=== PATIENT | female | born 1950 | race Caucasian/White ===

== ENCOUNTER 2020-12-20 17:13 | Inpatient (IN) ==
[2020-12-20] MEDS ORDERED: ALBUT/IPRATROP 3MG/0.5MG NEB 3 ML VIAL NEB STA (17:22)
[2020-12-20] MEDS ORDERED: ONDANSETRON INJ 2 MG/ML 2 ML VIAL IV STA (17:22)
[2020-12-20] MEDS ORDERED: SODIUM CHLORIDE 0.9% 500 ML IV SCH (17:30)
[2020-12-20] MEDS: fentaNYL citrate 100 MCG/2 ML VIAL IV PRN ×2 (17:39→20:00)
[2020-12-20 17:43] LABS: Basophils # (auto) 0.01 K/uL (0-0.2); Basophils % (auto) 0.1 %; Eosinophils # (auto) 0.02 K/uL (0-0.5); Eosinophils % (auto) 0.2 %; Hematocrit (blood only) 48.8 % (37-47); Hemoglobin 15.9 g/dL (12.0-16.0); Immature Granulocytes # (auto) 0.02 K/uL (0.00-0.02); Immature Granulocytes % (auto) 0.2 %; Lymphocytes # (auto) 0.81 K/uL (1.2-3.4); Lymphocytes % (auto) 8.4 %; Mean Corpuscular Hemoglobin 29.6 pg (25-34); Mean Corpuscular Hgb Conc 32.6 g/dL (32-36); Mean Corpuscular Volume 90.7 fL (80-100); Mean Platelet Volume 9.9 fL (7.4-10.4); Monocytes # (auto) 0.72 K/uL (0.11-0.59); Monocytes % (auto) 7.5 %; Neutrophils # (auto) 8.04 K/uL (1.4-6.5); Neutrophils % (auto) 83.6 %; Platelet Count 264 K/uL (130-400); RDW Coefficient of Variation 15.7 % (11.5-14.5); RDW Standard Deviation 51.9 fL (36.4-46.3); Red Blood Count 5.38 M/uL (4.2-5.4); White Blood Count 9.62 K/uL (4.8-10.8)
--- NOTE | 2020-12-20 17:43 | Emergency Department Note ---
Impression & Plan Subcapital fracture of right hip, Acute exacerbation of chronic obstructive pulmonary disease, Acute respiratory acidosis, Fall ED Provider Note NAME: RJ COLLINS AGE: 70 SEX: F : 1950 ARRIVES VIA: Ambulance INFORMANT: Patient, EMS personnel ED PROVIDER(S): Kranthi Castillo DO CHIEF COMPLAINT: Fall HPI: The patient is a 70-year-old female who presented to the emergency department from a personal intermediate for an evaluation after a fall. The patient is a history of COPD. She states that she continues to smoke and still lives in [place] but I do believe the patient may have some degree of confusion. According to the prehospital personnel the patient does have a history of dementia. The patient fell while walking onto her right side. She had significant right hip pain. She also has been complaining of a cough which is productive. She states that she has a history of COPD. She has been compliant with her outpatient medicines according to the patient. She denies having any headache nausea or vomiting. She denies having any chest pain or difficulty with neck pain. The patient has no abdominal pain. She has no reported rectal bleeding. There is no reported fever. The patient's symptoms were moderate to severe. They worse with any movement. ROS: See above HPI for pertinent positives & negatives. A total of 10 systems reviewed and were otherwise negative. PAST MEDICAL HISTORY: See Below PAST SURGICAL HISTORY: See Below FAMILY HISTORY: See Below SOCIAL HISTORY: See Below HOME MEDICATIONS: See Below ALLERGIES: See Below VITALS: See Below PHYSICAL EXAMINATION: GENERAL: The patient is awake and alert. The patient is very anxious appearing. She appears to be uncomfortable. EYES: The conjunctivae are clear. The pupils are constricted bilaterally. EARS, NOSE, MOUTH AND THROAT: The nose is without any evidence of any deformity. NECK: The neck is nontender and supple. RESPIRATORY: Diminished breath sounds are noted throughout. Scattered rhonchi and wheezing was noted throughout. There was conversational dyspnea noted. CARDIOVASCULAR: Regular rate and rhythm noted there no murmurs rubs or gallops normal S1 normal S2. GASTROINTESTINAL: The abdomen is soft. Abdomen is nontender. MUSCULOSKELETAL/EXTREMITIES: There is no deformity of either lower extremity. There is significant pain with any range of motion testing of the right lower extremity. Pulses were symmetric in both feet. SKIN: There is no obvious evidence of any rash. There are no petechiae, pallor or cyanosis noted. NEUROLOGIC: Patient is awake and alert. She is oriented to person place but not time or situation. Strength was symmetric. MEDICAL DECISION MAKING: The patient is a 70-year-old female who presented to the emergency department for an evaluation after a fall. The patient has very severe cognitive deficit and dementia. She has a history of chronic tobacco use. The patient was found to have signs of subcapital hip fracture on x-ray. The patient was treated with a DuoNeb as well as pain medication in the emergency department. I discussed the patient's laboratory and radiographic studies with her. Her sister also came to the emergency department to be with her. I discussed the patient's findings with her as well. [facility] They have agreed to evaluate the patient in the emergency department for further management and disposition. Triage Nursing notes reviewed. Prior medical records reviewed Vital Signs: reviewed and remarkable for hypoxia, and elevated blood pressure Differential diagnosis: Fracture, dislocation, contusion, intra-abdominal, pneumothorax, intrathoracic, intracranial, neurologic, compartment syndrome, rhabdomyolysis, as well as other pathologies. ER treatment provided: See below Diagnostics interpreted by me: ECG: EKG was obtained in the emergency department. My interpretation is atrial fibrillation at 85 bpm. There were no PVCs noted. Anterior T wave abnormalities were noted. No previous tracing was available for comparison. Cardiac Monitoring: An order was placed for continuous cardiac monitoring. The monitor shows a rate of 86 bpm with atrial fibrillation rhythm. Laboratory studies: As stated above and show below. Imaging studies: See below Consultation(s): I discussed this case with Carmen Zambrano who [facility] They will evaluate the patient in the emergency department. Past Med/Surg History Medical History Alzheimer's dementia Atrial fibrillation CKD (chronic kidney disease) Cognitive deficits COPD (chronic obstructive pulmonary disease) Hypertension Osteoporosis Respiratory failure Syncope Tobacco use Social History Smoking Status: Current every day smoker Feels Safe at Home: Yes Allergies Allergies Allergy/AdvReac Type Severity Reaction Status Date / Time Penicillins Allergy Unknown Unknown Unverified 12/20/20 18:28 Sulfa (Sulfonamide Allergy Unknown Unknown Unverified 12/20/20 18:28 Antibiotics) acetaminophen Allergy Unknown Unverified 12/20/20 18:28 candesartan [From Atacand] Allergy Unknown Unverified 12/20/20 18:28 codeine Allergy Unknown Unverified 12/20/20 18:28 cyclobenzaprine Allergy Unknown Unverified 12/20/20 18:28 ibuprofen [From Motrin IB] Allergy Unknown Unverified 12/20/20 18:28 moxifloxacin Allergy Unknown Unverified 12/20/20 18:28 nitrofurantoin Allergy Unknown Unverified 12/20/20 18:28 [From Macrodantin] oxybutynin Allergy Unknown Unverified 12/20/20 18:28 propoxyphene Allergy Unknown Unverified 12/20/20 18:28 tramadol Allergy Unknown Unverified 12/20/20 18:28 Home Meds Home Medications Medication Instructions Recorded Confirmed apixaban [Eliquis] 2.5 mg PO BID 12/20/20 12/20/20 buspirone 5 mg PO BID 12/20/20 12/20/20 cholecalciferol (vitamin D3) 25 mcg PO QAM 12/20/20 12/20/20 [Vitamin D3] diltiazem HCl [Cardizem CD] 180 mg PO QAM 12/20/20 12/20/20 docusate sodium [Colace] 100 mg PO BID 12/20/20 12/20/20 donepezil [Aricept] 5 mg PO QAM 12/20/20 12/20/20 ferrous sulfate 325 mg PO BID 12/20/20 12/20/20 fluticasone furoate [Arnuity 1 inh INHALATION QAM 12/20/20 12/20/20 Ellipta] furosemide [Lasix] 20 mg PO 2XWK 12/20/20 12/20/20 gabapentin [Neurontin] 200 mg PO QAM 12/20/20 12/20/20 ipratropium-albuterol 3 ml INHALATION QID 12/20/20 12/20/20 ipratropium-albuterol [Combivent 1 puff INHALATION QID 12/20/20 12/20/20 Respimat] omeprazole 20 mg PO BID 12/20/20 12/20/20 simvastatin [Zocor] 10 mg PO HS 12/20/20 12/20/20 Results & Data (ED) Vital Signs Vital Signs - 24 hr 12/20/20 17:22 12/20/20 17:40 12/20/20 17:53 Temperature 37.0 C Temperature Source Oral Pulse Rate 98 H 90 Pulse Rate [Right Finger] 85 Pulse Rhythm Irregular Respiratory Rate 18 22 16 Respiratory Effort / Characteristics Non-Labored Spontaneous Blood Pressure 137/104 H Blood Pressure Mean 115 Blood Pressure Position Lying Pulse Oximetry 81 L 96 92 Oxygen Delivery Method Room Air Nasal Cannula Room Air Nasal Cannula Oxygen Flow Rate 3 4 Sepsis Recent Fever Within 48 Hours No Sepsis New/Unexplained Change in Mental Status N/A Sepsis Action Taken by Nursing No Action Required Home Medications Current Medication List: was personally reviewed by me Laboratory Data Attestation: I reviewed the patient's lab results. Result diagrams: 12/20/20 17:27 12/20/20 17:27 Lab Results 12/20/20 12/20/20 12/20/20 Range/Units 17:27 17:27 17:27 WBC 9.62 (4.8-10.8) K/uL RBC 5.38 (4.2-5.4) M/uL Hgb 15.9 (12.0-16.0) g/dL Hct 48.8 H (37-47) % MCV 90.7 (80-100) fL MCH 29.6 (25-34) pg MCHC 32.6 (32-36) g/dL RDW Std Deviation 51.9 H (36.4-46.3) fL RDW Coeff of Cheri 15.7 H (11.5-14.5) % Plt Count 264 (130-400) K/uL MPV 9.9 (7.4-10.4) fL Immature Gran % (Auto) 0.2 % Neut % (Auto) 83.6 % Lymph % (Auto) 8.4 % [place] % (Auto) 7.5 % Eos % (Auto) 0.2 % Baso % (Auto) 0.1 % Neut # (Auto) 8.04 H (1.4-6.5) K/uL Lymph # (Auto) 0.81 L (1.2-3.4) K/uL [place] # (Auto) 0.72 H (0.11-0.59) K/uL Eos # (Auto) 0.02 (0-0.5) K/uL Baso # (Auto) 0.01 (0-0.2) K/uL Immature Gran # (Auto) 0.02 (0.00-0.02) K/uL PT 10.3 (9.0-12.0) Seconds INR 1.0 (0.9-1.1) APTT (21.0-31.0) Seconds PTT Ratio VBG pH VBG pCO2 VBG pO2 VBG HCO3 VBG O2 Saturation VBG Base Excess Barometric Pressure Sodium 135 L (136-145) mmol/L Potassium 4.3 (3.5-5.1) mmol/L Chloride 104 (98-107) mmol/L Carbon Dioxide 27 (21-32) mmol/L Anion Gap 4.0 (3-11) BUN 24 H (7-18) mg/dl Creatinine 1.41 H (0.6-1.2) mg/dl Est Cr Clr Drug Dosing 28.8 ml/min Est GFR ( Amer) 43.0 ml/min Est GFR (Non-Af Amer) 37.1 ml/min BUN/Creatinine Ratio 16.8 (10-20) Glucose 97 (70-99) mg/dl Calcium 9.0 (8.5-10.1) mg/dl Magnesium 2.0 (1.8-2.4) mg/dl Total Bilirubin 0.5 (0.2-1) mg/dl AST 17 (15-37) U/L ALT 20 (12-78) U/L Alkaline Phosphatase 69 (45-117) U/L Total Creatine Kinase 98 (26-192) U/L Troponin I < 0.015 (0-0.045) ng/ml Total Protein 6.9 (6.4-8.2) gm/dl Albumin 3.4 (3.4-5.0) gm/dl Globulin 3.5 (2.5-4.0) gm/dl Albumin/Globulin Ratio 1.0 (0.9-2) TSH 1.980 (0.300-4.500) uIu/ml Specimen Hemolysis COVID-19 Eval Order 12/20/20 12/20/20 12/20/20 Range/Units 17:27 18:10 18:44 WBC (4.8-10.8) K/uL RBC (4.2-5.4) M/uL Hgb (12.0-16.0) g/dL Hct (37-47) % MCV (80-100) fL MCH (25-34) pg MCHC (32-36) g/dL RDW Std Deviation (36.4-46.3) fL RDW Coeff of Cheri (11.5-14.5) % Plt Count (130-400) K/uL MPV (7.4-10.4) fL Immature Gran % (Auto) % Neut % (Auto) % Lymph % (Auto) % [place] % (Auto) % Eos % (Auto) % Baso % (Auto) % Neut # (Auto) (1.4-6.5) K/uL Lymph # (Auto) (1.2-3.4) K/uL [place] # (Auto) (0.11-0.59) K/uL Eos # (Auto) (0-0.5) K/uL Baso # (Auto) (0-0.2) K/uL Immature Gran # (Auto) (0.00-0.02) K/uL PT (9.0-12.0) Seconds INR (0.9-1.1) APTT (21.0-31.0) Seconds PTT Ratio VBG pH Cancelled 7.25 L VBG pCO2 Cancelled 61 H VBG pO2 Cancelled 33 VBG HCO3 Cancelled 26 VBG O2 Saturation Cancelled < 60.0 VBG Base Excess Cancelled -2.1 Barometric Pressure Cancelled 734.8 Sodium (136-145) mmol/L Potassium (3.5-5.1) mmol/L Chloride (98-107) mmol/L Carbon Dioxide (21-32) mmol/L Anion Gap (3-11) BUN (7-18) mg/dl Creatinine (0.6-1.2) mg/dl Est Cr Clr Drug Dosing ml/min Est GFR ( Amer) ml/min Est GFR (Non-Af Amer) ml/min BUN/Creatinine Ratio (10-20) Glucose (70-99) mg/dl Calcium (8.5-10.1) mg/dl Magnesium (1.8-2.4) mg/dl Total Bilirubin (0.2-1) mg/dl AST (15-37) U/L ALT (12-78) U/L Alkaline Phosphatase (45-117) U/L Total Creatine Kinase (26-192) U/L Troponin I (0-0.045) ng/ml Total Protein (6.4-8.2) gm/dl Albumin (3.4-5.0) gm/dl Globulin (2.5-4.0) gm/dl Albumin/Globulin Ratio (0.9-2) TSH (0.300-4.500) uIu/ml Specimen Hemolysis COVID-19 Eval Order Covid19 at [facility] 12/20/20 Range/Units 18:44 WBC (4.8-10.8) K/uL RBC (4.2-5.4) M/uL Hgb (12.0-16.0) g/dL Hct (37-47) % MCV (80-100) fL MCH (25-34) pg MCHC (32-36) g/dL RDW Std Deviation (36.4-46.3) fL RDW Coeff of Cheri (11.5-14.5) % Plt Count (130-400) K/uL MPV (7.4-10.4) fL Immature Gran % (Auto) % Neut % (Auto) % Lymph % (Auto) % [place] % (Auto) % Eos % (Auto) % Baso % (Auto) % Neut # (Auto) (1.4-6.5) K/uL Lymph # (Auto) (1.2-3.4) K/uL [place] # (Auto) (0.11-0.59) K/uL Eos # (Auto) (0-0.5) K/uL Baso # (Auto) (0-0.2) K/uL Immature Gran # (Auto) (0.00-0.02) K/uL PT (9.0-12.0) Seconds INR (0.9-1.1) APTT 25.1 (21.0-31.0) Seconds PTT Ratio 1.0 VBG pH VBG pCO2 VBG pO2 VBG HCO3 VBG O2 Saturation VBG Base Excess Barometric Pressure Sodium (136-145) mmol/L Potassium (3.5-5.1) mmol/L Chloride (98-107) mmol/L Carbon Dioxide (21-32) mmol/L Anion Gap (3-11) BUN (7-18) mg/dl Creatinine (0.6-1.2) mg/dl Est Cr Clr Drug Dosing ml/min Est GFR ( Amer) ml/min Est GFR (Non-Af Amer) ml/min BUN/Creatinine Ratio (10-20) Glucose (70-99) mg/dl Calcium (8.5-10.1) mg/dl Magnesium (1.8-2.4) mg/dl Total Bilirubin (0.2-1) mg/dl AST (15-37) U/L ALT (12-78) U/L Alkaline Phosphatase (45-117) U/L Total Creatine Kinase (26-192) U/L Troponin I (0-0.045) ng/ml Total Protein (6.4-8.2) gm/dl Albumin (3.4-5.0) gm/dl Globulin (2.5-4.0) gm/dl Albumin/Globulin Ratio (0.9-2) TSH (0.300-4.500) uIu/ml Specimen Hemolysis COVID-19 Eval Order Administered Medications Fentanyl Citrate (Fentanyl Citrate 100 Mcg/2 Ml Vial) 25 mcg IV Q15M PRN PRN Reason: Pain Stop: 01/03/21 17:21 Last Admin: 12/20/20 17:39 Dose: 25 mcg Documented by: [id number] Discontinued Medications Albuterol (Albut/Ipratrop 3mg/0.5mg Neb 3 Ml Vial) 3 ml NEB NOW STA Stop: 12/20/20 17:23 Last Admin: 12/20/20 17:52 Dose: 3 ml Documented by: [id number] Sodium Chloride (Nss) 500 mls @ 999 mls/hr IV .Q31M TAMEKA Stop: 12/20/20 18:00 Last Admin: 12/20/20 17:39 Dose: 999 mls/hr Documented by: [id number] Ondansetron HCl (Ondansetron Inj 2 Mg/Ml 2 Ml Vial) 4 mg IV NOW STA Stop: 12/20/20 17:23 Last Admin: 12/20/20 17:39 Dose: 4 mg Documented by: [id number] Imaging Data Radiologist's Impression: Cervical Spine CT 12/20/20 17:22 CT OF THE CERVICAL SPINE CLINICAL HISTORY: Neck pain status post trauma COMPARISON STUDY: No previous studies for comparison. CT DOSE: TECHNIQUE: CT scan of the cervical spine was performed from the skull base to the thoracic inlet. Images are reviewed in the axial, sagittal, and coronal planes. IV contrast was not administered for this examination. A dose lowering technique was utilized adhering to the principles of ALARA. FINDINGS: There is no apical pneumothorax. There is pulmonary emphysema with septal edema The prevertebral soft tissues are normal. No acute fractures or traumatic subluxations are visualized. Mild C7-T1 endplate deformities are likely chronic. There are multilevel degenerative changes. There are postsurgical changes of a C3-4 discectomy with metallic implants. There is C4-C6 spinal fusion. IMPRESSION: 1. Postsurgical and degenerative change 2. No acute fractures or traumatic subluxations 3. Pulmonary emphysema with apical septal edema ACT 112: Negative or not required by law. Electronically signed by: Baljit Cronin M.D. 12/20/2020 7:22 PM Chest X-Ray 12/20/20 17:22 XR chest 1V portable CLINICAL HISTORY: weakness COMPARISON STUDY: No previous studies for comparison. FINDINGS: The heart is enlarged. Slight prominence of the upper lobe vessels may be secondary to the AP supine technique Small right pleural effusion. There are right basilar atelectatic changes. Pulmonary emphysema is suspected.[ IMPRESSION: 1. Cardiomegaly and suspected pulmonary emphysema 2. Small right pleural effusion 3. Suspected pulmonary arterial hypertension 4. No evidence of lobar consolidation ACT 112: Negative or not required by law. Electronically signed by: Baljit Cronin M.D. 12/20/2020 5:[address] 12/20/20 17:22 CT head/brain wo con CLINICAL HISTORY: Head pain status post trauma COMPARISON STUDY: No previous studies for comparison. TECHNIQUE: Axial CT of the brain is performed from the vertex to the skull base. IV contrast was not administered for this examination. A dose lowering technique was utilized adhering to the principles of ALARA. CT DOSE: 1188.61 mGy.cm FINDINGS: No intra or extra-axial mass lesions are visualized. There is no CT evidence of acute cortical infarction. There is no evidence of midline shift. There is no acute hemorrhage. No calvarial fractures are visualized. There are patchy white matter hypodensities likely on a small vessel basis. There is no evidence of pathologic ventricular dilatation. There is mild polypoid mucosal thickening within the base the left maxillary sinus. IMPRESSION: No acute intracranial findings ACT 112: Negative or not required by law. Electronically signed by: Baljit Cronin M.D. 12/20/2020 7:18 PM Hip/Pelvis X-Ray 12/20/20 17:22 XR hip RT 2V w pelvis CLINICAL HISTORY: Pain status post trauma COMPARISON: None DISCUSSION: There is a subcapital right hip fracture. There is no dislocation. There is no SI joint diastases. There is no symphysis diastases. Degenerative changes are present within the lumbar spine. There are surgical clips within the pelvis. IMPRESSION: Subcapital right hip fracture. ACT 112: Negative or not required by law. Electronically signed by: Baljit Cronin M.D. 12/20/2020 6:00 PM Discharge Plan Visit Data Chief Complaint: Illness Stated Complaint: HIP & FOOT PAIN ED Provider: Kranthi Castillo Discharge Problem: Subcapital fracture of right hip, Acute exacerbation of chronic obstructive pulmonary disease, Acute respiratory acidosis, Fall Patient Disposition: Being Evaluated by Hospitalist Condition: Good Discharge Instructions Interventions: ED Discharge Assessment Last Done: 12/20/20 18:45 Forms Stand Alone Forms: [facility] Prescriptions Prescriptions: No Action buspirone 5 mg tablet 5 mg PO BID RF: 0 ipratropium-albuterol 0.5 mg-3 mg(2.5 mg base)/3 mL solution for nebulization 3 ml INHALATION QID RF: 0 donepezil [Aricept] 5 mg tablet 5 mg PO QAM RF: 0 diltiazem HCl [Cardizem CD] 180 mg capsule,extended release 24hr 180 mg PO QAM RF: 0 simvastatin [Zocor] 10 mg tablet 10 mg PO HS RF: 0 docusate sodium [Colace] 100 mg Capsule 100 mg PO BID RF: 0 omeprazole 20 mg capsule,delayed release(DR/EC) 20 mg PO BID RF: 0 furosemide [Lasix] 20 mg tablet 20 mg PO 2XWK RF: 0 gabapentin [Neurontin] 100 mg capsule 200 mg PO QAM RF: 0 ferrous sulfate 325 mg (65 mg iron) Tablet,Delayed Release (Dr/Ec) 325 mg PO BID RF: 0 cholecalciferol (vitamin D3) [Vitamin D3] 25 mcg (1,000 unit) Tablet 25 mcg PO QAM RF: 0 Eliquis 2.5 mg tablet 2.5 mg PO BID RF: 0 Arnuity Ellipta 100 mcg/actuation blister with device 1 inh INHALATION QAM RF: 0 Combivent Respimat 20-100 mcg/actuation mist 1 puff INHALATION QID RF: 0 Referrals Referrals: [facility] [Primary Care Provider] - Discharge Problem: Subcapital fracture of right hip Qualifiers: Encounter type: initial encounter Fracture type: closed Qualified Code(s): S72.011A - Unspecified intracapsular fracture of right femur, initial encounter for closed fracture Fall Qualifiers: Encounter type: initial encounter Qualified Code(s): W19.XXXA - Unspecified fall, initial encounter
[2020-12-20 17:51] LABS: Prothrombin Time 10.3 Seconds (9.0-12.0)
--- NOTE | 2020-12-20 18:00 | XRay Report ---
XR chest 1V portable CLINICAL HISTORY: weakness COMPARISON STUDY: No previous studies for comparison. FINDINGS: The heart is enlarged. Slight prominence of the upper lobe vessels may be secondary to the AP supine technique Small right pleural effusion. There are right basilar atelectatic changes. Pulmon hasmukh emphysema is suspected.[ IMPRESSION: 1. Cardiomegaly and suspected pulmonary emphysema 2. Small right pleural effusion 3. Suspected pulmonary arterial hypertension 4. No evidence of lobar consolidation ACT 112: Negative or not required by law. Electronically signed by: Baljit Cronin M.D. 12/20/2020 5:59 PM
--- NOTE | 2020-12-20 18:01 | XRay Report ---
XR hip RT 2V w pelvis CLINICAL HISTORY: Pain status post trauma COMPARISON: None DISCUSSION: There is a subcapital right hip fracture. There is no dislocation. There is no SI joint d iastases. There is no symphysis diastases. Degenerative changes are present within the lumbar spine. There are surgical clips within the pelvis. IMPRESSION: Subcapital right hip fracture. ACT 112: Negative or not required by law. Electronically signed by: Baljit Cronin M.D. 12/20/2020 6:00 PM
[2020-12-20 18:12] LABS: Alanine Aminotransferase 20 U/L (12-78); Albumin Level 3.4 gm/dl (3.4-5.0); Aspartate Aminotransferase 17 U/L (15-37); BUN Creatinine Ratio 16.8 (10-20); Blood Urea Nitrogen 24 mg/dl (7-18); Carbon Dioxide 27 mmol/L (21-32); Chloride 104 mmol/L (98-107); Creatinine Clr Calc Pharmacy 28.8 ml/min; Est GFR (Non-African American) 37.1 ml/min; Glucose 97 mg/dl (70-99); Potassium 4.3 mmol/L (3.5-5.1); Sodium 135 mmol/L (136-145)
[2020-12-20 18:17] LABS: Alkaline Phosphatase 69 U/L (45-117); Bilirubin,Total 0.5 mg/dl (0.2-1); Creatine Kinase 98 U/L (26-192); Globulin 3.5 gm/dl (2.5-4.0); Total Protein 6.9 gm/dl (6.4-8.2); Troponin I < 0.015 ng/ml (0-0.045)
[2020-12-20 18:53] LABS: Base Excess VBG -2.1 mEq/L; HCO3 VBG 26 mmol/L; PCO2 VBG 61 mmHg (38-50); PO2 VBG 33 mmHg; pH VBG 7.25 (7.36-7.41)
[2020-12-20 18:58] LABS: Oxygen Saturation VBG < 60.0 %
[2020-12-20 19:03] LABS: Partial Thromboplastin Time 25.1 Seconds (21.0-31.0)
--- NOTE | 2020-12-20 19:20 | CT Scan Report ---
CT head/brain wo con CLINICAL HISTORY: Head pain status post trauma COMPARISON STUDY: No previous studies for comparison. TECHNIQUE: Axial CT of the brain is performed from the vertex to the skull base. IV contrast was not administered for this examination. A dose lowering technique was utilized adhering to the principles of ALARA. CT DOSE: 1188.61 mGy.cm FINDINGS: No intra or extra-axial mass lesions are visualized. There is no CT evidence of acute cortical infarc tion. There is no evidence of midline shift. There is no acute hemorrhage. No calvarial fractures ar e visualized. There are patchy white matter hypodensities likely on a small vessel basis. There is no evidence of pathologic ventricular dilatation. There is mild polypoid mucosal thickening within the base the left maxillary sinus. IMPRESSION: No acute intracranial findings ACT 112: Negative or not required by law. Electronically signed by: Baljit Cronin M.D. 12/20/2020 7:18 PM
--- NOTE | 2020-12-20 19:23 | CT Scan Report ---
CT OF THE CERVICAL SPINE CLINICAL HISTORY: Neck pain status post trauma COMPARISON STUDY: No previous studies for comparison. CT DOSE: TECHNIQUE: CT scan of the cervical spine was performed from the skull base to the thoracic inlet. Ame ges are reviewed in the axial, sagittal, and coronal planes. IV contrast was not administered for thi s examination. A dose lowering technique was utilized adhering to the principles of ALARA. FINDINGS: There is no apical pneumothorax. There is pulmonary emphysema with septal edema The prevertebral soft tissues are normal. No acute fractures or traumatic subluxations are visualize d. Mild C7-T1 endplate deformities are likely chronic. There are multilevel degenerative changes. There are postsurgical changes of a C3-4 discectomy with m etallic implants. There is C4-C6 spinal fusion. IMPRESSION: 1. Postsurgical and degenerative change 2. No acute fractures or traumatic subluxations 3. Pulmonary emphysema with apical septal edema ACT 112: Negative or not required by law. Electronically signed by: Baljit Cronin M.D. 12/20/2020 7:22 PM
[2020-12-20 20:38] LABS: Appearance Urine Slightly Cloudy (Clear); Bilirubin Urine Negative (Negative); Blood Urine 3+ (Negative); Color Urine Yellow; Glucose Urine UA Negative (Negative); Ketones Urine Negative (Negative); Leukocyte Esterase Urine Trace (Negative); Nitrite Urine Negative (Negative); Protein Urine 3+ (Negative); Urobilinogen Urine Negative (Negative)
[2020-12-20 20:44] LABS: Epithelial Cell Urine >30 /lpf (0-5); WBC Urine >30 /hpf (0-5)
[2020-12-20 20:45] LABS: Amorphous Sediment Urine Present (None Prsent); Bacteria Urine Negative (Negative)
--- NOTE | 2020-12-20 22:11 | History and Physical Report ---
CHIEF COMPLAINT: Status post fall and right hip fracture. HISTORY OF PRESENT ILLNESS: A 70-year-old female with past medical history significant for history of COPD, history of respiratory failure, history of hyperlipidemia, atrial fibrillation, history of CHF, hypertension, severe malnutrition, chronic kidney disease stage III, osteoporosis, Alzheimer's dementia, ongoing tobacco abuse, generalized anxiety disorder. Currently, the patient is at [facility]. Sister is in the room. As per sister, the patient has dementia. She can remember her remote memory, but for recent memory, she has difficulty. The patient is alert to name and place, does not know the dates. The patient is supposed to be in wheelchair. She can walk a little bit with holding the back of the wheelchair. She is supposed to not walk much, but she seems to be walking and she fell today. The patient does not remember exactly how she fell, she fell on the right side and has a right hip fracture. Otherwise, the patient denies any other complaints. Denies any chest pain, no shortness of breath. She has ongoing chronic cough. Smokes 1 pack of cigarettes daily still, okay for nicotine patch. Denies any fever or chills. No nausea, no abdominal pain, no headache, no blurred visions, no earache, no runny nose, no sore throat. She is alert, oriented, can swallow okay. No abdominal pain, normal bowel and bladder movements. No burning micturition. She has on and off swelling in the legs and she is on Lasix. Currently resting comfortably and hemodynamically stable. Oxygen saturations are ranging from 85- 90. She is placed on oxygen and venous blood gasses showed pH of 7.25. Creatinine of 1.4, which seems to be at her baseline. SARS-CoV-2 PCR negative and as per sister, the patient had COVID vaccine, and they are okay for surgery and the patient is a full code. ALLERGIES: TRAMADOL, PENICILLIN, SULFA ANTIBIOTICS, ACETAMINOPHEN, CANDESARTAN, CODEINE, CYCLOBENZAPRINE, IBUPROFEN, MOXIFLOXACIN, NITROFURANTOIN, OXYBUTYNIN, PROPOXYPHENE. PAST MEDICAL HISTORY: As mentioned above. PAST SURGICAL HISTORY: Cholecystectomy, colonoscopy, EGD, shoulder joint exploration, freeing of bowel adhesions, bladder tuck surgery, repair of rotator cuff on the right side x2, appendectomy, revision of cervical spine posterior, total abdominal hysterectomy with removal of the tubes. MEDICATIONS: The patient is on Eliquis 2.5 mg p.o. b.i.d., buspirone 2.5 mg p.o. b.i.d., vitamin D 25 mcg p.o. a.m., diltiazem 180 mg p.o. a.m., Colace 100 mg p.o. b.i.d., Aricept 5 mg p.o. a.m., ferrous sulfate 325 mg p.o. b.i.d., Arnuity Ellipta 1 inhalation a.m., Lasix 20 mg p.o. 2 times a week, gabapentin 200 mg p.o. a.m., DuoNeb q.i.d., Combivent Respimat 1 puff q.i.d., omeprazole 20 mg p.o. b.i.d., simvastatin 10 mg p.o. at bedtime. FAMILY HISTORY: Significant for mother had COPD, nose cancer, heart disease, blood clot, hyperlipidemia. Brother has a renal transplant and lung cancer. SOCIAL HISTORY: Currently living at the [facility]. Smokes 1 pack a day for many years. No alcohol use. No drug use. REVIEW OF SYSTEMS: As per HPI. Rest of the review of systems is negative. PHYSICAL EXAMINATION: GENERAL: The patient is moderately built, currently not in acute distress. VITAL SIGNS: Temperature 37, pulse 91, respiration 28, blood pressure 141/80, oxygen 93%. HEENT: Pupils equal, round and reactive to light. Oral mucosa dry. NECK: No JVD. No neck masses. CARDIOVASCULAR: S1 and S2 heard. Regular rate and rhythm. No murmur, no gallop. RESPIRATORY SYSTEM: Normal AP diameter. No accessory muscle use. Bilateral wheezing heard. No crackles. ABDOMEN: Soft, bowel sounds present, nontender, nondistended. NEUROLOGIC: Cranial nerves II-XII grossly intact, nonfocal. EXTREMITIES: No edema, no erythema. Right lower extremity is slightly shortened. LABORATORY DATA: WBC 9.6, hemoglobin 15.9, hematocrit 48.8, platelets 264. PT 10.3, INR 1, APTT 25.1. Venous blood; pH of 7.25, pCO2 of 61, pO2 of 33, bicarbonate 26. Sodium 135, potassium 4.3, chloride 104, bicarb 27, BUN 24, creatinine 1.4, serum glucose 97, calcium 9.0, magnesium 2, total bilirubin 0.5, AST 17, ALT 20, alkaline phosphatase 69, total creatine kinase 98. Troponin I less than 0.015. TSH 1.9. SARS-CoV-2 PCR negative. IMAGING STUDIES: Hip and pelvic x-ray: Subcapital right hip fracture. CT of the head: No CT evidence of acute cortical infarction. No evidence of midline shift. No acute hemorrhage. Patchy white matter hypodensities likely on a small vessel basis. No evidence of pathological ventricular dilatation. Chest x-ray: Cardiomegaly and suspected pulmonary emphysema, small right pleural effusion, suspected pulmonary artery hypertension. No evidence of lobar consolidation. Cervical spine CT: No acute findings. ELECTROCARDIOGRAM: Atrial fibrillation, rate of 85, nonspecific T abnormalities. ASSESSMENT AND PLAN: This is a 70-year-old female with history of chronic obstructive pulmonary disease, asthma, dementia, atrial fibrillation, hypertension, presents with a fall and a right hip fracture. 1. Mechanical fall and right hip fracture: The patient is wheelchair bound, can walk a little bit with holding the back of the wheelchair. Comes from [facility]. Currently seems to be in mild chronic obstructive pulmonary disease exacerbation. We will need pulmonary preoperative clearance. We will consult pulmonary in the a.m. and also orthopedics. Pain control. We will keep her n.p.o. and monitor in the med-telemetry. 2. Mild chronic obstructive pulmonary disease exacerbation with wheezing, ongoing tobacco abuse: No obvious signs of pneumonia. Start her on doxycycline. We will give her a dose of steroid and continue home nebulizers around the clock and inhalers. p.r.n. nebulizers. Consult pulmonary in the a.m. for further recommendations and continuation of steroids. We will follow the arterial blood gasses. We will place her on BiPAP for now. 3. History of atrial fibrillation: Continue diltiazem. Hold her Eliquis for any procedures. 4. History of lower extremity edema: On Lasix 2 times a week. Though we do not have any echocardiogram on record, getting gentle fluids, we will monitor for any volume overload. 5. Ongoing tobacco abuse: Needs counseling. Place her on nicotine patch. 6. Alzheimer dementia: On Aricept, which we will continue. Monitor for any delirium. 7. Chronic kidney disease stage III: Creatinine 1.4, seems to be at baseline. We will follow the laboratories. 8. Generalized anxiety disorder: Continue buspirone. 9. Gastroesophageal reflux disease: On omeprazole. 10. UTI Possible. Follow cx. Empiric Rocephin. 11. Deep vein thrombosis prophylaxis: Holding her Eliquis for any possible procedures. Restart as soon as possible. DISPOSITION: Admit to [facility]. Expect discharge -- may need placement. Social service to help with discharge planning. Level 1 full code as per my discussion with the sister. Addendum: adjusted bipap settings. Follow abg. In the morning patient feeling better. Job ID: [id number] [email or web address]
[2020-12-20] MEDS ORDERED: SODIUM CHLORIDE 0.9% 1000ML 1,000 ML IV SCH (22:17)
[2020-12-20] MEDS ORDERED: ACETAMINOPHEN 325 MG TAB PO PRN (22:17)
[2020-12-20] MEDS ORDERED: ONDANSETRON INJ 2 MG/ML 2 ML VIAL IV PRN (22:17)
[2020-12-20] MEDS ORDERED: NITROGLYCERIN SL 0.4 MG/TAB TAB SL PRN (22:17)
[2020-12-20] MEDS ORDERED: IPRATROPIUM BROMIDE/ALBUTEROL respimat INH INH SCH (22:17)
[2020-12-20] MEDS ORDERED: Albuterol HFA 8 GM Inhaler (Combivent Respimat P&T Subs) INH PRN (22:40)
[2020-12-20] MEDS ORDERED: Ipratropium HFA Inhaler (Combivent Respimat P&T Subs) INH PRN (22:41)
[2020-12-20] MEDS ORDERED: methylPREDNISolone 40 MG in SYRINGE 0 ML IV ONE (23:00)
[2020-12-20] MEDS: ALBUT/IPRATROP 3MG/0.5MG NEB 3 ML VIAL INH SCH (23:08)
[2020-12-21] MEDS: busPIRone 5 MG TAB PO SCH ×3 (00:39→20:45)
[2020-12-21 00:40] LABS: iSTAT Allen Test Pass; iSTAT Arterial Blood Gas HCO3 25 meg/L (19-24); iSTAT Arterial Blood Gas pCO2 60 mmHg (35-46); iSTAT Arterial Blood Gas pH 7.23 (7.35-7.45); iSTAT Arterial Blood Gas pO2 43 mmHg (80-95); iSTAT Carbon Dioxide 27 mmol/L (24-31); iSTAT FiO2 60 %; iSTAT Site R Radial
[2020-12-21] MEDS: DOCUSATE SODIUM 100 MG CAP PO SCH ×3 (00:40→20:44)
[2020-12-21] MEDS: PANTOprazole 40 MG TAB PO SCH ×3 (00:41→20:44)
[2020-12-21] MEDS: FERROUS SULFATE 325 MG TAB PO SCH ×3 (00:41→20:44)
[2020-12-21] MEDS: SIMVASTATIN 10 MG TAB PO SCH ×2 (00:42→20:46)
[2020-12-21] MEDS: DOXYCYCLINE HYCLATE 100 MG in DEXTROSE 5% 100 ML IV SCH ×3 (00:44→22:59)
[2020-12-21] MEDS ORDERED: FUROSEMIDE 20 MG in SYRINGE 0 ML IV SCH (01:15)
[2020-12-21 01:41] LABS: iSTAT Arterial Blood Gas HCO3 24 meg/L (19-24); iSTAT Arterial Blood Gas pCO2 57 mmHg (35-46); iSTAT Arterial Blood Gas pH 7.23 (7.35-7.45); iSTAT Arterial Blood Gas pO2 134 mmHg (80-95); iSTAT Carbon Dioxide 26 mmol/L (24-31); iSTAT FiO2 60 %; iSTAT Site R Brachial
[2020-12-21 05:23] LABS: Basophils # (auto) 0.01 K/uL (0-0.2); Basophils % (auto) 0.1 %; Eosinophils # (auto) 0.01 K/uL (0-0.5); Eosinophils % (auto) 0.1 %; Immature Granulocytes # (auto) 0.03 K/uL (0.00-0.02); Immature Granulocytes % (auto) 0.3 %; Lymphocytes # (auto) 0.31 K/uL (1.2-3.4); Lymphocytes % (auto) 2.8 %; Mean Corpuscular Hemoglobin 29.6 pg (25-34); Mean Corpuscular Hgb Conc 31.9 g/dL (32-36); Mean Corpuscular Volume 92.9 fL (80-100); Mean Platelet Volume 9.7 fL (7.4-10.4); Monocytes # (auto) 0.27 K/uL (0.11-0.59); Monocytes % (auto) 2.4 %; Neutrophils # (auto) 10.41 K/uL (1.4-6.5); Neutrophils % (auto) 94.3 %; Platelet Count 218 K/uL (130-400); RDW Coefficient of Variation 15.7 % (11.5-14.5); RDW Standard Deviation 53.2 fL (36.4-46.3); Red Blood Count 5.06 M/uL (4.2-5.4); White Blood Count 11.04 K/uL (4.8-10.8)
[2020-12-21 05:48] LABS: BUN Creatinine Ratio 17.3 (10-20); Calcium 8.7 mg/dl (8.5-10.1); Creatinine Clr Calc Pharmacy 27.8 ml/min; Est GFR (African American) 41.2 ml/min; Est GFR (Non-African American) 35.6 ml/min; Magnesium 2.1 mg/dl (1.8-2.4); Potassium 4.8 mmol/L (3.5-5.1)
[2020-12-21 06:35] LABS: Base Excess ABG -3.7 mEq/L (-9-1.8); HCO3 ABG 24 mmol/L (19-24); Oxygen Saturation ABG 95.4 % (90-95); PCO2 ABG 52 mmHg (35-46); PO2 ABG 82 mmHg (80-95); pH ABG 7.28 (7.35-7.45)
[2020-12-21 06:36] LABS: Allen Test Pos (Pos)
[2020-12-21] MEDS: ALBUT/IPRATROP 3MG/0.5MG NEB 3 ML VIAL INH SCH ×4 (07:34→19:10)
--- NOTE | 2020-12-21 07:38 | Pulmonary Consultation ---
Date of Consultation December 21, 2020 Assessment & Plan (1) Acute respiratory failure with hypoxia and hypercapnia: ABG 12/21/2020: 7.28/52/82 on 40% BiPAP Chest x-ray 12/20/2020 personally reviewed: Portable film, hyperinflated, flattened diaphragm, blunting of the right costophrenic angle, bilateral costophrenic angles are clean, enlarged cardiac silhouette, patchy opacities in the right lung zone. Enlarged hilar vascular markings --Acute on chronic hypercapnic hypoxic respiratory failure Etiology is multifactorial Underlying severe COPD with space ventilation being the cause of the chronic Acute could be because of pain medication she got from the hip fracture. Patient has underlying CKD as well but her bicarb in the serum is 26. Recommend continue with O2 supplementation but not to over oxygenate the patient. Keep it around 88-92% Over oxygenating the patient will resulting decreased respiratory drive leading to hypercapnia BiPAP nightly and as needed shortness of breath. --COPD with emphysema Not on any inhalers at home Start the patient on LAMA/LABA as well as ICS. Recommend patient to be discharged on Trelegy inhaler to be used on a daily basis --Current smoker Patient is adamant that she is not going to quit smoking Importance of quitting smoking again explained to the patient especially given that she is on 3 L nasal cannula and actively smoking Plan: Anoro added to Arnuity. Continue with BiPAP nightly and as needed shortness of breath. Patient will benefit from pulmonary follow-up as an outpatient to have PFTs done. I think she will be a candidate for trilogy machine also which can be done as an outpatient Patient has intermediate risk for any surgery given the chronic hypoxic hypercapnic respiratory failure as well as underlying severe COPD. Recommend 6-8 mL/kg of tidal volume and BiPAP post extubation. There is no absolute contraindication from pulmonary perspective to have surgery done. Please note the above document was generated using voice recognition software. It may contain grammatical, syntax or spelling errors.Any formal questions or concerns about the content, text or information contained within the body of thi s dictation should be directly addressed to the provider for clarification. (2) COPD with emphysema: (3) Current smoker: History of Present Illness Attending Physician: Jean Pierre Cartagena MD History of Present Illness 70-year-old female past medical history of COPD, A. fib on Eliquis, hypertension, CKD, Alzheimer's disease, anxiety disorder was admitted to the hospital as she fell and has right hip fracture. Pulmonary were consulted for preop evaluation. At the time of examination patient states that she is feeling better compared to when she came to the ER. Her breathing is a bit better. She has been coughing but not bringing up any phlegm. Denies any hemoptysis. She states she smokes approximately 10 cigarettes on a daily basis currently as well while she is still on 3 L nasal cannula [id number]. Denies any dysuria, no diarrhea. No headache, no blurry vision. Does complain of some discomfort in the hip. Social history: Greater than [id number] active smoker, currently smoking half a pack a day. Allergies Allergy/AdvReac Type Severity Reaction Status Date / Time Penicillins Allergy Unknown Unknown Unverified 12/20/20 18:28 Sulfa (Sulfonamide Allergy Unknown Unknown Unverified 12/20/20 18:28 Antibiotics) acetaminophen Allergy Unknown Unverified 12/20/20 18:28 candesartan [From Atacand] Allergy Unknown Unverified 12/20/20 18:28 codeine Allergy Unknown Unverified 12/20/20 18:28 cyclobenzaprine Allergy Unknown Unverified 12/20/20 18:28 ibuprofen [From Motrin IB] Allergy Unknown Unverified 12/20/20 18:28 moxifloxacin Allergy Unknown Unverified 12/20/20 18:28 nitrofurantoin Allergy Unknown Unverified 12/20/20 18:28 [From Macrodantin] oxybutynin Allergy Unknown Unverified 12/20/20 18:28 propoxyphene Allergy Unknown Unverified 12/20/20 18:28 tramadol Allergy Unknown Unverified 12/20/20 18:28 Home Medications Medication Instructions Recorded Confirmed Type apixaban [Eliquis] 2.5 mg PO BID 12/20/20 12/20/20 History buspirone 5 mg PO BID 12/20/20 12/20/20 History cholecalciferol (vitamin D3) 25 mcg PO QAM 12/20/20 12/20/20 History [Vitamin D3] diltiazem HCl [Cardizem CD] 180 mg PO QAM 12/20/20 12/20/20 History docusate sodium [Colace] 100 mg PO BID 12/20/20 12/20/20 History donepezil [Aricept] 5 mg PO QAM 12/20/20 12/20/20 History ferrous sulfate 325 mg PO BID 12/20/20 12/20/20 History fluticasone furoate [Arnuity 1 inh INHALATION QAM 12/20/20 12/20/20 History Ellipta] furosemide [Lasix] 20 mg PO 2XWK 12/20/20 12/20/20 History gabapentin [Neurontin] 200 mg PO QAM 12/20/20 12/20/20 History ipratropium-albuterol 3 ml INHALATION QID 12/20/20 12/20/20 History ipratropium-albuterol [Combivent 1 puff INHALATION QID 12/20/20 12/20/20 History Respimat] omeprazole 20 mg PO BID 12/20/20 12/20/20 History simvastatin [Zocor] 10 mg PO HS 12/20/20 12/20/20 History Patient History Medical History Alzheimer's dementia Atrial fibrillation CKD (chronic kidney disease) Cognitive deficits COPD (chronic obstructive pulmonary disease) Hypertension Osteoporosis Respiratory failure Syncope Tobacco use Social History Smoking Status: Current every day smoker Second Hand Exposure: No; Do You Dip or Chew Tobacco: No; Tobacco Cessation Education Requested by Patient: No Hx Alcohol Use: No Hx Substance Use: No Preferred Language: Welsh Communication Ability: Effective Distribution Field Engineer Required: No Beliefs That Will Affect Care: None marital status: Current Living Situation: Personal Care Facility How many Children do You have: 1 Feels Safe at Home: Yes Assistive Devices: BiPap, Oxygen - Continuous and Walker Review of Systems Review of Systems: All systems reviewed & are unremarkable except as noted in HPI & below Physical Exam Physical Exam: Constitutional: No acute distress, frail-appearing HEENT: EOMI, PERRLA Respiratory system: Decreased air entry bilaterally, no wheeze, no rhonchi, mild crackles bilateral lower lobes CVS: S1-S2 positive, distant heart sounds Abdomen: Soft, nontender, nondistended, positive bowel sounds x4 Extremities: +2 pulses bilaterally radialis/ dorsalis pedis, no cyanosis, no edema Neuro: Awake alert oriented x3 Psych: Normal mood and affect Skin: no rashes, warm and dry Lymphatic: no cervical or axillary lymphadenopathy Results & Data Results & Data ([facility]) Vital Signs (Past 12 Hours) Vital Signs Temp Pulse Pulse Resp BP BP Pulse Ox 12/21/20 07:30 103 H 18 115/56 L 96 12/21/20 03:41 97 H 15 97 12/21/20 02:48 36.5 C 86 20 99/79 L 98 12/21/20 02:12 92 H 20 122/84 95 12/21/20 00:26 97 H 19 94 12/20/20 23:08 104 H 104 H 28 H 90 12/20/20 22:35 97 H 26 H 94 12/20/20 21:26 92 H 20 122/84 95 12/20/20 20:53 90 20 114/76 95 12/20/20 20:31 84 24 114/76 95 12/20/20 20:30 89 21 95 12/20/20 20:02 91 H 24 12/20/20 20:01 92 H 27 H 119/79 92 12/20/20 20:00 100 H 25 H 12/20/20 19:39 91 H 28 H 141/80 H 93 12/21/20 05:15 12/21/20 05:15 PG Care Time/CCT Total # of Minutes Spent Total Time Spent with Patient: Total time spent is greater than 50% in coordination of care (as documented) at patient's floor/unit and/or counseling patient: Coding Level of Care Code 56156 Initial Inpt Care Lvl 3 Diagnoses Acute respiratory failure with hypoxia and hypercapnia J96.01; J96.02 COPD with emphysema J43.9 Current smoker F17.200
[2020-12-21] MEDS: CHOLECALCIFEROL 1,000 UNITS 25 MCG TAB PO SCH (08:02)
[2020-12-21] MEDS: dilTIAZem HCL 180 MG CAPCR PO SCH (08:02)
[2020-12-21] MEDS: DONEPEZIL HCL 5 MG TAB PO SCH (08:02)
[2020-12-21] MEDS: GABAPENTIN 100 MG CAP PO SCH (08:03)
[2020-12-21] MEDS: FLUTICASONE FUROATE 100MCG 14 PUFFS/INHALER INH SCH (08:04)
[2020-12-21] MEDS: cefTRIAXone SODIUM 1,000 MG in DEXTROSE 5% 50 ML IV SCH (08:46)
[2020-12-21] MEDS ORDERED: PNEUMOCOCCAL Polysaccharide Vaccine 25mcg/0.5mL vial/Syr IM ONE (09:00)
[2020-12-21] MEDS: UMECLIDINIUM/VILANTEROL 62.5/25MCG 7 PUFFS/INHALER INH SCH (12:11)
--- NOTE | 2020-12-21 12:47 | Hospitalist Progress Note ---
Date of Service December 21, 2020 Assessment & Plan (1) Subcapital fracture of right hip: Presented with mechanical fall and right hip pain and noted to have right hip fracture on x-ray Complaining of pain with any movement of the right lower extremity Ortho consulted for possible surgery tomorrow (2) Fall: Mechanical fall (3) Acute exacerbation of chronic obstructive pulmonary disease: History of COPD and complaining of more shortness of breath and wheezing Likely has exacerbation We will continue current management Pulmonary evaluation before proceeding with surgery Ongoing smoking Advised to quit Supportive care will be given (4) Alzheimer's dementia: Pleasantly confused without any acute delirium (5) Atrial fibrillation: Rate is minimally high at around 99/min No acute cardiac symptoms Has been on Eliquis-on hold for possible surgery Other significant chronic medical condition remains stable DVT prophylaxis On Eliquis-on hold now CODE STATUS Full Admission and Anticipated Discharge Date Admission Date: December 20, 2020 Subjective 12/21/2020 The patient was seen and examined in medical telemetry unit Remains stable in bed without any significant pain without any movement He is mildly short of breath at rest with wheezing No chest pain and/or palpitation Review of Systems Review of Systems: All systems reviewed and are unremarkable except as noted below Respiratory: + dyspnea and + wheezing Musculoskeletal: Pain in the hip, mostly on the right side Physical Exam Physical Exam: Lying in bed with minimal distress secondary to shortness of breath and wheezing Constitutional: + ill appearing and average body habitus Eyes: PERRL, conjunctivae normal, anicteric sclerae ENMT: external ear and nose normal, oropharynx normal Neck: trachea midline, no thyromegaly Respiratory: + respiratory distress Auscultation: + diminished lung sounds, + crackles (At the bases) and + wheezes (Mild to moderate wheezing all over) Cardiovascular: Rate/Rhythm: + irregularly irregular Heart Sounds: + murmur (Systolic murmur over precordium) Extremities: + edema (Trace edema bilaterally) Gastrointestinal (Abdomen): Inspection/Auscultation: abdomen not distended Percussion/Palpation: abdomen soft; abdomen nontender Musculoskeletal: Pain in right hip joint with movement Neurologic: Alert, awake and oriented. Easily confused. No focal neuro deficit Lymphatic: no cervical or axillary lymphadenopathy Results & Data Results & Data ([facility]) Vital Signs (Past 12 Hours) Vital Signs Temp Pulse Pulse Resp BP BP Pulse Ox 12/21/20 11:55 36.7 C 99 H 16 109/73 95 12/21/20 11:43 36.4 C L 98 H 19 111/64 90 12/21/20 11:17 101 H 20 90 12/21/20 08:39 117 H 12/21/20 08:10 36.5 C 105 H 18 126/72 96 12/21/20 07:34 106 H 106 H 16 95 12/21/20 07:30 103 H 18 115/56 L 96 12/21/20 03:41 97 H 15 97 12/21/20 02:48 36.5 C 86 20 99/79 L 98 12/21/20 02:12 92 H 20 122/84 95 Laboratory Results Short CBC 12/20/20 12/21/20 Range/Units 17:27 05:15 WBC 9.62 11.04 H (4.8-10.8) K/uL Hgb 15.9 15.0 (12.0-16.0) g/dL Hct 48.8 H 47.0 (37-47) % Plt Count 264 218 (130-400) K/uL BMP 12/20/20 12/21/20 17:27 05:15 Sodium 135 L 136 Potassium 4.3 4.8 Chloride 104 107 Carbon Dioxide 27 26 BUN 24 H 25 H Creatinine 1.41 H 1.46 H Glucose 97 131 H Calcium 9.0 8.7 Cardiac Enzymes 12/20/20 Range/Units 17:27 Total Creatine Kinase 98 (26-192) U/L Troponin I < 0.015 (0-0.045) ng/ml Liver Function 12/20/20 Range/Units 17:27 Total Bilirubin 0.5 (0.2-1) mg/dl AST 17 (15-37) U/L ALT 20 (12-78) U/L Alkaline Phosphatase 69 (45-117) U/L Albumin 3.4 (3.4-5.0) gm/dl Urine 12/20/20 Range/Units 20:10 Urine Color Yellow Urine Appearance Slightly Cloudy (Clear) Urine pH 5.0 (4.5-7.5) Ur Specific [place] 1.020 (1.000-1.030) Urine Protein 3+ H (Negative) Urine Glucose (UA) Negative (Negative) Diagnostic Findings Current Inpatient Medications Albuterol (Albut/Ipratrop 3mg/0.5mg Neb 3 Ml Vial) 3 ml INH QIDR [facility] Stop: 01/19/21 22:16 Last Admin: 12/21/20 11:17 Dose: 3 ml Documented by: Albuterol (Albuterol Hfa 8 Gm Inhaler (Combivent Respimat P&T Subs)) 1 puffs INH QID PRN PRN Reason: PRN Stop: 01/19/21 22:39 Buspirone HCl (Buspirone 5 Mg Tab) 5 mg PO BID [facility] Stop: 01/19/21 22:16 Last Admin: 12/21/20 08:01 Dose: 5 mg Documented by: Diltiazem HCl (Diltiazem Hcl 180 Mg Capcr) 180 mg PO QAM [facility] Stop: 01/20/21 08:59 Last Admin: 12/21/20 08:02 Dose: 180 mg Documented by: Docusate Sodium (Docusate Sodium 100 Mg Cap) 100 mg PO BID [facility] Stop: 01/19/21 22:16 Last Admin: 12/21/20 08:01 Dose: 100 mg Documented by: Donepezil HCl (Donepezil Hcl 5 Mg Tab) 5 mg PO QAM [facility] Stop: 01/20/21 08:59 Last Admin: 12/21/20 08:02 Dose: 5 mg Documented by: Ferrous Sulfate (Ferrous Sulfate 325 Mg Tab) 325 mg PO BID [facility] Stop: 01/19/21 22:16 Last Admin: 12/21/20 08:04 Dose: 325 mg Documented by: Fluticasone Furoate (Fluticasone Furoate 100mcg 14 Puffs/Inhaler) 1 puffs INH QAM [facility] Stop: 01/20/21 08:59 Last Admin: 12/21/20 08:04 Dose: 1 puffs Documented by: Furosemide (Furosemide 20 Mg Tab) 20 mg PO MoFr@0800 [facility] Stop: 01/21/21 07:59 Gabapentin (Gabapentin 100 Mg Cap) 200 mg PO QAM [facility] Stop: 01/20/21 08:59 Last Admin: 12/21/20 08:03 Dose: 200 mg Documented by: Doxycycline Hyclate 100 mg/ (Dextrose) 110 mls @ 50 mls/hr IV Q12H [facility] Stop: 12/27/20 22:59 Last Admin: 12/21/20 11:06 Dose: 50 mls/hr Documented by: Ceftriaxone Sodium 1,000 mg/ (Dextrose) 50 mls @ 100 mls/hr IV Q24H [facility]; Protocol Stop: 12/31/20 08:59 Last Infusion: 12/21/20 09:18 Dose: Infused Documented by: Ipratropium Coleman (Ipratropium Hfa Inhaler (Combivent Respimat P&T Subs)) 1 puffs INH QID PRN PRN Reason: PRN Stop: 01/19/21 22:40 Morphine Sulfate (Morphine Sulfate 4 Mg/Ml 1 Ml Carp\Vial) 3 mg IV Q4H PRN PRN Reason: Pain Stop: 01/03/21 22:16 Nitroglycerin (Nitroglycerin Sl 0.4 Mg/Tab Tab) 0.4 mg SL UD PRN PRN Reason: Chest Pain Stop: 01/19/21 22:16 Ondansetron HCl (Ondansetron Inj 2 Mg/Ml 2 Ml Vial) 4 mg IV Q6H PRN PRN Reason: Nausea Stop: 01/19/21 22:16 Pantoprazole Sodium (Pantoprazole 40 Mg Tab) 40 mg PO BID [facility] Stop: 01/19/21 22:16 Last Admin: 12/21/20 08:02 Dose: 40 mg Documented by: Simvastatin (Simvastatin 10 Mg Tab) 10 mg PO HS [facility] Stop: 01/19/21 22:16 Last Admin: 12/21/20 00:42 Dose: 10 mg Documented by: Umeclidinium/Vilanterol (Umeclidinium/Vilanterol 62.5/25mcg 7 Puffs/Inhaler) 1 puffs INH DAILY [facility] Stop: 01/20/21 11:59 Last Admin: 12/21/20 12:11 Dose: 1 puffs Documented by: Vitamin D (Cholecalciferol 1,000 Units 25 Mcg Tab) 1,000 units PO QAM [facility] Stop: 01/20/21 08:59 Last Admin: 12/21/20 08:02 Dose: 1,000 units Documented by: (1) Fall Encounter type: initial encounter Qualified Code(s): W19.XXXA - Unspecified fall, initial encounter (2) Subcapital fracture of right hip Encounter type: initial encounter Fracture type: closed Qualified Code(s): S72.011A - Unspecified intracapsular fracture of right femur, initial encounter for closed fracture
--- NOTE | 2020-12-21 16:01 | CT Scan Report ---
CT SCAN OF THE RIGHT HIP WITHOUT IV CONTRAST CLINICAL HISTORY: Hip fracture. COMPARISON STUDY: Radiographs of the right hip dated 12/20/2020. TECHNIQUE: CT scan of the right hip is performed from the bony pelvis to the femoral shaft. Images ar e reviewed in the axial, sagittal, and coronal planes. IV contrast was not administered for this exam ination. A dose lowering technique was utilized adhering to the principles of ALARA. CT DOSE: 161.26 mGy.cm FINDINGS: The skeletal structures are osteopenic. Again seen is an impacted subcapital fracture of th e right femur. Moderate soft tissue edema/hemorrhage is noted. There is trace associated right-sided hemarthrosis. The visualized right hemipelvis appears intact. There is no evidence of osteonecrosis o f the right femoral head. Mild to moderate degenerative joint space narrowing is seen in the right hi p. There is no evidence of lytic or blastic lesion. Sclerotic change is noted in the pubic symphysis. There is no evidence of organized hematoma. Subcutaneous soft tissue induration overlies the right h ip. The bladder is decompressed around a Zeng catheter. The uterus is surgically absent. Surgical cl ips are noted in the pelvis. No right pelvic sidewall or inguinal adenopathy is seen. There is no micky e fluid in the pelvis. IMPRESSION: Impacted subcapital fracture of the right femur. ACT 112: Negative or not required by law. Dictated: 12/21/2020 2:52 PM Transcribed: 12/21/2020 3:54 PM Ca [id number] [id number] Electronically signed by: Vazquez Guillory M.D. 12/21/2020 4:00 PM
--- NOTE | 2020-12-21 16:30 | Consultation Report ---
DATE OF CONSULTATION: 12/21/2020. INDICATIONS: This is a 70-year-old female seen at request of Dr. Froilan Beasley regarding a mechani sean fall on her right hip. The patient is supposed to be in a wheelchair. She was [facility]. She does not know how she fell, she fell on her right side. Unable to ambulate, transported to [facility]. She was evaluated by the Emergency Department physician. Radiographs w ere obtained and noted to have a displaced right femoral neck fracture. The patient was then admitte d to the Hospitalist Service for further care and management, and optimization for surgery. The juan alberto ent is relatively comfortable. She has cognitive deficit and mostly history is from the chart. The patient lives at [facility]. PAST MEDICAL HISTORY: COPD, respiratory failure, hyperlipidemia, AFib, CHF, hypertension, severe mal nutrition, chronic kidney disease stage III, osteoporosis, Alzheimer's dementia, tobacco abuse, ongoi ng generalized anxiety disorder. PAST SURGICAL HISTORY: Cholecystectomy, colonoscopy, EGD, shoulder joint exploration, freeing the wes wel adhesions, bladder tuck surgery repair, rotator cuff on the right side x2, appendectomy, revision of cervical spine posterior, total abdominal hysterectomy with removal of tubes. ALLERGIES: TO TRAMADOL, PENICILLIN, SULFA ANTIBIOTICS, ACETAMINOPHEN, CANDESARTAN, CODEINE, CYCLOBENZ APRINE, IBUPROFEN, MOXIFLOXACIN, NITROFURANTOIN, OXYBUTYNIN, PROPOXYPHENE. MEDICATIONS: Eliquis 2.5 mg p.o. b.i.d., buspirone, vitamin D, diltiazem, Colace, Aricept, ferrous s ulfate, Arnuity Ellipta, Lasix, gabapentin, DuoNeb, Combivent, Respimat, omeprazole and simvastatin. SOCIAL HISTORY: Lives at [facility]. Smokes 1 pack a day for 20 to 30 years o r greater. No alcohol use. No drug use. PHYSICAL EXAMINATION: This is a pleasant 70-year-old who is somewhat conversant; however, cognitivel y not registering actual conversation. Examination of the right hip demonstrates skin is warm, dry a nd intact. Local minor bruising. Cap refill was brisk, palpable pulses in the bilateral posterior t ibial and dorsalis pedis with a shortened externally rotated alignment of the right lower extremity. Pain with any active or passive range of motion of the right hip. RADIOGRAPHS: Demonstrate a displaced right femoral neck fracture, osteopenia. No significant osteoar thritis is noted. In the right acetabulum. Radiographs and laboratories reviewed. IMPRESSION: Right displaced subcapital femoral neck fracture. RECOMMENDATION: Hemiarthroplasty, right femoral neck fracture. Pending medical optimization. Mainta in nonweightbearing. Would hold anticoagulants at this time and prepare for likely surgery for hemiar throplasty, right hip tomorrow. I discussed the case with Dr. Qureshi, and he has agreed to get this case scheduled for tomorrow. Maintain n.p.o. A surgical consent to follow. Job ID: [id number]
[2020-12-21] MEDS: NICOTINE 21 MG/24 HR TDSY TD SCH (20:41)
[2020-12-21] MEDS: MoRPHine SULFATE 4 MG/ML 1 ML CARP\\VIAL IV PRN (22:57)
[2020-12-22] MEDS: SODIUM CHLORIDE 0.9% 1000ML 1,000 ML IV SCH ×2 (00:41→22:57)
[2020-12-22] MEDS: MoRPHine SULFATE 4 MG/ML 1 ML CARP\\VIAL IV PRN ×3 (05:47→21:31)
[2020-12-22 06:28] LABS: Basophils # (auto) 0.01 K/uL (0-0.2); Basophils % (auto) 0.1 %; Eosinophils # (auto) 0.07 K/uL (0-0.5); Eosinophils % (auto) 0.6 %; Hematocrit (blood only) 40.6 % (37-47); Immature Granulocytes # (auto) 0.05 K/uL (0.00-0.02); Immature Granulocytes % (auto) 0.4 %; Lymphocytes # (auto) 0.79 K/uL (1.2-3.4); Lymphocytes % (auto) 6.3 %; Mean Corpuscular Hemoglobin 29.4 pg (25-34); Mean Corpuscular Volume 91.9 fL (80-100); Monocytes % (auto) 6.4 %; Neutrophils # (auto) 10.81 K/uL (1.4-6.5); Neutrophils % (auto) 86.2 %; Platelet Count 203 K/uL (130-400); RDW Coefficient of Variation 15.6 % (11.5-14.5); RDW Standard Deviation 52.7 fL (36.4-46.3); Red Blood Count 4.42 M/uL (4.2-5.4); White Blood Count 12.53 K/uL (4.8-10.8)
[2020-12-22] MEDS: ALBUT/IPRATROP 3MG/0.5MG NEB 3 ML VIAL INH SCH ×2 (06:57→11:34)
[2020-12-22 07:01] LABS: BUN Creatinine Ratio 20.1 (10-20); Calcium 8.3 mg/dl (8.5-10.1); Creatinine Clr Calc Pharmacy 21.9 ml/min; Est GFR (African American) 31.6 ml/min; Est GFR (Non-African American) 27.3 ml/min; Magnesium 2.1 mg/dl (1.8-2.4); Phosphorus 4.3 mg/dl (2.5-4.9); Potassium 4.5 mmol/L (3.5-5.1)
[2020-12-22] MEDS ORDERED: COUGH DROP (SUGAR FREE) LOZ 24 LOZ/1 BOX BUCCAL ONE (07:43)
[2020-12-22] MEDS: cefTRIAXone SODIUM 1,000 MG in DEXTROSE 5% 50 ML IV SCH (07:52)
[2020-12-22] MEDS: FLUTICASONE FUROATE 100MCG 14 PUFFS/INHALER INH SCH (07:52)
[2020-12-22] MEDS: UMECLIDINIUM/VILANTEROL 62.5/25MCG 7 PUFFS/INHALER INH SCH (07:53)
[2020-12-22] MEDS ORDERED: ONDANSETRON INJ 2 MG/ML 2 ML VIAL IV PRN (08:36)
[2020-12-22] MEDS ORDERED: ePHEDrine sulfate 50 MG/ML AMP IV PRN (08:36)
[2020-12-22] MEDS ORDERED: ATROPINE SULFATE 0.1 MG/ML 10ML SYR IV PRN (08:36)
--- NOTE | 2020-12-22 08:41 | Anesthesiology Consultation ---
Date of Service December 22, 2020 Assessment & Plan (1) Encounter for pre-operative examination: Chart Review Chart Review: Acceptable Risk for Surgery and Patient NOT seen in Pre Admission Testing Consults Requested none History Surgery Operation Date: 12/22/20 07:00 Proposed Procedures p Right Hip Percutaneous Pinning - Mark Qureshi DO Height/Weight Height: 5 ft 4 in Weight: 49.7 kg Allergies Allergy/AdvReac Type Severity Reaction Status Date / Time Penicillins Allergy Unknown Unknown Unverified 12/20/20 18:28 Sulfa (Sulfonamide Allergy Unknown Unknown Unverified 12/20/20 18:28 Antibiotics) acetaminophen Allergy Unknown Unverified 12/20/20 18:28 candesartan [From [place]and] Allergy Unknown Unverified 12/20/20 18:28 codeine Allergy Unknown Unverified 12/20/20 18:28 cyclobenzaprine Allergy Unknown Unverified 12/20/20 18:28 ibuprofen [From Motrin IB] Allergy Unknown Unverified 12/20/20 18:28 moxifloxacin Allergy Unknown Unverified 12/20/20 18:28 nitrofurantoin Allergy Unknown Unverified 12/20/20 18:28 [From Macrodantin] oxybutynin Allergy Unknown Unverified 12/20/20 18:28 propoxyphene Allergy Unknown Unverified 12/20/20 18:28 tramadol Allergy Unknown Unverified 12/20/20 18:28 Medications Home Medications Medication Instructions Recorded Confirmed Last Taken apixaban [Eliquis] 2.5 mg PO BID 12/20/20 12/20/20 Unknown buspirone 5 mg PO BID 12/20/20 12/20/20 Unknown cholecalciferol (vitamin D3) 25 mcg PO QAM 12/20/20 12/20/20 Unknown [Vitamin D3] diltiazem HCl [Cardizem CD] 180 mg PO QAM 12/20/20 12/20/20 Unknown docusate sodium [Colace] 100 mg PO BID 12/20/20 12/20/20 Unknown donepezil [Aricept] 5 mg PO QAM 12/20/20 12/20/20 Unknown ferrous sulfate 325 mg PO BID 12/20/20 12/20/20 Unknown fluticasone furoate [Arnuity 1 inh INHALATION QAM 12/20/20 12/20/20 Unknown Ellipta] furosemide [Lasix] 20 mg PO 2XWK 12/20/20 12/20/20 Unknown gabapentin [Neurontin] 200 mg PO QAM 12/20/20 12/20/20 Unknown ipratropium-albuterol 3 ml INHALATION QID 12/20/20 12/20/20 Unknown ipratropium-albuterol [Combivent 1 puff INHALATION QID 12/20/20 12/20/20 Unknown Respimat] omeprazole 20 mg PO BID 12/20/20 12/20/20 Unknown simvastatin [Zocor] 10 mg PO HS 12/20/20 12/20/20 Unknown Active Medications Generic Name Dose Route Start Last Admin Trade Name Freq PRN Reason Stop Dose Admin Albuterol 3 ml 12/20/20 22:17 12/22/20 06:57 Albut/Ipratrop 3mg/0.5mg Neb 3 Ml Vial INH 01/19/21 22:16 3 ml QIDR TAMEKA Administration Albuterol 1 puffs 12/20/20 22:40 12/21/20 22:27 Albuterol Hfa 8 Gm Inhaler (Combivent Respimat P&T Subs) INH 01/19/21 22:39 1 puffs QID PRN Administration PRN Buspirone HCl 5 mg 12/20/20 22:17 12/21/20 20:45 Buspirone 5 Mg Tab PO 01/19/21 22:16 5 mg BID TAMEKA Administration Diltiazem HCl 180 mg 12/21/20 09:00 12/21/20 08:02 Diltiazem Hcl 180 Mg Capcr PO 01/20/21 08:59 180 mg QAM TAMEKA Administration Docusate Sodium 100 mg 12/20/20 22:17 12/21/20 20:44 Docusate Sodium 100 Mg Cap PO 01/19/21 22:16 100 mg BID TAMEKA Administration Donepezil HCl 5 mg 12/21/20 09:00 12/21/20 08:02 Donepezil Hcl 5 Mg Tab PO 01/20/21 08:59 5 mg QAM TAMEKA Administration Ferrous Sulfate 325 mg 12/20/20 22:17 12/21/20 20:44 Ferrous Sulfate 325 Mg Tab PO 01/19/21 22:16 325 mg BID TAMEKA Administration Fluticasone Furoate 1 puffs 12/21/20 09:00 12/22/20 07:52 Fluticasone Furoate 100mcg 14 Puffs/Inhaler INH 01/20/21 08:59 1 puffs QAM TAMEKA Administration Gabapentin 200 mg 12/21/20 09:00 12/21/20 08:03 Gabapentin 100 Mg Cap PO 01/20/21 08:59 200 mg QAM TAMEKA Administration Doxycycline Hyclate 100 mg/ 110 mls @ 50 mls/hr 12/20/20 23:00 12/22/20 00:56 Dextrose IV 12/27/20 22:59 Infused Q12H TAMEKA Infusion Ceftriaxone Sodium 1,000 mg/ 50 mls @ 100 mls/hr 12/21/20 09:00 12/22/20 07:52 Dextrose IV 12/31/20 08:59 100 mls/hr Q24H TAMEKA Administration Protocol Sodium Chloride 1,000 mls @ 50 mls/hr 12/22/20 00:30 12/22/20 00:41 Nss 1000ml IV 01/21/21 00:29 50 mls/hr .Q20H TAMEKA Administration Ipratropium [place] 1 puffs 12/20/20 22:41 12/21/20 22:27 Ipratropium Hfa Inhaler (Combivent Respimat P&T Subs) INH 01/19/21 22:40 1 puffs QID PRN Administration PRN Morphine Sulfate 3 mg 12/20/20 22:17 12/22/20 05:47 Morphine Sulfate 4 Mg/Ml 1 Ml Carp\Vial IV 01/03/21 22:16 3 mg Q4H PRN Administration Pain Nicotine 21 mg 12/21/20 20:20 12/21/20 20:41 Nicotine 21 Mg/24 Hr Tdsy TD 01/20/21 20:19 21 mg HS TAMEKA Administration Pantoprazole Sodium 40 mg 12/20/20 22:17 12/21/20 20:44 Pantoprazole 40 Mg Tab PO 01/19/21 22:16 40 mg BID TAMEKA Administration Simvastatin 10 mg 12/20/20 22:17 12/21/20 20:46 Simvastatin 10 Mg Tab PO 01/19/21 22:16 10 mg HS TAMEKA Administration Umeclidinium/Vilanterol 1 puffs 12/21/20 12:00 12/22/20 07:53 Umeclidinium/Vilanterol 62.5/25mcg 7 Puffs/Inhaler INH 01/20/21 11:59 1 puffs DAILY TAMEKA Administration Vitamin D 1,000 units 12/21/20 09:00 12/21/20 08:02 Cholecalciferol 1,000 Units 25 Mcg Tab PO 01/20/21 08:59 1,000 units QAM TAMEKA Administration NPO Date Last Intake of Fluids: 12/22/20 Time Last Intake of Fluids: 00:00 Date Last Intake of Solids: 12/21/20 Time Last Intake of Solids: 17:00 Past Medical History Medical History Alzheimer's dementia Atrial fibrillation CKD (chronic kidney disease) Cognitive deficits COPD (chronic obstructive pulmonary disease) Hypertension Osteoporosis Respiratory failure Syncope Tobacco use Exercise / Class Metabolic Activity IV < 2 Limit ADL/Bedbound Past Surgical History Surgical History (Updated 12/22/20 @ 08:44 by Nikolai Hawkins MD) H/O: hysterectomy History of appendectomy History of shoulder surgery Hx of cervical spine surgery Hx of cholecystectomy Past Anesthesia History No Hx of Anesthesia Complications and No Family Hx of Anesthesia Complications History of PONV No Hx of PONV and No Hx of Motion Sickness Social History Smoking Status: Current every day smoker tobacco type: cigarettes Do You Dip or Chew Tobacco: No Hx Alcohol Use: No Hx Substance Use: No Physical Exam Vital Signs Last Vital Signs Temp 36.7 C 12/22/20 08:56 Pulse 93 H 12/22/20 08:56 Resp 18 12/22/20 08:56 BP 124/79 12/22/20 08:56 Pulse Ox 92 12/22/20 08:56 Testing Laboratory Results 12/22/20 05:58 12/22/20 05:58 PT 10.3 Seconds (9.0-12.0) 12/20/20 17:27 INR 1.0 (0.9-1.1) 12/20/20 17:27 APTT 25.1 Seconds (21.0-31.0) 12/20/20 18:44 Urine Color Yellow 12/20/20 20:10 Urine Appearance Slightly Cloudy (Clear) 12/20/20 20:10 Urine pH 5.0 (4.5-7.5) 12/20/20 20:10 Ur Specific [place] 1.020 (1.000-1.030) 12/20/20 20:10 Urine Protein 3+ (Negative) H 12/20/20 20:10 Urine Glucose (UA) Negative (Negative) 12/20/20 20:10 Urine Ketones Negative (Negative) 12/20/20 20:10 Urine Nitrite Negative (Negative) 12/20/20 20:10 Ur Leukocyte Esterase Trace (Negative) H 12/20/20 20:10 Urine RBC 10-30 /hpf (0-4) H 12/20/20 20:10 Urine WBC >30 /hpf (0-5) H 12/20/20 20:10 Ur Epithelial Cells >30 /lpf (0-5) H 12/20/20 20:10 12/20/20 20:10 Urine Culture - Final Urine,Clean Catch Three types of organisms present, all moderate counts. Repeat collection recommended. No further identifications or sensitivities to follow. Electrocardiogram Date: 12/20/20 Findings: + AFIB @ (85) A fib. Nonspecific T wave abnormality. Abnormal ECG. Chest X-Ray Date: 12/20/20 XR chest 1V portable CLINICAL HISTORY: weakness COMPARISON STUDY: No previous studies for comparison. FINDINGS: The heart is enlarged. Slight prominence of the upper lobe vessels may be secondary to the AP supine technique Small right pleural effusion. There are right basilar atelectatic changes. Pulmonary emphysema is suspected.[ IMPRESSION: 1. Cardiomegaly and suspected pulmonary emphysema 2. Small right pleural effusion 3. Suspected pulmonary arterial hypertension 4. No evidence of lobar consolidation
--- NOTE | 2020-12-22 09:28 | History & Physical Bridge Note ---
Date of Service December 22, 2020 History & Physical Bridge Note I have examined the patient, reviewed the History & Physical and in the interval since the performance of the History & Physical I have noted the following changes of clinical significance: no changes noted
--- NOTE | 2020-12-22 09:31 | Orthopedic Progress Note ---
Date of Service December 22, 2020 Assessment & Plan (1) Subcapital fracture of right hip: The patient is a 70-year-old female with valgus impacted subcapital femoral neck fracture sustained after a fall from standing height. The patient was medically stabilized on 12/22/2020. I indicated the patient for right hip percutaneous pinning. The sister who is the POA was informed of the risks and benefits of surgery, which include but not limited to infection, bleeding, blood clots, damage to nerves, vessels, bone and soft tissue, dislocation, leg length discrepancy, need for additional surgery and . The sister chose to move forward with surgical intervention and informed consent was obtained. Admission and Anticipated Discharge Date Admission Date: December 20, 2020 Subjective Patient seen and examined in preoperative holding accompanied by her sister. Medically optimized for surgery today. Review of Systems Review of Systems: All systems reviewed & are unremarkable except as noted in HPI & below Constitutional: as per Subjective / HPI Physical Exam Physical Exam: RLE NVSI +EHL/FHL/TA/GS SILT grossly, +2 DP pulse, compartments soft NT, skin overlying right hip clean dry and intact. Constitutional: WD/WN, vitals as above Results & Data ([place]) Vital Signs (Past 12 Hours) Vital Signs Temp Pulse Pulse Resp BP BP Pulse Ox 12/22/20 08:56 36.7 C 93 H 18 124/79 124/79 92 12/22/20 07:41 36.6 C 78 20 127/79 91 12/22/20 07:31 83 12/22/20 06:58 85 92 12/22/20 04:28 36.6 C 86 20 120/72 92 12/22/20 00:06 90 12/21/20 23:16 36.7 C 81 18 116/71 91 12/21/20 22:33 97 H 97 H 30 [address] SCAN OF THE RIGHT HIP WITHOUT IV CONTRAST CLINICAL HISTORY: Hip fracture. COMPARISON STUDY: Radiographs of the right hip dated 12/20/2020. TECHNIQUE: CT scan of the right hip is performed from the bony pelvis to the femoral shaft. Images are reviewed in the axial, sagittal, and coronal planes. IV contrast was not administered for this examination. A dose lowering technique was utilized adhering to the principles of ALARA. CT DOSE: 161.26 mGy.cm FINDINGS: The skeletal structures are osteopenic. Again seen is an impacted subcapital fracture of the right femur. Moderate soft tissue edema/hemorrhage is noted. There is trace associated right-sided hemarthrosis. The visualized right hemipelvis appears intact. There is no evidence of osteonecrosis of the right femoral head. Mild to moderate degenerative joint space narrowing is seen in the right hip. There is no evidence of lytic or blastic lesion. Sclerotic change is noted in the pubic symphysis. There is no evidence of organized hematoma. Subcutaneous soft tissue induration overlies the right hip. The bladder is decompressed around a Zeng catheter. The uterus is surgically absent. Surgical clips are noted in the pelvis. No right pelvic sidewall or inguinal adenopathy is seen. There is no free fluid in the pelvis. IMPRESSION: Impacted subcapital fracture of the right femur. (1) Subcapital fracture of right hip Encounter type: initial encounter Fracture type: closed Qualified Code(s): S72.011A - Unspecified intracapsular fracture of right femur, initial encounter for closed fracture
[2020-12-22] MEDS ORDERED: BUPIVACAINE/EPINEPHRINE 0.5% MPF 1:200,000 30 ML VIAL ONE (09:40)
[2020-12-22] MEDS ORDERED: fentaNYL citrate 100 MCG/2 ML VIAL ONE (10:27)
[2020-12-22] MEDS ORDERED: DEXAMETHASONE SOD INJ 4 MG/ML VIAL ONE ×2 (10:42→10:58)
[2020-12-22] MEDS ORDERED: ONDANSETRON INJ 2 MG/ML 2 ML VIAL ONE (10:58)
[2020-12-22] MEDS ORDERED: PROPOFOL IV EMULSION 10 MG/ML 20 ML VIAL IV ONE (10:58)
--- NOTE | 2020-12-22 11:08 | Post Operative Brief Note ---
Immediate Post Op Note v1 Date of Surgery December 22, 2020 Pre & Post Diagnosis Operation Date: 12/22/20 07:00 Pre-Op Diagnosis: Right femoral neck fracture Post-Op Diagnosis: Right femoral neck fracture I identified the patient and participated in the time-out.: Yes Procedure Operation Date: 12/22/20 07:00 Actual Procedures p Right Hip Percutaneous Pinning(Right) - Mark Qureshi DO Surgeon Mark Qureshi DO Anesthetic Assistant None Estimated Blood Loss 25 Findings Consistent with Post-Op Diagnosis Fluids See anesthesia report Specimens None Anesthesia Type General Complications none Disposition Disposition: Recovery Room Overlapping Procedure I was present for: the critical portions of procedure. I was immediately available: during the entire case. Back up surgeon: was not required during procedure.
--- NOTE | 2020-12-22 11:10 | Operative Report ---
Post Operative Report Pre & Post Diagnosis Operation Date: 12/22/20 07:00 Pre-Op Diagnosis: Right femoral neck fracture Post-Op Diagnosis: Right femoral neck fracture I identified the patient and participated in the time-out.: Yes Procedure Operation Date: 12/22/20 07:00 Actual Procedures p Right Hip Percutaneous Pinning(Right) - Mark Qureshi DO Surgeon Mark Qureshi, Cell Tuber Machine None Estimated Blood Loss 25 Findings Consistent with Post-Op Diagnosis Fluids See anesthesia report Specimens None Anesthesia Type General Complications none Disposition Disposition: Recovery Room Indications The patient is a 70-year-old female with valgus impacted right femoral neck fracture sustained after a fall from standing height. The patient was medically stabilized on 12/23/2019. I indicated the patient for right hip percutaneous pinning. The patient sister who is the POA was informed of the risks and benefits of surgery, which include but not limited to infection, bleeding, blood clots, damage to nerves, vessels, bone and soft tissue, dislocation, leg length discrepancy, need for additional surgery and . The patient sister chose to move forward with surgical intervention and informed consent was obtained. Description of Procedure The patient was identified, brought to the operating room, and placed in supine position on the table. After induction of general anesthesia, the patient was positioned on a fracture table. Imaging was obtained utilizing C-arm fluoroscopy of the right hip to assess hip position and version. No reduction was needed. The right hip was then sterilely prepped and draped in the usual fashion for the surgery. A timeout was performed with site arabella confirmation and preoperative antibiotics given. Once again under C-arm fluoroscopy a guide pin was inserted percutaneously and positioned in the inferior neck and femoral head while assessed in both the AP and lateral planes. When satisfactory position was confirmed a small direct lateral incision of the right hip around the guide pin was made. Dissection was carried down to the femur through the IT band and the vastus lateralis was elevated off the bone. Adequate hemostasis was achieved with electrocautery. Next under direct visualization with C-arm fluoroscopy we then used the pin guide to place two additional pins in the anterior superior and posterior superior positions. Position was confirmed both with C-arm fluroscopy in the AP and lateral postion. Each guide pin was measured for appropriate screw length and overdrilled using the cannulated drill bit while utilizing C-arm fluoroscopy to confirm no pin migration had occurred. Three 7.3 16 thread cannulated screws measure 90, 80 and 80 mm were then placed under C-arm fluoroscopy into the femoral head with excellent fixation. The guide pins were removed at this time and final images were obtained utilizing C- arm fluoroscopy. Once this was done and the fixation was solid, the wound was irrigated with copious amounts of sterile saline solution. We then closed in layers using 1 Vicryl, 2-0 Vicryl, and radha for the skin. Sterile xeroform, 4x4, tegaderm dressing was applied. The patient was extubated in the OR , tolerated the procedure well and was taken to the PACU in stable condition. I attest to the content of the Intraoperative Record and any orders documented therein. Any exceptions are noted below.
--- NOTE | 2020-12-22 11:14 | Fluoroscopy Report ---
INTRAOPERATIVE RADIOGRAPHS CLINICAL HISTORY: Open reduction and internal fixation of the right hip. Fluoroscopy time: 76 seconds. FINDINGS: 2 spot fluoroscopic views of the right hip are compared to radiographs dated 12/20/2020. 3 c ortical lag screws transfix a subcapital fracture of the right femur. Near-anatomic alignment is main tained. The orthopedic hardware appears intact. IMPRESSION: Intraoperative images from open reduction and internal fixation of the right proximal fem ur as above. Electronically signed by: Vazquez Guillory M.D. 12/22/2020 11:13 AM
--- NOTE | 2020-12-22 11:27 | Orthopedic Progress Note ---
Date of Service December 22, 2020 Assessment & Plan (1) Subcapital fracture of right hip: Status post right hip percutaneous pinning -Ancef x24 -DVT prophylaxis: SCDs, teds, will restart patient's Eliquis -Nonweightbearing right lower extremity -PT/OT -Postoperative x-ray demonstrates anatomic alignment of fracture, well aligned well fixed cannulated screws without new fracture or dislocation. -A.m. lab Admission and Anticipated Discharge Date Admission Date: December 20, 2020 Subjective Post Operative Progress Note Patient seen in PACU, comfortable, pain well controlled, no acute issues. Review of Systems Review of Systems: All systems reviewed & are unremarkable except as noted in HPI & below Constitutional: as per Subjective / HPI Physical Exam Physical Exam: RLE NVSI +EHL/FHL/TA/GS SILT grossly, +2 DP pulse, compartments soft NT, dressing cdi. Constitutional: WD/WN, vitals as above Results & Data ([facility]) Vital Signs (Past 12 Hours) Vital Signs Temp Pulse Pulse Resp BP BP Pulse Ox 12/22/20 08:56 36.7 C 93 H 18 124/79 124/79 92 12/22/20 07:41 36.6 C 78 20 127/79 91 12/22/20 07:31 83 12/22/20 06:58 85 92 12/22/20 04:28 36.6 C 86 20 120/72 92 12/22/20 00:06 90 (1) Subcapital fracture of right hip Encounter type: initial encounter Fracture type: closed Qualified Code(s): S72.011A - Unspecified intracapsular fracture of right femur, initial encounter for closed fracture
[2020-12-22] MEDS: fentaNYL citrate 100 MCG/2 ML VIAL IV PRN ×2 (11:54→11:59)
[2020-12-22] MEDS ORDERED: NALOXONE HCL 0.4 MG/1 ML VIAL/CARP IV PRN (12:33)
--- NOTE | 2020-12-22 12:44 | XRay Report ---
XR hip 1V RT w pelvis CLINICAL HISTORY: Post-Operative implant position COMPARISON: 12/20/2020 DISCUSSION: 2 views are provided for interpretation. These demonstrate internal fixation of a subcapi kirsty right hip fracture with 3 cannulated screws. IMPRESSION: Internally fixated subcapital right hip fracture with 3 cannulated screws. ACT 112: Negative or not required by law. Electronically signed by: Baljit Cronin M.D. 12/22/2020 12:43 PM
[2020-12-22] MEDS: busPIRone 5 MG TAB PO SCH ×2 (12:46→20:15)
[2020-12-22] MEDS: DOCUSATE SODIUM 100 MG CAP PO SCH ×2 (12:46→20:16)
[2020-12-22] MEDS: FUROSEMIDE 20 MG TAB PO SCH (12:46)
[2020-12-22] MEDS: CHOLECALCIFEROL 1,000 UNITS 25 MCG TAB PO SCH (12:46)
[2020-12-22] MEDS: dilTIAZem HCL 180 MG CAPCR PO SCH (12:46)
[2020-12-22] MEDS: DONEPEZIL HCL 5 MG TAB PO SCH (12:47)
[2020-12-22] MEDS: DOXYCYCLINE HYCLATE 100 MG in DEXTROSE 5% 100 ML IV SCH (12:48)
[2020-12-22] MEDS: PANTOprazole 40 MG TAB PO SCH ×2 (12:48→20:20)
[2020-12-22] MEDS: FERROUS SULFATE 325 MG TAB PO SCH ×2 (12:48→20:16)
[2020-12-22] MEDS: GABAPENTIN 100 MG CAP PO SCH (12:48)
--- NOTE | 2020-12-22 13:52 | Electrocardiogram Report ---
Test Reason : Blood Pressure : / mmHG Vent. Rate : 085 BPM Atrial Rate : 375 BPM P-R Int : 000 ms QRS Dur : 076 ms QT Int : 386 ms P-R-T Axes : 000 076 079 degrees QTc Int : 459 ms Poor data quality, interpretation may be adversely affected Atrial fibrillation Nonspecific T wave abnormality Abnormal ECG No previous ECGs available Confirmed by Steve Ribeiro ([id number]) on 12/22/2020 1:52:35 PM Referred By: [facility] Confirmed By:Steve Ribeiro
--- NOTE | 2020-12-22 14:12 | Anesthesiology Progress Note ---
Date of Service December 22, 2020 Anesthesia Post Procedure Vital Signs Vital Signs: Temp Pulse Pulse Pulse Resp BP BP 12/22/20 14:00 36.6 C 97 H 18 116/80 12/22/20 13:30 36.6 C 99 H 18 114/66 12/22/20 13:02 36.6 C 118 H 20 126/70 12/22/20 12:57 36.7 C 92 H 20 123/61 12/22/20 12:44 90 12/22/20 12:30 36.3 C L 98 H 20 135/79 12/22/20 12:10 36.6 C 90 18 119/68 12/22/20 12:00 99 H 21 123/79 12/22/20 11:50 91 H 12 134/74 12/22/20 11:40 104 H 14 131/81 12/22/20 11:30 107 H 15 121/77 12/22/20 11:20 36.8 C 105 H 15 130/81 12/22/20 08:56 36.7 C 93 H 18 124/79 124/79 12/22/20 07:41 36.6 C 78 20 127/79 12/22/20 07:31 83 12/22/20 06:58 85 12/22/20 04:28 36.6 C 86 20 120/72 12/22/20 00:06 90 12/21/20 23:16 36.7 C 81 18 116/71 12/21/20 22:33 97 H 97 H 30 H 12/21/20 20:00 36.4 C L 77 18 112/60 12/21/20 19:12 90 22 12/21/20 15:31 73 18 12/21/20 15:12 36.9 C 61 16 102/64 12/21/20 15:08 83 Pulse Ox 12/22/20 14:00 87 L 12/22/20 13:30 87 L 12/22/20 13:02 87 L 12/22/20 12:57 91 12/22/20 12:44 12/22/20 12:30 91 12/22/20 12:10 92 12/22/20 12:00 93 12/22/20 11:50 93 12/22/20 11:40 93 12/22/20 11:30 94 12/22/20 11:20 96 12/22/20 08:56 92 12/22/20 07:41 91 12/22/20 07:31 12/22/20 06:58 92 12/22/20 04:28 92 12/22/20 00:06 12/21/20 23:16 91 12/21/20 22:33 93 12/21/20 20:00 92 12/21/20 19:12 93 12/21/20 15:31 92 12/21/20 15:12 95 12/21/20 15:08 Pain Intensity Generalized: Pain Intensity: 5 Right Hip: Pain Intensity: 0 Transfer of Care Handoff Completed per policy Notes Mental Status: alert / awake / arousable and participated in evaluation Patient Amnestic to Procedure: Yes Nausea / Vomiting: adequately controlled Pain: adequately controlled Airway Patency, RR, SpO2: stable & adequate BP & HR: stable & adequate Hydration State: stable & adequate Anesthetic Complications: no major complications apparent and Pt Satisfied with anesthetic care
--- NOTE | 2020-12-22 14:21 | Pulmonology Progress Note ---
Date of Service December 22, 2020 Assessment & Plan (1) COPD with emphysema: (2) Acute respiratory failure with hypoxia and hypercapnia: (3) Acute respiratory acidosis: Impression: 70-year-old male with advanced COPD and ongoing tobacco exposure status post fall with hip fracture taken to the OR 12/22/2020 for repair of hip fracture. She was found to have an acute respiratory acidosis on pre sentation has been using BiPAP intermittently. Recommendations: 1. COPD: Patient's breath sounds are quite coarse today. I am unclear if she can perform a breath-hold for her inhalers. We will transition her to Perforomist and budesonide and try daily Incruse. Will use duo nebs as needed. Discontinue doxycycline and replace with oral azithromycin. Would like to avoid steroids for now given her recent surgery but if her respiratory status should worsen, may need some mild low-dose prednisone. 2. Hypoxemic hypercarbic respiratory failure: Patient's mental status appears improved currently. Would judiciously use any respiratory suppressant medications including narcotics. Can continue noninvasive positive pressure ventilation at night. Follow up VBG in AM. Unclear if she will require this in the long-term or not. Continue oxygen supplementation titrated to keep sats 88 to 90%. Recommend aggressive incentive spirometry, out of bed as tolerated, and pulmonary toilet with ambulation as soon as feasible per orthopedic surgery 3. Tobacco abuse: Smoking cessation recommended to the patient. I doubt she is motivated to consider smoking cessation as she is actively asking me about going outside to smoke. Admission and Anticipated Discharge Date Admission Date: December 20, 2020 Subjective Patient seen and examined. EMR reviewed. The patient is status post repair of a hip fracture this morning. She seen and examined in the room. She states she is doing well. She cannot recall if she used CPAP or BiPAP overnight. She does not report any respiratory difficulties. She asks if she can go outside and have a cigarette. She is not coughing wheez ing or expectorating phlegm. Review of Systems Review of Systems: All systems reviewed & are unremarkable except as noted in HPI & below Physical Exam Constitutional: + thin and + cachectic; no acute distress Elderly female Neck: trachea midline, no thyromegaly Respiratory: normal respiratory effort; no respiratory distress and no labored breathing Auscultation: + rhonchi and + wheezes Cardiovascular: RRR, no murmur, no edema Gastrointestinal (Abdomen): normal bowel sounds, soft, nontender, no hepatosplenomegaly Musculoskeletal: Extremities: extremities normal to inspection Skin: no rashes, warm and dry Neurologic: Nonfocal exam Lymphatic: no cervical lymphadenopathy Results & Data Results & Data ([facility]) Vital Signs (Past 12 Hours) Vital Signs Temp Pulse Pulse Pulse Resp BP BP 12/22/20 14:00 36.6 C 97 H 18 116/80 12/22/20 13:30 36.6 C 99 H 18 114/66 12/22/20 13:02 36.6 C 118 H 20 126/70 12/22/20 12:57 36.7 C 92 H 20 123/61 12/22/20 12:44 90 12/22/20 12:30 36.3 C L 98 H 20 135/79 12/22/20 12:10 36.6 C 90 18 119/68 12/22/20 12:00 99 H 21 123/79 12/22/20 11:50 91 H 12 134/74 12/22/20 11:40 104 H 14 131/81 12/22/20 11:30 107 H 15 121/77 12/22/20 11:20 36.8 C 105 H 15 130/81 12/22/20 08:56 36.7 C 93 H 18 124/79 124/79 12/22/20 07:41 36.6 C 78 20 127/79 12/22/20 07:31 83 12/22/20 06:58 85 12/22/20 04:28 36.6 C 86 20 120/72 Pulse Ox 12/22/20 14:00 87 L 12/22/20 13:30 87 L 12/22/20 13:02 87 L 12/22/20 12:57 91 12/22/20 12:44 12/22/20 12:30 91 12/22/20 12:10 92 12/22/20 12:00 93 12/22/20 11:50 93 12/22/20 11:40 93 12/22/20 11:30 94 12/22/20 11:20 96 12/22/20 08:56 92 12/22/20 07:41 91 12/22/20 07:31 12/22/20 06:58 92 12/22/20 04:28 92 Laboratory Results 12/22/20 05:58 12/22/20 05:58 Diagnostic Findings No new imaging PG Care Time/CCT Total # of Minutes Spent Total Time Spent with Patient: Total time spent is greater than 50% in coor dination of care (as documented) at patient's floor/unit and/or counseling patient: Coding Level of Care Code 67229 Subseq Hosp Care Lvl 3 Diagnoses COPD with emphysema J43.9 Acute respiratory failure with hypoxia and hypercapnia J96.01; J96.02 Acute respiratory acidosis E87.2 Time Spent (min) 35
[2020-12-22] MEDS ORDERED: ALBUT/IPRATROP 3MG/0.5MG NEB 3 ML VIAL INH PRN (14:25)
[2020-12-22] MEDS: ACETAMINOPHEN 1,000 MG/100 ML VIAL IV PRN (15:00)
[2020-12-22] MEDS: AZITHROMYCIN 250 MG TAB PO SCH (15:00)
--- NOTE | 2020-12-22 15:09 | Hospitalist Progress Note ---
Date of Service December 22, 2020 Assessment & Plan (1) Subcapital fracture of right hip: Likely secondary to age-rel osteoporotic fracture of right hip Presented with mechanical fall and right hip pain and noted to have right hip fracture on x-ray Complaining of pain with any movement of the right lower extremity Ortho consulted for possible surgery tomorrow Status post right hip percutaneous pinning on 12/22/2020 Has pain with movement of the right lower extremity otherwise remains stable PT and OT evaluation prior to discharge (2) Fall: Mechanical fall on ground-level Age-rel osteoporotic fracture of right hip (3) Acute exacerbation of chronic obstructive pulmonary disease: History of COPD and complaining of more shortness of breath and wheezing Likely has exacerbation We will continue current management Appreciate pulmonary input and recommendation We will give azithromycin and no history right Optimize bronchodilators Ongoing smoking Advised to quit Supportive care will be given (4) Alzheimer's dementia: Pleasantly confused without any acute delirium (5) Atrial fibrillation: Rate is minimally high at around 99/min No acute cardiac symptoms Has been on Eliquis-on hold for possible surgery Will start Eliquis as soon as possible with hip surgery yesterday Other significant chronic medical condition remains stable DVT prophylaxis On Eliquis-on hold now CODE STATUS Full Admission and Anticipated Discharge Date Admission Date: December 20, 2020 Subjective 12/21/2020 The patient was seen and examined in medical telemetry unit Remains stable in bed without any significant pain without any movement She is mildly short of breath at rest with wheezing No chest pain and/or palpitation 12/22/2020 The patient was seen and examined in medical telemetry unit She is status post right hip percutaneous pinning on 12/22/2020 No pain at rest but pain with movement of the right lower extremity Her breathing has been much better and she wants to go home Review of Systems Review of Systems: All systems reviewed and are unremarkable except as noted below Respiratory: + dyspnea; no wheezing Musculoskeletal: Pain in the hip, mostly on the right side Physical Exam Physical Exam: Lying in bed with minimal shortness of breath but no wheezing Constitutional: + ill appearing and average body habitus Eyes: PERRL, conjunctivae normal, anicteric sclerae ENMT: external ear and nose normal, oropharynx normal Neck: trachea midline, no thyromegaly Respiratory: + respiratory distress Auscultation: + diminished lung sounds and + crackles (At the bases); no wheezes (Mild to moderate wheezing all over) Cardiovascular: Rate/Rhythm: + irregularly irregular Heart Sounds: + murmur (Systolic murmur over precordium) Extremities: + edema (Trace edema bilaterally) Gastrointestinal (Abdomen): Inspection/Auscultation: abdomen not distended Percussion/Palpation: abdomen soft; abdomen nontender Musculoskeletal: Right hip pain with movement of the right lower extremity Neurologic: Alert, awake and oriented x3 Lymphatic: no cervical or axillary lymphadenopathy Results & Data Results & Data ([facility]) Vital Signs (Past 12 Hours) Vital Signs Temp Pulse Pulse Pulse Resp BP BP 12/22/20 14:00 36.6 C 97 H 18 116/80 12/22/20 13:30 36.6 C 99 H 18 114/66 12/22/20 13:02 36.6 C 118 H 20 126/70 12/22/20 12:57 36.7 C 92 H 20 123/61 12/22/20 12:44 90 12/22/20 12:30 36.3 C L 98 H 20 135/79 12/22/20 12:10 36.6 C 90 18 119/68 12/22/20 12:00 99 H 21 123/79 12/22/20 11:50 91 H 12 134/74 12/22/20 11:40 104 H 14 131/81 12/22/20 11:30 107 H 15 121/77 12/22/20 11:20 36.8 C 105 H 15 130/81 12/22/20 08:56 36.7 C 93 H 18 124/79 124/79 12/22/20 07:41 36.6 C 78 20 127/79 12/22/20 07:31 83 12/22/20 06:58 85 12/22/20 04:28 36.6 C 86 20 120/72 Pulse Ox 12/22/20 14:00 87 L 12/22/20 13:30 87 L 12/22/20 13:02 87 L 12/22/20 12:57 91 12/22/20 12:44 12/22/20 12:30 91 12/22/20 12:10 92 12/22/20 12:00 93 12/22/20 11:50 93 12/22/20 11:40 93 12/22/20 11:30 94 12/22/20 11:20 96 12/22/20 08:56 92 12/22/20 07:41 91 12/22/20 07:31 12/22/20 06:58 92 12/22/20 04:28 92 Laboratory Results Short CBC 12/22/20 Range/Units 05:58 WBC 12.53 H (4.8-10.8) K/uL Hgb 13.0 (12.0-16.0) g/dL Hct 40.6 (37-47) % Plt Count 203 (130-400) K/uL BMP 12/22/20 05:58 Sodium 137 Potassium 4.5 Chloride 107 Carbon Dioxide 24 BUN 37 H Creatinine 1.82 H D Glucose 94 Calcium 8.3 L Medications Administered Current Inpatient Medications Albuterol (Albuterol Hfa 8 Gm Inhaler (Combivent Respimat P&T Subs)) 1 puffs INH QID PRN PRN Reason: PRN Stop: 01/19/21 22:39 Last Admin: 12/21/20 22:27 Dose: 1 puffs Documented by: Albuterol (Albut/Ipratrop 3mg/0.5mg Neb 3 Ml Vial) 3 ml INH QID PRN PRN Reason: Bronchospasm Stop: 01/21/21 14:24 Apixaban (Apixaban 2.5 Mg Tab) 2.5 mg PO BID [facility] Stop: 01/22/21 08:59 Atropine Sulfate (Atropine Sulfate 0.1 Mg/Ml 10ml Syr) 0.5 mg IV Q1M PRN PRN Reason: PACU Use-HR<40 &/or Bradycardi Stop: 12/22/20 16:36 Azithromycin (Azithromycin 250 Mg Tab) 250 mg PO QAM [facility] Stop: 12/29/20 14:29 Budesonide (Budesonide 0.5 Mg/2 Ml Vial (Pulmicort)) 0.5 mg NEB BIDR [facility] Stop: 01/21/21 18:59 Buspirone HCl (Buspirone 5 Mg Tab) 5 mg PO BID [facility] Stop: 01/19/21 22:16 Last Admin: 12/22/20 12:46 Dose: 5 mg Documented by: Diltiazem HCl (Diltiazem Hcl 180 Mg Capcr) 180 mg PO QAM [facility] Stop: 01/20/21 08:59 Last Admin: 12/22/20 12:46 Dose: 180 mg Documented by: Docusate Sodium (Docusate Sodium 100 Mg Cap) 100 mg PO BID [facility] Stop: 01/19/21 22:16 Last Admin: 12/22/20 12:46 Dose: 100 mg Documented by: Donepezil HCl (Donepezil Hcl 5 Mg Tab) 5 mg PO QAM [facility] Stop: 01/20/21 08:59 Last Admin: 12/22/20 12:47 Dose: 5 mg Documented by: Ephedrine Sulfate (Ephedrine Sulfate 50 Mg/Ml Amp) 5 mg IV Q5M PRN PRN Reason: PACU Use Only-SBP<90 mmHg Stop: 12/22/20 16:36 Fentanyl Citrate (Fentanyl Citrate 100 Mcg/2 Ml Vial) 25 mcg IV Q5M PRN PRN Reason: PACU Use Only-Pain Stop: 12/22/20 16:36 Last Admin: 12/22/20 11:59 Dose: 25 mcg Documented by: Ferrous Sulfate (Ferrous Sulfate 325 Mg Tab) 325 mg PO BID [facility] Stop: 01/19/21 22:16 Last Admin: 12/22/20 12:48 Dose: 325 mg Documented by: Fluticasone Furoate (Fluticasone Furoate 100mcg 14 Puffs/Inhaler) 1 puffs INH [facility] Stop: 01/20/21 08:59 Last Admin: 12/22/20 07:52 Dose: 1 puffs Documented by: Formoterol Fumarate (Formoterol 20 Mcg/2 Ml Vial) 20 mcg NEB BIDR [facility] Stop: 01/21/21 18:59 Furosemide (Furosemide 20 Mg Tab) 20 mg PO MoFr@0800 [facility] Stop: 01/21/21 07:59 Last Admin: 12/22/20 12:46 Dose: 20 mg Documented by: Gabapentin (Gabapentin 100 Mg Cap) 200 mg PO QAM [facility] Stop: 01/20/21 08:59 Last Admin: 12/22/20 12:48 Dose: 200 mg Documented by: Ceftriaxone Sodium 1,000 mg/ (Dextrose) 50 mls @ 100 mls/hr IV Q24H [facility]; Protocol Stop: 12/31/20 08:59 Last Infusion: 12/22/20 08:22 Dose: Infused Documented by: Sodium Chloride (Nss 1000ml) 1,000 mls @ 50 mls/hr IV .Q20H [facility] Stop: 01/21/21 00:29 Last Admin: 12/22/20 00:41 Dose: 50 mls/hr Documented by: Acetaminophen (Ofirmev) 1,000 mg in 100 mls @ 400 mls/hr IV Q8H PRN PRN Reason: Pain or Fever Stop: 12/25/20 06:54 Cefazolin Sodium (Ancef 1000mg) 1,000 mg in 7.5 mls @ 2.5 mls/min IV Q8H [facility] Stop: 12/23/20 02:02 Miscellaneous (Remove Nicoderm Patch) 1 ea N/A DAILY@2058 [facility] Stop: 01/21/21 20:58 Morphine Sulfate (Morphine Sulfate 4 Mg/Ml 1 Ml Carp\Vial) 3 mg IV Q4H PRN PRN Reason: Pain Stop: 01/03/21 22:16 Last Admin: 12/22/20 14:11 Dose: 3 mg Documented by: Naloxone HCl (Naloxone Hcl 0.4 Mg/1 Ml Vial/Carp) 0.1 mg IV UD PRN PRN Reason: Opioid Overdose Stop: 01/21/21 12:32 Nicotine (Nicotine 21 Mg/24 Hr Tdsy) 21 mg TD HS [facility] Stop: 01/20/21 20:19 Last Admin: 12/21/20 20:41 Dose: 21 mg Documented by: Nitroglycerin (Nitroglycerin Sl 0.4 Mg/Tab Tab) 0.4 mg SL UD PRN PRN Reason: Chest Pain Stop: 01/19/21 22:16 Ondansetron HCl (Ondansetron Inj 2 Mg/Ml 2 Ml Vial) 4 mg IV Q6H PRN PRN Reason: Nausea Stop: 01/19/21 22:16 Ondansetron HCl (Ondansetron Inj 2 Mg/Ml 2 Ml Vial) 4 mg IV ONCE PRN PRN Reason: PACU Use Only-Nausea/Vomiting Stop: 12/22/20 16:36 Pantoprazole Sodium (Pantoprazole 40 Mg Tab) 40 mg PO BID [facility] Stop: 01/19/21 22:16 Last Admin: 12/22/20 12:48 Dose: 40 mg Documented by: Simvastatin (Simvastatin 10 Mg Tab) 10 mg PO HS [facility] Stop: 01/19/21 22:16 Last Admin: 12/21/20 20:46 Dose: 10 mg Documented by: Umeclidinium Bartlett (Umeclidinium Bartlett 62.5mcg/Blister 7 Puffs/Inhaler) 1 puffs INH DAILY [facility] Stop: 01/22/21 08:59 Vitamin D (Cholecalciferol 1,000 Units 25 Mcg Tab) 1,000 units PO QAM [facility] Stop: 01/20/21 08:59 Last Admin: 12/22/20 12:46 Dose: 1,000 units Documented by: (1) Subcapital fracture of right hip Encounter type: initial encounter Fracture type: closed Qualified Code(s): S72.011A - Unspecified intracapsular fracture of right femur, initial encounter for closed fracture (2) Fall Encounter type: initial encounter Qualified Code(s): W19.XXXA - Unspecified fall, initial encounter
[2020-12-22] MEDS: ceFAZolin 1000MG 1,000 MG/7.5 ML SYR IV SCH (17:28)
[2020-12-22] MEDS: BUDESONIDE 0.5 MG/2 ML VIAL (PULMICORT) NEB SCH (19:29)
[2020-12-22] MEDS: FORMOTEROL 20 MCG/2 ML VIAL NEB SCH (19:29)
[2020-12-22] MEDS: NICOTINE 21 MG/24 HR TDSY TD SCH (20:20)
[2020-12-22] MEDS: SIMVASTATIN 10 MG TAB PO SCH (20:21)
[2020-12-22] MEDS ORDERED: Nursing to Pharmacy Communication SCH (21:45)
[2020-12-23] MEDS: ceFAZolin 1000MG 1,000 MG/7.5 ML SYR IV SCH (01:58)
[2020-12-23 06:39] LABS: Base Excess VBG -2.2 mEq/L; HCO3 VBG 25 mmol/L; Hematocrit (blood only) 41.9 % (37-47); Hemoglobin 13.3 g/dL (12.0-16.0); Immature Granulocytes # (auto) 0.03 K/uL (0.00-0.02); Immature Granulocytes % (auto) 0.3 %; Lymphocytes # (auto) 0.44 K/uL (1.2-3.4); Lymphocytes % (auto) 4.8 %; Mean Corpuscular Hemoglobin 29.5 pg (25-34); Mean Corpuscular Hgb Conc 31.7 g/dL (32-36); Mean Corpuscular Volume 92.9 fL (80-100); Mean Platelet Volume 9.9 fL (7.4-10.4); Monocytes # (auto) 0.48 K/uL (0.11-0.59); Monocytes % (auto) 5.2 %; Neutrophils # (auto) 8.27 K/uL (1.4-6.5); Neutrophils % (auto) 89.7 %; Oxygen Saturation VBG < 60.0 %; PCO2 VBG 55 mmHg (38-50); PO2 VBG 24 mmHg; Platelet Count 201 K/uL (130-400); RDW Coefficient of Variation 15.8 % (11.5-14.5); RDW Standard Deviation 53.3 fL (36.4-46.3); Red Blood Count 4.51 M/uL (4.2-5.4); White Blood Count 9.22 K/uL (4.8-10.8); pH VBG 7.28 (7.36-7.41)
[2020-12-23] MEDS: BUDESONIDE 0.5 MG/2 ML VIAL (PULMICORT) NEB SCH ×2 (07:02→19:28)
[2020-12-23] MEDS: FORMOTEROL 20 MCG/2 ML VIAL NEB SCH ×2 (07:02→19:28)
[2020-12-23 07:11] LABS: BUN Creatinine Ratio 23.7 (10-20); Calcium 8.4 mg/dl (8.5-10.1); Creatinine Clr Calc Pharmacy 24.8 ml/min; Est GFR (African American) 36.6 ml/min; Est GFR (Non-African American) 31.6 ml/min; Potassium 4.9 mmol/L (3.5-5.1)
[2020-12-23] MEDS: AZITHROMYCIN 250 MG TAB PO SCH (07:50)
[2020-12-23] MEDS: busPIRone 5 MG TAB PO SCH ×2 (07:50→20:17)
[2020-12-23] MEDS: APIXABAN 2.5 MG TAB PO SCH ×2 (07:50→20:16)
[2020-12-23] MEDS: cefTRIAXone SODIUM 1,000 MG in DEXTROSE 5% 50 ML IV SCH (07:50)
[2020-12-23] MEDS: FLUTICASONE FUROATE 100MCG 14 PUFFS/INHALER INH SCH (07:51)
[2020-12-23] MEDS: FERROUS SULFATE 325 MG TAB PO SCH ×2 (07:51→20:19)
[2020-12-23] MEDS: DOCUSATE SODIUM 100 MG CAP PO SCH ×2 (07:51→20:19)
[2020-12-23] MEDS: DONEPEZIL HCL 5 MG TAB PO SCH (07:51)
[2020-12-23] MEDS: GABAPENTIN 100 MG CAP PO SCH (07:51)
[2020-12-23] MEDS: CHOLECALCIFEROL 1,000 UNITS 25 MCG TAB PO SCH (07:51)
[2020-12-23] MEDS: dilTIAZem HCL 180 MG CAPCR PO SCH (07:51)
[2020-12-23] MEDS: PANTOprazole 40 MG TAB PO SCH ×2 (07:52→20:20)
--- NOTE | 2020-12-23 09:52 | Orthopedic Progress Note ---
Date of Service December 23, 2020 Assessment & Plan (1) Subcapital fracture of right hip: Status post right hip percutaneous pinning POD#1 -Ancef x24 -DVT prophylaxis: SCDs, teds, will restart patient's Eliquis -Nonweightbearing right lower extremity -PT/OT -Postoperative x-ray demonstrates anatomic alignment of fracture, well aligned well fixed cannulated screws without new fracture or dislocation. -A.m. lab - as above, hgb 9.9 Admission and Anticipated Discharge Date Admission Date: December 20, 2020 Subjective Post Operative Progress Note Patient seen sitting up in bed, comfortable, denies complaints, pain well controlled, no acute issues. Denies F/C/N/V/SOB/CP. Review of Systems Review of Systems: All systems reviewed & are unremarkable except as noted in HPI & below Constitutional: as per Subjective / HPI Physical Exam Physical Exam: RLE NVSI +EHL/FHL/TA/GS SILT grossly, +2 DP pulse, compartments soft NT, dressing cdi. Constitutional: WD/WN, vitals as above Results & Data ([facility]) Vital Signs (Past 12 Hours) Vital Signs Temp Pulse Pulse Resp BP Pulse Ox 12/23/20 07:18 36.7 C 81 16 125/77 92 12/23/20 07:05 81 18 70 L 12/23/20 06:20 83 12/23/20 03:57 36.8 C 91 H 20 156/68 H 95 12/22/20 23:57 84 12/22/20 23:28 36.4 C L 81 20 109/70 93 Laboratory Results 12/23/20 12/23/20 12/23/20 Range/Units 06:22 06:22 06:22 WBC 9.22 (4.8-10.8) K/uL RBC 4.51 (4.2-5.4) M/uL Hgb 13.3 (12.0-16.0) g/dL Hct 41.9 (37-47) % MCV 92.9 (80-100) fL MCH 29.5 (25-34) pg MCHC 31.7 L (32-36) g/dL RDW Std Deviation 53.3 H (36.4-46.3) fL RDW Coeff of Cheri 15.8 H (11.5-14.5) % Plt Count 201 (130-400) K/uL MPV 9.9 (7.4-10.4) fL Immature Gran % (Auto) 0.3 % Neut % (Auto) 89.7 % Lymph % (Auto) 4.8 % Mcpherson % (Auto) 5.2 % Eos % (Auto) 0.0 % Baso % (Auto) 0.0 % Neut # (Auto) 8.27 H (1.4-6.5) K/uL Lymph # (Auto) 0.44 L (1.2-3.4) K/uL Mcpherson # (Auto) 0.48 (0.11-0.59) K/uL Eos # (Auto) 0.00 (0-0.5) K/uL Baso # (Auto) 0.00 (0-0.2) K/uL Immature Gran # (Auto) 0.03 H (0.00-0.02) K/uL VBG pH 7.28 L (7.36-7.41) VBG pCO2 55 H (38-50) mmHg VBG pO2 24 mmHg VBG HCO3 25 mmol/L VBG O2 Saturation < 60.0 % VBG Base Excess -2.2 mEq/L Sodium 139 (136-145) mmol/L Potassium 4.9 (3.5-5.1) mmol/L Chloride 110 H (98-107) mmol/L Carbon Dioxide 25 (21-32) mmol/L Anion Gap 4.0 (3-11) BUN 38 H (7-18) mg/dl Creatinine 1.61 H (0.6-1.2) mg/dl Est Cr Clr Drug Dosing 24.8 ml/min Est GFR ( Amer) 36.6 ml/min Est GFR (Non-Af Amer) 31.6 ml/min BUN/Creatinine Ratio 23.7 H (10-20) Glucose 99 (70-99) mg/dl Calcium 8.4 L (8.5-10.1) mg/dl (1) Subcapital fracture of right hip Encounter type: initial encounter Fracture type: closed Qualified Code(s): S72.011A - Unspecified intracapsular fracture of right femur, initial encounter for closed fracture
[2020-12-23] MEDS: UMECLIDINIUM BROMIDE 62.5MCG/BLISTER 7 PUFFS/INHALER INH SCH (10:45)
--- NOTE | 2020-12-23 11:54 | Hospitalist Progress Note ---
Date of Service December 23, 2020 Assessment & Plan (1) Subcapital fracture of right hip: Likely secondary to age-rel osteoporotic fracture of right hip Presented with mechanical fall and right hip pain and noted to have right hip fracture on x-ray Complaining of pain with any movement of the right lower extremity Ortho consulted for possible surgery tomorrow Status post right hip percutaneous pinning on 12/22/2020 Has pain with movement of the right lower extremity otherwise remains stable PT recommended continued therapy-we will likely need short-term rehab (2) Fall: Mechanical fall on ground-level Age-rel osteoporotic fracture of right hip (3) Acute exacerbation of chronic obstructive pulmonary disease: History of COPD and complaining of more shortness of breath and wheezing Likely has exacerbation We will continue current management Appreciate pulmonary input and recommendation We will give azithromycin Optimize bronchodilators Complains more wheezing today and will continue current management Ongoing smoking Advised to quit Supportive care will be given Nicotine patch has been applied (4) Alzheimer's dementia: Pleasantly confused without any acute delirium (5) Atrial fibrillation: Rate is minimally high at around 99/min No acute cardiac symptoms Eliquis has been restarted Other significant chronic medical condition remains stable DVT prophylaxis On Eliquis-on hold now CODE STATUS Full Admission and Anticipated Discharge Date Admission Date: December 20, 2020 Subjective 12/21/2020 The patient was seen and examined in medical telemetry unit Remains stable in bed without any significant pain without any movement She is mildly short of breath at rest with wheezing No chest pain and/or palpitation 12/22/2020 The patient was seen and examined in medical telemetry unit She is status post right hip percutaneous pinning on 12/22/2020 No pain at rest but pain with movement of the right lower extremity Her breathing has been much better and she wants to go home 12/23/2020 The patient was seen and examined in medical telemetry unit He denies any pain at rest His shortness of breath is worse today with more wheezing and coughing No fever and/or chills Review of Systems Review of Systems: All systems reviewed and are unremarkable except as noted below Respiratory: + dyspnea; no wheezing Musculoskeletal: Pain in the hip, mostly on the right side Physical Exam Physical Exam: Lying in bed with minimal shortness of breath but no wheezing Constitutional: + ill appearing and average body habitus Eyes: PERRL, conjunctivae normal, anicteric sclerae ENMT: external ear and nose normal, oropharynx normal Neck: trachea midline, no thyromegaly Respiratory: + respiratory distress Auscultation: + diminished lung sounds and + crackles (At the bases); no wheezes (Mild to moderate wheezing all over) Cardiovascular: Rate/Rhythm: + irregularly irregular Heart Sounds: + murmur (Systolic murmur over precordium) Extremities: + edema (Trace edema bilaterally) Gastrointestinal (Abdomen): Inspection/Auscultation: abdomen not distended Percussion/Palpation: abdomen soft; abdomen nontender Musculoskeletal: Right hip pain with movement of the right lower extremity Neurologic: Alert, awake and oriented x3. Generally weak Lymphatic: no cervical or axillary lymphadenopathy Results & Data Results & Data ([facility]) Vital Signs (Past 12 Hours) Vital Signs Temp Pulse Pulse Resp BP Pulse Ox 12/23/20 11:22 36.4 C L 76 20 116/69 90 12/23/20 07:18 36.7 C 81 16 125/77 92 12/23/20 07:05 81 18 70 L 12/23/20 06:20 83 12/23/20 03:57 36.8 C 91 H 20 156/68 H 95 12/22/20 23:57 84 Laboratory Results Short CBC 12/23/20 Range/Units 06:22 WBC 9.22 (4.8-10.8) K/uL Hgb 13.3 (12.0-16.0) g/dL Hct 41.9 (37-47) % Plt Count 201 (130-400) K/uL BMP 12/23/20 06:22 Sodium 139 Potassium 4.9 Chloride 110 H Carbon Dioxide 25 BUN 38 H Creatinine 1.61 H Glucose 99 Calcium 8.4 L Medications Administered Current Inpatient Medications Albuterol (Albuterol Hfa 8 Gm Inhaler (Combivent Respimat P&T Subs)) 1 puffs INH QID PRN PRN Reason: PRN Stop: 01/19/21 22:39 Last Admin: 12/21/20 22:27 Dose: 1 puffs Documented by: Albuterol (Albut/Ipratrop 3mg/0.5mg Neb 3 Ml Vial) 3 ml INH QID PRN PRN Reason: Bronchospasm Stop: 01/21/21 14:24 Apixaban (Apixaban 2.5 Mg Tab) 2.5 mg PO BID [facility] Stop: 01/22/21 08:59 Last Admin: 12/23/20 07:50 Dose: 2.5 mg Documented by: Azithromycin (Azithromycin 250 Mg Tab) 250 mg PO QAM [facility] Stop: 12/29/20 14:29 Last Admin: 12/23/20 07:50 Dose: 250 mg Documented by: Budesonide (Budesonide 0.5 Mg/2 Ml Vial (Pulmicort)) 0.5 mg NEB BIDR [facility] Stop: 01/21/21 18:59 Last Admin: 12/23/20 07:02 Dose: 0.5 mg Documented by: Buspirone HCl (Buspirone 5 Mg Tab) 5 mg PO BID [facility] Stop: 01/19/21 22:16 Last Admin: 12/23/20 07:50 Dose: 5 mg Documented by: Diltiazem HCl (Diltiazem Hcl 180 Mg Capcr) [facility] Stop: 01/20/21 08:59 Last Admin: 12/23/20 07:51 Dose: 180 mg Documented by: Docusate Sodium (Docusate Sodium 100 Mg Cap) 100 mg PO BID [facility] Stop: 01/19/21 22:16 Last Admin: 12/23/20 07:51 Dose: 100 mg Documented by: Donepezil HCl (Donepezil Hcl 5 Mg Tab) 5 mg PO QAM [facility] Stop: 01/20/21 08:59 Last Admin: 12/23/20 07:51 Dose: 5 mg Documented by: Ferrous Sulfate (Ferrous Sulfate 325 Mg Tab) 325 mg PO BID [facility] Stop: 01/19/21 22:16 Last Admin: 12/23/20 07:51 Dose: 325 mg Documented by: Fluticasone Furoate (Fluticasone Furoate 100mcg 14 Puffs/Inhaler) [facility] Stop: 01/20/21 08:59 Last Admin: 12/23/20 07:51 Dose: 1 puffs Documented by: Formoterol Fumarate (Formoterol 20 Mcg/2 Ml Vial) 20 mcg NEB BIDR [facility] Stop: 01/21/21 18:59 Last Admin: 12/23/20 07:02 Dose: 20 mcg Documented by: Furosemide (Furosemide 20 Mg Tab) 20 mg PO MoFr@0800 [facility] Stop: 01/21/21 07:59 Last Admin: 12/22/20 12:46 Dose: 20 mg Documented by: Gabapentin (Gabapentin 100 Mg Cap) 200 mg PO QAM [facility] Stop: 01/20/21 08:59 Last Admin: 12/23/20 07:51 Dose: 200 mg Documented by: Ceftriaxone Sodium 1,000 mg/ (Dextrose) 50 mls @ 100 mls/hr IV Q24H [facility]; Protocol Stop: 12/31/20 08:59 Last Infusion: 12/23/20 08:20 Dose: Infused Documented by: Sodium Chloride (Nss 1000ml) 1,000 mls @ 50 mls/hr IV .Q20H [facility] Stop: 01/21/21 00:29 Last Admin: 12/22/20 22:57 Dose: 50 mls/hr Documented by: Acetaminophen (Ofirmev) 1,000 mg in 100 mls @ 400 mls/hr IV Q8H PRN PRN Reason: Pain or Fever Stop: 12/25/20 06:54 Last Infusion: 12/22/20 15:15 Dose: Infused Documented by: Miscellaneous (Remove Nicoderm Patch) 1 ea N/A DAILY@2058 [facility] Stop: 01/21/21 20:58 Last Admin: 12/22/20 21:40 Dose: Not Given Documented by: Morphine Sulfate (Morphine Sulfate 4 Mg/Ml 1 Ml Carp\Vial) 3 mg IV Q4H PRN PRN Reason: Pain Stop: 01/03/21 22:16 Last Admin: 12/22/20 21:31 Dose: 3 mg Documented by: Naloxone HCl (Naloxone Hcl 0.4 Mg/1 Ml Vial/Carp) 0.1 mg IV UD PRN PRN Reason: Opioid Overdose Stop: 01/21/21 12:32 Nicotine (Nicotine 21 Mg/24 Hr Tdsy) 21 mg TD HS [facility] Stop: 01/20/21 20:19 Last Admin: 12/22/20 20:20 Dose: 21 mg Documented by: Nitroglycerin (Nitroglycerin Sl 0.4 Mg/Tab Tab) 0.4 mg SL UD PRN PRN Reason: Chest Pain Stop: 01/19/21 22:16 Ondansetron HCl (Ondansetron Inj 2 Mg/Ml 2 Ml Vial) 4 mg IV Q6H PRN PRN Reason: Nausea Stop: 01/19/21 22:16 Pantoprazole Sodium (Pantoprazole 40 Mg Tab) 40 mg PO BID [facility] Stop: 01/19/21 22:16 Last Admin: 12/23/20 07:52 Dose: 40 mg Documented by: Simvastatin (Simvastatin 10 Mg Tab) 10 mg PO HS [facility] Stop: 01/19/21 22:16 Last Admin: 12/22/20 20:21 Dose: 10 mg Documented by: Umeclidinium [place] (Umeclidinium [place] 62.5mcg/Blister 7 Puffs/Inhaler) 1 puffs INH DAILY [facility] Stop: 01/22/21 08:59 Last Admin: 12/23/20 10:45 Dose: 1 puffs Documented by: Vitamin D (Cholecalciferol 1,000 Units 25 Mcg Tab) 1,000 units PO QAM [facility] Stop: 01/20/21 08:59 Last Admin: 12/23/20 07:51 Dose: 1,000 units Documented by: (1) Subcapital fracture of right hip Encounter type: initial encounter Fracture type: closed Qualified Code(s): S72.011A - Unspecified intracapsular fracture of right femur, initial encounter for closed fracture (2) Fall Encounter type: initial encounter Qualified Code(s): W19.XXXA - Unspecified fall, initial encounter
[2020-12-23] MEDS: SODIUM CHLORIDE 0.9% 1000ML 1,000 ML IV SCH (13:28)
--- NOTE | 2020-12-23 13:32 | Pulmonology Progress Note ---
Date of Service December 23, 2020 Assessment & Plan (1) COPD with emphysema: (2) Acute respiratory acidosis: Impression: 70-year-old male with advanced COPD and ongoing tobacco exposure status post fall with hip fracture taken to the OR 12/22/2020 for repair of hip fracture. She was found to have an acute respiratory acidosis on presentation has been using BiPAP intermittently. Recommendations: 1. COPD: Continue Perforomist and budesonide and daily Incruse. Will use duo nebs as needed. Continue azithromycin. Would like to avoid steroids for now given her recent surgery but if her respiratory status should worsen, may need some mild low-dose prednisone. 2. Hypoxemic hypercarbic respiratory failure: Patient's mental status appears improved currently. Would judiciously use any respiratory suppressant medications including narcotics. Can continue noninvasive positive pressure v entilation at night. Her previous chemistry panels did not demonstrate an increased bicarb so I do not think she has a chronic component and when her blood gas is calculated, this appears all relatively acute. Continue oxygen supplementation titrated to keep sats 88 to 90%. Recommend aggressive incentive spirometry, out of bed as tolerated, and pulmonary toilet with ambulation as soon as feasible per orthopedic surgery 3. Tobacco abuse: Smoking cessation recommended to the patient. We will continue to follow with you Admission and Anticipated Discharge Date Admission Date: December 20, 2020 Subjective Patient seen and examined. EMR reviewed. She is without respiratory complaints currently. She states she is occasionally coughing and producing some phlegm in the morning. She does not know wheezing. She is achieving benefit from her respiratory therapy treatments. Review of Systems Review of Systems: All systems reviewed & are unremarkable except as noted in HPI & below Physical Exam Constitutional: + thin and + cachectic; no acute distress Neck: trachea midline, no thyromegaly Respiratory: normal respiratory effort; no respiratory distress and no labored breathing Auscultation: + rhonchi and + wheezes Cardiovascular: RRR, no murmur, no edema Gastrointestinal (Abdomen): normal bowel sounds, soft, nontender, no hepatosplenomegaly Musculoskeletal: Extremities: extremities normal to inspection Skin: no rashes, warm and dry Lymphatic: no cervical lymphadenopathy Results & Data Results & Data ([facility]) Vital Signs (Past 12 Hours) Vital Signs Temp Pulse Pulse Resp BP Pulse Ox 12/23/20 11:22 36.4 C L 76 20 116/69 90 12/23/20 07:18 36.7 C 81 16 125/77 92 12/23/20 07:05 81 18 70 L 12/23/20 06:20 83 12/23/20 03:57 36.8 C 91 H 20 156/68 H 95 Laboratory Results 12/23/20 06:22 12/23/20 06:22 Venous blood gas this mornin.28/55 Diagnostic Findings No new imaging PG Care Time/CCT Total # of Minutes Spent Total Time Spent with Patient: Total time spent is greater than 50% in coordination of care (as documented) at patient's floor/unit and/or counseling patient: Coding Level of Care Code 22744 Subseq Hosp Care Lvl 2 Diagnoses COPD with emphysema J43.9 Acute respiratory acidosis E87.2
[2020-12-23] MEDS: ACETAMINOPHEN 1,000 MG/100 ML VIAL IV PRN (17:00)
[2020-12-23] MEDS: MoRPHine SULFATE 4 MG/ML 1 ML CARP\\VIAL IV PRN (18:02)
[2020-12-23] MEDS: NICOTINE 21 MG/24 HR TDSY TD SCH (20:18)
[2020-12-23] MEDS: SIMVASTATIN 10 MG TAB PO SCH (20:20)
[2020-12-24] MEDS: MoRPHine SULFATE 4 MG/ML 1 ML CARP\\VIAL IV PRN (03:04)
[2020-12-24] MEDS: BUDESONIDE 0.5 MG/2 ML VIAL (PULMICORT) NEB SCH ×2 (06:58→19:03)
[2020-12-24] MEDS: FORMOTEROL 20 MCG/2 ML VIAL NEB SCH ×2 (06:58→19:03)
[2020-12-24] MEDS: cefTRIAXone SODIUM 1,000 MG in DEXTROSE 5% 50 ML IV SCH (07:45)
[2020-12-24] MEDS: CHOLECALCIFEROL 1,000 UNITS 25 MCG TAB PO SCH (07:45)
[2020-12-24] MEDS: AZITHROMYCIN 250 MG TAB PO SCH (07:45)
[2020-12-24] MEDS: PANTOprazole 40 MG TAB PO SCH ×2 (07:46→20:24)
[2020-12-24] MEDS: DONEPEZIL HCL 5 MG TAB PO SCH (07:46)
[2020-12-24] MEDS: APIXABAN 2.5 MG TAB PO SCH ×2 (07:46→20:23)
[2020-12-24] MEDS: busPIRone 5 MG TAB PO SCH ×2 (07:46→20:24)
[2020-12-24] MEDS: FERROUS SULFATE 325 MG TAB PO SCH ×2 (07:46→20:24)
[2020-12-24] MEDS: GABAPENTIN 100 MG CAP PO SCH (07:46)
[2020-12-24] MEDS: DOCUSATE SODIUM 100 MG CAP PO SCH ×2 (07:46→20:24)
[2020-12-24] MEDS: dilTIAZem HCL 180 MG CAPCR PO SCH (07:46)
[2020-12-24] MEDS: FLUTICASONE FUROATE 100MCG 14 PUFFS/INHALER INH SCH (07:47)
[2020-12-24] MEDS: UMECLIDINIUM BROMIDE 62.5MCG/BLISTER 7 PUFFS/INHALER INH SCH (07:47)
--- NOTE | 2020-12-24 08:17 | Orthopedic Progress Note ---
Date of Service December 24, 2020 Assessment & Plan (1) Subcapital fracture of right hip: Status post right hip percutaneous pinning POD#2 -Ancef x24 -DVT prophylaxis: SCDs, teds, will restart patient's Eliquis -Nonweightbearing right lower extremity -PT/OT -Postoperative x-ray demonstrates anatomic alignment of fracture, well aligned well fixed cannulated screws without new fracture or dislocation. Admission and Anticipated Discharge Date Admission Date: December 20, 2020 Subjective Post Operative Progress Note Patient seen sitting up in bed, comfortable, denies complaints, pain well controlled, no acute issues. Denies F/C/N/V/SOB/CP. Review of Systems Review of Systems: All systems reviewed & are unremarkable except as noted in HPI & below Constitutional: as per Subjective / HPI Physical Exam Physical Exam: RLE NVSI +EHL/FHL/TA/GS SILT grossly, +2 DP pulse, compartments soft NT, dressing cdi. Eyes: PERRL, conjunctivae normal, anicteric sclerae Results & Data ([facility]) Vital Signs (Past 12 Hours) Vital Signs Temp Pulse Pulse Resp BP Pulse Ox 12/24/20 08:15 36.5 C 79 20 143/83 H 91 12/24/20 07:00 83 18 92 12/24/20 03:30 36.6 C 79 18 134/75 88 L 12/24/20 01:01 77 12/23/20 23:00 79 18 125/75 95 12/23/20 22:45 63 31 H 94 (1) Subcapital fracture of right hip Encounter type: initial encounter Fracture type: closed Qualified Code(s): S72.011A - Unspecified intracapsular fracture of right femur, initial encounter for closed fracture
[2020-12-24] MEDS: SODIUM CHLORIDE 0.9% 1000ML 1,000 ML IV SCH (09:58)
--- NOTE | 2020-12-24 11:54 | Pulmonology Progress Note ---
Date of Service December 24, 2020 Assessment & Plan (1) COPD with emphysema: (2) Acute respiratory acidosis: Impression: 70-year-old male with advanced COPD and ongoing tobacco exposure status post fall with hip fracture taken to the OR 12/22/2020 for repair of hip fracture. She was found to have an acute respiratory acidosis on presentation has been using BiPAP intermittently. Recommendations: 1. COPD: Continue Perforomist and budesonide and daily Incruse. Will use duo nebs as needed. Continue azithromycin. Given her persistent wheezing and rhonchi, will place on low-dose prednisone, 20 mg daily for 5 days then discontinue. 2. Hypoxemic hypercarbic respiratory failure: Patient's mental status appears improved currently. Would judiciously use any respiratory suppressant medica tions including narcotics. Can continue noninvasive positive pressure ventilation at night. Her previous chemistry panels did not demonstrate an increased bicarb so I do not think she has a chronic component and when her blood gas is calculated, this appears all relatively acute. Continue oxygen supplementation titrated to keep sats 88 to 90%. Recommend aggressive incentive spirometry, out of bed as tolerated, and pulmonary toilet with ambulation as soon as feasible per orthopedic surgery 3. Tobacco abuse: Smoking cessation recommended to the patient. Disposition per primary service Admission and Anticipated Discharge Date Admission Date: December 20, 2020 Subjective Patient seen and examined. She does not report any respiratory distress. She states she always has a slight cough in the morning and this is unchanged from baseline. She is anxious to get out of the hospital. She does not report any difficulties with her breathing. Review of Systems Review of Systems: All systems reviewed & are unremarkable except as noted in HPI & below Physical Exam Constitutional: + thin and + cachectic; no acute distress Neck: trachea midline, no thyromegaly Respiratory: normal respiratory effort; no respiratory distress and no labored breathing Auscultation: + rhonchi and + wheezes Cardiovascular: RRR, no murmur, no edema Gastrointestinal (Abdomen): normal bowel sounds, soft, nontender, no hepatosplenomegaly Musculoskeletal: Extremities: extremities normal to inspection Skin: no rashes, warm and dry Lymphatic: no cervical lymphadenopathy Results & Data Results & Data ([facility]) Vital Signs (Past 12 Hours) Vital Signs Temp Pulse Pulse Resp BP Pulse Ox 12/24/20 08:15 36.5 C 79 20 143/83 H 91 12/24/20 08:00 80 12/24/20 07:00 83 18 92 12/24/20 03:30 36.6 C 79 18 134/75 88 L 12/24/20 01:01 77 Laboratory Results 12/23/20 06:22 12/23/20 06:22 Diagnostic Findings No new imaging PG Care Time/CCT Total # of Minutes Spent Total Time Spent with Patient: Total time spent is greater than 50% in coordination of care (as documented) at patient's floor/unit and/or counseling patient: Coding Level of Care Code 16403 Subseq Hosp Care Lvl 3 Diagnoses COPD with emphysema J43.9 Acute respiratory acidosis E87.2
[2020-12-24] MEDS: predniSONE 20 MG TAB PO SCH (12:42)
--- NOTE | 2020-12-24 19:43 | Hospitalist Progress Note ---
Date of Service December 24, 2020 Assessment & Plan (1) Acute respiratory failure with hypoxia and hypercapnia: Multifactorial etiology including but not limited to underlying COPD, increased narcotic pain medication and CKD. Resolved with no breathing issues at this time. Per pulmonology, cont azithromycin, short course of prednisone, bronchodilators and other inhalers as scheduled. Smoking cessation strongly recommended. (2) Subcapital fracture of right hip: Probable osteoporotic fracture of right hip s/p fall s/p repair on 12/22 and doing well but has some pain. Managed well with pain medications. We discussed her chronic constipation and will schedule stool softeners/laxative. (3) Fall: PT/OT with recommendations for a short term stay at rehab. NWB on the right leg. (4) Atrial fibrillation: rate controlled on diltiazem, continues on eliquis (5) Smoking: smoking cessation recommended. (6) DVT prophylaxis: Eliquis Full Dispo-to rehab, awaiting placement. Vera Whitt DO [facility] [place] and Anticipated Discharge Date Admission Date: December 20, 2020 Subjective 70 yo s/p R hip fracture and repair-doing well aside from some pain in the incision site. Controleld with pain medications. Reports chronic constipation. Denies other symptoms. Review of Systems Review of Systems: All systems reviewed & are unremarkable except as noted in Subjective Physical Exam Physical Exam: CONSTITUTIONAL: WNWD, vitals as above, generally well- appearing EYES: normal conjunctivae, no scleral icterus ENT: external ear and nose normal,MMM RESPIRATORY: clear to auscultation bilaterally, no crackles, rales or wheezes, normal respiratory effort CARDIOVASCULAR: regular rate and rhythm, S1 and 2 heard without murmurs, gallops or rubs, no JVD, no peripheral edema GASTROINTESTINAL: soft, nontender, nondistended MUSCULOSKELETAL: strength 5/5 throughout, head is normocephalic and atraumatic, neck supple, normal palpation of chest wall without tenderness SKIN: warm and dry NEUROLOGIC: CN 2-12 grossly intact, normal cognition, normal speech, no tremor PSYCHIATRIC: alert cooperative and oriented to person, place and time. Results & Data Results & Data ([facility]) Vital Signs (Past 12 Hours) Vital Signs Temp Pulse Pulse Resp BP Pulse Ox 12/24/20 19:08 72 19 95 12/24/20 19:00 36.6 C 86 20 139/88 94 12/24/20 16:00 74 12/24/20 15:43 36.5 C 79 20 133/86 90 12/24/20 12:31 36.4 C L 86 20 127/75 90 12/24/20 08:15 36.5 C 79 20 143/83 H 91 12/24/20 08:00 80 Medications Administered Current Inpatient Medications Albuterol (Albuterol Hfa 8 Gm Inhaler (Combivent Respimat P&T Subs)) 1 puffs INH QID PRN PRN Reason: PRN Stop: 01/19/21 22:39 Last Admin: 12/21/20 22:27 Dose: 1 puffs Documented by: Albuterol (Albut/Ipratrop 3mg/0.5mg Neb 3 Ml Vial) 3 ml INH QID PRN PRN Reason: Bronchospasm Stop: 01/21/21 14:24 Apixaban (Apixaban 2.5 Mg Tab) 2.5 mg PO BID [facility] Stop: 01/22/21 08:59 Last Admin: 12/24/20 07:46 Dose: 2.5 mg Documented by: Azithromycin (Azithromycin 250 Mg Tab) 250 mg PO QAM [facility] Stop: 12/29/20 14:29 Last Admin: 12/24/20 07:45 Dose: 250 mg Documented by: Budesonide (Budesonide 0.5 Mg/2 Ml Vial (Pulmicort)) 0.5 mg NEB BIDR [facility] Stop: 01/21/21 18:59 Last Admin: 12/24/20 19:03 Dose: 0.5 mg Documented by: Buspirone HCl (Buspirone 5 Mg Tab) 5 mg PO BID [facility] Stop: 01/19/21 22:16 Last Admin: 12/24/20 07:46 Dose: 5 mg Documented by: Diltiazem HCl (Diltiazem Hcl 180 Mg Capcr) 180 mg PO QAM [facility] Stop: 01/20/21 08:59 Last Admin: 12/24/20 07:46 Dose: 180 mg Documented by: Docusate Sodium (Docusate Sodium 100 Mg Cap) 100 mg PO BID [facility] Stop: 01/19/21 22:16 Last Admin: 12/24/20 07:46 Dose: 100 mg Documented by: Donepezil HCl (Donepezil Hcl 5 Mg Tab) 5 mg PO QAM [facility] Stop: 01/20/21 08:59 Last Admin: 12/24/20 07:46 Dose: 5 mg Documented by: Ferrous Sulfate (Ferrous Sulfate 325 Mg Tab) 325 mg PO BID [facility] Stop: 01/19/21 22:16 Last Admin: 12/24/20 07:46 Dose: 325 mg Documented by: Fluticasone Furoate (Fluticasone Furoate 100mcg 14 Puffs/Inhaler) [facility] Stop: 01/20/21 08:59 Last Admin: 12/24/20 07:47 Dose: 1 puffs Documented by: Formoterol Fumarate (Formoterol 20 Mcg/2 Ml Vial) 20 mcg NEB BIDR [facility] Stop: 01/21/21 18:59 Last Admin: 12/24/20 19:03 Dose: 20 mcg Documented by: Furosemide (Furosemide 20 Mg Tab) 20 mg PO MoFr@0800 [facility] Stop: 01/21/21 07:59 Last Admin: 12/22/20 12:46 Dose: 20 mg Documented by: Gabapentin (Gabapentin 100 Mg Cap) 200 mg PO QAM [facility] Stop: 01/20/21 08:59 Last Admin: 12/24/20 07:46 Dose: 200 mg Documented by: Ceftriaxone Sodium 1,000 mg/ (Dextrose) 50 mls @ 100 mls/hr IV Q24H [facility]; Protocol Stop: 12/31/20 08:59 Last Infusion: 12/24/20 08:26 Dose: Infused Documented by: Sodium Chloride (Nss 1000ml) 1,000 mls @ 50 mls/hr IV .Q20H [facility] Stop: 01/21/21 00:29 Last Admin: 12/24/20 09:58 Dose: 50 mls/hr Documented by: Acetaminophen (Ofirmev) 1,000 mg in 100 mls @ 400 mls/hr IV Q8H PRN PRN Reason: Pain or Fever Stop: 12/25/20 06:54 Last Infusion: 12/23/20 17:41 Dose: Infused Documented by: Miscellaneous (Remove Nicoderm Patch) 1 ea N/A DAILY@2058 [facility] Stop: 01/21/21 20:58 Last Admin: 12/23/20 20:19 Dose: 1 ea Documented by: Morphine Sulfate (Morphine Sulfate 4 Mg/Ml 1 Ml Carp\Vial) 3 mg IV Q4H PRN PRN Reason: Pain Stop: 01/03/21 22:16 Last Admin: 12/24/20 03:04 Dose: 3 mg Documented by: Naloxone HCl (Naloxone Hcl 0.4 Mg/1 Ml Vial/Carp) 0.1 mg IV UD PRN PRN Reason: Opioid Overdose Stop: 01/21/21 12:32 Nicotine (Nicotine 21 Mg/24 Hr Tdsy) 21 mg TD HS [facility] Stop: 01/20/21 20:19 Last Admin: 12/23/20 20:18 Dose: 21 mg Documented by: Nitroglycerin (Nitroglycerin Sl 0.4 Mg/Tab Tab) 0.4 mg SL UD PRN PRN Reason: Chest Pain Stop: 01/19/21 22:16 Ondansetron HCl (Ondansetron Inj 2 Mg/Ml 2 Ml Vial) 4 mg IV Q6H PRN PRN Reason: Nausea Stop: 01/19/21 22:16 Pantoprazole Sodium (Pantoprazole 40 Mg Tab) 40 mg PO BID [facility] Stop: 01/19/21 22:16 Last Admin: 12/24/20 07:46 Dose: 40 mg Documented by: Prednisone (Prednisone 20 Mg Tab) 20 mg PO DAILY [facility] Stop: 12/28/20 09:01 Last Admin: 12/24/20 12:42 Dose: 20 mg Documented by: Simvastatin (Simvastatin 10 Mg Tab) 10 mg PO HS [facility] Stop: 01/19/21 22:16 Last Admin: 12/23/20 20:20 Dose: 10 mg Documented by: Umeclidinium [place] (Umeclidinium [place] 62.5mcg/Blister 7 Puffs/Inhaler) 1 puffs INH DAILY [facility] Stop: 01/22/21 08:59 Last Admin: 12/24/20 07:47 Dose: 1 puffs Documented by: Vitamin D (Cholecalciferol 1,000 Units 25 Mcg Tab) 1,000 units PO QAM [facility] Stop: 01/20/21 08:59 Last Admin: 12/24/20 07:45 Dose: 1,000 units Documented by: (1) Subcapital fracture of right hip Encounter type: initial encounter Fracture type: closed Qualified Code(s): S72.011A - Unspecified intracapsular fracture of right femur, initial encounter for closed fracture (2) Fall Encounter type: initial encounter Qualified Code(s): W19.XXXA - Unspecified fall, initial encounter
[2020-12-24] MEDS: NICOTINE 21 MG/24 HR TDSY TD SCH (20:22)
[2020-12-24] MEDS: SIMVASTATIN 10 MG TAB PO SCH (20:23)
[2020-12-25] MEDS: MoRPHine SULFATE 4 MG/ML 1 ML CARP\\VIAL IV PRN (03:36)
[2020-12-25] MEDS: dilTIAZem HCL 180 MG CAPCR PO SCH (04:14)
[2020-12-25 04:39] LABS: Eosinophils # (auto) 0.06 K/uL (0-0.5); Eosinophils % (auto) 0.8 %; Hematocrit (blood only) 43.7 % (37-47); Hemoglobin 14.4 g/dL (12.0-16.0); Immature Granulocytes # (auto) 0.04 K/uL (0.00-0.02); Immature Granulocytes % (auto) 0.5 %; Lymphocytes # (auto) 1.03 K/uL (1.2-3.4); Lymphocytes % (auto) 14.1 %; Mean Corpuscular Hemoglobin 29.3 pg (25-34); Mean Corpuscular Volume 88.8 fL (80-100); Mean Platelet Volume 9.4 fL (7.4-10.4); Monocytes # (auto) 0.83 K/uL (0.11-0.59); Monocytes % (auto) 11.3 %; Neutrophils # (auto) 5.37 K/uL (1.4-6.5); Neutrophils % (auto) 73.3 %; Platelet Count 205 K/uL (130-400); RDW Coefficient of Variation 15.6 % (11.5-14.5); RDW Standard Deviation 50.8 fL (36.4-46.3); Red Blood Count 4.92 M/uL (4.2-5.4); White Blood Count 7.33 K/uL (4.8-10.8)
[2020-12-25 04:55] LABS: BUN Creatinine Ratio 25.9 (10-20); Blood Urea Nitrogen 30 mg/dl (7-18); Calcium 8.8 mg/dl (8.5-10.1); Carbon Dioxide 27 mmol/L (21-32); Chloride 111 mmol/L (98-107); Creatinine Clr Calc Pharmacy 34.9 ml/min; Est GFR (Non-African American) 47.5 ml/min; Glucose 96 mg/dl (70-99); Magnesium 2.1 mg/dl (1.8-2.4); Potassium 4.8 mmol/L (3.5-5.1); Sodium 140 mmol/L (136-145)
[2020-12-25 05:00] LABS: Troponin I < 0.015 ng/ml (0-0.045)
--- NOTE | 2020-12-25 05:18 | Communication Note ---
Date of Service: December 25, 2020 Notified by RN around 3:50 AM of nonradiating chest pain 5/10 relieved by nitroglycerin and morphine. SBP 140s EKG as per my interpretation: Rate 85, A. fib, normal axis, T wave abnormalities septal leads (more pronounced from 12/20/2020) 1st troponin negative AP Chest pain Rule out ACS given nitro relief, cardiac history Check second troponin at 6 AM Will relay to AM provider.
[2020-12-25 05:19] LABS: Partial Thromboplastin Ratio 0.8; Partial Thromboplastin Time 20.8 Seconds (21.0-31.0)
[2020-12-25] MEDS: BUDESONIDE 0.5 MG/2 ML VIAL (PULMICORT) NEB SCH ×2 (07:09→19:57)
[2020-12-25] MEDS: FORMOTEROL 20 MCG/2 ML VIAL NEB SCH ×2 (07:09→19:57)
[2020-12-25] MEDS: predniSONE 20 MG TAB PO SCH (07:49)
[2020-12-25] MEDS: GABAPENTIN 100 MG CAP PO SCH (07:49)
[2020-12-25] MEDS: AZITHROMYCIN 250 MG TAB PO SCH (07:50)
[2020-12-25] MEDS: DONEPEZIL HCL 5 MG TAB PO SCH (07:50)
[2020-12-25] MEDS: DOCUSATE SODIUM 100 MG CAP PO SCH ×2 (07:50→20:01)
[2020-12-25] MEDS: busPIRone 5 MG TAB PO SCH ×2 (07:50→20:01)
[2020-12-25] MEDS: CHOLECALCIFEROL 1,000 UNITS 25 MCG TAB PO SCH (07:50)
[2020-12-25] MEDS: FERROUS SULFATE 325 MG TAB PO SCH ×2 (07:50→20:01)
[2020-12-25] MEDS: PANTOprazole 40 MG TAB PO SCH ×2 (07:50→20:01)
[2020-12-25] MEDS: APIXABAN 2.5 MG TAB PO SCH ×2 (07:51→20:01)
[2020-12-25] MEDS: FLUTICASONE FUROATE 100MCG 14 PUFFS/INHALER INH SCH (07:51)
[2020-12-25] MEDS: UMECLIDINIUM BROMIDE 62.5MCG/BLISTER 7 PUFFS/INHALER INH SCH (07:51)
[2020-12-25] MEDS: POLYETHYLENE (MIRALAX) 17 GM PACK PO SCH (07:52)
--- NOTE | 2020-12-25 10:38 | Pulmonology Progress Note ---
Date of Service December 25, 2020 Assessment & Plan (1) COPD with emphysema: (2) Acute respiratory acidosis: Impression: 70-year-old male with advanced COPD and ongoing tobacco exposure status post fall with hip fracture taken to the OR 12/22/2020 for repair of hip fracture. She was found to have an acute respiratory acidosis on presentation has been using BiPAP intermittently. Recommendations: 1. COPD: Continue Perforomist and budesonide and daily Incruse. Will use duo nebs as needed. Continue azithromycin. Placed on low-dose prednisone 12/24/2020 for 5 days. Her wheezing is much better today. 2. Hypoxemic hypercarbic respiratory failure: Patient has been intermittently compliant with BiPAP and according to the RT notes removes it intermittently overnight. Continue to wean oxygen as tolerated. The importance of noninvasive positive pressure ventilation was stressed to the patient however her delirium/dementia it may impair her ability to make good decisions going forward. 3. Tobacco abuse: Smoking cessation recommended to the patient. 4. Delirium/dementia: Management per primary service. Disposition per primary service. Her lung disease appears to be responding favorably. Available to see if needed. Please call us if we can provide additional assistance. Admission and Anticipated Discharge Date Admission Date: December 20, 2020 Subjective Patient offers no complaints this morning. She states she wants to go have a cigarette. She states she is ready to leave the hospital. 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 She does report that she use noninvasive positive pressure ventilation overnight. She is rarely coughing and not producing any significant phlegm. She did experience chest pain last night and is undergoing serial biomarkers evaluation. Review of Systems Review of Systems: All systems reviewed & are unremarkable except as noted in HPI & below Physical Exam Constitutional: + thin and + cachectic; no acute distress Neck: trachea midline, no thyromegaly Respiratory: normal respiratory effort; no respiratory distress and no labored breathing Auscultation: + wheezes Cardiovascular: RRR, no murmur, no edema Gastrointestinal (Abdomen): normal bowel sounds, soft, nontender, no hepatosplenomegaly Musculoskeletal: Extremities: extremities normal to inspection Skin: no rashes, warm and dry Psychiatric: Orientation: alert, oriented to person and oriented to place appears to have some delirium or dementia Lymphatic: no cervical lymphadenopathy Results & Data Results & Data ([facility]) Vital Signs (Past 12 Hours) Vital Signs Temp Pulse Pulse Resp BP Pulse Ox 12/25/20 07:24 36.3 C L 82 18 145/80 H 95 12/25/20 07:10 67 20 95 12/25/20 03:35 36.6 C 93 H 18 144/88 H 91 12/25/20 01:21 77 12/24/20 22:33 36.6 C 91 H 18 135/85 94 Laboratory Results 12/25/20 04:14 12/25/20 04:14 Diagnostic Findings No new imaging PG Care Time/CCT Total # of Minutes Spent Total Time Spent with Patient: Total time spent is greater than 50% in c oordination of care (as documented) at patient's floor/unit and/or counseling patient: Coding Level of Care Code 97931 Subseq Hosp Care Lvl 2 Diagnoses COPD with emphysema J43.9 Acute respiratory acidosis E87.2
--- NOTE | 2020-12-25 14:47 | Electrocardiogram Report ---
Test Reason : Blood Pressure : / mmHG Vent. Rate : 082 BPM Atrial Rate : 277 BPM P-R Int : 000 ms QRS Dur : 088 ms QT Int : 372 ms P-R-T Axes : 000 070 059 degrees QTc Int : 434 ms Atrial fibrillation Low voltage QRS Abnormal ECG When compared with ECG of 20-DEC-2020 18:08, No significant change was found Confirmed by Steve Ribeiro ([id number]) on 12/25/2020 2:46:27 PM Referred By: [facility] Confirmed By:Steve Ribeiro
--- NOTE | 2020-12-25 15:16 | Hospitalist Progress Note ---
Date of Service December 25, 2020 Assessment & Plan (1) Acute respiratory failure with hypoxia and hypercapnia: Multifactorial etiology including but not limited to underlying COPD, increased narcotic pain medication and CKD. Resolved with no breathing issues at this time. Per pulmonology, cont azithromycin, short course of prednisone, bronchodilators and other inhalers as scheduled. Smoking cessation strongly recommended. (2) Subcapital fracture of right hip: Probable osteoporotic fracture of right hip s/p fall s/p repair on 12/22 and doing well but has some pain. Managed well with pain medications. We discussed her chronic constipation and will schedule stool softeners/laxative. (3) Fall: PT/OT with recommendations for a short term stay at rehab. NWB on the right leg. (4) Atrial fibrillation: rate controlled on diltiazem, continues on eliquis (5) Smoking: smoking cessation recommended. (6) Chronic constipation: cont daily scheduled Miralax, and scheduled stool softeners. (7) DVT prophylaxis: Eliquis Full [facility]po[facility] Dis[facility] Date Admission Date: December 20, 2020 Subjective 70 yo s/p R hip fracture and repair-doing well aside from some pain in the incision site that is improved from yesterday. Controlled with pain medications. She is antsy to leave and states that there are 20 kids at home that she needs to take care of. She was considering rehab and now she is not sure. Removed Zeng catheter. Some chest pain overnight for 1 hour. No increase in troponin on trend. No change in EKG since admission without acute ST changes. No persistent chest pain and no associated symptoms such as SB, palpitations, nausea or diaphoresis. Review of Systems Review of Systems: All systems reviewed & are unremarkable except as noted in Subjective Physical Exam Physical Exam: CONSTITUTIONAL: WNWD, vitals as above, generally well- appearing EYES: normal conjunctivae, no scleral icterus ENT: external ear and nose normal,MMM RESPIRATORY: clear to auscultation bilaterally, no crackles, rales or wheezes, normal respiratory effort CARDIOVASCULAR: regular rate and rhythm, S1 and 2 heard without murmurs, gallops or rubs, no JVD, no peripheral edema GASTROINTESTINAL: soft, nontender, nondistended MUSCULOSKELETAL: strength 5/5 throughout, head is normocephalic and atraumatic, neck supple, normal palpation of chest wall without tenderness SKIN: warm and dry NEUROLOGIC: CN 2-12 grossly intact, normal cognition, normal speech, no tremor PSYCHIATRIC: alert cooperative and oriented to person, place and time. Results & Data Results & Data ([facility]) Vital Signs (Past 12 Hours) Vital Signs Temp Pulse Resp BP Pulse Ox 12/25/20 14:38 36.5 C 20 145/86 H 91 12/25/20 11:56 36.6 C 80 18 148/79 H 93 12/25/20 07:24 36.3 C L 82 18 145/80 H 95 12/25/20 07:10 67 20 95 12/25/20 03:35 36.6 C 93 H 18 144/88 H 91 Laboratory Results Short CBC 12/25/20 Range/Units 04:14 WBC 7.33 (4.8-10.8) K/uL Hgb 14.4 (12.0-16.0) g/dL Hct 43.7 (37-47) % Plt Count 205 (130-400) K/uL BMP 12/25/20 04:14 Sodium 140 Potassium 4.8 Chloride 111 H Carbon Dioxide 27 BUN 30 H Creatinine 1.15 D Glucose 96 Calcium 8.8 Cardiac Enzymes 12/25/20 12/25/20 Range/Units 04:14 06:27 Troponin I < 0.015 < 0.015 (0-0.045) ng/ml Medications Administered Current Inpatient Medications Albuterol (Albuterol Hfa 8 Gm Inhaler (Combivent Respimat P&T Subs)) 1 puffs INH QID PRN PRN Reason: PRN Stop: 01/19/21 22:39 Last Admin: 12/21/20 22:27 Dose: 1 puffs Documented by: Albuterol (Albut/Ipratrop 3mg/0.5mg Neb 3 Ml Vial) 3 ml INH QID PRN PRN Reason: Bronchospasm Stop: 01/21/21 14:24 Apixaban (Apixaban 2.5 Mg Tab) 2.5 mg PO BID [facility] Stop: 01/22/21 08:59 Last Admin: 12/25/20 07:51 Dose: 2.5 mg Documented by: Azithromycin (Azithromycin 250 Mg Tab) 250 mg PO QAM [facility] Stop: 12/29/20 14:29 Last Admin: 12/25/20 07:50 Dose: 250 mg Documented by: Budesonide (Budesonide 0.5 Mg/2 Ml Vial (Pulmicort)) 0.5 mg NEB BIDR [facility] Stop: 01/21/21 18:59 Last Admin: 12/25/20 07:09 Dose: 0.5 mg Documented by: Buspirone HCl (Buspirone 5 Mg Tab) 5 mg PO BID [facility] Stop: 01/19/21 22:16 Last Admin: 12/25/20 07:50 Dose: 5 mg Documented by: Diltiazem HCl (Diltiazem Hcl 180 Mg Capcr) [facility] Stop: 01/24/21 03:54 Last Admin: 12/25/20 04:14 Dose: 180 mg Documented by: Docusate Sodium (Docusate Sodium 100 Mg Cap) 100 mg PO BID [facility] Stop: 01/19/21 22:16 Last Admin: 12/25/20 07:50 Dose: 100 mg Documented by: Donepezil HCl (Donepezil Hcl 5 Mg Tab) 5 mg PO QAM [facility] Stop: 01/20/21 08:59 Last Admin: 12/25/20 07:50 Dose: 5 mg Documented by: Ferrous Sulfate (Ferrous Sulfate 325 Mg Tab) 325 mg PO BID [facility] Stop: 01/19/21 22:16 Last Admin: 12/25/20 07:50 Dose: 325 mg Documented by: Fluticasone Furoate (Fluticasone Furoate 100mcg 14 Puffs/Inhaler) [facility] p[facility] [place] Stop: 01/20/21 08:59 Last Admin: 12/25/20 07:51 Dose: 1 puffs Documented by: Formoterol Fumarate (Formoterol 20 Mcg/2 Ml Vial) 20 mcg NEB BIDR [facility] Stop: 01/21/21 18:59 Last Admin: 12/25/20 07:09 Dose: 20 mcg Documented by: Furosemide (Furosemide 20 Mg Tab) 20 mg PO MoFr@0800 [facility] Stop: 01/21/21 07:59 Last Admin: 12/22/20 12:46 Dose: 20 mg Documented by: Gabapentin (Gabapentin 100 Mg Cap) 200 mg PO QAM [facility] Stop: 01/20/21 08:59 Last Admin: 12/25/20 07:49 Dose: 200 mg Documented by: Miscellaneous (Remove Nicoderm Patch) 1 ea N/A DAILY@2058 [facility] Stop: 01/21/21 20:58 Last Admin: 12/24/20 20:21 Dose: 1 ea Documented by: Morphine Sulfate (Morphine Sulfate 4 Mg/Ml 1 Ml Carp\Vial) 3 mg IV Q4H PRN PRN Reason: Pain Stop: 01/03/21 22:16 Last Admin: 12/25/20 03:36 Dose: 3 mg Documented by: Naloxone HCl (Naloxone Hcl 0.4 Mg/1 Ml Vial/Carp) 0.1 mg IV UD PRN PRN Reason: Opioid Overdose Stop: 01/21/21 12:32 Nicotine (Nicotine 21 Mg/24 Hr Tdsy) 21 mg TD HS [facility] Stop: 01/20/21 20:19 Last Admin: 12/24/20 20:22 Dose: 21 mg Documented by: Nitroglycerin (Nitroglycerin Sl 0.4 Mg/Tab Tab) 0.4 mg SL UD PRN PRN Reason: Chest Pain Stop: 01/19/21 22:16 Last Admin: 12/25/20 03:33 Dose: 0.4 mg Documented by: Ondansetron HCl (Ondansetron Inj 2 Mg/Ml 2 Ml Vial) 4 mg IV Q6H PRN PRN Reason: Nausea Stop: 01/19/21 22:16 Pantoprazole Sodium (Pantoprazole 40 Mg Tab) 40 mg PO BID [facility] Stop: 01/19/21 22:16 Last Admin: 12/25/20 07:50 Dose: 40 mg Documented by: Polyethylene Glycol (Polyethylene (Miralax) 17 Gm Pack) 17 gm PO DAILY [facility] Stop: 01/24/21 08:59 Last Admin: 12/25/20 07:52 Dose: 17 gm Documented by: Prednisone (Prednisone 20 Mg Tab) 20 mg PO DAILY [facility] Stop: 12/28/20 09:01 Last Admin: 12/25/20 07:49 Dose: 20 mg Documented by: Simvastatin (Simvastatin 10 Mg Tab) 10 mg PO HS [facility] Stop: 01/19/21 22:16 Last Admin: 12/24/20 20:23 Dose: 10 mg Documented by: Umeclidinium [place] (Umeclidinium [place] 62.5mcg/Blister 7 Puffs/Inhaler) 1 puffs INH DAILY [facility] Stop: 01/22/21 08:59 Last Admin: 12/25/20 07:51 Dose: 1 puffs Documented by: Vitamin D (Cholecalciferol 1,000 Units 25 Mcg Tab) 1,000 units PO QAM [facility] Stop: 01/20/21 08:59 Last Admin: 12/25/20 07:50 Dose: 1,000 units Documented by: (1) Subcapital fracture of right hip Encounter type: initial encounter Fracture type: closed Qualified Code(s): S72.011A - Unspecified intracapsular fracture of right femur, initial encounter for closed fracture (2) Fall Encounter type: initial encounter Qualified Code(s): W19.XXXA - Unspecified fall, initial encounter
[2020-12-25] MEDS ORDERED: GLYCERIN ADULT 12 SUPP/BOX SUPP PR PRN (15:42)
[2020-12-25] MEDS: SIMVASTATIN 10 MG TAB PO SCH (20:01)
[2020-12-25] MEDS: NICOTINE 21 MG/24 HR TDSY TD SCH (20:02)
[2020-12-26] MEDS: FORMOTEROL 20 MCG/2 ML VIAL NEB SCH (07:04)
[2020-12-26] MEDS: BUDESONIDE 0.5 MG/2 ML VIAL (PULMICORT) NEB SCH (07:04)
[2020-12-26] MEDS: FUROSEMIDE 20 MG TAB PO SCH (07:32)
[2020-12-26] MEDS: DONEPEZIL HCL 5 MG TAB PO SCH (07:33)
[2020-12-26] MEDS: dilTIAZem HCL 180 MG CAPCR PO SCH (07:33)
[2020-12-26] MEDS: predniSONE 20 MG TAB PO SCH (07:33)
[2020-12-26] MEDS: FERROUS SULFATE 325 MG TAB PO SCH (07:33)
[2020-12-26] MEDS: PANTOprazole 40 MG TAB PO SCH (07:34)
[2020-12-26] MEDS: DOCUSATE SODIUM 100 MG CAP PO SCH (07:34)
[2020-12-26] MEDS: CHOLECALCIFEROL 1,000 UNITS 25 MCG TAB PO SCH (07:34)
[2020-12-26] MEDS: APIXABAN 2.5 MG TAB PO SCH (07:34)
[2020-12-26] MEDS: busPIRone 5 MG TAB PO SCH (07:34)
[2020-12-26] MEDS: GABAPENTIN 100 MG CAP PO SCH (07:34)
[2020-12-26] MEDS: POLYETHYLENE (MIRALAX) 17 GM PACK PO SCH (07:35)
[2020-12-26] MEDS: UMECLIDINIUM BROMIDE 62.5MCG/BLISTER 7 PUFFS/INHALER INH SCH (07:35)
[2020-12-26] MEDS: AZITHROMYCIN 250 MG TAB PO SCH (07:35)
[2020-12-26] MEDS: FLUTICASONE FUROATE 100MCG 14 PUFFS/INHALER INH SCH (07:36)
--- NOTE | 2020-12-26 12:57 | Discharge Summary ---
Date of Service December 26, 2020 Admission HPI Per Admitting Provider HISTORY OF PRESENT ILLNESS: A 70-year-old female with past medical history significant for history of COPD, history of respiratory failure, history of hyperlipidemia, atrial fibrillation, history of CHF, hypertension, severe malnutrition, chronic kidney disease stage III, osteoporosis, Alzheimer's dementia, ongoing tobacco abuse, generalized anxiety disorder. Currently, the patient is at [facility]. Sister is in the room. As per sister, the patient has dementia. She can remember her remote memory, but for recent memory, she has difficulty. The patient is alert to name and place, does not know the dates. The patient is supposed to be in wheelchair. She can walk a little bit with holding the back of the wheelchair. She is supposed to not walk much, but she seems to be walking and she fell today. The patient does not remember exactly how she fell, she fell on the right side and has a right hip fracture. Otherwise, the patient denies any other complaints. Denies any chest pain, no shortness of breath. She has ongoing chronic cough. Smokes 1 pack of cigarettes daily still, okay for nicotine patch. Denies any fever or chills. No nausea, no abdominal pain, no headache, no blurred visions, no earache, no runny nose, no sore throat. She is alert, oriented, can swallow okay. No abdominal pain, normal bowel and bladder movements. No burning micturition. She has on and off swelling in the legs and she is on Lasix. Currently resting comfortably and hemodynamically stable. Oxygen saturations are ranging from 85- 90. She is placed on oxygen and venous blood gasses showed pH of 7.25. Creatinine of 1.4, which seems to be at her baseline. SARS-CoV-2 PCR negative and as per sister, the patient had COVID vaccine, and they are okay for surgery and the patient is a full code. Admission Exam Per Admitting Provider PHYSICAL EXAMINATION: GENERAL: The patient is moderately built, currently not in acute distress. VITAL SIGNS: Temperature 37, pulse 91, respiration 28, blood pressure 141/80, oxygen 93%. HEENT: Pupils equal, round and reactive to light. Oral mucosa dry. NECK: No JVD. No neck masses. CARDIOVASCULAR: S1 and S2 heard. Regular rate and rhythm. No murmur, no gallop. RESPIRATORY SYSTEM: Normal AP diameter. No accessory muscle use. Bilateral wheezing heard. No crackles. ABDOMEN: Soft, bowel sounds present, nontender, nondistended. NEUROLOGIC: Cranial nerves II-XII grossly intact, nonfocal. EXTREMITIES: No edema, no erythema. Right lower extremity is slightly shortened. Principal Diagnosis Acute respiratory failure with hypoxia and hypercapnia Subcapital fracture of right hip status post repair on 12/22 [facility]-ac[facility] delirium Smoking Chronic constipation Atrial fibrillation Discharge Exam CONSTITUTIONAL: WNWD, vitals as above, generally well-appearing EYES: normal conjunctivae, no scleral icterus ENT: external ear and nose normal,MMM RESPIRATORY: clear to auscultation bilaterally, no crackles, rales or wheezes, normal respiratory effort CARDIOVASCULAR: regular rate and rhythm, S1 and 2 heard without murmurs, gallops or rubs, no JVD, no peripheral edema GASTROINTESTINAL: soft, nontender, nondistended MUSCULOSKELETAL: strength 5/5 throughout, head is normocephalic and atraumatic, neck supple, normal palpation of chest wall without tenderness SKIN: warm and dry NEUROLOGIC: CN 2-12 grossly intact, normal cognition, normal speech, no tremor PSYCHIATRIC: alert cooperative and oriented to person, place and time. Discharge Data Allergies Allergy/AdvReac Type Severity Reaction Status Date / Time Penicillins Allergy Unknown Unknown Unverified 12/20/20 18:28 Sulfa (Sulfonamide Allergy Unknown Unknown Unverified 12/20/20 18:28 Antibiotics) acetaminophen Allergy Unknown Unverified 12/20/20 18:28 candesartan [From Atacand] Allergy Unknown Unverified 12/20/20 18:28 codeine Allergy Unknown Unverified 12/20/20 18:28 cyclobenzaprine Allergy Unknown Unverified 12/20/20 18:28 ibuprofen [From Motrin IB] Allergy Unknown Unverified 12/20/20 18:28 moxifloxacin Allergy Unknown Unverified 12/20/20 18:28 nitrofurantoin Allergy Unknown Unverified 12/20/20 18:28 [From Macrodantin] oxybutynin Allergy Unknown Unverified 12/20/20 18:28 propoxyphene Allergy Unknown Unverified 12/20/20 18:28 tramadol Allergy Unknown Unverified 12/20/20 18:28 Consultations 12/20/20 18:09 ED Decision to Admit Stat 12/21/20 08:00 Consult Orthopedic Surgery Routine Consult Pulmonology Routine Procedures Performed Operation Date: 12/22/20 07:00 Actual Procedures p Right Hip Percutaneous Pinning(Right) - Mark Qureshi DO Ordered Studies Laboratory Results WBC 7.33 K/uL (4.8-10.8) 12/25/20 04:14 RBC 4.92 M/uL (4.2-5.4) 12/25/20 04:14 Hgb 14.4 g/dL (12.0-16.0) 12/25/20 04:14 Hct 43.7 % (37-47) 12/25/20 04:14 MCV 88.8 fL (80-100) 12/25/20 04:14 MCH 29.3 pg (25-34) 12/25/20 04:14 MCHC 33.0 g/dL (32-36) 12/25/20 04:14 RDW Std Deviation 50.8 fL (36.4-46.3) H 12/25/20 04:14 RDW Coeff of Cheri 15.6 % (11.5-14.5) H 12/25/20 04:14 Plt Count 205 K/uL (130-400) 12/25/20 04:14 MPV 9.4 fL (7.4-10.4) 12/25/20 04:14 Immature Gran % (Auto) 0.5 % 12/25/20 04:14 Neut % (Auto) 73.3 % 12/25/20 04:14 Lymph % (Auto) 14.1 % 12/25/20 04:14 Hunt % (Auto) 11.3 % 12/25/20 04:14 Eos % (Auto) 0.8 % 12/25/20 04:14 Baso % (Auto) 0.0 % 12/25/20 04:14 Neut # (Auto) 5.37 K/uL (1.4-6.5) 12/25/20 04:14 Lymph # (Auto) 1.03 K/uL (1.2-3.4) L 12/25/20 04:14 Hunt # (Auto) 0.83 K/uL (0.11-0.59) H 12/25/20 04:14 Eos # (Auto) 0.06 K/uL (0-0.5) 12/25/20 04:14 Baso # (Auto) 0.00 K/uL (0-0.2) 12/25/20 04:14 Immature Gran # (Auto) 0.04 K/uL (0.00-0.02) H 12/25/20 04:14 PT 10.3 Seconds (9.0-12.0) 12/20/20 17:27 INR 1.0 (0.9-1.1) 12/20/20 17:27 APTT 20.8 Seconds (21.0-31.0) L 12/25/20 04:14 PTT Ratio 0.8 12/25/20 04:14 Sample Site R Brachial 12/21/20 01:23 POC pH 7.23 (7.35-7.45) L 12/21/20 01:23 POC pCO2 57 mmHg (35-46) H 12/21/20 01:23 POC pO2 134 mmHg (80-95) H 12/21/20 01:23 POC HCO3 24 graciela/L (19-24) 12/21/20 01:23 POC Total CO2 26 mmol/L (24-31) 12/21/20 01:23 POC Base Excess -4.0 graciela/L (-9-1.8) 12/21/20 01:23 ABG pH 7.28 (7.35-7.45) L 12/21/20 06:23 ABG pCO2 52 mmHg (35-46) H 12/21/20 06:23 ABG pO2 82 mmHg (80-95) 12/21/20 06:23 ABG HCO3 24 mmol/L (19-24) 12/21/20 06:23 POC ABG O2 Sat 98.0 % (90-95) H 12/21/20 01:23 ABG O2 Saturation 95.4 % (90-95) H 12/21/20 06:23 ABG Base Excess -3.7 mEq/L (-9-1.8) 12/21/20 06:23 Дмитрий Test Pos (Pos) 12/21/20 06:23 VBG pH 7.28 (7.36-7.41) L 12/23/20 06:22 VBG pCO2 55 mmHg (38-50) H 12/23/20 06:22 VBG pO2 24 mmHg 12/23/20 06:22 VBG HCO3 25 mmol/L 12/23/20 06:22 VBG O2 Saturation < 60.0 % 12/23/20 06:22 VBG Base Excess -2.2 mEq/L 12/23/20 06:22 Barometric Pressure 735.6 mm/Hg 12/21/20 06:23 Oxygen Given 40% FiO2 12/21/20 06:23 O2 Delivery Device BIPAP 12/21/20 01:23 POC O2 Rate 14 12/21/20 01:23 POC FiO2 60 % 12/21/20 01:23 IPAP 16 12/21/20 01:23 Sodium 140 mmol/L (136-145) 12/25/20 04:14 Potassium 4.8 mmol/L (3.5-5.1) 12/25/20 04:14 Chloride 111 mmol/L (98-107) H 12/25/20 04:14 Carbon Dioxide 27 mmol/L (21-32) 12/25/20 04:14 Anion Gap 2.0 (3-11) L 12/25/20 04:14 BUN 30 mg/dl (7-18) H 12/25/20 04:14 Creatinine 1.15 mg/dl (0.6-1.2) D 12/25/20 04:14 Est Cr Clr Drug Dosing 34.9 ml/min 12/25/20 04:14 Est GFR ( Amer) 55.0 ml/min 12/25/20 04:14 Est GFR (Non-Af Amer) 47.5 ml/min 12/25/20 04:14 BUN/Creatinine Ratio 25.9 (10-20) H 12/25/20 04:14 Glucose 96 mg/dl (70-99) 12/25/20 04:14 Calcium 8.8 mg/dl (8.5-10.1) 12/25/20 04:14 Phosphorus 4.3 mg/dl (2.5-4.9) 12/22/20 05:58 Magnesium 2.1 mg/dl (1.8-2.4) 12/25/20 04:14 Total Bilirubin 0.5 mg/dl (0.2-1) 12/20/20 17:27 AST 17 U/L (15-37) 12/20/20 17: ALT 20 U/L (12-78) 12/20/20 17:27 Alkaline Phosphatase 69 U/L (45-117) 12/20/20 17: Total Creatine Kinase 98 U/L (26-192) 12/20/20 17: Troponin I < 0.015 ng/ml (0-0.045) 12/25/20 06: Total Protein 6.9 gm/dl (6.4-8.2) 12/20/20 17: Albumin 3.4 gm/dl (3.4-5.0) 12/20/20 17: Globulin 3.5 gm/dl (2.5-4.0) 12/20/20 17: Albumin/Globulin Ratio 1.0 (0.9-2) 12/20/20 17: TSH 1.980 uIu/ml (0.300-4.500) 12/20/20 17: Specimen Hemolysis 12/20/20 17: Urine Color Yellow 12/20/20 20:10 Urine Appearance Slightly Cloudy (Clear) 12/20/20 20:10 Urine pH 5.0 (4.5-7.5) 12/20/20 20:10 Ur Specific [place] 1.020 (1.000-1.030) 12/20/20 20:10 Urine Protein 3+ (Negative) H 12/20/20 20:10 Urine Glucose (UA) Negative (Negative) 12/20/20 20:10 Urine Ketones Negative (Negative) 12/20/20 20:10 Urine Blood 3+ (Negative) H 12/20/20 20:10 Urine Nitrite Negative (Negative) 12/20/20 20:10 Urine Bilirubin Negative (Negative) 12/20/20 20:10 Urine Urobilinogen Negative (Negative) 12/20/20 20:10 Ur Leukocyte Esterase Trace (Negative) H 12/20/20 20:10 Urine RBC 10-30 /hpf (0-4) H 12/20/20 20:10 Urine WBC >30 /hpf (0-5) H 12/20/20 20:10 Ur Epithelial Cells >30 /lpf (0-5) H 12/20/20 20:10 Ur Renal Epithelial Cell 5-10 /lpf (0-5) H 12/20/20 20:10 Amorphous Sediment Present (None Prsent) A 12/20/20 20:10 Urine Bacteria Negative (Negative) 12/20/20 20:10 COVID-19 Eval Order Covid19 at [facility] 12/20/20 18:10 SARS-CoV-2 (PCR) NEGATIVE (Negative) 12/20/20 18:[address] 12/20/20 17:22 CT OF THE CERVICAL SPINE CLINICAL HISTORY: Neck pain status post trauma COMPARISON STUDY: No previous studies for comparison. CT DOSE: TECHNIQUE: CT scan of the cervical spine was performed from the skull base to the thoracic inlet. Images are reviewed in the axial, sagittal, and coronal planes. IV contrast was not administered for this examination. A dose lowering technique was utilized adhering to the principles of ALARA. FINDINGS: There is no apical pneumothorax. There is pulmonary emphysema with septal edema The prevertebral soft tissues are normal. No acute fractures or traumatic subluxations are visualized. Mild C7-T1 endplate deformities are likely chronic. There are multilevel degenerative changes. There are postsurgical changes of a C3-4 discectomy with metallic implants. There is C4-C6 spinal fusion. IMPRESSION: 1. Postsurgical and degenerative change 2. No acute fractures or traumatic subluxations 3. Pulmonary emphysema with apical septal edema ACT 112: Negative or not required by law. Electronically signed by: Baljit Cronin M.D. 12/20/2020 7:22 PM Chest X-Ray 12/20/20 17:22 XR chest 1V portable CLINICAL HISTORY: weakness COMPARISON STUDY: No previous studies for comparison. FINDINGS: The heart is enlarged. Slight prominence of the upper lobe vessels may be secondary to the AP supine technique Small right pleural effusion. There are right basilar atelectatic changes. Pulmonary emphysema is suspected.[ IMPRESSION: 1. Cardiomegaly and suspected pulmonary emphysema 2. Small right pleural effusion 3. Suspected pulmonary arterial hypertension 4. No evidence of lobar consolidation ACT 112: Negative or not required by law. Electronically signed by: Baljit Cronin M.D. 12/20/2020 5:[address] 12/20/20 17:22 CT head/brain wo con CLINICAL HISTORY: Head pain status post trauma COMPARISON STUDY: No previous studies for comparison. TECHNIQUE: Axial CT of the brain is performed from the vertex to the skull base. IV contrast was not administered for this examination. A dose lowering technique was utilized adhering to the principles of ALARA. CT DOSE: 1188.61 mGy.cm FINDINGS: No intra or extra-axial mass lesions are visualized. There is no CT evidence of acute cortical infarction. There is no evidence of midline shift. There is no acute hemorrhage. No calvarial fractures are visualized. There are patchy white matter hypodensities likely on a small vessel basis. There is no evidence of pathologic ventricular dilatation. There is mild polypoid mucosal thickening within the base the left maxillary sinus. IMPRESSION: No acute intracranial findings ACT 112: Negative or not required by law. Electronically signed by: Baljit Cronin M.D. 12/20/2020 7:[address] 12/21/20 12:23 CT SCAN OF THE RIGHT HIP WITHOUT IV CONTRAST CLINICAL HISTORY: Hip fracture. COMPARISON STUDY: Radiographs of the right hip dated 12/20/2020. TECHNIQUE: CT scan of the right hip is performed from the bony pelvis to the femoral shaft. Images are reviewed in the axial, sagittal, and coronal planes. IV contrast was not administered for this examination. A dose lowering technique was utilized adhering to the principles of ALARA. CT DOSE: 161.26 mGy.cm FINDINGS: The skeletal structures are osteopenic. Again seen is an impacted subcapital fracture of the right femur. Moderate soft tissue edema/hemorrhage is noted. There is trace associated right-sided hemarthrosis. The visualized right hemipelvis appears intact. There is no evidence of osteonecrosis of the right femoral head. Mild to moderate degenerative joint space narrowing is seen in the right hip. There is no evidence of lytic or blastic lesion. Sclerotic change is noted in the pubic symphysis. There is no evidence of organized hematoma. Sub cutaneous soft tissue induration overlies the right hip. The bladder is decompressed around a Zeng catheter. The uterus is surgically absent. Surgical clips are noted in the pelvis. No right pelvic sidewall or inguinal adenopathy is seen. There is no free fluid in the pelvis. IMPRESSION: Impacted subcapital fracture of the right femur. ACT 112: Negative or not required by law. Dictated: 12/21/2020 2:52 PM Transcribed: 12/21/2020 3:54 PM Ca [id number] ASIM_Paule Electronically signed by: Vazquez Guillory M.D. 12/21/2020 4:00 PM Hip X-Ray 12/22/20 00:00 INTRAOPERATIVE RADIOGRAPHS CLINICAL HISTORY: Open reduction and internal fixation of the right hip. Fluoroscopy time: 76 seconds. FINDINGS: 2 spot fluoroscopic views of the right hip are compared to radiographs dated 12/20/2020. 3 cortical lag screws transfix a subcapital fracture of the right femur. Near-anatomic alignment is maintained. The orthopedic hardware appears intact. IMPRESSION: Intraoperative images from open reduction and internal fixation of the right proximal femur as above. Electronically signed by: Vazquez Guillory M.D. 12/22/2020 11:13 AM Hip/Pelvis X-Ray 12/22/20 11:33 XR hip 1V RT w pelvis CLINICAL HISTORY: Post-Operative implant position COMPARISON: 12/20/2020 DISCUSSION: 2 views are provided for interpretation. These demonstrate internal fixation of a subcapital right hip fracture with 3 cannulated screws. IMPRESSION: Internally fixated subcapital right hip fracture with 3 cannulated screws. ACT 112: Negative or not required by law. Electronically signed by: Baljit Cronin M.D. 12/22/2020 12:43 PM Hospital Course (1) Acute respiratory failure with hypoxia and hypercapnia: (2) Subcapital fracture of right hip: (3) Fall: (4) Atrial fibrillation: (5) Smoking: (6) Chronic constipation: The patient is a 70-year-old female with a history of COPD, dementia, atrial fibrillation who presented status post fall with a right hip fracture. She is wheelchair-bound and presents from [facility]. On arrival she had some ongoing wheezing in the setting of known ongoing tobacco use. She was started on doxycycline steroids and bronchodilator therapy. Pulmonary was consulted. She was diagnosed with acute on chronic hypercapnic hypoxic respiratory failure with a multifactorial etiology. She was extubated to BiPAP postoperatively and postoperative course included replacement of doxycycline with oral azithromycin, the addition of some low-dose prednisone and adjustments in her inhalers. Smoking cessation was strongly advised. She continued to do well over the next few days. From an orthopedic standpoint she underwent a right hip percutaneous pinning by Dr. Kulkarni for right femoral neck fracture on 12/22/2020. Postoperative course was uncomplicated and she is currently nonweightbearing to the right lower extremity. 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 Serial troponin enzymes were trended and negative and EKG was unchanged. The chest pain did not return and she did not have associated symptoms that would suggest an ACS picture. Telemetry was also unchanged. She also had some intermittent delirium and confusion while in the hospital and reorientation was helpful. This is likely multifactorial including recent major surgery under anesthesia, steroid use, narcotic pain medication use, and hospitalization in general. She was evaluated by PT and OT and recommended for formal rehabilitation program. She was transferred there in stable condition with some persistent oxygen needs at time of discharge. After reconditioning efforts further assessment with a two- step should be done to see her discharge oxygen needs ultimately. She did make mention of having some oxygen supplies at home that she does not use consistently. Again smoking cessation was strongly advised. Close follow-up with primary care recommended. Follow-up 10 to 14 days from the date of her surgery with [facility] is recommended. Of note she also has some chronic constipation and required scheduled stool softeners and had just started daily MiraLAX just prior to discharge. Scheduled MiraLAX and stool softeners are recommended on arrival to receiving facility. Total Time Total Time Spent Total Time Spent (In Minutes): 60 Total Time Includes: Examination of the Patient, Discharge Planning, Medication Reconciliation and Communication With Other Providers Discharge Plan Discharge Items Patient Disposition: Transfer [facility] Reason For Visit: FALL Discharge Diagnosis: Acute respiratory failure with hypoxia and hypercapnia Subcapital fracture of right hip status post repair on 12/22 [facility]-acquired delirium Smoking Chronic constipation Atrial fibrillation Condition on Discharge: Good Activity: Per Instructions section Weightbearing: Right non-weightbearing Non-emergency contact: Primary Care Provider and Surgeon Call non-emergency contact if: you have any medication questions, your symptoms worsen, your pain is not controlled, your pain is worsening, you have a fever, your wound has increased redness, your wound has increased drainage and your wound pain has increased Follow-up/Referrals: [facility] IVORY APONTE [Primary Care Provider] - Diet: Heart Healthy Diet Texture: Dental soft (bite-sized) Addtl Attending Provider Instructions: [facility] DISCHARGE INSTRUCTIONS: HIP FRACTURE SELF CARE INSTRUCTIONS: A. You are to ambulate with a walker or crutches for approximately 6 weeks. B. You are NON WEIGHT BEARING on your operative lower extremity for at least 6 weeks. C. Wear low heeled shoes with non-slip soles D. Be sure that your floors are free of things that could trip you throw rugs, electrical cords, and small objects. Avoid wet and waxed floors, especially with crutches/walker/cane. E. Try to walk several times a day with rest periods between. F. You may shower 48 hours after surgery and get the incision area wet, but DO NOT soak or submerge incision area in water. (No baths, swimming pools, hot tubs) G. You may have a large, band-aid like dressing over your incision (Aquacel). This will remain on your incision for 7 days, and then can be removed. You CAN shower with this on. If incision is leaking through the dressing, please call the office . H. Do NOT apply soap or any ointment/lotions directly over incision. I. You may use ice as needed to operative site. SPECIAL CARE INSTRUCTIONS: VERY IMPORTANT TO READ AND REVIEW A. You may be at risk for phlebitis or blood clots. a. Wear surgical stockings (BRENDA hose) for 2 weeks after surgery to improve circulation and reduce swelling. b. Take your home medication, Eliquis twice daily or as directed. This is your blood thinner. c. If you are on Coumadin- you will have daily/weekly blood work to monitor your levels. This will be done by either your family physician/script editor (if you are on Coumadin chronically) versus your orthopedic surgeon. Expect a phone call the day of or the day after your blood work is drawn to adjust your dose accordingly. B. There are a few signs you need to watch for after you are home. Call [facility] at [phone] if you experience any of the following: a. If you have a temperature of 101 degrees or higher. b. Sudden increase in pain in your hip not relieved by rest or pain medication. c. Any fluid or drainage from the incision; redness of the incision. d. Shortness of breath or chest pain. C. Call your physician if: a. Temperature is greater than 101 degrees (F). b. Pain is not relieved by prescribed pain medications. c. Increase drainage or redness from incision. d. Unanswered questions or concerns. D. Pain Medication: a. You will be prescribed pain medication upon discharge that should last till your first post-operative appointment. b. If you experience nausea and/or skin rash, discontinue this medication and contact our office for an alternative medication. c. Caution- narcotic pain medication can cause constipation. FOLLOW UP VISIT: Please call [facility] at [phone] to schedule a follow up appointment 10-14 days from the date of your surgery date. Pending Studies at Discharge: No Stand-Alone Forms: My [facility] Skilled Items Patient informed of condition?: Yes DNR: No Discharge Level of Care: Skilled Communicable Disease: No Discharge Prognosis: Stable Lines: None Urinary Catheter: No Medications and DC Order Prescriptions: New nicotine [Nicoderm CQ] 21 mg/24 hr Patch 24 Hour 21 mg transdermal HS Qty: 14 RF: 0 prednisone 20 mg Tablet 20 mg PO DAILY Qty: 2 RF: 0 Continued buspirone 5 mg tablet 5 mg PO BID RF: 0 ipratropium-albuterol 0.5 mg-3 mg(2.5 mg base)/3 mL solution for nebulization 3 ml INHALATION QID RF: 0 donepezil [Aricept] 5 mg tablet 5 mg PO QAM RF: 0 diltiazem HCl [Cardizem CD] 180 mg capsule,extended release 24hr 180 mg PO QAM RF: 0 simvastatin [Zocor] 10 mg tablet 10 mg PO HS RF: 0 docusate sodium [Colace] 100 mg Capsule 100 mg PO BID RF: 0 omeprazole 20 mg capsule,delayed release(DR/EC) 20 mg PO BID RF: 0 furosemide [Lasix] 20 mg tablet 20 mg PO 2XWK RF: 0 gabapentin [Neurontin] 100 mg capsule 200 mg PO QAM RF: 0 ferrous sulfate 325 mg (65 mg iron) Tablet,Delayed Release (Dr/Ec) 325 mg PO BID RF: 0 cholecalciferol (vitamin D3) [Vitamin D3] 25 mcg (1,000 unit) Tablet 25 mcg PO QAM RF: 0 Eliquis 2.5 mg tablet 2.5 mg PO BID RF: 0 Arnuity Ellipta 100 mcg/actuation blister with device 1 inh INHALATION QAM RF: 0 Combivent Respimat 20-100 mcg/actuation mist 1 puff INHALATION QID RF: 0 Discharge Orders: Discharge Order (Routine); Ordered 12/26/20 Ordered By: Vera Whitt Admission Data Admit Date/Time: 12/20/20 20:03 Attending Provider: Vera Whitt Admit Provider: Froilan Beasley Primary Care Provider: [facility] IV[facility] APONTE Other Providers: [facility] ; Froilan Beasley ; Ron Robles ; Hermes Lawrence ; August Perez ; Michaela Cantu Thomas J ; Katja Paniagua ; Lele Fuentes ; Martín Sevilla ; Brodie Wyatt Andrew J. ; Martín Blount ; Ernesto Carrera ; Kevin Silva ; Nolberto Giron ; Bassam Mullins ; Katja Rhodes ; Mark Qureshi ; Abel Antunez ; Juliet Marquis ; Olivier Koo ; Maggy Cao ; Cinda More Other Interventions: Discharge Summary Assessment (RN) Last Done: 12/26/20 12:18
== END 2020-12-26 13:48 | DRG 480 ==
LOC: ED 17:13 → 2N 20:03 → SUATTDRO 20:03 → 2N 21:26 → 3W 12-25 16:06

== ENCOUNTER 2020-12-28 10:15 | Inpatient (IN) ==
[2020-12-28 10:57] LABS: Basophils # (auto) 0.01 K/uL (0-0.2); Basophils % (auto) 0.1 %; Eosinophils # (auto) 0.17 K/uL (0-0.5); Eosinophils % (auto) 1.8 %; Hematocrit (blood only) 45.3 % (37-47); Immature Granulocytes # (auto) 0.12 K/uL (0.00-0.02); Immature Granulocytes % (auto) 1.2 %; Lymphocytes # (auto) 1.51 K/uL (1.2-3.4); Lymphocytes % (auto) 15.6 %; Mean Corpuscular Hemoglobin 29.5 pg (25-34); Mean Corpuscular Hgb Conc 33.1 g/dL (32-36); Mean Platelet Volume 9.6 fL (7.4-10.4); Monocytes # (auto) 1.01 K/uL (0.11-0.59); Monocytes % (auto) 10.4 %; Neutrophils # (auto) 6.88 K/uL (1.4-6.5); Neutrophils % (auto) 70.9 %; Platelet Count 248 K/uL (130-400); RDW Coefficient of Variation 15.6 % (11.5-14.5); RDW Standard Deviation 50.3 fL (36.4-46.3); Red Blood Count 5.09 M/uL (4.2-5.4)
[2020-12-28 11:11] LABS: Partial Thromboplastin Ratio 0.9; Partial Thromboplastin Time 23.6 Seconds (21.0-31.0); Prothrombin Time 10.5 Seconds (9.0-12.0)
--- NOTE | 2020-12-28 11:13 | XRay Report ---
XR chest 1V portable HISTORY: Atypical Chest Pain COMPARISON: 12/20/2020. FINDINGS: No pneumothorax. The heart remains enlarged. Small bilateral pleural effusions and bibasila r densities have slightly progressed. There is diffuse interstitial thickening. This may represent mi ld congestive change. Stable bilateral hilar prominence. This may be due to the enlarged pulmonary ve ssels in the setting of pulmonary arterial hypertension. IMPRESSION: 1. Small bilateral pleural effusions have progressed in the interval. Bibasilar densities are nonspec ific but favor compressive atelectasis. A pneumonia could also have a similar appearance [facility]. 2. Cardiomegaly with pulmonary arterial hypertension is again noted. 3. Diffuse interstitial prominence suggesting developing congestive change. ACT 112: Negative or not required by law. Electronically signed by: Richar Dee M.D. 12/28/2020 11:11 AM
[2020-12-28 11:14] LABS: Alanine Aminotransferase 20 U/L (12-78); Albumin Level 2.7 gm/dl (3.4-5.0); Aspartate Aminotransferase 11 U/L (15-37); Blood Urea Nitrogen 35 mg/dl (7-18); Calcium 8.6 mg/dl (8.5-10.1); Carbon Dioxide 33 mmol/L (21-32); Chloride 104 mmol/L (98-107); Creatinine Clr Calc Pharmacy 26.8 ml/min; Est GFR (Non-African American) 40.6 ml/min; Glucose 102 mg/dl (70-99); Potassium 3.6 mmol/L (3.5-5.1); Sodium 140 mmol/L (136-145)
[2020-12-28 11:19] LABS: Albumin Globulin Ratio 0.9 (0.9-2); Alkaline Phosphatase 58 U/L (45-117); Bilirubin,Total 0.5 mg/dl (0.2-1); Globulin 3.1 gm/dl (2.5-4.0); Total Protein 5.8 gm/dl (6.4-8.2); Troponin I < 0.015 ng/ml (0-0.045)
[2020-12-28 11:36] LABS: Base Excess VBG 5.2 mEq/L; pH VBG 7.41 (7.36-7.41)
--- NOTE | 2020-12-28 12:46 | CT Scan Report ---
HEAD CT NONCONTRAST CT DOSE: 537.48 mGy.cm HISTORY: confusion TECHNIQUE: Multiaxial CT images of the head were performed without the use of intravenous contrast. A utomated exposure control was utilized for this study. A dose lowering technique was utilized adheri ng to the principles of ALARA. Comparison: Head CT 12/20/2020. Findings: The paranasal sinuses and mastoid air cells are clear. The calvarium and skull base are int act. There is no mass, hematoma, midline shift, acute infarct. Mild periventricular white matter hypo density is nonspecific but favor microvascular ischemic change. The ventricles and sulci are within n ormal limits for age. There is faint subcortical hyperdensity seen throughout the majority of the bra in. This similar to the prior study and is likely chronic. Impression: 1. No significant change compared to the prior study. No acute intracranial abnormality. 2. Faint subcortical hyperdensity seen throughout the majority of the brain is again noted. This is s imilar to the prior study and could represent chronic cortical laminar necrosis or a chronic hypercal cemic state. ACT 112: Negative or not required by law. Electronically signed by: Richar Dee M.D. 12/28/2020 12:44 PM
[2020-12-28] MEDS ORDERED: OPTIRAY 320 125ml IV ONE (12:55)
--- NOTE | 2020-12-28 13:52 | History & Physical Report ---
Date of Service December 28, 2020 Assessment & Plan (1) Chest pain: Differential diagnosis includes but not limited to postoperative pneumonia secondary to possible aspiration versus acute coronary syndrome. Patient is an active smoker and has comorbidities putting her at risk for CAD. There is clear evidence of pneumonia on CT scanning. We will continue broad-spectrum antibiotics pending clinical improvement and culture results. Will trend enzymes overnight and contact cardiology for further recommendations on risk ratification if/when that is necessary. (2) Pneumonia: Chest CT with findings consistent with possible aspiration pneumonia. Wi th altered mental status, may consider this to be acute metabolic encephalopathy in setting of known baseline cognitive decline. Will start ceftriaxone and flagyl pending clinical improvement and culture results. Sputum cultures ordered. Although MRSA is a possibility, she is not acutely ill. Will perform nasal MRSA screen and if positive, will consider adding this as coverage. Speech therapy eval ordered. (3) Acute metabolic encephalopathy: Has known cognitive deficits, however, seems more disoriented in setting of possible infection. Cont plan above and monitor for improvement. (4) Atrial fibrillation: rate controlled on diltiazem, continues on eliquis (5) Current smoker: Cessation strongly advised. Nicoderm (6) Post-operative state: Probable osteoporotic fracture of right hip s/p fall s/p repair on 12/22 an d doing well but has some pain. Managed well with pain medications. Has an issue with chronic constipation and confusion-will give trial of tylenol as patient states she uses this at home without issue. Son agrees (at bedside) he doesn't remember her having an allergy to acetaminophen. Using this for pain management will allow less reliance on the mind-altering narcotic medications. NWB on the right (7) Chronic constipation: stool softener, Miralax PRN (8) DVT prophylaxis: Eliquis Full Code-confirmed with patient and her son who is at the bedside. Dispo-uncertain at this time. DO Luz Loo Hospitalist History of Present Illness Chief Complaint: Chest pain Primary Care Provider: [facility] The patient is a 70-year-old female with a history of atrial fibrillation, heart failure, chronic respiratory failure with hypoxia secondary to COPD, severe malnutrition, hypertensive kidney disease that is chronic and stage IIIa, osteoporosis and Alzheimer's type dementia who presents with chest pain for the second time postoperatively this week. She was recently discharged on 12/26/2020 having been treated in the hospital for a subcapital fracture of the right hip status post repair on 12/22. Preoperatively she suffered acute respiratory failure with hypoxia and hypercapnia and was treated by pulmonology. Smoking ce ssation was strongly advised which is a risk factor for her to have CAD. While she was hospitalized she experienced approximately 1 hour of centralized chest pain with no associated symptoms that resolved spontaneously. Troponin enzymes were trended and negative and an EKG Was unchanged revealing atrial fibrillation with a rate of 82. Complicating the history is her mental status. She first thought she came from [facility] and did not remember which surgery she had or why. She has been somewhat confused and part of this may be due to narcotic therapy as she has allergies listed to acetaminophen and ibuprofen. History is therefore limited. Per ER provider she had at least a couple of hours of chest pain, and patient states this was centrally located and nonradiating. She denies SOB or other symptoms at this time. She is significantly downplaying the pain and asking to go home. Today her EKG revealed atrial fibrillation without obvious ischemia. She had an unremarkable CBC, chemistry panel, negative troponin. A CT of her head was unrevealing. A CT of her chest revealed no thromboembolic disease. Patchy densities in the lower lungs were seen possibly consistent with an aspiration pneumonia. She was given cefepime and clindamycin in the ER. Allergies Allergy/AdvReac Type Severity Reaction Status Date / Time Penicillins Allergy Unknown Unknown Unverified 12/28/20 13:19 Sulfa (Sulfonamide Allergy Unknown Unknown Unverified 12/28/20 13:19 Antibiotics) acetaminophen Allergy Unknown Unverified 12/28/20 13:19 candesartan [From Atacand] Allergy Unknown Unverified 12/28/20 13:19 codeine Allergy Unknown Unverified 12/28/20 13:19 cyclobenzaprine Allergy Unknown Unverified 12/28/20 13:19 ibuprofen [From Motrin IB] Allergy Unknown Unverified 12/28/20 13:19 moxifloxacin Allergy Unknown Unverified 12/28/20 13:19 nitrofurantoin Allergy Unknown Unverified 12/28/20 13:19 [From Macrodantin] oxybutynin Allergy Unknown Unverified 12/28/20 13:19 propoxyphene Allergy Unknown Unverified 12/28/20 13:19 tramadol Allergy Unknown Unverified 12/28/20 13:19 Home Medications Medication Instructions Recorded Confirmed Type Combivent Respimat 1 puff INHALATION QID 12/20/20 12/28/20 History Eliquis 2.5 mg PO BID 12/20/20 12/28/20 History buspirone 5 mg PO BID 12/20/20 12/28/20 History cholecalciferol (vitamin D3) 25 mcg PO QAM 12/20/20 12/28/20 History [Vitamin D3] diltiazem HCl [Cardizem CD] 180 mg PO QAM 12/20/20 12/28/20 History docusate sodium [Colace] 100 mg PO BID 12/20/20 12/28/20 History donepezil [Aricept] 5 mg PO QAM 12/20/20 12/28/20 History ferrous sulfate 325 mg PO BIDM 12/20/20 12/28/20 History furosemide [Lasix] 20 mg PO 2XWK 12/20/20 12/28/20 History gabapentin [Neurontin] 200 mg PO QAM 12/20/20 12/28/20 History ipratropium-albuterol 3 ml INHALATION QID 12/20/20 12/28/20 History nicotine [Nicoderm CQ] 21 mg TRANSDERMAL HS #14 ea 12/26/20 12/28/20 Rx atorvastatin 10 mg PO HS 12/28/20 12/28/20 History azithromycin 250 mg PO QAM 12/28/20 12/28/20 History ghtdynndkqb-arkjfyegu-zygleotr 1 inh INHALATION DAILY 12/28/20 12/28/20 History [Trelegy Ellipta] pantoprazole 40 mg PO DAILYBB 12/28/20 12/28/20 History prednisone 20 mg PO QAM 12/28/20 12/28/20 History Past Med/Surg History Medical History Acute exacerbation of chronic obstructive pulmonary disease Acute respiratory acidosis Alzheimer's dementia Atrial fibrillation Chest pain CKD (chronic kidney disease) Cognitive deficits COPD (chronic obstructive pulmonary disease) Encounter for pre-operative examination Fall Hypertension Osteoporosis Respiratory failure Subcapital fracture of right hip Syncope Tobacco use Surgical History (Updated 12/28/20 @ 20:00 by Vera Whitt DO) H/O: hysterectomy History of appendectomy History of shoulder surgery Hx of cervical spine surgery Hx of cholecystectomy Status post-operative repair of closed fracture of right hip Social History Smoking Status: Current every day smoker Cigarettes Per Day: 20; Second Hand Exposure: No; Do You Dip or Chew Tobacco: No; Tobacco Cessation Education Requested by Patient: No Hx Alcohol Use: No Hx Substance Use: No Preferred Language: Welsh Communication Ability: Effective Servicing Rep Required: No Beliefs That Will Affect Care: None marital status: Current Living Situation: Alone How many Children do You have: 1 Other Information That Helps Us Care for You: No Feels Safe at Home: Yes Safety Concerns: Feels Safe At This Time Assistive Devices: None Review of Systems Review of Systems: All systems reviewed & are unremarkable except as noted in HPI & below Physical Exam Physical Exam: CONSTITUTIONAL: WNWD, vitals as above, generally well- appearing EYES: normal conjunctivae, no scleral icterus ENT: external ear and nose normal, MMM NECK: trachea midline RESPIRATORY: mild crackles at the right base, no rales or wheezes, normal respiratory effort CARDIOVASCULAR: irregular rate and rhythm, S1 and 2 heard without murmurs, gallops or rubs, no JVD, no peripheral edema CHEST: inspection of chest was normal GASTROINTESTINAL: soft, nontender, nondistended, no guarding MUSCULOSKELETAL: strength 5/5 throughout, head is normocephalic and atraumatic SKIN: warm and dry NEUROLOGIC: CN 2-12 grossly intact, normal cognition, normal speech, no tremor PSYCHIATRIC: alert cooperative and oriented to person only. Results & Data Results & Data ([facility]) Vital Signs (Past 12 Hours) Vital Signs Temp Pulse Resp BP Pulse Ox 12/28/20 11:10 90 25 H 145/107 H 92 12/28/20 10:40 78 20 94 12/28/20 10:20 36.5 C 95 H 13 137/77 88 L Laboratory Results Short CBC 12/28/20 Range/Units 10:47 WBC 9.70 (4.8-10.8) K/uL Hgb 15.0 (12.0-16.0) g/dL Hct 45.3 (37-47) % Plt Count 248 (130-400) K/uL BMP 07/04/21 10:47 Sodium 140 Potassium 3.6 Chloride 104 Carbon Dioxide 33 H BUN 35 H Creatinine 1.31 H Glucose 102 H Calcium 8.6 Cardiac Enzymes 12/28/20 Range/Units 10:47 Troponin I < 0.015 (0-0.045) ng/ml Liver Function 12/28/20 Range/Units 10:47 Total Bilirubin 0.5 (0.2-1) mg/dl AST 11 L (15-37) U/L ALT 20 (12-78) U/L Alkaline Phosphatase 58 (45-117) U/L Albumin 2.7 L (3.4-5.0) gm/dl Diagnostic Findings CTA chest IMPRESSION: 1. No evidence for pulmonary embolus within the main or upper lobe pulmonary arteries. The right middle lobe and lower lobe pulmonary arteries are essentially nondiagnostic due to the heterogeneous opacification from the timing of contrast. 2. Small bilateral pleural effusions. 3. Patchy densities within the lungs posteriorly with tree-in-bud nodular opacities within the lower lobes and near complete opacification of the distal bilateral lower lobe bronchi. This likely represent an infectious bronchiolitis and could be due to aspiration. 4. A 6 mm indeterminate pulmonary nodule within the right lower lobe. 5. An 11 x 5 mm focal groundglass irregular density within the right upper lobe posteriorly. This could represent scarring. However, follow-up chest CT recommended to exclude the less likely possibility of a low-grade neoplastic process. 6. Moderate emphysema. 7. Cardiomegaly and a small pericardial effusion. Code Status & VTE Plan VTE Prophylaxis Plan VTE Prophylaxis will be ordered: Yes
--- NOTE | 2020-12-28 13:54 | CT Scan Report ---
CHEST CTA for PULMONARY ARTERIES CT DOSE: 269.57 mGy.cm HISTORY: Atypical chest pain. TECHNIQUE: Multiaxial CT images of the chest were performed following the intravenous administration of contrast to evaluate the pulmonary arteries. Maximal intensity projection images were also obtaine d. A dose lowering technique was utilized adhering to the principles of ALARA. COMPARISON STUDY: None. FINDINGS: Limited views the upper abdomen demonstrate normal liver and spleen. Moderate calcified alesia que in the normal caliber thoracic aorta. Inadequate contrast within the thoracic aorta to evaluate f or a dissection. The heart is moderately enlarged. There is a small pericardial effusion and small bi lateral pleural effusions. The main and upper lobe pulmonary arteries are patent. There is heterogene ous opacification of the bilateral lower lobe and right middle lobe pulmonary arteries likely due to the timing of contrast. Therefore, there is nondiagnostic evaluation of these structures for a pulmon hasmukh embolus. Normal esophagus. No significant central or hilar lymphadenopathy. A few prominent right hilar lymph nodes may be reactive. Postoperative changes seen within the right shoulder. No suspicio us lytic or blastic osseous lesions. There is an old nonunited left posterior 11th rib fracture. No a cute fractures identified within the chest. No pneumothorax. Mild biapical pleural-parenchymal scarli ke densities. Moderate emphysema. Patchy densities within the lung bases posteriorly with a few tree- in-bud nodular opacities within the bilateral lower lobes, right greater than left. There is near com plete opacification of the bilateral lower lobe bronchi with associated bronchial wall thickening. Th ere is also small amount of mucoid material within the right mainstem bronchus and right lobar bronch i. A 6 mm nodule within the right lower lobe on image 122. Small focal irregular groundglass density within the right upper lobe posteriorly on image 197. This measures 11 x 5 mm. IMPRESSION: 1. No evidence for pulmonary embolus within the main or upper lobe pulmonary arteries. The right midd le lobe and lower lobe pulmonary arteries are essentially nondiagnostic due to the heterogeneous opac ification from the timing of contrast. 2. Small bilateral pleural effusions. 3. Patchy densities within the lungs posteriorly with tree-in-bud nodular opacities within the lower lobes and near complete opacification of the distal bilateral lower lobe bronchi. This likely represe nt an infectious bronchiolitis and could be due to aspiration. 4. A 6 mm indeterminate pulmonary nodule within the right lower lobe. 5. An 11 x 5 mm focal groundglass irregular density within the right upper lobe posteriorly. This cou ld represent scarring. However, follow-up chest CT recommended to exclude the less likely possibility of a low-grade neoplastic process. 6. Moderate emphysema. 7. Cardiomegaly and a small pericardial effusion. Please refer to below summary of Fleischner criteria recommendations for follow-up of incidental CT n odules (Jeni Walker, Guidelines for management of small pulmonary nodules detected on CT scans: A sta tement from the Fleischner Society, Radiology 237: [phone].) SOLID NODULES Solitary nodule size: <6 mm * Low risk patients: no follow-up needed * high risk patients: optional CT at 12 months Solitary nodule size: 6-8 mm * Low risk patients: follow-up at 6-12 months, then consider further follow-up at 18-24 months * high risk patients: initial follow-up CT at 6-12 months and then at 18-24 months if no change Solitary nodule size: >8 mm * either low or high risk patients - consider follow-up CT at 3 months, and/or CT-PET, and/or biopsy Multiple nodules size: <6 mm * Low risk patients: no routine follow-up * high risk patients: optional CT at 12 months Multiple nodules size: 6-8 mm * Low risk patients: follow-up at 3-6 months, then consider further follow-up at 18-24 months * high risk patients: follow-up at 3-6 months, then at 18-24 months if no change Multiple nodules size: >8 mm * Low risk patients: follow-up at 3-6 months, then consider further follow-up at 18-24 months * high risk patients: follow-up at 3-6 months, then at 18-24 months if no change Note: newly detected indeterminate nodule in persons 35 years of age or older. * Low risk patients: minimal or absent history of smoking and/or other known risk factors * high risk patients: history of smoking or of other known risk factors (e.g. first degree relative with lung cancer, or exposure to asbestos, radon, uranium) * if a nodule up to 8 mm is partly solid or is ground glass further follow-up is required after 24 m onths to exclude possible slow growing adenocarcinoma (PARISH) SUBSOLID NODULES Solitary pure ground-glass nodule * nodule size <6 mm - no CT follow-up required * nodule size >=6 mm - follow-up CT at 6-12 months, then every 2 years until 5 years Solitary part-solid nodule * nodule size <6 mm - no CT follow-up required * nodule size >=6 mm - follow-up CT at 3-6 months. If unchanged, and solid component remains <6 mm, then annual follow-up for 5 years Multiple subsolid nodules * nodule size <6 mm - follow-up CT at 3-6 months, consider further follow-up at 2 and 4 years if sta ble * nodule size >=6 mm - follow-up CT at 3-6 months, subsequent management based on the most suspiciou s nodule(s) ACT 112: Negative or not required by law. Electronically signed by: Richar Dee M.D. 12/28/2020 1:53 PM
[2020-12-28] MEDS ORDERED: CLINDAMYCIN 600 MG in DEXTROSE 5% 50 ML IV ONE (14:08)
[2020-12-28] MEDS ORDERED: CEFEPIME 2,000 MG/20 ML VIAL IV STA (14:08)
[2020-12-28] MEDS ORDERED: ONDANSETRON INJ 2 MG/ML 2 ML VIAL IV PRN (15:59)
[2020-12-28] MEDS ORDERED: NITROGLYCERIN SL 0.4 MG/TAB TAB SL PRN (15:59)
[2020-12-28] MEDS ORDERED: POLYETHYLENE (MIRALAX) 17 GM PACK PO PRN (15:59)
[2020-12-28 16:29] LABS: Chol HDL Ratio 3; Cholesterol 160 mg/dl (0-200); HDL Cholesterol 54 mg/dl; LDL Cholesterol Calculated 86 mg/dl; Triglycerides 101 mg/dl (0-150); VLDL Cholesterol 20 mg/dl
--- NOTE | 2020-12-28 17:15 | Emergency Department Note ---
Impression & Plan Left-sided chest pain, Pneumonia ED Provider Note INFORMANT: Patient ED PROVIDER(S): Olivier Mallory MD CHIEF COMPLAINT: Chest pain PLAN: Disposition: Admitted Condition: Good Outpatient prescription management: none Referral: None MEDICAL DECISION MAKING: Patient presented complaining of chest pain. It was brief lasting a few hours but is currently resolved. She had a work-up obtained. Her chest x-ray was somewhat concerning. Her ECG revealed A. fib without any obvious ischemia. She had an unremarkable CBC, chemistry panel, troponin and LFTs. The patient underwent CT imaging of her head she did seem to have some confusion as well as a VBG. These were negative. The patient underwent a CT imaging of her chest and no thromboembolic disease was noted. The patient did appear to have findings concerning for infection. Radiology did raise some concerns about possible aspiration. She was given a dose of IV Clinda and cefepime. Consultation was made with the [facility]. The patient was evaluated by Dr. Whitt and admitted. Triage Nursing notes reviewed and agree them. Vital Signs: reviewed and remarkable for no significant abnormalities Differential diagnosis: Cardiac ischemia, aortic dissection, pulmonary embolism, pneumothorax, pneumonia, pericarditis, myocarditis, esophageal rupture, GERD, cholecystitis, pancreatitis, musculoskeletal, as well as other pathologies. Diagnostics interpreted by me: ECG: Twelve-lead ECG reveals atrial fibrillation at [address] elevation or depression no PVCs. Normal axis. Cardiac Monitoring: Cardiac monitoring ordered by me: The patient was placed on continuous cardiac monitoring and observed. It revealed atrial fibrillation at 82 bpm. Imaging studies: Head CT: A noncontrast CT scan of the head was performed and was negative for tumor, fracture, intracranial hemorrhage, or other acute pathology. Chest x-ray is concerning for possible pneumonia. Pleural effusions noted. CT PE study was negative for thromboembolic disease. Infectious findings noted raising concerns for possible aspiration per radiology. I refer you to the EMR for further details. HPI: The patient is a 70 year old female who presents to the Emergency Room with complaints of left-sided chest pain. This started this morning, lasted about 2 hours and is resolved. The patient also notes the following associated symptoms , mild shortness of breath. The patient has taken no medication for relieving factors. Current pain is rated as zero/10. Patient states the pain was 6/10. She was recently transferred to [facility] after hip surgery 2 days ago. Pt denies LOC, headache, fevers, chills, diaphoresis, visual changes, neck pain, nausea, vomiting, abdominal pain, back pain, melena, hematochezia, urinary symptoms, numbness, weakness, lymphadenopathy, rash, or other complaints. ROS: See above HPI for pertinent positives & negatives. A total of 10 systems reviewed and were otherwise negative. PAST MEDICAL HISTORY:See Below , COPD PAST SURGICAL HISTORY:See Below, FAMILY HISTORY:See Below SOCIAL HISTORY:See Below, smoker HOME MEDICATIONS:See Below ALLERGIES:See Below VITALS:See Below PHYSICAL EXAMINATION: GENERAL: Awake, alert, well-appearing, in no distress HENT: Normocephalic, atraumatic. Oropharynx unremarkable. EYES: Normal conjunctiva. Sclera non-icteric. NECK: Inspection normal. Non-tender. Supple. No nuchal rigidity. FROM. No masses. RESPIRATORY: Clear to auscultation. No wheezes. No rales. Normal respiratory effort. CARDIAC: Normal rate. Normal rhythm. No murmurs. No rubs. Extremities warm and well perfused. Pulses equal. No JVD. GI: Soft, non-distended. No tenderness to palpation. No rebound or guarding. No masses. RECTAL: Deferred. MUSCULOSKELETAL: Atraumatic. Chest examination reveals no tenderness. The back is symmetrical on inspection without obvious abnormality. There is no CVA tenderness to palpation. No joint edema. LOWER EXTREMITIES: Calves are equal size bilaterally and non-tender. No edema. No discoloration. NEURO: Normal sensorium. No sensory or motor deficits noted. SKIN: No rash or jaundice noted. Olivier Mallory MD Past Med/Surg History Medical History Acute exacerbation of chronic obstructive pulmonary disease Acute respiratory acidosis Alzheimer's dementia Atrial fibrillation CKD (chronic kidney disease) Cognitive deficits COPD (chronic obstructive pulmonary disease) Encounter for pre-operative examination Fall Hypertension Osteoporosis Respiratory failure Subcapital fracture of right hip Syncope Tobacco use Surgical History (Updated 12/22/20 @ 08:44 by Nikolai Hawkins MD) H/O: hysterectomy History of appendectomy History of shoulder surgery Hx of cervical spine surgery Hx of cholecystectomy Social History Smoking Status: Current every day smoker Cigarettes Per Day: 20; Second Hand Exposure: No; Do You Dip or Chew Tobacco: No; Tobacco Cessation Education Requested by Patient: No Hx Alcohol Use: No Hx Substance Use: No Preferred Language: Romanian Communication Ability: Effective Framer Required: No Beliefs That Will Affect Care: None marital status: Current Living Situation: Alone How many Children do You have: 1 Other Information That Helps Us Care for You: No Feels Safe at Home: Yes Safety Concerns: Feels Safe At This Time Assistive Devices: None Allergies Allergies Allergy/AdvReac Type Severity Reaction Status Date / Time Penicillins Allergy Unknown Unknown Unverified 12/28/20 13:19 Sulfa (Sulfonamide Allergy Unknown Unknown Unverified 12/28/20 13:19 Antibiotics) acetaminophen Allergy Unknown Unverified 12/28/20 13:19 candesartan [From Atacand] Allergy Unknown Unverified 12/28/20 13:19 codeine Allergy Unknown Unverified 12/28/20 13:19 cyclobenzaprine Allergy Unknown Unverified 12/28/20 13:19 ibuprofen [From Motrin IB] Allergy Unknown Unverified 12/28/20 13:19 moxifloxacin Allergy Unknown Unverified 12/28/20 13:19 nitrofurantoin Allergy Unknown Unverified 12/28/20 13:19 [From Macrodantin] oxybutynin Allergy Unknown Unverified 12/28/20 13:19 propoxyphene Allergy Unknown Unverified 12/28/20 13:19 tramadol Allergy Unknown Unverified 12/28/20 13:19 Home Meds Home Medications Medication Instructions Recorded Confirmed Combivent Respimat 1 puff INHALATION QID 12/20/20 12/28/20 Eliquis 2.5 mg PO BID 12/20/20 12/28/20 buspirone 5 mg PO BID 12/20/20 12/28/20 cholecalciferol (vitamin D3) 25 mcg PO QAM 12/20/20 12/28/20 [Vitamin D3] diltiazem HCl [Cardizem CD] 180 mg PO QAM 12/20/20 12/28/20 docusate sodium [Colace] 100 mg PO BID 12/20/20 12/28/20 donepezil [Aricept] 5 mg PO QAM 12/20/20 12/28/20 ferrous sulfate 325 mg PO BIDM 12/20/20 12/28/20 furosemide [Lasix] 20 mg PO 2XWK 12/20/20 12/28/20 gabapentin [Neurontin] 200 mg PO QAM 12/20/20 12/28/20 ipratropium-albuterol 3 ml INHALATION QID 12/20/20 12/28/20 atorvastatin 10 mg PO HS 12/28/20 12/28/20 azithromycin 250 mg PO QAM 12/28/20 12/28/20 pantoprazole 40 mg PO DAILYBB 12/28/20 12/28/20 prednisone 20 mg PO QAM 12/28/20 12/28/20 Previous Rx's Medication Instructions Recorded nicotine [Nicoderm CQ] 21 mg TRANSDERMAL HS #14 ea 12/26/20 Results & Data (ED) Vital Signs Vital Signs - 24 hr 12/28/20 10:20 12/28/20 10:40 12/28/20 11:10 Temperature 36.5 C Temperature Source Oral Pulse Rate 95 H 78 90 Pulse Rate from SpO2 Sensor 86 Pulse Rhythm Regular Regular Pulse Strength Normal Respiratory Rate 13 20 25 H Respiratory Effort / Characteristics Non-Labored Spontaneous Respiratory Depth Normal Respiratory Pattern Regular Blood Pressure 137/77 145/107 H Blood Pressure Mean 97 119 Blood Pressure Position Sitting Pulse Oximetry 88 L 94 92 Oxygen Delivery Method Room Air Nasal Cannula Nasal Cannula Oxygen Flow Rate 2 4 2 Sepsis Recent Fever Within 48 Hours No Sepsis New/Unexplained Change in Mental Status No Sepsis Action Taken by Nursing No Action Required 12/28/20 13:47 Temperature Temperature Source Pulse Rate 91 H Pulse Rate from SpO2 Sensor 88 Pulse Rhythm Pulse Strength Respiratory Rate 29 H Respiratory Effort / Characteristics Respiratory Depth Respiratory Pattern Blood Pressure 160/88 H Blood Pressure Mean 112 Blood Pressure Position Pulse Oximetry 97 Oxygen Delivery Method Oxygen Flow Rate Sepsis Recent Fever Within 48 Hours Sepsis New/Unexplained Change in Mental Status Sepsis Action Taken by Nursing Laboratory Data Result diagrams: 12/28/20 10:47 12/28/20 10:47 Lab Results 12/28/20 12/28/20 12/28/20 Range/Units 10:47 10:47 10:47 WBC 9.70 (4.8-10.8) K/uL RBC 5.09 (4.2-5.4) M/uL Hgb 15.0 (12.0-16.0) g/dL Hct 45.3 (37-47) % MCV 89.0 (80-100) fL MCH 29.5 (25-34) pg MCHC 33.1 (32-36) g/dL RDW Std Deviation 50.3 H (36.4-46.3) fL RDW Coeff of Cheri 15.6 H (11.5-14.5) % Plt Count 248 (130-400) K/uL MPV 9.6 (7.4-10.4) fL Immature Gran % (Auto) 1.2 % Neut % (Auto) 70.9 % Lymph % (Auto) 15.6 % [place] % (Auto) 10.4 % Eos % (Auto) 1.8 % Baso % (Auto) 0.1 % Neut # (Auto) 6.88 H (1.4-6.5) K/uL Lymph # (Auto) 1.51 (1.2-3.4) K/uL [place] # (Auto) 1.01 H (0.11-0.59) K/uL Eos # (Auto) 0.17 (0-0.5) K/uL Baso # (Auto) 0.01 (0-0.2) K/uL Immature Gran # (Auto) 0.12 H (0.00-0.02) K/uL PT 10.5 (9.0-12.0) Seconds INR 1.0 (0.9-1.1) APTT 23.6 (21.0-31.0) Seconds PTT Ratio 0.9 VBG pH (7.36-7.41) VBG pCO2 (38-50) mmHg VBG pO2 mmHg VBG HCO3 mmol/L VBG O2 Saturation % VBG Base Excess mEq/L Barometric Pressure mm/Hg Sodium 140 (136-145) mmol/L Potassium 3.6 (3.5-5.1) mmol/L Chloride 104 (98-107) mmol/L Carbon Dioxide 33 H (21-32) mmol/L Anion Gap 3.0 (3-11) BUN 35 H (7-18) mg/dl Creatinine 1.31 H (0.6-1.2) mg/dl Est Cr Clr Drug Dosing 26.8 ml/min Est GFR ( Amer) 47.0 ml/min Est GFR (Non-Af Amer) 40.6 ml/min BUN/Creatinine Ratio 27.0 H (10-20) Glucose 102 H (70-99) mg/dl Calcium 8.6 (8.5-10.1) mg/dl Total Bilirubin 0.5 (0.2-1) mg/dl AST 11 L (15-37) U/L ALT 20 (12-78) U/L Alkaline Phosphatase 58 (45-117) U/L Troponin I < 0.015 (0-0.045) ng/ml Total Protein 5.8 L (6.4-8.2) gm/dl Albumin 2.7 L (3.4-5.0) gm/dl Globulin 3.1 (2.5-4.0) gm/dl Albumin/Globulin Ratio 0.9 (0.9-2) Triglycerides (0-150) mg/dl Cholesterol (0-200) mg/dl LDL Cholesterol, Calc mg/dl VLDL Cholesterol, Calc mg/dl HDL Cholesterol mg/dl Cholesterol/HDL Ratio COVID-19 Eval Order SARS-CoV-2 (PCR) (Negative) 12/28/20 12/28/20 12/28/20 Range/Units 10:47 11:22 12:56 WBC (4.8-10.8) K/uL RBC (4.2-5.4) M/uL Hgb (12.0-16.0) g/dL Hct (37-47) % MCV (80-100) fL MCH (25-34) pg MCHC (32-36) g/dL RDW Std Deviation (36.4-46.3) fL RDW Coeff of Cheri (11.5-14.5) % Plt Count (130-400) K/uL MPV (7.4-10.4) fL Immature Gran % (Auto) % Neut % (Auto) % Lymph % (Auto) % [place] % (Auto) % Eos % (Auto) % Baso % (Auto) % Neut # (Auto) (1.4-6.5) K/uL Lymph # (Auto) (1.2-3.4) K/uL [place] # (Auto) (0.11-0.59) K/uL Eos # (Auto) (0-0.5) K/uL Baso # (Auto) (0-0.2) K/uL Immature Gran # (Auto) (0.00-0.02) K/uL PT (9.0-12.0) Seconds INR (0.9-1.1) APTT (21.0-31.0) Seconds PTT Ratio VBG pH 7.41 (7.36-7.41) VBG pCO2 50 (38-50) mmHg VBG pO2 38 mmHg VBG HCO3 31 mmol/L VBG O2 Saturation 70.0 % VBG Base Excess 5.2 mEq/L Barometric Pressure 729.5 mm/Hg Sodium (136-145) mmol/L Potassium (3.5-5.1) mmol/L Chloride (98-107) mmol/L Carbon Dioxide (21-32) mmol/L Anion Gap (3-11) BUN (7-18) mg/dl Creatinine (0.6-1.2) mg/dl Est Cr Clr Drug Dosing ml/min Est GFR ( Amer) ml/min Est GFR (Non-Af Amer) ml/min BUN/Creatinine Ratio (10-20) Glucose (70-99) mg/dl Calcium (8.5-10.1) mg/dl Total Bilirubin (0.2-1) mg/dl AST (15-37) U/L ALT (12-78) U/L Alkaline Phosphatase (45-117) U/L Troponin I (0-0.045) ng/ml Total Protein (6.4-8.2) gm/dl Albumin (3.4-5.0) gm/dl Globulin (2.5-4.0) gm/dl Albumin/Globulin Ratio (0.9-2) Triglycerides 101 (0-150) mg/dl Cholesterol 160 (0-200) mg/dl LDL Cholesterol, Calc 86 mg/dl VLDL Cholesterol, Calc 20 mg/dl HDL Cholesterol 54 mg/dl Cholesterol/HDL Ratio 3 COVID-19 Eval Order Covid19 at [facility] SARS-CoV-2 (PCR) (Negative) 12/28/20 Range/Units 12:56 WBC (4.8-10.8) K/uL RBC (4.2-5.4) M/uL Hgb (12.0-16.0) g/dL Hct (37-47) % MCV (80-100) fL MCH (25-34) pg MCHC (32-36) g/dL RDW Std Deviation (36.4-46.3) fL RDW Coeff of Cheri (11.5-14.5) % Plt Count (130-400) K/uL MPV (7.4-10.4) fL Immature Gran % (Auto) % Neut % (Auto) % Lymph % (Auto) % [place] % (Auto) % Eos % (Auto) % Baso % (Auto) % Neut # (Auto) (1.4-6.5) K/uL Lymph # (Auto) (1.2-3.4) K/uL [place] # (Auto) (0.11-0.59) K/uL Eos # (Auto) (0-0.5) K/uL Baso # (Auto) (0-0.2) K/uL Immature Gran # (Auto) (0.00-0.02) K/uL PT (9.0-12.0) Seconds INR (0.9-1.1) APTT (21.0-31.0) Seconds PTT Ratio VBG pH (7.36-7.41) VBG pCO2 (38-50) mmHg VBG pO2 mmHg VBG HCO3 mmol/L VBG O2 Saturation % VBG Base Excess mEq/L Barometric Pressure mm/Hg Sodium (136-145) mmol/L Potassium (3.5-5.1) mmol/L Chloride (98-107) mmol/L Carbon Dioxide (21-32) mmol/L Anion Gap (3-11) BUN (7-18) mg/dl Creatinine (0.6-1.2) mg/dl Est Cr Clr Drug Dosing ml/min Est GFR ( Amer) ml/min Est GFR (Non-Af Amer) ml/min BUN/Creatinine Ratio (10-20) Glucose (70-99) mg/dl Calcium (8.5-10.1) mg/dl Total Bilirubin (0.2-1) mg/dl AST (15-37) U/L ALT (12-78) U/L Alkaline Phosphatase (45-117) U/L Troponin I (0-0.045) ng/ml Total Protein (6.4-8.2) gm/dl Albumin (3.4-5.0) gm/dl Globulin (2.5-4.0) gm/dl Albumin/Globulin Ratio (0.9-2) Triglycerides (0-150) mg/dl Cholesterol (0-200) mg/dl LDL Cholesterol, Calc mg/dl VLDL Cholesterol, Calc mg/dl HDL Cholesterol mg/dl Cholesterol/HDL Ratio COVID-19 Eval Order SARS-CoV-2 (PCR) NEGATIVE (Negative) Administered Medications Discontinued Medications Clindamycin Phosphate 600 mg/ (Dextrose) 54 mls @ 100 mls/hr IV ONE ONE Stop: 12/28/20 14:40 Last Infusion: 12/28/20 15:11 Dose: 0 mls/hr Documented by: [id number] Admin: 12/28/20 14:31 Dose: 100 mls/hr Documented by: [id number] Cefepime HCl (Maxipime) 2,000 mg in 20 mls @ 5 mls/min IV NOW STA; Protocol Stop: 12/28/20 14:11 Last Admin: 12/28/20 14:30 Dose: 5 mls/min Documented by: [id number] Ioversol (Optiray 320 125ml) 118 ml IV ONCE ONE Stop: 12/28/20 12:56 Last Admin: 12/28/20 12:56 Dose: 118 ml Documented by: [id number] Imaging Data Radiologist's Impression: Chest X-Ray 12/28/20 10:29 XR chest 1V portable HISTORY: Atypical Chest Pain COMPARISON: 12/20/2020. FINDINGS: No pneumothorax. The heart remains enlarged. Small bilateral pleural effusions and bibasilar densities have slightly progressed. There is diffuse interstitial thickening. This may represent mild congestive change. Stable bilateral hilar prominence. This may be due to the enlarged pulmonary vessels in the setting of pulmonary arterial hypertension. IMPRESSION: 1. Small bilateral pleural effusions have progressed in the interval. Bibasilar densities are nonspecific but favor compressive atelectasis. A pneumonia could also have a similar appearance in the appropriate clinical setting. 2. Cardiomegaly with pulmonary arterial hypertension is again noted. 3. Diffuse interstitial prominence suggesting developing congestive change. ACT 112: Negative or not required by law. Electronically signed by: Richar Dee M.D. 12/28/2020 11:[address] 12/28/20 11:[address] DOSE: 537.48 mGy.cm HISTORY: confusion TECHNIQUE: Multiaxial CT images of the head were performed without the use of intravenous contrast. Automated exposure control was utilized for this study. A dose lowering technique was utilized adhering to the principles of ALARA. Comparison: Head CT 12/20/2020. Findings: The paranasal sinuses and mastoid air cells are clear. The calvarium and skull base are intact. There is no mass, hematoma, midline shift, acute infarct. Mild periventricular white matter hypodensity is nonspecific but favor microvascular ischemic change. The ventricles and sulci are within normal limits for age. There is faint subcortical hyperdensity seen throughout the majority of the brain. This similar to the prior study and is likely chronic. Impression: 1. No significant change compared to the prior study. No acute intracranial abnormality. 2. Faint subcortical hyperdensity seen throughout the majority of the brain is again noted. This is similar to the prior study and could represent chronic cortical laminar necrosis or a chronic hypercalcemic state. ACT 112: Negative or not required by law. Electronically signed by: Richar Dee M.D. 12/28/2020 12:44 PM Chest CTA 12/28/20 12:50 CHEST CTA for PULMONARY ARTERIES CT DOSE: 269.57 mGy.cm HISTORY: Atypical chest pain. TECHNIQUE: Multiaxial CT images of the chest were performed following the intravenous administration of contrast to evaluate the pulmonary arteries. Max imal intensity projection images were also obtained. A dose lowering technique was utilized adhering to the principles of ALARA. COMPARISON STUDY: None. FINDINGS: Limited views the upper abdomen demonstrate normal liver and spleen. Moderate calcified plaque in the normal caliber thoracic aorta. Inadequate contrast within the thoracic aorta to evaluate for a dissection. The heart is moderately enlarged. There is a small pericardial effusion and small bilateral pleural effusions. The main and upper lobe pulmonary arteries are patent. There is heterogeneous opacification of the bilateral lower lobe and right middle lobe pulmonary arteries likely due to the timing of contrast. Therefore, there is nondiagnostic evaluation of these structures for a pulmonary embolus. Normal esophagus. No significant central or hilar lymphadenopathy. A few prominent right hilar lymph nodes may be reactive. Postoperative changes seen within the right shoulder. No suspicious lytic or blastic osseous lesions. There is an old nonunited left posterior 11th rib fracture. No acute fractures identified within the chest. No pneumothorax. Mild biapical pleural-parenchymal scarlike densities. Moderate emphysema. Patchy densities within the lung bases posteriorly with a few tree-in-bud nodular opacities within the bilateral lower lobes, right greater than left. There is near complete opacification of the bilateral lower lobe bronchi with associated bronchial wall thickening. There is also small amount of mucoid material within the right mainstem bronchus and right lobar bronchi. A 6 mm nodule within the right lower lobe on image 122. Small focal irregular groundglass density within the right upper lobe posteriorly on image 197. This measures 11 x 5 mm. IMPRESSION: 1. No evidence for pulmonary embolus within the main or upper lobe pulmonary arteries. The right middle lobe and lower lobe pulmonary arteries are essentially nondiagnostic due to the heterogeneous opacification from the timing of contrast. 2. Small bilateral pleural effusions. 3. Patchy densities within the lungs posteriorly with tree-in-bud nodular opacities within the lower lobes and near complete opacification of the distal bilateral lower lobe bronchi. This likely represent an infectious bronchiolitis and could be due to aspiration. 4. A 6 mm indeterminate pulmonary nodule within the right lower lobe. 5. An 11 x 5 mm focal groundglass irregular density within the right upper lobe posteriorly. This could represent scarring. However, follow-up chest CT recommended to exclude the less likely possibility of a low-grade neoplastic process. 6. Moderate emphysema. 7. Cardiomegaly and a small pericardial effusion. Please refer to below summary of Fleischner criteria recommendations for follow- up of incidental CT nodules (Jeni Walker, Guidelines for management of small pulmonary nodules detected on CT scans: A statement from the Fleischner Society, Radiology 237: [phone].) SOLID NODULES Solitary nodule size: <6 mm * Low risk patients: no follow-up needed * high risk patients: optional CT at 12 months Solitary nodule size: 6-8 mm * Low risk patients: follow-up at 6-12 months, then consider further follow-up at 18-24 months * high risk patients: initial follow-up CT at 6-12 months and then at 18-24 months if no change Solitary nodule size: >8 mm * either low or high risk patients - consider follow-up CT at 3 months, and/or CT-PET, and/or biopsy Multiple nodules size: <6 mm * Low risk patients: no routine follow-up * high risk patients: optional CT at 12 months Multiple nodules size: 6-8 mm * Low risk patients: follow-up at 3-6 months, then consider further follow-up at 18-24 months * high risk patients: follow-up at 3-6 months, then at 18-24 months if no change Multiple nodules size: >8 mm * Low risk patients: follow-up at 3-6 months, then consider further follow-up at 18-24 months * high risk patients: follow-up at 3-6 months, then at 18-24 months if no change Note: newly detected indeterminate nodule in persons 35 years of age or older. * Low risk patients: minimal or absent history of smoking and/or other known risk factors * high risk patients: history of smoking or of other known risk factors (e.g. first degree relative with lung cancer, or exposure to asbestos, radon, uranium) * if a nodule up to 8 mm is partly solid or is ground glass further follow-up is required after 24 months to exclude possible slow growing adenocarcinoma (PARISH) SUBSOLID NODULES Solitary pure ground-glass nodule * nodule size <6 mm - no CT follow-up required * nodule size >=6 mm - follow-up CT at 6-12 months, then every 2 years until 5 years Solitary part-solid nodule * nodule size <6 mm - no CT follow-up required * nodule size >=6 mm - follow-up CT at 3-6 months. If unchanged, and solid component remains <6 mm, then annual follow-up for 5 years Multiple subsolid nodules * nodule size <6 mm - follow-up CT at 3-6 months, consider further follow-up at 2 and 4 years if stable * nodule size >=6 mm - follow-up CT at 3-6 months, subsequent management based on the most suspicious nodule(s) ACT 112: Negative or not required by law. Electronically signed by: Richar Dee M.D. 12/28/2020 1:53 PM Discharge Plan Visit Data Chief Complaint: Chest Pain ED Provider: Olivier Mallory Discharge Problem: Left-sided chest pain, Pneumonia Patient Disposition: Admitted As Inpatient Discharge Instructions Interventions: ED Discharge Assessment Last Done: 12/28/20 15:15
[2020-12-28] MEDS ORDERED: ALBUT/IPRATROP 3MG/0.5MG NEB 3 ML VIAL INH PRN (17:53)
[2020-12-28] MEDS ORDERED: ACETAMINOPHEN 500 MG TAB PO ONE (17:56)
[2020-12-28] MEDS: NICOTINE 21 MG/24 HR TDSY TD SCH (19:37)
[2020-12-28] MEDS: DOCUSATE SODIUM 100 MG CAP PO SCH (19:38)
[2020-12-28] MEDS: busPIRone 5 MG TAB PO SCH (19:38)
[2020-12-28] MEDS: APIXABAN 2.5 MG TAB PO SCH (19:38)
[2020-12-28] MEDS: ATORVASTATIN 10 MG TAB PO SCH (19:38)
[2020-12-28] MEDS: AZITHROMYCIN 250 MG TAB PO SCH (19:38)
[2020-12-28] MEDS: metroNIDAZOLE 500 MG/100 ML BAG IV SCH (20:42)
[2020-12-28] MEDS: ACETAMINOPHEN 500 MG TAB PO PRN (23:27)
[2020-12-29] MEDS ORDERED: ACETAMINOPHEN 500 MG TAB PO STA (00:14)
[2020-12-29] MEDS: PANTOprazole 40 MG TAB PO SCH (04:24)
[2020-12-29] MEDS: metroNIDAZOLE 500 MG/100 ML BAG IV SCH ×3 (04:24→20:15)
--- NOTE | 2020-12-29 06:31 | Electrocardiogram Report ---
Test Reason : Blood Pressure : / mmHG Vent. Rate : 088 BPM Atrial Rate : 131 BPM P-R Int : 000 ms QRS Dur : 082 ms QT Int : 346 ms P-R-T Axes : 000 033 035 degrees QTc Int : 418 ms Atrial fibrillation Nonspecific T wave abnormality Abnormal ECG When compared with ECG of 25-DEC-2020 03:37, Nonspecific T wave abnormality has replaced inverted T waves in Anterior leads Confirmed by Jaguar Villa ([id number]) on 12/29/2020 6:31:03 AM Referred By: [facility] Confirmed By:Jaguar Villa
[2020-12-29] MEDS: CHOLECALCIFEROL 1,000 UNITS 25 MCG TAB PO SCH (07:31)
[2020-12-29] MEDS: predniSONE 20 MG TAB PO SCH (07:31)
[2020-12-29] MEDS: dilTIAZem HCL 180 MG CAPCR PO SCH (07:31)
[2020-12-29] MEDS: DONEPEZIL HCL 5 MG TAB PO SCH (07:32)
[2020-12-29] MEDS: FERROUS SULFATE 325 MG TAB PO SCH ×2 (07:32→16:43)
[2020-12-29] MEDS: GABAPENTIN 100 MG CAP PO SCH (07:32)
[2020-12-29] MEDS: DOCUSATE SODIUM 100 MG CAP PO SCH ×2 (07:32→19:34)
[2020-12-29] MEDS: busPIRone 5 MG TAB PO SCH ×2 (07:33→19:34)
[2020-12-29] MEDS: APIXABAN 2.5 MG TAB PO SCH ×2 (07:33→19:34)
[2020-12-29] MEDS: AZITHROMYCIN 250 MG TAB PO SCH (07:33)
[2020-12-29] MEDS: FLUTICASONE FUROATE 100MCG 14 PUFFS/INHALER INH SCH (07:34)
[2020-12-29] MEDS: UMECLIDINIUM/VILANTEROL 62.5/25MCG 7 PUFFS/INHALER INH SCH (07:41)
[2020-12-29 07:58] LABS: Hematocrit (blood only) 44.4 % (37-47); Hemoglobin 14.5 g/dL (12.0-16.0); Mean Corpuscular Hemoglobin 29.5 pg (25-34); Mean Corpuscular Hgb Conc 32.7 g/dL (32-36); Mean Corpuscular Volume 90.4 fL (80-100); Mean Platelet Volume 9.4 fL (7.4-10.4); Platelet Count 274 K/uL (130-400); RDW Coefficient of Variation 15.8 % (11.5-14.5); RDW Standard Deviation 52.2 fL (36.4-46.3); Red Blood Count 4.91 M/uL (4.2-5.4)
[2020-12-29 08:36] LABS: BUN Creatinine Ratio 29.3 (10-20); Calcium 8.6 mg/dl (8.5-10.1); Creatinine Clr Calc Pharmacy 30.9 ml/min; Est GFR (African American) 58.1 ml/min; Est GFR (Non-African American) 50.1 ml/min; Magnesium 2.1 mg/dl (1.8-2.4); Potassium 4.3 mmol/L (3.5-5.1)
[2020-12-29] MEDS: ACETAMINOPHEN 500 MG TAB PO PRN (10:10)
[2020-12-29] MEDS: cefTRIAXone SODIUM 1,000 MG in DEXTROSE 5% 50 ML IV SCH (11:40)
--- NOTE | 2020-12-29 13:02 | Cardiology Consultation ---
Date of Consultation December 29, 2020 Assessment & Plan (1) Chest pain: (2) Acute metabolic encephalopathy: (3) Post-operative state: (4) Post-op pneumonia: (5) Smoking: (6) Current smoker: (7) COPD with emphysema: (8) Cognitive deficits: Patient being evaluated for complaints of chest discomfort. Patient currently reports being asymptomatic and does not remember having chest pain. EKG troponin and echocardiogram all unremarkable for acute ischemia. Echocardiogram does reveal right-sided heart failure which is not surprising given her ongoing tobacco abuse. Given her lack of symptoms and objective findings which have been negative for acute ischemia no further cardiac testing intervention necessary at this time. Given her tobacco abuse and age I have no doubt that she has underlying coronary disease and recommend follow-up with previous android architect as an outpatient. History of Present Illness Reason for Consultation: Chest pain Requesting Physician: Dr. Whitt Attending Physician: Vera Whitt, DO History of Present Illness The patient is a pleasant yet significantly demented 70-year-old woman who was previously seen by [facility] cardiology. She presented to [facility] emergency department on 12/28/2020 with reports of chest pain. Recently admitted for right hip fracture and repair. Patient does not currently remember presenting to the hospital nor does she remember experiencing any chest discomfort. Currently she states that she feels fine. History and physical goal notes that she reported chest discomfort in the emergency department. Allergies Allergy/AdvReac Type Severity Reaction Status Date / Time Penicillins Allergy Unknown Unknown Unverified 12/28/20 13:19 Sulfa (Sulfonamide Allergy Unknown Unknown Unverified 12/28/20 13:19 Antibiotics) candesartan [From Atacand] Allergy Unknown Unverified 12/28/20 13:19 codeine Allergy Unknown Unverified 12/28/20 13:19 cyclobenzaprine Allergy Unknown Unverified 12/28/20 13:19 ibuprofen [From Motrin IB] Allergy Unknown Unverified 12/28/20 13:19 moxifloxacin Allergy Unknown Unverified 12/28/20 13:19 nitrofurantoin Allergy Unknown Unverified 12/28/20 13:19 [From Macrodantin] oxybutynin Allergy Unknown Unverified 12/28/20 13:19 propoxyphene Allergy Unknown Unverified 12/28/20 13:19 tramadol Allergy Unknown Unverified 12/28/20 13:19 Home Medications Medication Instructions Recorded Confirmed Type Combivent Respimat 1 puff INHALATION QID 12/20/20 12/28/20 History Eliquis 2.5 mg PO BID 12/20/20 12/28/20 History buspirone 5 mg PO BID 12/20/20 12/28/20 History cholecalciferol (vitamin D3) 25 mcg PO QAM 12/20/20 12/28/20 History [Vitamin D3] diltiazem HCl [Cardizem CD] 180 mg PO QAM 12/20/20 12/28/20 History docusate sodium [Colace] 100 mg PO BID 12/20/20 12/28/20 History donepezil [Aricept] 5 mg PO QAM 12/20/20 12/28/20 History ferrous sulfate 325 mg PO BIDM 12/20/20 12/28/20 History furosemide [Lasix] 20 mg PO 2XWK 12/20/20 12/28/20 History gabapentin [Neurontin] 200 mg PO QAM 12/20/20 12/28/20 History ipratropium-albuterol 3 ml INHALATION QID 12/20/20 12/28/20 History nicotine [Nicoderm CQ] 21 mg TRANSDERMAL HS #14 ea 12/26/20 12/28/20 Rx atorvastatin 10 mg PO HS 12/28/20 12/28/20 History azithromycin 250 mg PO QAM 12/28/20 12/28/20 History xopimiyzpsu-iaoqvjcri-muewmlpf 1 inh INHALATION DAILY 12/28/20 12/28/20 History [Trelegy Ellipta] pantoprazole 40 mg PO DAILYBB 12/28/20 12/28/20 History prednisone 20 mg PO QAM 12/28/20 12/28/20 History Patient History Medical History Acute exacerbation of chronic obstructive pulmonary disease Acute respiratory acidosis Alzheimer's dementia Atrial fibrillation Chest pain CKD (chronic kidney disease) Cognitive deficits COPD (chronic obstructive pulmonary disease) Encounter for pre-operative examination Fall Hypertension Osteoporosis Respiratory failure Subcapital fracture of right hip Syncope Tobacco use Surgical History H/O: hysterectomy History of appendectomy History of shoulder surgery Hx of cervical spine surgery Hx of cholecystectomy Status post-operative repair of closed fracture of right hip Social History Smoking Status: Current every day smoker Cigarettes Per Day: 20; Second Hand Exposure: No; Do You Dip or Chew Tobacco: No; Tobacco Cessation Education Requested by Patient: No Hx Alcohol Use: No Hx Substance Use: No Preferred Language: Vietnamese Communication Ability: Effective Decorator Hand Required: No Beliefs That Will Affect Care: None marital status: Current Living Situation: Alone How many Children do You have: 1 Other Information That Helps Us Care for You: No Feels Safe at Home: Yes Safety Concerns: Feels Safe At This Time Assistive Devices: Oxygen - Continuous and Walker Review of Systems Review of Systems: All systems reviewed & are unremarkable except as noted in HPI & below Physical Exam Physical Exam: General: Awake, alert and oriented x 3. No acute distress. HEENT: Normocephalic, atraumatic. Pupils equal, round and reactive to light and accommodation. Extraocular muscles are intact. Anicteric sclera. Moist mucous membranes. Neck: No JVD. No bruit. Cardiovascular: Regular. Positive S-4. Normal S-1 and S-2. No S-3. 3/6 holosystolic ejection murmur, 5th intercostal space, mid-clavicular line without radiation. No rubs. Pulmonary: Poor air movement diffusely with scattered harsh breath sounds Abdomen: Bowel sounds x 4, soft. No rebound, guarding or tenderness. No organomegaly. Extremities: No clubbing, cyanosis or edema. +2 pedal pulses bilaterally. Skin: Warm and dry. Results & Data ([facility]) Vital Signs (Past 12 Hours) Vital Signs Temp Pulse Resp BP Pulse Ox 12/29/20 12:01 36.4 C L 88 16 99/63 L 90 12/29/20 08:00 36.3 C L 82 16 132/76 93 12/29/20 03:17 36.6 C 101 H 19 126/80 91
--- NOTE | 2020-12-29 17:58 | Hospitalist Progress Note ---
Date of Service December 29, 2020 Assessment & Plan (1) Chest pain: EKG and echo unremarkable for acute ischemia, however, echo does reveal right-sided heart failure. She is asymptomatic and no further cardiac intervention necessary per Cardiology (2) Pneumonia: Chest CT with findings consistent with possible aspiration pneumonia. With altered mental status, may consider this to be acute metabolic encephalopathy in setting of known baseline cognitive decline. Will start ceftriaxone and flagyl pending clinical improvement and culture results. Sputum cultures ordered. Although MRSA is a possibility, she is not acutely ill. Will perform nasal MRSA screen and if positive, will consider adding this as coverage. Speech therapy eval ordered. (3) Acute metabolic encephalopathy: Has known cognitive deficits, however, seems more disoriented in setting of possible infection. Cont plan above and monitor for improvement. (4) Atrial fibrillation: rate controlled on diltiazem, continues on eliquis (5) Current smoker: Cessation strongly advised. Nicoderm (6) Post-operative state: Probable osteoporotic fracture of right hip s/p fall s/p repair on 12/22 and doing well but has some pain. Managed well with pain medications. Has an issue with chronic constipation and confusion-will give trial of tylenol as patient states she uses this at home without issue. Doing well on this. (7) Chronic constipation: stool softener, Miralax PRN (8) DVT prophylaxis: Eliquis Full Code Dispo-uncertain at this time. Vera Whitt DO [facility] Hospitalist Admission and Anticipated Discharge Date Admission Date: December 28, 2020 Subjective 70 yo F presented with chest pain The patient doesn't remember having chest pain She denies everything that is asked including denies any chest pain, SOB, cough, discomfort or other symptoms/issues today. She is tolerating PO Hip pain is bearable. Doing well on the antibiotics. Now off oxygen Review of Systems Review of Systems: All systems reviewed & are unremarkable except as noted in Subjective Physical Exam Physical Exam: CONSTITUTIONAL: WNWD, vitals as above, generally well- appearing EYES: normal conjunctivae, no scleral icterus ENT: external ear and nose normal, MMM NECK: trachea midline RESPIRATORY: CTAB, no rales or wheezes, normal respiratory effort CARDIOVASCULAR: irregular rate and rhythm, S1 and 2 heard without murmurs, gallops or rubs, no JVD, no peripheral edema CHEST: inspection of chest was normal GASTROINTESTINAL: soft, nontender, nondistended, no guarding MUSCULOSKELETAL: strength 5/5 throughout, head is normocephalic and atraumatic SKIN: warm and dry NEUROLOGIC: CN 2-12 grossly intact, normal cognition, normal speech, no tremor PSYCHIATRIC: alert cooperative and oriented to person only. Results & Data Results & Data ([facility]) Vital Signs (Past 12 Hours) Vital Signs Temp Pulse Resp BP BP Pulse Ox 12/29/20 15:00 36.6 C 84 18 93/58 L 90 12/29/20 12:01 36.4 C L 88 16 99/63 L 90 12/29/20 08:00 36.3 C L 82 16 132/76 93 Laboratory Results Short CBC 12/29/20 Range/Units 07:32 WBC 8.80 (4.8-10.8) K/uL Hgb 14.5 (12.0-16.0) g/dL Hct 44.4 (37-47) % Plt Count 274 (130-400) K/uL BMP 12/29/20 07:32 Sodium 139 Potassium 4.3 D Chloride 105 Carbon Dioxide 29 BUN 32 H Creatinine 1.10 Glucose 77 Calcium 8.6 Cardiac Enzymes 12/28/20 Range/Units 22:31 Troponin I < 0.015 (0-0.045) ng/ml Medications Administered Current Inpatient Medications Acetaminophen (Acetaminophen 500 Mg Tab) 500 mg PO Q4H PRN PRN Reason: pain/fever Stop: 01/27/21 19:42 Last Admin: 12/29/20 10:10 Dose: 500 mg Documented by: Albuterol (Albut/Ipratrop 3mg/0.5mg Neb 3 Ml Vial) 3 ml INH QID PRN PRN Reason: sob/wheezing Stop: 01/27/21 20:59 Apixaban (Apixaban 2.5 Mg Tab) 2.5 mg PO BID [facility] Stop: 01/27/21 20:59 Last Admin: 12/29/20 07:33 Dose: 2.5 mg Documented by: Atorvastatin Calcium (Atorvastatin 10 Mg Tab) 10 mg PO HS [facility] Stop: 01/27/21 20:59 Last Admin: 12/28/20 19:38 Dose: 10 mg Documented by: Azithromycin (Azithromycin 250 Mg Tab) 250 mg PO QAM [facility] Stop: 01/04/21 18:29 Last Admin: 12/29/20 07:33 Dose: 250 mg Documented by: Buspirone HCl (Buspirone 5 Mg Tab) 5 mg PO BID [facility] Stop: 01/27/21 20:59 Last Admin: 12/29/20 07:33 Dose: 5 mg Documented by: Diltiazem HCl (Diltiazem Hcl 180 Mg Capcr) 180 mg PO QAM [facility] Stop: 01/28/21 08:59 Last Admin: 12/29/20 07:31 Dose: 180 mg Documented by: Docusate Sodium (Docusate Sodium 100 Mg Cap) 100 mg PO BID [facility] Stop: 01/27/21 20:59 Last Admin: 12/29/20 07:32 Dose: 100 mg Documented by: Donepezil HCl (Donepezil Hcl 5 Mg Tab) 5 mg PO QAM [facility] Stop: 01/28/21 08:59 Last Admin: 12/29/20 07:32 Dose: 5 mg Documented by: Ferrous Sulfate (Ferrous Sulfate 325 Mg Tab) 325 mg PO BIDM [facility] Stop: 01/28/21 07:59 Last Admin: 12/29/20 16:43 Dose: 325 mg Documented by: Fluticasone Furoate (Fluticasone Furoate 100mcg 14 Puffs/Inhaler) 1 puffs INH DAILY [facility] Stop: 01/28/21 08:59 Last Admin: 12/29/20 07:34 Dose: 1 puffs Documented by: Gabapentin (Gabapentin 100 Mg Cap) 200 mg PO QAM [facility] Stop: 01/28/21 08:59 Last Admin: 12/29/20 07:32 Dose: 200 mg Documented by: Ceftriaxone Sodium 1,000 mg/ (Dextrose) 50 mls @ 100 mls/hr IV Q24H [facility]; Protocol Stop: 01/05/21 11:59 Last Infusion: 12/29/20 12:10 Dose: Infused Documented by: Metronidazole (Flagyl) 500 mg in 100 mls @ 100 mls/hr IV Q8H [facility] Stop: 01/04/21 20:59 Last Infusion: 12/29/20 13:38 Dose: Infused Documented by: Miscellaneous (Remove Nicoderm Patch) 1 ea N/A DAILY@0859 [facility] Stop: 01/28/21 08:58 Last Admin: 12/29/20 07:35 Dose: 1 ea Documented by: Nicotine (Nicotine 21 Mg/24 Hr Tdsy) 21 mg TD HS [facility] Stop: 01/27/21 20:59 Last Admin: 12/28/20 19:37 Dose: 21 mg Documented by: Nitroglycerin (Nitroglycerin Sl 0.4 Mg/Tab Tab) 0.4 mg SL UD PRN PRN Reason: Chest Pain Stop: 01/27/21 15:58 Ondansetron HCl (Ondansetron Inj 2 Mg/Ml 2 Ml Vial) 4 mg IV Q6H PRN PRN Reason: Nausea Stop: 01/27/21 15:58 Pantoprazole Sodium (Pantoprazole 40 Mg Tab) 40 mg PO DAILYBB [facility] Stop: 01/28/21 06:29 Last Admin: 12/29/20 04:24 Dose: 40 mg Documented by: Polyethylene Glycol (Polyethylene (Miralax) 17 Gm Pack) 17 gm PO DAILY PRN PRN Reason: Constipation Stop: 01/27/21 15:58 Prednisone (Prednisone 20 Mg Tab) 20 mg PO QAM [facility] Stop: 01/28/21 08:59 Last Admin: 12/29/20 07:31 Dose: 20 mg Documented by: Umeclidinium/Vilanterol (Umeclidinium/Vilanterol 62.5/25mcg 7 Puffs/Inhaler) 1 puffs INH DAILY [facility] Stop: 01/28/21 08:59 Last Admin: 12/29/20 07:41 Dose: 1 puffs Documented by: Vitamin D (Cholecalciferol 1,000 Units 25 Mcg Tab) 1,000 units PO QAM [facility] Stop: 01/28/21 08:59 Last Admin: 12/29/20 07:31 Dose: 1,000 units Documented by:
[2020-12-29] MEDS: ATORVASTATIN 10 MG TAB PO SCH (19:34)
[2020-12-29] MEDS: NICOTINE 21 MG/24 HR TDSY TD SCH (19:35)
[2020-12-30] MEDS: ACETAMINOPHEN 500 MG TAB PO PRN ×2 (02:21→09:52)
[2020-12-30] MEDS: metroNIDAZOLE 500 MG/100 ML BAG IV SCH ×2 (04:55→15:04)
[2020-12-30] MEDS: PANTOprazole 40 MG TAB PO SCH (04:56)
--- NOTE | 2020-12-30 05:49 | Electrocardiogram Report ---
Test Reason : Blood Pressure : / mmHG Vent. Rate : 099 BPM Atrial Rate : 357 BPM P-R Int : 000 ms QRS Dur : 084 ms QT Int : 362 ms P-R-T Axes : 000 090 084 degrees QTc Int : 464 ms Poor data quality, interpretation may be adversely affected Atrial fibrillation Rightward axis Nonspecific ST and T wave abnormality Abnormal ECG When compared with ECG of 28-DEC-2020 10:23, Questionable change in QRS axis Confirmed by Jaguar Villa ([id number]) on 12/30/2020 5:48:56 AM Referred By: [facility] Confirmed By:Jaguar Villa
[2020-12-30] MEDS: UMECLIDINIUM/VILANTEROL 62.5/25MCG 7 PUFFS/INHALER INH SCH (08:56)
[2020-12-30] MEDS: FLUTICASONE FUROATE 100MCG 14 PUFFS/INHALER INH SCH (08:56)
[2020-12-30] MEDS: CHOLECALCIFEROL 1,000 UNITS 25 MCG TAB PO SCH (08:58)
[2020-12-30] MEDS: FERROUS SULFATE 325 MG TAB PO SCH ×2 (08:58→17:18)
[2020-12-30] MEDS: AZITHROMYCIN 250 MG TAB PO SCH (08:58)
[2020-12-30] MEDS: dilTIAZem HCL 180 MG CAPCR PO SCH (08:58)
[2020-12-30] MEDS: APIXABAN 2.5 MG TAB PO SCH ×2 (08:58→21:12)
[2020-12-30] MEDS: busPIRone 5 MG TAB PO SCH ×2 (08:58→21:11)
[2020-12-30] MEDS: GABAPENTIN 100 MG CAP PO SCH (08:59)
[2020-12-30] MEDS: predniSONE 20 MG TAB PO SCH (08:59)
[2020-12-30] MEDS: DONEPEZIL HCL 5 MG TAB PO SCH (08:59)
[2020-12-30] MEDS: DOCUSATE SODIUM 100 MG CAP PO SCH ×2 (08:59→21:12)
[2020-12-30] MEDS: cefTRIAXone SODIUM 1,000 MG in DEXTROSE 5% 50 ML IV SCH (11:46)
--- NOTE | 2020-12-30 13:11 | Cardiology Progress Note ---
Date of Service December 30, 2020 Assessment & Plan (1) Chest pain: (2) Acute metabolic encephalopathy: (3) Post-operative state: (4) Post-op pneumonia: (5) Smoking: (6) COPD with emphysema: (7) Cognitive deficits: Patient being evaluated for complaints of chest discomfort. Patient currently reports being asymptomatic and does not remember having chest pain. EKG troponin and echocardiogram all unremarkable for acute ischemia. Echocardiogram does reveal right-sided heart failure which is not surprising given her ongoing tobacco abuse. Given her lack of symptoms and objective findings which have been negative for acute ischemia no further cardiac testing intervention necessary at this time. Given her tobacco abuse and age I have no doubt that she has underlying coronary disease and recommend follow-up with previous inspector pawnshop detail as an outpatient. Admission and Anticipated Discharge Date Admission Date: December 28, 2020 Subjective Patient seen and examined, chart reviewed. States that she feels fine and is anxious for discharge. Denies chest pain, shortness of breath, palpitations, lightheadedness, dizziness or syncope. Telemetry reviewed: Normal sinus rhythm without arrhythmia or significant ectopy. Review of Systems Review of Systems: All systems reviewed & are unremarkable except as noted in HPI & below Physical Exam Physical Exam: General: Awake, alert and oriented x 3. No acute distress. HEENT: Normocephalic, atraumatic. Pupils equal, round and reactive to light and accommodation. Extraocular muscles are intact. Anicteric sclera. Moist mucous membranes. Neck: No JVD. No bruit. Cardiovascular: Regular. Positive S-4. Normal S-1 and S-2. No S-3. 3/6 holosystolic ejection murmur, 5th intercostal space, mid-clavicular line without radiation. No rubs. Pulmonary: Poor air movement diffusely with scattered harsh breath sounds Abdomen: Bowel sounds x 4, soft. No rebound, guarding or tenderness. No organomegaly. Extremities: No clubbing, cyanosis or edema. +2 pedal pulses bilaterally. Skin: Warm and dry. Results & Data ([facility]) Vital Signs (Past 12 Hours) Vital Signs Temp Pulse Pulse Resp BP BP Pulse Ox 12/30/20 11:07 36.8 C 76 18 110/74 94 12/30/20 08:00 82 12/30/20 07:45 36.3 C L 104 H 20 128/79 93 12/30/20 04:17 69 20 98 12/30/20 03:01 81 12/30/20 02:57 36.6 C 62 14 137/90 96
--- NOTE | 2020-12-30 16:22 | Hospitalist Progress Note ---
Date of Service December 30, 2020 Assessment & Plan (1) Chest pain: EKG and echo unremarkable for acute ischemia, however, echo does reveal right-sided heart failure. She is asymptomatic and no further cardiac intervention necessary per Cardiology Appreciate cardiology input and recommendation-no further cardiac studies Denies any more cardiac symptoms and remains stable She will have appointment with her previous uptwister tender as an outpatient (2) Pneumonia: Chest CT with findings consistent with possible aspiration pneumonia. With altered mental status, may consider this to be acute metabolic encephalopathy in setting of known baseline cognitive decline. Home was a started with intravenous ceftriaxone and Flagyl and also oral azithromycin Flagyl and ceftriaxone have been discontinued and put her on clindamycin orally Speech therapy eval ordered-awaiting recommendation. (3) Acute metabolic encephalopathy: Has known cognitive deficits, however, seems more disoriented in setting of possible infection. Cont plan above and monitor for improvement. Improved (4) Atrial fibrillation: Aate controlled on diltiazem, continues on eliquis (5) Current smoker: Cessation strongly advised. Nicoderm (6) Post-operative state: Probable osteoporotic fracture of right hip s/p fall s/p repair on 12/22 and doing well but has some pain. Managed well with pain medications. Has an issue with chronic constipation and confusion-will give trial of tylenol as patient states she uses this at home without issue. Doing well on this. PT and OT have been ordered [facility]waiting [facility] tomorrow (7) Chronic constipation: stool softener, Miralax PRN (8) DVT prophylaxis: Eliquis Full Code Dispo-uncertain at this time. Admission and Anticipated Discharge Date Admission Date: December 28, 2020 Subjective 12/30/2020 The patient was seen and examined in medical telemetry unit She has been feeling a lot better today Denies any shortness of breath but has cough without any phlegm Denies any chest pain and/or palpitation Review of Systems Review of Systems: All systems reviewed and are unremarkable except as noted below Respiratory: + cough; no dyspnea Cardiovascular: no chest pain Physical Exam Physical Exam: Lying in bed comfortably Constitutional: average body habitus; not ill appearing Eyes: PERRL, conjunctivae normal, anicteric sclerae ENMT: external ear and nose normal, oropharynx normal Neck: trachea midline, no thyromegaly Respiratory: no respiratory distress Auscultation: + diminished lung sounds and + crackles (Minimal crackles at the bases more on the right than the left) Cardiovascular: Rate/Rhythm: regular rate and regular rhythm Heart Sounds: + murmur (2/6 ESM over precordium) Extremities: no edema Gastrointestinal (Abdomen): Inspection/Auscultation: normal bowel sounds; abdomen not distended Percussion/Palpation: abdomen soft; abdomen nontender Musculoskeletal: No acute arthritis in any joint but is a status post right hip replacement Neurologic: Alert, awake and oriented x3 Psychiatric: A+Ox3, euthymic affect Lymphatic: no cervical or axillary lymphadenopathy Results & Data Results & Data ([facility]) Vital Signs (Past 12 Hours) Vital Signs Temp Pulse Pulse Resp BP BP Pulse Ox 12/30/20 16:00 79 12/30/20 14:56 36.6 C 77 20 102/62 91 12/30/20 11:07 36.8 C 76 18 110/74 94 12/30/20 08:00 82 12/30/20 07:45 36.3 C L 104 H 20 128/79 93 12/30/20 04:17 69 20 98 Medications Administered Current Inpatient Medications Acetaminophen (Acetaminophen 500 Mg Tab) 500 mg PO Q4H PRN PRN Reason: pain/fever Stop: 01/27/21 19:42 Last Admin: 12/30/20 09:52 Dose: 500 mg Documented by: Albuterol (Albut/Ipratrop 3mg/0.5mg Neb 3 Ml Vial) 3 ml INH QID PRN PRN Reason: sob/wheezing Stop: 01/27/21 20:59 Last Admin: 12/30/20 04:17 Dose: 3 ml Documented by: Apixaban (Apixaban 2.5 Mg Tab) 2.5 mg PO BID [facility] Stop: 01/27/21 20:59 Last Admin: 12/30/20 08:58 Dose: 2.5 mg Documented by: Atorvastatin Calcium (Atorvastatin 10 Mg Tab) 10 mg PO HS [facility] Stop: 01/27/21 20:59 Last Admin: 12/29/20 19:34 Dose: 10 mg Documented by: Azithromycin (Azithromycin 250 Mg Tab) 250 mg PO QAM [facility] Stop: 01/04/21 18:29 Last Admin: 12/30/20 08:58 Dose: 250 mg Documented by: Buspirone HCl (Buspirone 5 Mg Tab) 5 mg PO BID [facility] Stop: 01/27/21 20:59 Last Admin: 12/30/20 08:58 Dose: 5 mg Documented by: Clindamycin HCl (Clindamycin Hcl 150 Mg Cap) 300 mg PO Q8H [facility] Stop: 01/06/21 16:14 Diltiazem HCl (Diltiazem Hcl 180 Mg Capcr) 180 mg PO QAM [facility] Stop: 01/28/21 08:59 Last Admin: 12/30/20 08:58 Dose: 180 mg Documented by: Docusate Sodium (Docusate Sodium 100 Mg Cap) 100 mg PO BID [facility] Stop: 01/27/21 20:59 Last Admin: 12/30/20 08:59 Dose: 100 mg Documented by: Donepezil HCl (Donepezil Hcl 5 Mg Tab) 5 mg PO QAM [facility] Stop: 01/28/21 08:59 Last Admin: 12/30/20 08:59 Dose: 5 mg Documented by: Ferrous Sulfate (Ferrous Sulfate 325 Mg Tab) 325 mg PO BIDM [facility] Stop: 01/28/21 07:59 Last Admin: 12/30/20 08:58 Dose: 325 mg Documented by: Fluticasone Furoate (Fluticasone Furoate 100mcg 14 Puffs/Inhaler) 1 puffs INH DAILY [facility] Stop: 01/28/21 08:59 Last Admin: 12/30/20 08:56 Dose: 1 puffs Documented by: Gabapentin (Gabapentin 100 Mg Cap) 200 mg PO QAM [facility] Stop: 01/28/21 08:59 Last Admin: 12/30/20 08:59 Dose: 200 mg Documented by: Miscellaneous (Remove Nicoderm Patch) 1 ea N/A DAILY@858 [facility] Stop: 01/28/21 08:58 Last Admin: 12/30/20 08:59 Dose: 1 ea Documented by: Nicotine (Nicotine 21 Mg/24 Hr Tdsy) 21 mg TD HS [facility] Stop: 01/27/21 20:59 Last Admin: 12/29/20 19:35 Dose: 21 mg Documented by: Nitroglycerin (Nitroglycerin Sl 0.4 Mg/Tab Tab) 0.4 mg SL UD PRN PRN Reason: Chest Pain Stop: 01/27/21 15:58 Ondansetron HCl (Ondansetron Inj 2 Mg/Ml 2 Ml Vial) 4 mg IV Q6H PRN PRN Reason: Nausea Stop: 01/27/21 15:58 Pantoprazole Sodium (Pantoprazole 40 Mg Tab) 40 mg PO DAILYBB [facility] Stop: 01/28/21 06:29 Last Admin: 12/30/20 04:56 Dose: 40 mg Documented by: Polyethylene Glycol (Polyethylene (Miralax) 17 Gm Pack) 17 gm PO DAILY PRN PRN Reason: Constipation Stop: 01/27/21 15:58 Prednisone (Prednisone 20 Mg Tab) 20 mg PO QAM [facility] Stop: 01/28/21 08:59 Last Admin: 12/30/20 08:59 Dose: 20 mg Documented by: Umeclidinium/Vilanterol (Umeclidinium/Vilanterol 62.5/25mcg 7 Puffs/Inhaler) 1 puffs INH DAILY [facility] Stop: 01/28/21 08:59 Last Admin: 12/30/20 08:56 Dose: 1 puffs Documented by: Vitamin D (Cholecalciferol 1,000 Units 25 Mcg Tab) 1,000 units PO QAM [facility] Stop: 01/28/21 08:59 Last Admin: 12/30/20 08:58 Dose: 1,000 units Documented by:
[2020-12-30] MEDS: CLINDAMYCIN HCL 150 MG CAP PO SCH ×2 (17:18→21:12)
[2020-12-30] MEDS: ATORVASTATIN 10 MG TAB PO SCH (21:11)
[2020-12-30] MEDS: NICOTINE 21 MG/24 HR TDSY TD SCH (21:11)
[2020-12-31] MEDS: ACETAMINOPHEN 500 MG TAB PO PRN (01:37)
--- NOTE | 2020-12-31 06:01 | Electrocardiogram Report ---
Test Reason : Blood Pressure : / mmHG Vent. Rate : 076 BPM Atrial Rate : 220 BPM P-R Int : 000 ms QRS Dur : 090 ms QT Int : 402 ms P-R-T Axes : 000 099 087 degrees QTc Int : 452 ms Atrial fibrillation Indeterminate axis Nonspecific T wave abnormality Abnormal ECG When compared with ECG of 29-DEC-2020 05:29, No significant change was found Confirmed by Jaguar Villa ([id number]) on 12/31/2020 6:01:25 AM Referred By: [facility] Confirmed By:Jaguar Villa
[2020-12-31 06:04] LABS: Basophils # (auto) 0.01 K/uL (0-0.2); Basophils % (auto) 0.1 %; Eosinophils # (auto) 0.06 K/uL (0-0.5); Eosinophils % (auto) 0.5 %; Hematocrit (blood only) 40.3 % (37-47); Hemoglobin 13.3 g/dL (12.0-16.0); Immature Granulocytes # (auto) 0.14 K/uL (0.00-0.02); Immature Granulocytes % (auto) 1.2 %; Lymphocytes # (auto) 2.08 K/uL (1.2-3.4); Lymphocytes % (auto) 18.5 %; Mean Corpuscular Hemoglobin 29.8 pg (25-34); Mean Corpuscular Volume 90.2 fL (80-100); Mean Platelet Volume 9.1 fL (7.4-10.4); Monocytes # (auto) 0.87 K/uL (0.11-0.59); Monocytes % (auto) 7.7 %; Neutrophils # (auto) 8.07 K/uL (1.4-6.5); Platelet Count 267 K/uL (130-400); RDW Coefficient of Variation 15.8 % (11.5-14.5); RDW Standard Deviation 52.2 fL (36.4-46.3); Red Blood Count 4.47 M/uL (4.2-5.4); White Blood Count 11.23 K/uL (4.8-10.8)
[2020-12-31 06:32] LABS: BUN Creatinine Ratio 25.6 (10-20); Calcium 8.5 mg/dl (8.5-10.1); Creatinine Clr Calc Pharmacy 27.1 ml/min; Est GFR (African American) 49.8 ml/min; Est GFR (Non-African American) 42.9 ml/min; Magnesium 2.2 mg/dl (1.8-2.4)
[2020-12-31] MEDS: CLINDAMYCIN HCL 150 MG CAP PO SCH ×2 (06:37→15:10)
[2020-12-31] MEDS: PANTOprazole 40 MG TAB PO SCH (06:37)
[2020-12-31] MEDS: FERROUS SULFATE 325 MG TAB PO SCH (08:22)
[2020-12-31] MEDS: APIXABAN 2.5 MG TAB PO SCH (08:26)
[2020-12-31] MEDS: AZITHROMYCIN 250 MG TAB PO SCH (08:27)
[2020-12-31] MEDS: busPIRone 5 MG TAB PO SCH (08:29)
[2020-12-31] MEDS: dilTIAZem HCL 180 MG CAPCR PO SCH (08:29)
[2020-12-31] MEDS: CHOLECALCIFEROL 1,000 UNITS 25 MCG TAB PO SCH (08:29)
[2020-12-31] MEDS: DONEPEZIL HCL 5 MG TAB PO SCH (08:34)
[2020-12-31] MEDS: DOCUSATE SODIUM 100 MG CAP PO SCH (08:34)
[2020-12-31] MEDS: FLUTICASONE FUROATE 100MCG 14 PUFFS/INHALER INH SCH (08:35)
[2020-12-31] MEDS: GABAPENTIN 100 MG CAP PO SCH (08:37)
[2020-12-31] MEDS: predniSONE 20 MG TAB PO SCH (08:38)
[2020-12-31] MEDS: UMECLIDINIUM/VILANTEROL 62.5/25MCG 7 PUFFS/INHALER INH SCH (08:39)
--- NOTE | 2020-12-31 12:11 | Hospitalist Progress Note ---
Date of Service December 31, 2020 Assessment & Plan (1) Chest pain: EKG and echo unremarkable for acute ischemia, however, echo does reveal right-sided heart failure. She is asymptomatic and no further cardiac intervention necessary per Cardiology Appreciate cardiology input and recommendation-no further cardiac studies Denies any more cardiac symptoms and remains stable She will have appointment with her previous traffic control operator as an outpatient (2) Pneumonia: Chest CT with findings consistent with possible aspiration pneumonia. With altered mental status, may consider this to be acute metabolic encephalopathy in setting of known baseline cognitive decline. Home was a started with intravenous ceftriaxone and Flagyl and also oral azithromycin Flagyl and ceftriaxone have been discontinued and put her on clindamycin orally Appreciate speech therapy evaluation and recommendation-regular and easy to chew diet with aspiration precaution (3) Acute metabolic encephalopathy: Has known cognitive deficits, however, seems more disoriented in setting of possible infection. Cont plan above and monitor for improvement. Improved (4) Atrial fibrillation: Aate controlled on diltiazem, continues on eliquis Advised to have outpatient cardiology evaluation by her prior traffic control operator (5) Current smoker: Cessation strongly advised. [place] (6) Post-operative state: Probable osteoporotic fracture of right hip s/p fall s/p repair on 12/22 and doing well but has some pain. Managed well with pain medications. Has an issue with chronic constipation and confusion-will give trial of tylenol as patient states she uses this at home without issue. Doing well on this. PT and OT have been ordered She will be transferred to [facility] this afternoon (7) Chronic constipation: stool softener, Miralax PRN (8) DVT prophylaxis: Eliquis Full Code Dispo-uncertain at this time. Admission and Anticipated Discharge Date Admission Date: December 28, 2020 Subjective 12/30/2020 The patient was seen and examined in medical telemetry unit She has been feeling a lot better today Denies any shortness of breath but has cough without any phlegm Denies any chest pain and/or palpitation 12/31/2020 The patient was seen and examined in medical telemetry unit She has been feeling much better and denies any cough and/or shortness of breath She has had physical therapy and will be going to [facility] this afternoon Denies any significant symptoms Review of Systems Review of Systems: All systems reviewed and are unremarkable except as noted below Respiratory: + cough; no dyspnea Physical Exam Physical Exam: Lying in bed comfortably Constitutional: average body habitus; not ill appearing Eyes: PERRL, conjunctivae normal, anicteric sclerae ENMT: external ear and nose normal, oropharynx normal Neck: trachea midline, no thyromegaly Respiratory: no respiratory distress Auscultation: + diminished lung sounds; no crackles (Minimal crackles at the bases more on the right than the left) Cardiovascular: Rate/Rhythm: regular rate and regular rhythm Heart Sounds: + murmur (2/6 ESM over precordium) Extremities: no edema Gastrointestinal (Abdomen): Inspection/Auscultation: normal bowel sounds; abdomen not distended Percussion/Palpation: abdomen soft; abdomen nontender Musculoskeletal: Has pain in the right hip with movement of the right lower extremity Neurologic: Alert, awake and oriented x3. No focal sensory and motor deficit appreciated Psychiatric: A+Ox3, euthymic affect Lymphatic: no cervical or axillary lymphadenopathy Results & Data Results & Data ([facility]) Vital Signs (Past 12 Hours) Vital Signs Temp Pulse Pulse Resp BP BP Pulse Ox 12/31/20 11:21 36.8 C 86 20 113/73 93 12/31/20 08:00 36.5 C 80 77 18 126/84 96 12/31/20 04:22 36.7 C 93 H 18 145/84 H 96 12/31/20 00:19 78 Laboratory Results Short CBC 12/31/20 Range/Units 05:38 WBC 11.23 H (4.8-10.8) K/uL Hgb 13.3 (12.0-16.0) g/dL Hct 40.3 (37-47) % Plt Count 267 (130-400) K/uL BMP 12/31/20 05:38 Sodium 140 Potassium 4.0 Chloride 109 H Carbon Dioxide 29 BUN 32 H Creatinine 1.25 H Glucose 84 Calcium 8.5 Medications Administered Current Inpatient Medications Acetaminophen (Acetaminophen 500 Mg Tab) 500 mg PO Q4H PRN PRN Reason: pain/fever Stop: 01/27/21 19:42 Last Admin: 12/31/20 01:37 Dose: 500 mg Documented by: Albuterol (Albut/Ipratrop 3mg/0.5mg Neb 3 Ml Vial) 3 ml INH QID PRN PRN Reason: sob/wheezing Stop: 01/27/21 20:59 Last Admin: 12/30/20 04:17 Dose: 3 ml Documented by: Apixaban (Apixaban 2.5 Mg Tab) 2.5 mg PO BID [facility] Stop: 01/27/21 20:59 Last Admin: 12/31/20 08:26 Dose: 2.5 mg Documented by: Atorvastatin Calcium (Atorvastatin 10 Mg Tab) 10 mg PO HS [facility] Stop: 01/27/21 20:59 Last Admin: 12/30/20 21:11 Dose: 10 mg Documented by: Azithromycin (Azithromycin 250 Mg Tab) 250 mg PO QAM [facility] Stop: 01/04/21 18:29 Last Admin: 12/31/20 08:27 Dose: 250 mg Documented by: Buspirone HCl (Buspirone 5 Mg Tab) 5 mg PO BID [facility] Stop: 01/27/21 20:59 Last Admin: 12/31/20 08:29 Dose: 5 mg Documented by: Clindamycin HCl (Clindamycin Hcl 150 Mg Cap) 300 mg PO Q8 [facility]; Protocol Stop: 01/06/21 16:29 Last Admin: 12/31/20 06:37 Dose: 300 mg Documented by: Diltiazem HCl (Diltiazem Hcl 180 Mg Capcr) 180 mg PO QAM [facility] Stop: 01/28/21 08:59 Last Admin: 12/31/20 08:29 Dose: 180 mg Documented by: Docusate Sodium (Docusate Sodium 100 Mg Cap) 100 mg PO BID [facility] Stop: 01/27/21 20:59 Last Admin: 12/31/20 08:34 Dose: 100 mg Documented by: Donepezil HCl (Donepezil Hcl 5 Mg Tab) 5 mg PO QAM [facility] Stop: 01/28/21 08:59 Last Admin: 12/31/20 08:34 Dose: 5 mg Documented by: Ferrous Sulfate (Ferrous Sulfate 325 Mg Tab) 325 mg PO BIDM [facility] Stop: 01/28/21 07:59 Last Admin: 12/31/20 08:22 Dose: 325 mg Documented by: Fluticasone Furoate (Fluticasone Furoate 100mcg 14 Puffs/Inhaler) 1 puffs INH DAILY [facility] Stop: 01/28/21 08:59 Last Admin: 12/31/20 08:35 Dose: 1 puffs Documented by: Gabapentin (Gabapentin 100 Mg Cap) 200 mg PO QAM [facility] Stop: 01/28/21 08:59 Last Admin: 12/31/20 08:37 Dose: 200 mg Documented by: Miscellaneous (Remove Nicoderm Patch) 1 ea N/A DAILY@0859 [facility] Stop: 01/28/21 08:58 Last Admin: 12/31/20 08:25 Dose: 1 ea Documented by: Nicotine (Nicotine 21 Mg/24 Hr Tdsy) 21 mg TD HS [facility] Stop: 01/27/21 20:59 Last Admin: 12/30/20 21:11 Dose: 21 mg Documented by: Nitroglycerin (Nitroglycerin Sl 0.4 Mg/Tab Tab) 0.4 mg SL UD PRN PRN Reason: Chest Pain Stop: 01/27/21 15:58 Ondansetron HCl (Ondansetron Inj 2 Mg/Ml 2 Ml Vial) 4 mg IV Q6H PRN PRN Reason: Nausea Stop: 01/27/21 15:58 Pantoprazole Sodium (Pant[facility]razole 40 Mg Tab) [facility] Stop: 01/28/21 06:29 Last Admin: 12/31/20 06:37 Dose: 40 mg Documented by: Polyethylene Glycol (Polyethylene (Miralax) 17 Gm Pack) 17 gm PO DAILY PRN PRN Reason: Constipation Stop: 01/27/21 15:58 Prednisone (Pred[facility]one 20 Mg Tab) [facility] [place]: 01/28/21 08:59 Last Admin: 12/31/20 08:38 Dose: 20 mg Documented by: Umeclidinium/Vilanterol (Umeclidinium/Vilanterol 62.5/25mcg 7 Puffs/Inhaler) 1 puffs INH DAILY [facility] Stop: 01/28/21 08:59 Last Admin: 12/31/20 08:39 Dose: 1 puffs Documented by: Vitamin D (Cholecalciferol 1,000 Units 25 Mcg Tab) 1,000 units PO QAM [facility] Stop: 01/28/21 08:59 Last Admin: 12/31/20 08:29 Dose: 1,000 units Documented by:
--- NOTE | 2020-12-31 17:17 | Discharge Summary ---
Date of Service December 31, 2020 Admission HPI Per Admitting Provider The patient is a 70-year-old female with a history of atrial fibrillation, heart failure, chronic respiratory failure with hypoxia secondary to COPD, severe malnutrition, hypertensive kidney disease that is chronic and stage IIIa, osteoporosis and Alzheimer's type dementia who presents with chest pain for the second time postoperatively this week. She was recently discharged on 12/26/2020 having been treated in the hospital for a subcapital fracture of the right hip status post repair on 12/22. Preoperatively she suffered acute respiratory failure with hypoxia and hypercapnia and was treated by pulmonology. Smoking cessation was strongly advised which is a risk factor for her to have CAD. While she was hospitalized she experienced approximately 1 hour of centralized chest pain with no associated symptoms that resolved spontaneously. Troponin enzymes were trended and negative and an EKG Was unchanged revealing atrial fibrillation with a rate of 82. Complicating the history is her mental status. She first thought she came from [facility] and did not remember which surgery she had or why. She has been somewhat confused and part of this may be due to narcotic therapy as she has allergies listed to acetaminophen and ibuprofen. History is therefore limited. Per ER provider she had at least a couple of hours of chest pain, and patient states this was centrally located and nonradiating. She denies SOB or other symptoms at this time. She is significantly downplaying the pain and asking to go home. Today her EKG revealed atrial fibrillation without obvious ischemia. She had an unremarkable CBC, chemistry panel, negative troponin. A CT of her head was unrevealing. A CT of her chest revealed no thromboembolic disease. Patchy densities in the lower lungs were seen possibly consistent with an aspiration pneumonia. She was given cefepime and clindamycin in the ER. Admission Exam Per Admitting Provider Physical Exam: CONSTITUTIONAL: WNWD, vitals as above, generally well- appearing EYES: normal conjunctivae, no scleral icterus ENT: external ear and nose normal, MMM NECK: trachea midline RESPIRATORY: mild crackles at the right base, no rales or wheezes, normal respiratory effort CARDIOVASCULAR: irregular rate and rhythm, S1 and 2 heard without murmurs, gallops or rubs, no JVD, no peripheral edema CHEST: inspection of chest was normal GASTROINTESTINAL: soft, nontender, nondistended, no guarding MUSCULOSKELETAL: strength 5/5 throughout, head is normocephalic and atraumatic SKIN: warm and dry NEUROLOGIC: CN 2-12 grossly intact, normal cognition, normal speech, no tremor PSYCHIATRIC: alert cooperative and oriented to person only. Principal Diagnosis Chest pain-no ACS, aspiration pneumonia, acute metabolic and colopathy-improved, atrial fibrillation on Eliquis, status post right hip repair on 12/22/2020 Discharge Exam Constitutional average body habitus; not ill appearing Eyes PERRL, conjunctivae normal, anicteric sclerae ENMT external ear and nose normal, oropharynx normal Neck trachea midline, no thyromegaly Respiratory no respiratory distress Auscultation: + diminished lung sounds; no crackles (Minimal crackles at the bases more on the right than the left) Cardiovascular Rate/Rhythm: regular rate and regular rhythm Heart Sounds: + murmur (2/6 ESM over precordium) Extremities: no edema Gastrointestinal (Abdomen) Inspection/Auscultation: normal bowel sounds; abdomen not distended Percussion/Palpation: abdomen soft; abdomen nontender Psychiatric A+Ox3, euthymic affect Lymphatic no cervical or axillary lymphadenopathy Discharge Data Allergies Allergy/AdvReac Type Severity Reaction Status Date / Time Penicillins Allergy Unknown Unknown Unverified 12/28/20 13:19 Sulfa (Sulfonamide Allergy Unknown Unknown Unverified 12/28/20 13:19 Antibiotics) candesartan [From Atacand] Allergy Unknown Unverified 12/28/20 13:19 codeine Allergy Unknown Unverified 12/28/20 13:19 cyclobenzaprine Allergy Unknown Unverified 12/28/20 13:19 ibuprofen [From Motrin IB] Allergy Unknown Unverified 12/28/20 13:19 moxifloxacin Allergy Unknown Unverified 12/28/20 13:19 nitrofurantoin Allergy Unknown Unverified 12/28/20 13:19 [From Macrodantin] oxybutynin Allergy Unknown Unverified 12/28/20 13:19 propoxyphene Allergy Unknown Unverified 12/28/20 13:19 tramadol Allergy Unknown Unverified 12/28/20 13:19 Consultations 12/28/20 14:09 ED Decision to Admit Stat 12/28/20 15:59 Consult Cardiology Routine Ordered Studies 12/28/20 11:13 CT head/brain wo con Stat 12/28/20 12:50 CT angio chest PE protocol Stat Hospital Course (1) Chest pain: EKG and echo unremarkable for acute ischemia, however, echo does reveal right-sided heart failure. She is asymptomatic and no further cardiac intervention necessary per Cardiology Appreciate cardiology input and recommendation-no further cardiac studies Denies any more cardiac symptoms and remains stable She will have appointment with her previous pit hand as an outpatient (2) Pneumonia: Chest CT with findings consistent with possible aspiration pneumonia. With altered mental status, may consider this to be acute metabolic encephalopathy in setting of known baseline cognitive decline. Home was a started with intravenous ceftriaxone and Flagyl and also oral azithromycin Flagyl and ceftriaxone have been discontinued and put her on clindamycin orally Appreciate speech therapy evaluation and recommendation-regular and easy to chew diet with aspiration precaution (3) Acute metabolic encephalopathy: Has known cognitive deficits, however, seems more disoriented in setting of possible infection. Cont plan above and monitor for improvement. Improved (4) Atrial fibrillation: Aate controlled on diltiazem, continues on eliquis Advised to have outpatient cardiology evaluation by her prior pit hand (5) Current smoker: Cessation strongly advised. [place] (6) Post-operative state: Probable osteoporotic fracture of right hip s/p fall s/p repair on 12/22 and doing well but has some pain. Managed well with pain medications. Has an issue with chronic constipation and confusion-will give trial of tylenol as patient states she uses this at home without issue. Doing well on this. PT and OT have been ordered She will be transferred to [facility] this afternoon (7) Chronic constipation: stool softener, Miralax PRN (8) DVT prophylaxis: Eliquis Full Code Dispo-uncertain at this time. Total Time Total Time Spent Total Time Spent (In Minutes): 35 minutes Total Time Includes: Examination of the Patient, Discharge Planning, Medication Reconciliation and Communication With Other Providers Discharge Plan Discharge Items Patient Disposition: Transfer Inpatient Rehab Fac Reason For Visit: CHEST PAIN Discharge Diagnosis: Chest pain-no ACS, aspiration pneumonia, acute metabolic and colopathy-improved, atrial fibrillation on Eliquis, status post right hip repair on 12/22/2020 Condition on Discharge: Fair Activity: As commented below Activity Comment: As recommended by PT and OT Non-emergency contact: Primary Care Provider Call non-emergency contact if: you have any medication questions and your symptoms worsen Follow-up/Referrals: [facility] IVORY APONTE [Primary Care Provider] - Diet: Heart Healthy Diet Texture: Easy to Chew Diet Comment: Aspiration precaution Addtl Attending Provider Instructions: Please take precautions to avoid fall Finish your course of antibiotic as advised Continue physical therapy with nonweightbearing status on right lower extremity Continue using oxygen as before Strongly advised to quit smoking Pending Studies at Discharge: No Stand-Alone Forms: My [facility] [employer] Skilled Items Patient informed of condition?: Yes DNR: No Discharge Level of Care: Skilled Communicable Disease: No Discharge Prognosis: Stable Lines: None Urinary Catheter: No Medications and DC Order Prescriptions: New clindamycin HCl 150 mg Capsule 300 mg PO Q8 Qty: 30 RF: 0 nicotine [Nicoderm CQ] 21 mg/24 hr Patch 24 Hour 21 mg transdermal HS 30 Days Qty: 30 RF: 0 Lactinex 1 million cell tablet,chewable 1 tab PO TID Qty: 30 RF: 0 Continued buspirone 5 mg tablet 5 mg PO BID RF: 0 ipratropium-albuterol 0.5 mg-3 mg(2.5 mg base)/3 mL solution for nebulization 3 ml INHALATION QID RF: 0 donepezil [Aricept] 5 mg tablet 5 mg PO QAM RF: 0 diltiazem HCl [Cardizem CD] 180 mg capsule,extended release 24hr 180 mg PO QAM RF: 0 docusate sodium [Colace] 100 mg Capsule 100 mg PO BID RF: 0 furosemide [Lasix] 20 mg tablet 20 mg PO 2XWK RF: 0 gabapentin [Neurontin] 100 mg capsule 200 mg PO QAM RF: 0 ferrous sulfate 325 mg (65 mg iron) Tablet,Delayed Release (Dr/Ec) 325 mg PO BIDM RF: 0 cholecalciferol (vitamin D3) [Vitamin D3] 25 mcg (1,000 unit) Tablet 25 mcg PO QAM RF: 0 Eliquis 2.5 mg tablet 2.5 mg PO BID RF: 0 Combivent Respimat 20-100 mcg/actuation mist 1 puff INHALATION QID RF: 0 nicotine [Nicoderm CQ] 21 mg/24 hr Patch 24 Hour 21 mg transdermal HS Qty: 14 RF: 0 atorvastatin 10 mg Tablet 10 mg PO HS RF: 0 azithromycin 250 mg Tablet 250 mg PO QAM RF: 0 pantoprazole 40 mg Tablet,Delayed Release (Dr/Ec) 40 mg PO DAILYBB RF: 0 prednisone 20 mg tablet 20 mg PO QAM RF: 0 Trelegy Ellipta 100-62.5-25 mcg Blister With Device 1 inh INHALATION DAILY RF: 0 Discharge Orders: Discharge Order (Routine); Ordered 12/31/20 Ordered By: Jean Pierre Cartagena Admission Data Admit Date/Time: 12/28/20 21:42 Attending Provider: Jean Pierre Cartagena Admit Provider: Vera Whitt [facility] Other Providers: Vera Whitt ; Lázaro Angulo ; [facility] ; [facility], Other Interventions: Discharge Summary Assessment (RN) Last Done: 12/31/20 15:33
== END 2020-12-31 16:26 | DRG 177 ==
LOC: 2W 10:15 → ED 10:15 → 2W 15:15 → SUATTDRO 21:42 → 2W 12-29 23:18

== ENCOUNTER 2021-03-01 03:15 | Inpatient (IN) ==
[2021-03-01] MEDS ORDERED: methylPREDNISolone 125 MG/2 ML VIAL IV STA (04:35)
[2021-03-01] MEDS ORDERED: ALBUT/IPRATROP 3MG/0.5MG NEB 3 ML VIAL NEB ONE (04:35)
[2021-03-01 05:15] LABS: Basophils # (auto) 0.04 K/uL (0-0.2); Basophils % (auto) 0.6 %; Eosinophils # (auto) 0.14 K/uL (0-0.5); Eosinophils % (auto) 2.1 %; Hematocrit (blood only) 41.8 % (37-47); Hemoglobin 13.4 g/dL (12.0-16.0); Immature Granulocytes # (auto) 0.02 K/uL (0.00-0.02); Immature Granulocytes % (auto) 0.3 %; Lymphocytes # (auto) 1.65 K/uL (1.2-3.4); Lymphocytes % (auto) 24.9 %; Mean Corpuscular Hemoglobin 29.8 pg (25-34); Mean Corpuscular Hgb Conc 32.1 g/dL (32-36); Mean Corpuscular Volume 93.1 fL (80-100); Mean Platelet Volume 9.5 fL (7.4-10.4); Monocytes # (auto) 0.73 K/uL (0.11-0.59); Neutrophils # (auto) 4.04 K/uL (1.4-6.5); Neutrophils % (auto) 61.1 %; Platelet Count 248 K/uL (130-400); RDW Coefficient of Variation 15.3 % (11.5-14.5); RDW Standard Deviation 52.1 fL (36.4-46.3); Red Blood Count 4.49 M/uL (4.2-5.4); White Blood Count 6.62 K/uL (4.8-10.8)
[2021-03-01 05:30] LABS: Alanine Aminotransferase 14 U/L (12-78); Albumin Level 2.8 gm/dl (3.4-5.0); Aspartate Aminotransferase 12 U/L (15-37); BUN Creatinine Ratio 14.2 (10-20); Blood Urea Nitrogen 22 mg/dl (7-18); Calcium 8.7 mg/dl (8.5-10.1); Carbon Dioxide 28 mmol/L (21-32); Chloride 112 mmol/L (98-107); Est GFR (Non-African American) 33.6 ml/min; Glucose 88 mg/dl (70-99); Potassium 4.5 mmol/L (3.5-5.1); Sodium 143 mmol/L (136-145)
[2021-03-01 05:34] LABS: Albumin Globulin Ratio 0.9 (0.9-2); Alkaline Phosphatase 77 U/L (45-117); Bilirubin,Total 0.3 mg/dl (0.2-1); Globulin 3.1 gm/dl (2.5-4.0); Total Protein 5.9 gm/dl (6.4-8.2); Troponin I < 0.015 ng/ml (0-0.045)
--- NOTE | 2021-03-01 06:16 | Emergency Department Note ---
Impression & Plan Hypoxia, Acute exacerbation of chronic obstructive pulmonary disease Admit to the [facility] ED Provider Note NAME: RJ COLLINS AGE: 70 SEX: F ARRIVES VIA: Ambulance INFORMANT: Patient ED PROVIDER(S): Laura Alba DO CHIEF COMPLAINT: Shortness of breath PLAN: Disposition: Admit to the [facility] Condition: Stable MEDICAL DECISION MAKING: This is a 70-year-old female patient with Alzheimer's disease who presents to the emergency department from [facility] complaining of shortness of breath. The patient complained at the facility and they checked an O2 sat and found it to be 85% on room air. They placed her on oxygen and called EMS. EMS found the patient to be wheezing and gave her a nebulizer treatment and transported her here. She continued to wheeze upon arrival was given an hour- long nebulizer treatment along with Solu-Medrol. Chest x-ray was essentially unremarkable but the patient was hypoxic. Patient does have a longstanding history of COPD and does continue to smoke. I have discussed the case with the [facility] and they will evaluate for further management. Triage Nursing notes reviewed and agree with them. Additional history obtained from EMS Prior medical records reviewed Vital Signs: reviewed and remarkable for hypoxia and tachycardia Differential diagnosis: COPD exacerbation; pneumonia; cardiac dysrhythmia; STEMI; CHF ER treatment provided: IV Solu-Medrol Hour-long DuoNeb treatment Diagnostics interpreted by me: ECG: Atrial fibrillation at a rate of [address] segment elevation or signs of ischemia. There is no ectopy. Cardiac Monitoring: A. fib with RVR at a rate of 113. Laboratory studies: See below Imaging studies: As per my interpretation Portable chest x-ray: Overall improvement from previous x-ray; small bibasilar opacities HPI: 70/F arrives for evaluation of shortness of breath. The patient presents to the emergency department from [facility]. The patient complained of shortness of breath and was found by staff to have an O2 saturation of 85% on room air. They state that she was not acting like herself. The patient has a long history of COPD and smoking. She states that she has been smoking since she was 6 years old. Patient also complains of a productive cough. ROS: See above HPI for pertinent positives & negatives. A total of 10 systems reviewed and were otherwise negative. PAST MEDICAL HISTORY:See Below PAST SURGICAL HISTORY:See Below FAMILY HISTORY:See Below SOCIAL HISTORY:See Below HOME MEDICATIONS:See Below ALLERGIES:See Below VITALS:See Below PHYSICAL EXAMINATION: HEENT: Head - normocephalic and atraumatic. Pupils are equal, round, and reactive to light. Extraocular eye muscles are intact, and sclera are anicteric. Nose - moist nasal mucosa without discharge. Mouth - moist buccal mucosa. Oropharynx is nonerythematous and there is no tonsillar exudate or edema noted. Neck: Supple; no JVD, nuchal rigidity, cervical lymphadenopathy, or auscultated bruits. Heart: Irregularly irregular rhythm with a tachycardic rate there is a normal S1 and S2 with no murmurs, clicks, or gallops appreciated. Lungs: Diminished breath sounds at both lung bases with rhonchi and wheezing Abdomen: Soft, completely nontender, nondistended, with good bowel sounds. There are no palpable pulsatile masses or hepatosplenomegaly. There is no guarding, rigidity, or rebound noted. Extremities: No evidence of cyanosis, clubbing, or edema. There are easily palpable peripheral pulses. Skin: warm and dry with good turgor and no rashes. ED COURSE: Times/Reassessments: 0340: The patient was evaluated in room B3. A complete history and physical was performed. An order was placed for continuous cardiac monitoring. The patient is in atrial fibrillation with rapid ventricular response at a rate of 113. Laboratory studies were drawn as above. A twelve-lead EKG was obtained. Patient was given 125 mg of IV Solu-Medrol and was placed on an hour-long DuoNeb treatment. I have personally spent greater than 45 minutes of critical care time in the direct management of this patient. This includes bedside care, interpretation of diagnostic studies, and testing, discussion with consultants, patient, and family members, and other required patient management activities. This 45 mi nutes is in excess of all separately billable procedures. Laura Alba DO Past Med/Surg History Medical History Acute exacerbation of chronic obstructive pulmonary disease Acute respiratory acidosis Alzheimer's dementia Atrial fibrillation Chest pain CKD (chronic kidney disease) Cognitive deficits COPD (chronic obstructive pulmonary disease) Encounter for pre-operative examination Fall Hypertension Osteoporosis Respiratory failure Subcapital fracture of right hip Syncope Tobacco use Surgical History H/O: hysterectomy History of appendectomy History of shoulder surgery Hx of cervical spine surgery Hx of cholecystectomy Status post-operative repair of closed fracture of right hip Social History Smoking Status: Current every day smoker Tobacco Type: Cigarettes Cigarettes Per Day: 20; Second Hand Exposure: No; Do You Dip or Chew Tobacco: No; Tobacco Cessation Education Requested by Patient: No Hx Alcohol Use: No Hx Substance Use: No Preferred Language: Cook Islander Communication Ability: Effective Ground Support Agent Required: No Beliefs That Will Affect Care: None marital status: Current Living Situation: Alone How many Children do You have: 1 Other Information That Helps Us Care for You: No Feels Safe at Home: Yes Safety Concerns: Feels Safe At This Time Assistive Devices: Oxygen - Continuous Allergies Allergies Allergy/AdvReac Type Severity Reaction Status Date / Time Penicillins Allergy Unknown Unknown Unverified 03/01/21 07:44 Sulfa (Sulfonamide Allergy Unknown Unknown Unverified 03/01/21 07:44 Antibiotics) candesartan [From Atacand] Allergy Unknown Unverified 03/01/21 07:44 codeine Allergy Unknown Unverified 03/01/21 07:44 cyclobenzaprine Allergy Unknown Unverified 03/01/21 07:44 ibuprofen [From Motrin IB] Allergy Unknown Unverified 03/01/21 07:44 moxifloxacin Allergy Unknown Unverified 03/01/21 07:44 nitrofurantoin Allergy Unknown Unverified 03/01/21 07:44 [From Macrodantin] oxybutynin Allergy Unknown Unverified 03/01/21 07:44 propoxyphene Allergy Unknown Unverified 03/01/21 07:44 tramadol Allergy Unknown Unverified 03/01/21 07:44 Home Meds Home Medications Medication Instructions Recorded Confirmed apixaban 2.5 mg tablet (Eliquis) 2.5 mg PO BID 12/20/20 03/01/21 buspirone 5 mg tablet 5 mg PO BID 12/20/20 03/01/21 cholecalciferol (vitamin D3) 25 25 mcg PO QAM 12/20/20 03/01/21 mcg (1,000 unit) tablet (Vitamin D3) diltiazem HCl 180 mg 180 mg PO QAM 12/20/20 03/01/21 capsule,extended release 24 hr (Cardizem CD) docusate sodium 100 mg capsule 100 mg PO BID 12/20/20 03/01/21 (Colace) donepezil 5 mg tablet (Aricept) 5 mg PO QAM 12/20/20 03/01/21 ferrous sulfate 325 mg (65 mg 325 mg PO BID 12/20/20 03/01/21 iron) tablet,delayed release furosemide 20 mg tablet (Lasix) 20 mg PO 2XWK 12/20/20 03/01/21 gabapentin 100 mg capsule 200 mg PO QAM 12/20/20 03/01/21 (Neurontin) ipratropium 0.5 mg-albuterol 3 mg 3 ml INHALATION QID 12/20/20 03/01/21 (2.5 mg base)/3 mL nebulization soln ipratropium 20 mcg-albuterol 100 1 puff INHALATION QID 12/20/20 03/01/21 mcg/actuation mist for inhalation (Combivent Respimat) fluticasone furoate 100 1 inh INHALATION QAM 03/01/21 03/01/21 mcg/actuation blister powder for inhalation (Arnuity Ellipta) omeprazole 20 mg capsule,delayed 20 mg PO BID 03/01/21 03/01/21 release simvastatin 10 mg tablet (Zocor) 10 mg PO HS 03/01/21 03/01/21 Results & Data (ED) Vital Signs Vital Signs - 24 hr 03/01/21 03:09 03/01/21 03:10 03/01/21 03:20 Pulse Rate 101 H Pulse Rate [Apical] Pulse Rate from SpO2 Sensor Pulse Rhythm Respiratory Rate 19 Respiratory Effort / Characteristics Blood Pressure 140/93 Blood Pressure Mean 108 Pulse Oximetry 85 L 97 Oxygen Delivery Method Nasal Cannula Room Air Room Air Oxygen Flow Rate 2 Sepsis Recent Fever Within 48 Hours No Sepsis New/Unexplained Change in Mental Status N/A Sepsis Action Taken by Nursing No Action Required 03/01/21 03:22 03/01/21 03:30 03/01/21 04:00 Pulse Rate 114 H 98 H 89 Pulse Rate [Apical] Pulse Rate from SpO2 Sensor 93 H 98 H 100 H Pulse Rhythm Respiratory Rate 21 20 26 H Respiratory Effort / Characteristics Blood Pressure 142/113 H 145/80 H Blood Pressure Mean 122 101 Pulse Oximetry 94 91 92 Oxygen Delivery Method Oxygen Flow Rate Sepsis Recent Fever Within 48 Hours Sepsis New/Unexplained Change in Mental Status Sepsis Action Taken by Nursing 03/01/21 04:35 03/01/21 04:50 03/01/21 05:03 Pulse Rate 100 H 90 Pulse Rate [Apical] 89 Pulse Rate from SpO2 Sensor Pulse Rhythm Irregular Respiratory Rate 16 26 H 24 Respiratory Effort / Characteristics Non-Labored Spontaneous Blood Pressure Blood Pressure Mean Pulse Oximetry 94 94 Oxygen Delivery Method Nasal Cannula Nasal Cannula Oxygen Flow Rate 2 Sepsis Recent Fever Within 48 Hours Sepsis New/Unexplained Change in Mental Status Sepsis Action Taken by Nursing 03/01/21 05:10 03/01/21 05:20 03/01/21 05:30 Pulse Rate 90 99 H 97 H Pulse Rate [Apical] Pulse Rate from SpO2 Sensor Pulse Rhythm Respiratory Rate 21 21 19 Respiratory Effort / Characteristics Blood Pressure Blood Pressure Mean Pulse Oximetry Oxygen Delivery Method Oxygen Flow Rate Sepsis Recent Fever Within 48 Hours Sepsis New/Unexplained Change in Mental Status Sepsis Action Taken by Nursing 03/01/21 05:40 03/01/21 05:49 03/01/21 05:50 Pulse Rate 115 H 110 H Pulse Rate [Apical] 113 H Pulse Rate from SpO2 Sensor Pulse Rhythm Respiratory Rate 26 H 27 H 22 Respiratory Effort / Characteristics Short of Breath Blood Pressure Blood Pressure Mean Pulse Oximetry 95 Oxygen Delivery Method Nasal Cannula Oxygen Flow Rate 2 Sepsis Recent Fever Within 48 Hours Sepsis New/Unexplained Change in Mental Status Sepsis Action Taken by Nursing 03/01/21 06:00 03/01/21 06:10 03/01/21 06:20 Pulse Rate 111 H 105 H 119 H Pulse Rate [Apical] Pulse Rate from SpO2 Sensor Pulse Rhythm Respiratory Rate 30 H 23 27 H Respiratory Effort / Characteristics Blood Pressure 112/90 Blood Pressure Mean 97 Pulse Oximetry Oxygen Delivery Method Oxygen Flow Rate Sepsis Recent Fever Within 48 Hours Sepsis New/Unexplained Change in Mental Status Sepsis Action Taken by Nursing Laboratory Data Result diagrams: 03/01/21 05:00 03/01/21 05:00 Lab Results 03/01/21 03/01/21 03/01/21 Range/Units 03:27 03:27 05:00 WBC 6.62 (4.8-10.8) K/uL RBC 4.49 (4.2-5.4) M/uL Hgb 13.4 (12.0-16.0) g/dL Hct 41.8 (37-47) % MCV 93.1 (80-100) fL MCH 29.8 (25-34) pg MCHC 32.1 (32-36) g/dL RDW Std Deviation 52.1 H (36.4-46.3) fL RDW Coeff of Cheri 15.3 H (11.5-14.5) % Plt Count 248 (130-400) K/uL MPV 9.5 (7.4-10.4) fL Immature Gran % (Auto) 0.3 % Neut % (Auto) 61.1 % Lymph % (Auto) 24.9 % Tripp % (Auto) 11.0 % Eos % (Auto) 2.1 % Baso % (Auto) 0.6 % Neut # (Auto) 4.04 (1.4-6.5) K/uL Lymph # (Auto) 1.65 (1.2-3.4) K/uL Tripp # (Auto) 0.73 H (0.11-0.59) K/uL Eos # (Auto) 0.14 (0-0.5) K/uL Baso # (Auto) 0.04 (0-0.2) K/uL Immature Gran # (Auto) 0.02 (0.00-0.02) K/uL Sodium (136-145) mmol/L Potassium (3.5-5.1) mmol/L Chloride (98-107) mmol/L Carbon Dioxide (21-32) mmol/L Anion Gap (3-11) BUN (7-18) mg/dl Creatinine (0.6-1.2) mg/dl Est Cr Clr Drug Dosing Est GFR ( Amer) ml/min Est GFR (Non-Af Amer) ml/min BUN/Creatinine Ratio (10-20) Glucose (70-99) mg/dl Calcium (8.5-10.1) mg/dl Total Bilirubin (0.2-1) mg/dl AST (15-37) U/L ALT (12-78) U/L Alkaline Phosphatase (45-117) U/L Troponin I (0-0.045) ng/ml Total Protein (6.4-8.2) gm/dl Albumin (3.4-5.0) gm/dl Globulin (2.5-4.0) gm/dl Albumin/Globulin Ratio (0.9-2) COVID-19 Eval Order Covid19 at [facility] SARS-CoV-2 (PCR) NEGATIVE (Negative) 03/01/21 Range/Units 05:00 WBC (4.8-10.8) K/uL RBC (4.2-5.4) M/uL Hgb (12.0-16.0) g/dL Hct (37-47) % MCV (80-100) fL MCH (25-34) pg MCHC (32-36) g/dL RDW Std Deviation (36.4-46.3) fL RDW Coeff of Cheri (11.5-14.5) % Plt Count (130-400) K/uL MPV (7.4-10.4) fL Immature Gran % (Auto) % Neut % (Auto) % Lymph % (Auto) % Tripp % (Auto) % Eos % (Auto) % Baso % (Auto) % Neut # (Auto) (1.4-6.5) K/uL Lymph # (Auto) (1.2-3.4) K/uL Tripp # (Auto) (0.11-0.59) K/uL Eos # (Auto) (0-0.5) K/uL Baso # (Auto) (0-0.2) K/uL Immature Gran # (Auto) (0.00-0.02) K/uL Sodium 143 (136-145) mmol/L Potassium 4.5 (3.5-5.1) mmol/L Chloride 112 H (98-107) mmol/L Carbon Dioxide 28 (21-32) mmol/L Anion Gap 3.0 (3-11) BUN 22 H (7-18) mg/dl Creatinine 1.53 H (0.6-1.2) mg/dl Est Cr Clr Drug Dosing Not Reportable Est GFR ( Amer) 39.0 ml/min Est GFR (Non-Af Amer) 33.6 ml/min BUN/Creatinine Ratio 14.2 (10-20) Glucose 88 (70-99) mg/dl Calcium 8.7 (8.5-10.1) mg/dl Total Bilirubin 0.3 (0.2-1) mg/dl AST 12 L (15-37) U/L ALT 14 (12-78) U/L Alkaline Phosphatase 77 (45-117) U/L Troponin I < 0.015 (0-0.045) ng/ml Total Protein 5.9 L (6.4-8.2) gm/dl Albumin 2.8 L (3.4-5.0) gm/dl Globulin 3.1 (2.5-4.0) gm/dl Albumin/Globulin Ratio 0.9 (0.9-2) COVID-19 Eval Order SARS-CoV-2 (PCR) (Negative) Administered Medications Doxycycline Hyclate (Doxycycline Hyclate 100 Mg Cap) 100 mg PO BID TAMEKA Stop: 03/08/21 08:59 Last Admin: 03/01/21 10:15 Dose: 100 mg Documented by: [id number] Methylprednisolone 40 mg/ (Syringe) 0.64 mls @ 1.5 mls/min IV Q8 TAMEKA Stop: 03/31/21 13:59 Last Admin: 03/01/21 14:08 Dose: 1.5 mls/min Documented by: [id number] Ipratropium Alma (Ipratropium Alma Neb Soln 0.02% 2.5 Ml Vial) 0.5 mg INH Q6R TAMEKA Stop: 03/31/21 12:59 Last Admin: 03/01/21 13:05 Dose: 0.5 mg Documented by: [id number] Levalbuterol HCl (Levalbuterol 1.25mg/0.5ml Neb) 1.25 mg INH Q6R TAMEKA Stop: 03/31/21 12:59 Last Admin: 03/01/21 13:04 Dose: 1.25 mg Documented by: [id number] Discontinued Medications Albuterol (Albut/Ipratrop 3mg/0.5mg Neb 3 Ml Vial) 12 ml NEB ONE ONE Stop: 03/01/21 04:36 Last Admin: 03/01/21 04:49 Dose: 12 ml Documented by: [id number] Methylprednisolone (Methylprednisolone 125 Mg/2 Ml Vial) 125 mg IV NOW STA Stop: 03/01/21 04:36 Last Admin: 03/01/21 05:00 Dose: 125 mg Documented by: [id number] Imaging Data Radiologist's Impression: Chest X-Ray 03/01/21 04:35 XR chest 1V portable CLINICAL HISTORY: Dyspnea COMPARISON STUDY: Chest radiograph and chest CT December 28, 2020. FINDINGS: There is no pneumothorax. Small right pleural effusion is noted. Right basilar opacity is noted. Bibasilar opacities have improved since exam of December 28, 2020. Cardiomegaly is unchanged. There is no evidence for overt pulmonary ed petey. There are postoperative findings within the right shoulder. IMPRESSION: 1. Small right pleural effusion. Interval improvement in bibasilar opacities since prior exam. 2. Cardiomegaly. ACT 112: Negative or not required by law. Electronically signed by: Cheng Montesinos M.D. 03/01/2021 6:28 AM Discharge Plan Visit Data Chief Complaint: Shortness of Breath/Dyspnea Stated Complaint: Difficulty Breathing ED Provider: Laura Alba Discharge Problem: Hypoxia, Acute exacerbation of chronic obstructive pulmonary disease Patient Disposition: Admitted As Inpatient Discharge Instructions Interventions: ED Discharge Assessment Last Done: 03/01/21 08:05
--- NOTE | 2021-03-01 06:29 | XRay Report ---
XR chest 1V portable CLINICAL HISTORY: Dyspnea COMPARISON STUDY: Chest radiograph and chest CT December 28, 2020. FINDINGS: There is no pneumothorax. Small right pleural effusion is noted. Right basilar opacity is n oted. Bibasilar opacities have improved since exam of December 28, 2020. Cardiomegaly is unchanged. There is no evidence for overt pulmonary edema. There are postoperative findings within the right shoulder. IMPRESSION: 1. Small right pleural effusion. Interval improvement in bibasilar opacities since prior exam. 2. Cardiomegaly. ACT 112: Negative or not required by law. Electronically signed by: Cheng Montesinos M.D. 03/01/2021 6:28 AM
--- NOTE | 2021-03-01 07:36 | Electrocardiogram Report ---
Test Reason : Blood Pressure : / mmHG Vent. Rate : 090 BPM Atrial Rate : 086 BPM P-R Int : 000 ms QRS Dur : 086 ms QT Int : 384 ms P-R-T Axes : 000 093 086 degrees QTc Int : 469 ms Atrial fibrillation Rightward axis Abnormal ECG When compared with ECG of 30-DEC-2020 05:19, No significant change was found Confirmed by Alin Torre ([id number]) on 03/01/2021 7:36:08 AM Referred By: REFERRED SELF Confirmed By:Elmo Torre
[2021-03-01] MEDS ORDERED: ONDANSETRON INJ 2 MG/ML 2 ML VIAL IV PRN (08:35)
[2021-03-01] MEDS ORDERED: ACETAMINOPHEN 325 MG TAB PO PRN (08:35)
[2021-03-01] MEDS ORDERED: XOPENEX/ATROVENT 1.25mg/0.5MG NEB COMBO NEB SCH (08:35)
[2021-03-01] MEDS ORDERED: NITROGLYCERIN SL 0.4 MG/TAB TAB SL PRN (08:35)
[2021-03-01] MEDS ORDERED: POLYETHYLENE (MIRALAX) 17 GM PACK PO PRN (08:35)
[2021-03-01] MEDS ORDERED: LEVALBUTEROL HCL 1.25 MG/3 ML NEB NEB PRN (08:35)
--- NOTE | 2021-03-01 09:37 | History and Physical Report ---
DATE OF ADMISSION: 03/01/2021 CHIEF COMPLAINT: Shortness of breath. HISTORY OF PRESENT ILLNESS: This is a 70-year-old female with past medical history significant for hyperlipidemia, chronic respiratory failure with hypoxia, COPD exacerbation, history of atrial fibrillation, history of heart failure, hypertension, severe malnutrition, chronic kidney disease stage III, osteoporosis, Alzheimer's type dementia, ongoing tobacco abuse, has some general anxiety disorder and mental disability, currently lives at [facility], is brought in because of some shortness of breath and some confusion. The patient still smokes 2 packs of cigarettes daily. She is alert and awake and oriented to name and place, could tell her date of , not good with the current dates, able to give her history. She is coughing. Denies any shortness of breath at this time. Denies any headache, no neck pain. No chest pain, no abdominal pain, no back pain, no leg pains. No nausea. Appetite is okay. No difficulty swallowing. No diarrhea or constipation. Currently, resting comfortably and hemodynamically stable. Denies any blurred visions, earache, runny nose or sore throat. ALLERGIES: PENICILLINS, SULFA ANTIBIOTICS, ATACAND, CODEINE, CYCLOBENZAPRINE, IBUPROFEN, MOXIFLOXACIN, NITROFURANTOIN, OXYBUTYNIN, PROPOXYPHENE, TRAMADOL. PAST MEDICAL HISTORY: As mentioned above. PAST SURGICAL HISTORY: Cholecystectomy, colonoscopy, EGDs, shoulder joint exploration, freeing of bowel adhesions x5, bladder tuck surgery, repair of rotator cuff on the right side x2, appendectomy, cervical spine revision, total abdominal hysterectomy with removal of tubes. MEDICATIONS: The patient is on gabapentin 100 mg p.o. t.i.d., diltiazem ER 180 mg p.o. daily, DuoNeb 4 times a day, Pulmicort 0.5 mg nebulization every 12 hours, Lasix 40 mg p.o. daily, omeprazole 20 mg b.i.d., Aricept 5 mg p.o. daily, losartan 25 mg p.o. daily, prednisone 10 mg p.o. daily, Eliquis 2.5 mg p.o. b.i.d., BuSpar 5 mg p.o. b.i.d., Zocor 10 mg p.o. at bedtime, oxygen 2 liters with activity and 2 liters at night, albuterol 2 puffs every 4 hours p.r.n., vitamin D 1000 units p.o. daily. FAMILY HISTORY: Significant for mother had COPD, nose cancer, heart disease, hyperlipidemia, blood clot; brother has kidney transplant; sister has kidney cancer; brother has lung cancer. SOCIAL HISTORY: Currently living at [facility]. Smokes 2 packs a day for the last 35 years. No alcohol use. No drug use. REVIEW OF SYSTEMS: As per HPI, rest of the review of systems is negative. PHYSICAL EXAMINATION: GENERAL: The patient is alert and oriented to name and place. VITAL SIGNS: Temperature afebrile, pulse 119, respiratory rate 27, blood pressure 112/90, oxygen 95% on 2 liters. HEENT: Pupils equal, round and reactive to light. Oral mucosa moist. NECK: No JVD, no neck masses. CARDIOVASCULAR: S1 and S2 heard. Regular rate and rhythm. No murmurs. RESPIRATORY SYSTEM: Normal AP diameter. No accessory muscle use. Bilateral wheezing heard. No crackles. ABDOMEN: Soft, bowel sounds present, nontender, no distention. CENTRAL NERVOUS SYSTEM: Cranial nerves II-XII grossly intact, nonfocal. EXTREMITIES: No edema, no erythema. LABORATORY DATA: WBC 6.6, hemoglobin 13.4, hematocrit 41.8, platelets 248. Sodium 143, potassium 4.5, chloride 112, bicarbonate 28, BUN 22, creatinine 1.5, serum glucose 88, calcium 8.7, total bilirubin 0.3, AST 12, ALT 14, alkaline phosphatase 77. Troponin I less than 0.015. SARS-CoV-2 PCR negative. IMAGING DATA: Chest x-ray: No acute findings. EKG: AFib at a rate of 90. No significant change was found. ASSESSMENT AND PLAN: This is a 70-year-old female with ongoing tobacco abuse and chronic obstructive pulmonary disease, presents with shortness of breath and cough and some confusion. 1. Metabolic encephalopathy, most likely secondary to chronic obstructive pulmonary disease exacerbation. The patient has baseline dementia. She uses oxygen 2 liters with activity and 2 liters while sleeping. Chest x-ray with no acute findings. We will treat for chronic obstructive pulmonary disease exacerbation with IV steroids, nebulizers around the clock and p.r.n., and p.o. doxycycline and closely monitor in the med-telemetry. 2. Acute kidney injury on chronic kidney disease stage III. Baseline creatinine around 1.2-1.3, currently creatinine 1.5. Avoid any nephrotoxic agents. We will follow the repeat laboratories. 3. History of atrial fibrillation, on diltiazem and Eliquis. We will monitor the heart rates. 4. History of Alzheimer's type dementia. The patient is on Aricept. We will monitor for any delirium. 5. General anxiety disorder, on buspirone. 6. Hypertension, on diltiazem, diuretics and losartan. We will hold the diuretics and losartan for now because the patient has acute kidney injury. Monitor the blood pressure. 7,. chronic Diastolic chf. Holding diuretics. onitor for volume overload. 8. Gastroesophageal reflux disease, on Prilosec. 9. Ongoing tobacco abuse. Nicotine patch. Needs counseling. 10. Hyperlipidemia, on statin. 11. Deep venous thrombosis prophylaxis, on Eliquis. DISPOSITION: Closely monitor in med-tele. PT/OT prior to discharge. Social service to help with discharge planning. Level 1 full code as per discussion with the patient. Job ID: [id number] [facility]
[2021-03-01 10:07] LABS: Appearance Urine Clear (Clear); Bacteria Urine Automated Negative (Negative); Bilirubin Urine Negative (Negative); Blood Urine Negative (Negative); Color Urine Yellow; Glucose Urine UA Negative (Negative); Ketones Urine Negative (Negative); Leukocyte Esterase Urine Negative (Negative); Nitrite Urine Negative (Negative); Protein Urine 2+ (Negative); RBC Urine Automated 0-4 /hpf (0-4); Specific Gravity Urine 1.016 (1.000-1.030); Urobilinogen Urine Negative (Negative); pH Urine 5.5 (4.5-7.5)
[2021-03-01] MEDS: DOXYCYCLINE HYCLATE 100 MG CAP PO SCH ×2 (10:15→21:29)
[2021-03-01] MEDS ORDERED: HALOPERIDOL LACTATE 5 MG/ML 1 ML VIAL IM STA (11:33)
[2021-03-01] MEDS: LEVALBUTEROL 1.25MG/0.5ML NEB INH SCH ×2 (13:04→19:48)
[2021-03-01] MEDS: IPRATROPIUM BROMIDE NEB SOLN 0.02% 2.5 ML VIAL INH SCH ×2 (13:05→19:48)
[2021-03-01] MEDS: methylPREDNISolone 40 MG in SYRINGE 0 ML IV SCH ×2 (14:08→21:31)
--- NOTE | 2021-03-01 15:54 | Hospitalist Progress Note ---
Date of Service March 01, 2021 Assessment & Plan (1) Acute exacerbation of chronic obstructive pulmonary disease: Plan: ASSESSMENT AND PLAN: This is a 70-year-old female with ongoing tobacco abuse and chronic obstructive pulmonary disease, presents with shortness of breath and cough and some confusion. 1. Metabolic encephalopathy, most likely secondary to chronic obstructive pulmonary disease exacerbation. - history of dementia - She uses oxygen 2 liters with activity and 2 liters while sleeping. CXR: 1. Small right pleural effusion. Interval improvement in bibasilar opacities since prior exam. 2. Cardiomegaly check CT head continue Solumedrol, Doxycyline, Nebs monitor 2. Acute kidney injury on chronic kidney disease stage III. Baseline creatinine around 1.2-1.3, currently creatinine 1.5. hold Lasix monitor 3. History of atrial fibrillation, on diltiazem and Eliquis. 4. History of Alzheimer's type dementia. - continue Aricept 5. General anxiety disorder, on buspirone. 6. Hypertension, on diltiazem, diuretics and losartan. - hold the diuretics and losartan for now due to PAUL Monitor the blood pressure. 7. Gastroesophageal reflux disease, on Prilosec. 8. Ongoing tobacco abuse. Nicotine patch. Needs counseling. 9. Hyperlipidemia, on statin. 10. Deep venous thrombosis prophylaxis, on Eliquis. Disposition pending will order PT/OT philip (2) Hypoxia: Admission and Anticipated Discharge Date Admission Date: March 01, 2021 Subjective ff up for COPD exacerbation, etc was agitated, confused earlier sitting up in bed, comfortable not in distress on 2 L NC states she feels better than admission no active chest pain, dyspnea, cough answers questions appropriately oriented x 2 no other symptoms Review of Systems Review of Systems: all noted and negative except for above Physical Exam Physical Exam: General- oriented x 2, not in distress, speaks in sentences with no effort or accessory muscle use Head- atraumatic Eyes- PERRL, EOMI, anicteric ENT- oropharynx clear Neck- supple, no JVD, no adenopathy, no thyromegaly; carotids +2/2, no bruits appreciated Lungs- (+) mild rhonchi, expiratory wheeze bilaterally Heart- normal rate, regular rhythm; no murmur, no gallop, no rub appreciated Abdomen- normal bowel sounds, nondistended, soft, nontender, no masses or hepatosplenomegaly Extremities- no pretibial edema, no calf tenderness; peripheral pulses intact Neuro- alert, oriented x 2; CN 2-12 grossly intact; motor 5/5 bilaterally;sensation 100% on all extremities; no other gross focal neurologic deficits Skin- warm & dry Results & Data Results & Data ([facility]) Vital Signs (Past 12 Hours) Vital Signs Temp Pulse Pulse Pulse Resp BP BP 03/01/21 15:24 117 H 03/01/21 14:55 36.6 C 125 H 19 122/70 03/01/21 13:08 95 H 20 03/01/21 11:22 36.9 C 118 H 18 116/79 03/01/21 10:33 123 H 03/01/21 08:39 36.7 C 121 H 22 130/78 03/01/21 08:00 119 H 24 114/81 03/01/21 07:20 131 H 19 130/84 03/01/21 07:00 124 H 21 130/84 03/01/21 06:20 119 H 27 H 03/01/21 06:10 105 H 23 03/01/21 06:00 111 H 30 H 112/90 03/01/21 05:50 110 H 22 03/01/21 05:49 113 H 27 H 03/01/21 05:40 115 H 26 H 03/01/21 05:30 97 H 19 03/01/21 05:20 99 H 21 03/01/21 05:10 90 21 03/01/21 05:03 90 24 03/01/21 04:50 89 26 H 03/01/21 04:35 100 H 16 03/01/21 04:00 89 26 H 145/80 H Pulse Ox 03/01/21 15:24 03/01/21 14:55 94 03/01/21 13:08 95 03/01/21 11:22 94 03/01/21 10:33 03/01/21 08:39 91 03/01/21 08:00 94 03/01/21 07:20 91 03/01/21 07:00 93 03/01/21 06:20 03/01/21 06:10 03/01/21 06:00 03/01/21 05:50 03/01/21 05:49 95 03/01/21 05:40 03/01/21 05:30 03/01/21 05:20 03/01/21 05:10 03/01/21 05:03 03/01/21 04:50 94 03/01/21 04:35 94 03/01/21 04:00 92
[2021-03-01] MEDS ORDERED: IPRATROPIUM BROMIDE/ALBUTEROL respimat INH INH SCH (17:00)
[2021-03-01] MEDS: DONEPEZIL HCL 5 MG TAB PO SCH (17:34)
[2021-03-01] MEDS: dilTIAZem HCL 180 MG CAPCR PO SCH (17:35)
[2021-03-01] MEDS: FERROUS SULFATE 325 MG TAB PO SCH (17:35)
[2021-03-01] MEDS ORDERED: Albuterol HFA 8 GM Inhaler (Combivent Respimat P&T Subs) INH SCH (19:00)
[2021-03-01] MEDS ORDERED: Ipratropium HFA Inhaler (Combivent Respimat P&T Subs) INH SCH (19:00)
[2021-03-01] MEDS: APIXABAN 2.5 MG TAB PO SCH (21:30)
[2021-03-01] MEDS: busPIRone 5 MG TAB PO SCH (21:30)
[2021-03-01] MEDS: DOCUSATE SODIUM 100 MG CAP PO SCH (21:31)
[2021-03-01] MEDS: NICOTINE 21 MG/24 HR TDSY TD SCH (21:31)
[2021-03-02] MEDS: IPRATROPIUM BROMIDE NEB SOLN 0.02% 2.5 ML VIAL INH SCH ×4 (01:26→19:36)
[2021-03-02] MEDS: LEVALBUTEROL 1.25MG/0.5ML NEB INH SCH ×4 (01:26→19:36)
[2021-03-02 05:51] LABS: Hematocrit (blood only) 42.1 % (37-47); Hemoglobin 13.8 g/dL (12.0-16.0); Immature Granulocytes # (auto) 0.04 K/uL (0.00-0.02); Immature Granulocytes % (auto) 0.5 %; Lymphocytes # (auto) 0.62 K/uL (1.2-3.4); Lymphocytes % (auto) 7.5 %; Mean Corpuscular Hemoglobin 30.5 pg (25-34); Mean Corpuscular Hgb Conc 32.8 g/dL (32-36); Mean Corpuscular Volume 93.1 fL (80-100); Mean Platelet Volume 9.4 fL (7.4-10.4); Monocytes % (auto) 1.2 %; Neutrophils # (auto) 7.55 K/uL (1.4-6.5); Neutrophils % (auto) 90.8 %; Platelet Count 272 K/uL (130-400); RDW Coefficient of Variation 15.1 % (11.5-14.5); RDW Standard Deviation 51.3 fL (36.4-46.3); Red Blood Count 4.52 M/uL (4.2-5.4); White Blood Count 8.31 K/uL (4.8-10.8)
[2021-03-02] MEDS: methylPREDNISolone 40 MG in SYRINGE 0 ML IV SCH ×3 (06:10→21:46)
[2021-03-02 06:22] LABS: BUN Creatinine Ratio 17.2 (10-20); Calcium 8.8 mg/dl (8.5-10.1); Creatinine Clr Calc Pharmacy 24.2 ml/min; Est GFR (African American) 37.8 ml/min; Est GFR (Non-African American) 32.6 ml/min; Magnesium 2.1 mg/dl (1.8-2.4); Potassium 4.4 mmol/L (3.5-5.1)
[2021-03-02] MEDS ORDERED: FUROSEMIDE 20 MG TAB PO SCH (08:00)
--- NOTE | 2021-03-02 08:25 | CT Scan Report ---
CT OF THE HEAD WITHOUT CONTRAST CLINICAL HISTORY: confusion, r/o cva COMPARISON STUDY: Head CT December 28, 2020. CT DOSE: 1246.96 mGy.cm TECHNIQUE: Helical axial images of the head were obtained without IV contrast. Automated exposure con trol was utilized for the study. A dose lowering technique was utilized adhering to the principles o f ALARA. FINDINGS: No acute intracranial hemorrhage, midline shift or mass effect is present. The ventricular system is unremarkable. White matter hypodensities are unchanged and suggest small vessel disease. Fa int subcortical hypodensity throughout the majority of the brain is unchanged. The basal cisterns are patent. No extra-axial collections are present. There are no findings to suggest acute dural sinus t hrombosis or acute territorial infarct. No significant calvarial abnormalities are present. IMPRESSION: No acute intracranial findings. No change in appearance of the brain. ACT 112: Negative or not required by law. Electronically signed by: Cheng Montesinos M.D. 03/02/2021 8:24 AM
[2021-03-02] MEDS: DONEPEZIL HCL 5 MG TAB PO SCH (09:04)
[2021-03-02] MEDS: APIXABAN 2.5 MG TAB PO SCH ×2 (09:04→21:48)
[2021-03-02] MEDS: DOXYCYCLINE HYCLATE 100 MG CAP PO SCH ×2 (09:04→21:48)
[2021-03-02] MEDS: DOCUSATE SODIUM 100 MG CAP PO SCH ×2 (09:04→21:48)
[2021-03-02] MEDS: dilTIAZem HCL 180 MG CAPCR PO SCH (09:04)
[2021-03-02] MEDS: GABAPENTIN 100 MG CAP PO SCH (09:04)
[2021-03-02] MEDS: busPIRone 5 MG TAB PO SCH ×2 (09:04→21:47)
--- NOTE | 2021-03-02 09:42 | Pulmonary Consultation ---
Date of Consultation March 02, 2021 Assessment & Plan (1) Acute exacerbation of chronic obstructive pulmonary disease: Attending: Dr. Serrano Impression: This is a 70-year-old female with a past medical history of tobacco abuse since age 6, COPD, emphysema, previous admission for COPD exacerbation. We are consulted to comment on medical management for COPD. Review medical rec. Indicates patient is on Combivent Respimat, fluticasone / furoate (Arnuity Ellipta), DuoNeb nebulizer treatments. Patient is also on chronic oxygen supplementation at home with 2 to 3 L/min via nasal cannula. Recommendations: 1. COPD/emphysema: * Patient thinks that she sees a pulmonary doctor but is unsure * Pulmonary function testing requested from [facility] * At this time we will continue with Combivent Respimat, Arnuity Ellipta, and nebulizer treatments as needed * Will review pulmonary function testing when available and refer back to [facility] pulmonology * We will also add incentive spirometry as well as flutter valve and start the patient on Mucinex. Recommend discharging on same 2. Chronic hypoxia: * Patient on supplemental oxygen at home with 2 to 3 L/min via nasal cannula * Continue on discharge * Outpatient follow-up with pulmonology * No indication for two-step testing prior to discharge as patient is already prescribed oxygen * Patient appears to be at baseline. Continue to monitor * Ambulate as tolerated 3. Tobacco abuse: * Discussed need for complete abstention of tobacco products * Patient states that she has been smoking since age 6 and has no intention of quitting at this time * Continue to encourage tobacco abstention 4. DVT prophylaxis: * No indication for bronchoscopy or other invasive procedure from allergy * Continue patient's home dose of apixaban 2.5 mg p.o. twice daily * Ambulate as tolerated (2) Hypoxia: (3) Pleural effusion on right: (4) Smoking: (5) DVT prophylaxis: Supervising Physician Co-Signing Physician Notes Patient was seen and examined with RAYMOND Richardson. I agree with his assessment and plan except for any changes noted. I would recommend that she transition to triple ICS/LABA/LAMA therapy as an outpatient from an inhaler perspective. I think she would be a good candidate for possible noninvasive ventilation such as trilogy. She had an ABG on 12/21/2020 which demonstrated acute hypercapnic respiratory failure with a PCO2 of 52. ABGs in December demonstrated chronic hypercapnia with a compensated pH of 7.41 and PCO2 of 50. I am not sure how compliant she would be with trilogy therapy. She does have underlying dementia. Smoking cessation was strongly encouraged, but the patient was not interested. She does appear wheezy on exam today. Recommend transitioning her to p.o. prednisone starting tomorrow. Outpatient PFTs requested from [facility] Thank you for the consultation. Pulmonary continue to follow along with you. History of Present Illness Reason for Consultation: Medication management for COPD Requesting Physician: Dr. Zarco Attending Physician: Shamir Zarco MD History of Present Illness Attending: Dr. Serrano This is a 70-year-old female with a history of COPD, tobacco abuse since age 6, chronic supplemental oxygen requirement, Alzheimer's dementia, hypertension, atrial fibrillation, vitamin D deficiency, GERD. We are asked to consult to comment on outpatient medicines. Review of home medications show the patient is chronically on Combivent Respimat, fluticasone furoate (Arnuity Ellipta), and duo nebs as needed. Pulmonary function testing is apparently available in the [facility] system. This is been requested for review. At this time patient states that she has 1-2 admissions per year for COPD exacerbation. She typically goes to the [facility] which is right across the street from where she resides. She is unsure as to how or why she was admitted to [facility]. She does have some level of dementia associated with Alzheimer's disease. She currently has a one-on-one in her room. She does seem to be alert and oriented x3. She is not able to tell me her medications but does state that she sees physicians in [facility]. She states that at this time she has no increased shortness of breath. She has no significant cough. She denies any sputum production. She does state that she typically has sputum production in the morning which is with white sputum. This clears up after she has her coffee and a cigarette. She states that she takes her medications as prescribed. She does live alone. She continues to drive and perform her own ADLs. She states that she has been smoking at least 1 pack/day of cigarettes since age 6. She has no desire or indication that she wants to quit smoking at this time. The patient states that she feels as though she is at baseline. She is asking about discharge planning. She is unaware if she has had vaccination for Covid. As a matter fact, she is unclear as to what Covid pneumonia is and is not familiar with the term COVID- 19. Allergies Allergy/AdvReac Type Severity Reaction Status Date / Time Penicillins Allergy Unknown Unknown Unverified 03/01/21 07:44 Sulfa (Sulfonamide Allergy Unknown Unknown Unverified 03/01/21 07:44 Antibiotics) candesartan [From Atacand] Allergy Unknown Unverified 03/01/21 07:44 codeine Allergy Unknown Unverified 03/01/21 07:44 cyclobenzaprine Allergy Unknown Unverified 03/01/21 07:44 ibuprofen [From Motrin IB] Allergy Unknown Unverified 03/01/21 07:44 moxifloxacin Allergy Unknown Unverified 03/01/21 07:44 nitrofurantoin Allergy Unknown Unverified 03/01/21 07:44 [From Macrodantin] oxybutynin Allergy Unknown Unverified 03/01/21 07:44 propoxyphene Allergy Unknown Unverified 03/01/21 07:44 tramadol Allergy Unknown Unverified 03/01/21 07:44 Home Medications Medication Instructions Recorded Confirmed Type apixaban 2.5 mg tablet (Eliquis) 2.5 mg PO BID 12/20/20 03/01/21 History buspirone 5 mg tablet 5 mg PO BID 12/20/20 03/01/21 History cholecalciferol (vitamin D3) 25 25 mcg PO QAM 12/20/20 03/01/21 History mcg (1,000 unit) tablet (Vitamin D3) diltiazem HCl 180 mg 180 mg PO QAM 12/20/20 03/01/21 History capsule,extended release 24 hr (Cardizem CD) docusate sodium 100 mg capsule 100 mg PO BID 12/20/20 03/01/21 History (Colace) donepezil 5 mg tablet (Aricept) 5 mg PO QAM 12/20/20 03/01/21 History ferrous sulfate 325 mg (65 mg 325 mg PO BID 12/20/20 03/01/21 History iron) tablet,delayed release furosemide 20 mg tablet (Lasix) 20 mg PO 2XWK 12/20/20 03/01/21 History gabapentin 100 mg capsule 200 mg PO QAM 12/20/20 03/01/21 History (Neurontin) ipratropium 0.5 mg-albuterol 3 mg 3 ml INHALATION QID 12/20/20 03/01/21 History (2.5 mg base)/3 mL nebulization soln ipratropium 20 mcg-albuterol 100 1 puff INHALATION QID 12/20/20 03/01/21 History mcg/actuation mist for inhalation (Combivent Respimat) fluticasone furoate 100 1 inh INHALATION QAM 03/01/21 03/01/21 History mcg/actuation blister powder for inhalation (Arnuity Ellipta) omeprazole 20 mg capsule,delayed 20 mg PO BID 03/01/21 03/01/21 History release simvastatin 10 mg tablet (Zocor) 10 mg PO HS 03/01/21 03/01/21 History Patient History Medical History Acute exacerbation of chronic obstructive pulmonary disease Acute respiratory acidosis Alzheimer's dementia Atrial fibrillation Chest pain CKD (chronic kidney disease) Cognitive deficits COPD (chronic obstructive pulmonary disease) Encounter for pre-operative examination Fall Hypertension Osteoporosis Respiratory failure Subcapital fracture of right hip Syncope Tobacco use Surgical History H/O: hysterectomy History of appendectomy History of shoulder surgery Hx of cervical spine surgery Hx of cholecystectomy Status post-operative repair of closed fracture of right hip Social History Smoking Status: Current every day smoker Tobacco Type: Cigarettes Cigarettes Per Day: 20; Second Hand Exposure: No; Do You Dip or Chew Tobacco: No; Tobacco Cessation Education Requested by Patient: No Hx Alcohol Use: No Hx Substance Use: No Preferred Language: Japanese Communication Ability: Impaired Sewer Pipe Offbearer Required: No Beliefs That Will Affect Care: None marital status: Current Living Situation: Alone How many Children do You have: 1 Other Information That Helps Us Care for You: No Feels Safe at Home: Yes Safety Concerns: Feels Safe At This Time Assistive Devices: BiPap and Wheelchair Review of Systems Review of Systems: All systems reviewed & are unremarkable except as noted in Subjective Physical Exam Physical Exam: GENERAL : No acute distress EYES: No icterus, gaze conjugate. Pupils equal. NOSE: No evidence of epistaxis MOUTH: No lesions or candidiasis. Mucosa is moist NECK: Supple LUNGS: Patient with good inspirational effort. She does have some rhonchi in the lower suarez as well as upper apices. No appreciation of significant bronchospasm. HEART: Regular, rate is slightly tachycardic in the low 100s ABDOMEN: Soft, NT, ND, BS Present EXTREMITIES: No LE edema, pedal pulses intact and equal bilaterally. No calf pain to palpation. NEURO: A&OX3 but with some evidence of dementia. Patient is very pleasant and cooperative. Results & Data Results & Data ([facility]) Vital Signs (Past 12 Hours) Vital Signs Temp Pulse Pulse Resp BP Pulse Ox 03/02/21 07:05 102 H 18 95 03/02/21 07:00 36.4 C L 102 H 20 136/85 93 03/02/21 04:09 36.5 C 106 H 20 146/71 H 92 03/02/21 01:26 28 H 03/02/21 01:15 95 H 03/01/21 22:09 36.4 C L 95 H 22 122/80 92 Laboratory Results 03/02/21 05:33 03/02/21 05:33 03/01/21 05:00 Troponin I < 0.[address] 03/01/21 17:45 CT OF THE HEAD WITHOUT CONTRAST CLINICAL HISTORY: confusion, r/o cva COMPARISON STUDY: Head CT December 28, 2020. CT DOSE: 1246.96 mGy.cm TECHNIQUE: Helical axial images of the head were obtained without IV contrast. Automated exposure control was utilized for the study. A dose lowering technique was utilized adhering to the principles of ALARA. FINDINGS: No acute intracranial hemorrhage, midline shift or mass effect is present. The ventricular system is unremarkable. White matter hypodensities are unchanged and suggest small vessel disease. Faint subcortical hypodensity throughout the majority of the brain is unchanged. The basal cisterns are patent. No extra-axial collections are present. There are no findings to suggest acute dural sinus thrombosis or acute territorial infarct. No significant calvarial abnormalities are present. IMPRESSION: No acute intracranial findings. No change in appearance of the brain. ACT 112: Negative or not required by law. Electronically signed by: Cheng Montesinos M.D. 03/02/2021 8:24 AM XR chest 1V portable CLINICAL HISTORY: Dyspnea COMPARISON STUDY: Chest radiograph and chest CT December 28, 2020. FINDINGS: There is no pneumothorax. Small right pleural effusion is noted. Right basilar opacity is noted. Bibasilar opacities have improved since exam of December 28, 2020. Cardiomegaly is unchanged. There is no evidence for overt pulmonary e chidi. There are postoperative findings within the right shoulder. IMPRESSION: 1. Small right pleural effusion. Interval improvement in bibasilar opacities since prior exam. 2. Cardiomegaly. ACT 112: Negative or not required by law. Electronically signed by: Cheng Montesinos M.D. 03/01/2021 6:28 AM PG Care Time/CCT Total # of Minutes Spent Total Time Spent with Patient: Total time spent is greater than 50% in coordination of care (as documented) at patient's floor/unit and/or counseling patient: 45 [place] [address] Inpt Consult Level 4 Patient Type New Diagnoses Acute exacerbation of chronic obstructive pulmonary disease J44.1 Hypoxia R09.02 Pleural effusion on right J90 Smoking F17.200 DVT prophylaxis Z29.9 Time Spent (min) 45
[2021-03-02] MEDS: guaiFENesin 600 MG TABCR PO SCH ×2 (10:41→21:47)
[2021-03-02] MEDS: FLUTICASONE FUROATE 100MCG 14 PUFFS/INHALER INH SCH (10:41)
[2021-03-02] MEDS: FERROUS SULFATE 325 MG TAB PO SCH ×2 (12:55→16:59)
--- NOTE | 2021-03-02 14:16 | Hospitalist Progress Note ---
Date of Service March 02, 2021 Assessment & Plan (1) Acute exacerbation of chronic obstructive pulmonary disease: Plan: ASSESSMENT AND PLAN: This is a 70-year-old female with ongoing tobacco abuse and chronic obstructive pulmonary disease, presents with shortness of breath and cough and some confusion. 1. Metabolic encephalopathy, most likely secondary to chronic obstructive pulmonary disease exacerbation. - history of dementia - She uses oxygen 2 liters with activity and 2 liters while sleeping. CXR: 1. Small right pleural effusion. Interval improvement in bibasilar opacities since prior exam. 2. Cardiomegaly CT head: No acute process Patient now alert, oriented x2, answers most questions appropriately Breathing continues to improve, wheezing also improved continue Solumedrol taper, prednisone tomorrow, Doxycyline, Nebs Pulmonary service consulted recommend continuation of above regimen Add incentive spirometry, flutter valve, Mucinex Recommend usual home Combivent, Arnuity Ellipta, neb treatments as needed Patient will need nebulizer machine, home oxygen at home 2. Acute kidney injury on chronic kidney disease stage III. currently creatinine 1.5. hold Lasix Give gentle IV fluids x1 bag monitor 3. History of atrial fibrillation, on diltiazem and Eliquis. 4. History of Alzheimer's type dementia. - continue Aricept 5. General anxiety disorder, on buspirone. 6. Hypertension, on diltiazem, diuretics and losartan. - hold the diuretics and losartan for now due to PAUL Monitor the blood pressure. 7. Gastroesophageal reflux disease, on Prilosec. 8. Ongoing tobacco abuse. Nicotine patch. Needs counseling. 9. Hyperlipidemia, on statin. 10. Deep venous thrombosis prophylaxis, on Eliquis. Disposition pending PT OT evaluation Will need nebulizer machine, home oxygen with portability, home health services (2) Hypoxia: Admission and Anticipated Discharge Date Admission Date: March 01, 2021 Subjective Follow-up for COPD exacerbation, acute bronchitis, etc. Seen sitting up in bed, on 3 L of oxygen via nasal cannula MUSIC ASSISTANT at the bedside Oriented x2, answers all questions appropriately States she continues to improve Breathing improving Less cough No sputum production No fevers or chills No chest pain, palpitations, dizziness No other symptoms Review of Systems Review of Systems: all noted and negative except for above Physical Exam Physical Exam: General- oriented x 2, not in distress, speaks in sentences with no effort or accessory muscle use Eyes- anicteric Neck- no JVD Lungs-positive mild intermittent expiratory wheeze, good air entry bilaterally Heart- normal rate, regular rhythm; no murmurs Abdomen- normal bowel sounds, nondistended, soft, nontender Extremities- no pretibial edema, no calf tenderness Neuro- alert, oriented x 2; no gross focal neurologic deficits Skin- warm & dry Results & Data Results & Data ([facility]) Vital Signs (Past 12 Hours) Vital Signs Temp Pulse Pulse Resp BP Pulse Ox 03/02/21 12:45 83 16 93 03/02/21 11:00 36.6 C 91 H 18 122/77 94 03/02/21 10:15 99 H 03/02/21 07:05 102 H 18 95 03/02/21 07:00 36.4 C L 102 H 20 136/85 93 03/02/21 04:09 36.5 C 106 H 20 146/71 H 92
[2021-03-02] MEDS: SODIUM CHLORIDE 0.9% 1000ML 1,000 ML IV SCH (14:46)
[2021-03-02] MEDS ORDERED: guaiFENesin 600 MG TABCR PO SCH (21:00)
[2021-03-02] MEDS: NICOTINE 21 MG/24 HR TDSY TD SCH (21:46)
[2021-03-03] MEDS: LEVALBUTEROL 1.25MG/0.5ML NEB INH SCH ×3 (01:32→13:06)
[2021-03-03] MEDS: IPRATROPIUM BROMIDE NEB SOLN 0.02% 2.5 ML VIAL INH SCH ×3 (01:32→13:06)
[2021-03-03] MEDS: SODIUM CHLORIDE 0.9% 1000ML 1,000 ML IV SCH (02:55)
[2021-03-03] MEDS: methylPREDNISolone 40 MG in SYRINGE 0 ML IV SCH (05:55)
[2021-03-03] MEDS: busPIRone 5 MG TAB PO SCH (07:20)
[2021-03-03] MEDS: DONEPEZIL HCL 5 MG TAB PO SCH (07:20)
[2021-03-03] MEDS: dilTIAZem HCL 180 MG CAPCR PO SCH (07:20)
[2021-03-03] MEDS: DOCUSATE SODIUM 100 MG CAP PO SCH (07:20)
[2021-03-03] MEDS: DOXYCYCLINE HYCLATE 100 MG CAP PO SCH (07:20)
[2021-03-03] MEDS: GABAPENTIN 100 MG CAP PO SCH (07:20)
[2021-03-03] MEDS: APIXABAN 2.5 MG TAB PO SCH (07:20)
[2021-03-03] MEDS: guaiFENesin 600 MG TABCR PO SCH (07:20)
[2021-03-03] MEDS: FLUTICASONE FUROATE 100MCG 14 PUFFS/INHALER INH SCH (07:21)
[2021-03-03 09:19] LABS: Calcium 8.6 mg/dl (8.5-10.1); Creatinine Clr Calc Pharmacy 24.8 ml/min; Est GFR (African American) 38.4 ml/min; Est GFR (Non-African American) 33.1 ml/min; Potassium 4.3 mmol/L (3.5-5.1)
--- NOTE | 2021-03-03 10:15 | Hospitalist Progress Note ---
Date of Service March 03, 2021 Assessment & Plan (1) Acute exacerbation of chronic obstructive pulmonary disease: Plan: ASSESSMENT AND PLAN: This is a 70-year-old female with ongoing tobacco abuse and chronic obstructive pulmonary disease, presents with shortness of breath and cough and some confusion. 1. Metabolic encephalopathy, most likely secondary to chronic obstructive pulmonary disease exacerbation. - history of dementia - She uses oxygen 2 liters with activity and 2 liters while sleeping. Covid screen: Negative CXR: 1. Small right pleural effusion. Interval improvement in bibasilar opacities since prior exam. 2. Cardiomegaly CT head: No acute process Patient was given Solumedrol taper, Doxycyline, Nebs Pulmonary service consulted recommend continuation of above regimen Add incentive spirometry, flutter valve, Mucinex Patient now alert, oriented x2, answers most questions appropriately Breathing and wheezing has significantly improved with treatment during admission Recommend usual home Combivent, Arnuity Ellipta, neb treatments as needed Continue BiPAP at home Close follow-up with [facility] pulmonary clinic 2. Acute kidney injury on chronic kidney disease stage III. currently creatinine 1.5. Given gentle IV fluids Creatinine has remained 1.5 for the past 3 days hold Lasix and losartan for now Monitor volume status and blood pressure daily Check basic metabolic profile in the next 2 days, resume Lasix and losartan accordingly 3. History of atrial fibrillation, on diltiazem and Eliquis. 4. History of Alzheimer's type dementia. - continue Aricept 5. General anxiety disorder, on buspirone. 6. Hypertension, on diltiazem, diuretics and losartan. - hold Lasix and losartan for now Monitor volume status and blood pressure daily Check basic metabolic profile in the next 2 days, resume Lasix and losartan accordingly 7. Gastroesophageal reflux disease, on Prilosec. 8. Ongoing tobacco abuse. Nicotine patch. Needs counseling. 9. Hyperlipidemia, on statin. 10. Deep venous thrombosis prophylaxis, on Eliquis. Disposition Discharge to [facility] today Follow-up with PCP in 1 week Follow-up with [facility] pulmonary clinic in 2 weeks Admission and Anticipated Discharge Date Admission Date: March 01, 2021 Subjective Follow-up for COPD exacerbation, acute bronchitis, etc. Seen sitting up in bed, comfortable, not in distress, in good spirits States she feels much better overall Breathing is much better Very minimal cough, no sputum no fevers or chills No chest pain, palpitations, dizziness No abdominal pain or nausea Appetite is great as per THERMODYNAMIC PHYSICIST at the bedside No other symptoms States she is ready for discharge today Review of Systems Review of Systems: all noted and negative except for above Physical Exam Physical Exam: General- oriented x 2, not in distress, speaks in sentences with no effort or accessory muscle use Eyes- anicteric Neck- no JVD Lungs-somewhat diminished but clear breath sounds bilaterally, no crackles or wheezing Good air entry bilaterally Heart- normal rate, regular rhythm; no murmurs Abdomen- normal bowel sounds, nondistended, soft, nontender Extremities- no pretibial edema, no calf tenderness Neuro- alert, oriented x2; no new gross focal neurologic deficits Skin- warm & dry Results & Data Results & Data ([facility]) Vital Signs (Past 12 Hours) Vital Signs Temp Pulse Pulse Resp BP BP Pulse Ox 03/03/21 07:27 91 H 18 92 03/03/21 07:15 36.9 C 86 18 144/83 H 92 03/03/21 03:01 36.6 C 85 18 116/71 92 03/03/21 01:34 87 18 97 03/02/21 23:59 93 H 03/02/21 22:58 36.4 C L 94 H 19 123/77 95 all noted and reviewed including below
--- NOTE | 2021-03-03 10:40 | Discharge Summary ---
Date of Service March 03, 2021 Admission HPI Per Admitting Provider CHIEF COMPLAINT: Shortness of breath. HISTORY OF PRESENT ILLNESS: This is a 70-year-old female with past medical history significant for hyperlipidemia, chronic respiratory failure with hypoxia, COPD exacerbation, history of atrial fibrillation, history of heart failure, hypertension, severe malnutrition, chronic kidney disease stage III, osteoporosis, Alzheimer's type dementia, ongoing tobacco abuse, has some general anxiety disorder and mental disability, currently lives at [facility], is brought in because of some shortness of breath and some confusion. The patient still smokes 2 packs of cigarettes daily. She is alert and awake and oriented to name and place, could tell her date of , not good with the current dates, able to give her history. She is coughing. Denies any shortness of breath at this time. Denies any headache, no neck pain. No chest pain, no abdominal pain, no back pain, no leg pains. No nausea. Appetite is okay. No difficulty swallowing. No diarrhea or constipation. Currently, resting comfortably and hemodynamically stable. Denies any blurred visions, earache, runny nose or sore throat. Admission Exam (Per Admitting) Constitutional GENERAL: The patient is alert and oriented to name and place. VITAL SIGNS: Temperature afebrile, pulse 119, respiratory rate 27, blood pressure 112/90, oxygen 95% on 2 liters. HEENT: Pupils equal, round and reactive to light. Oral mucosa moist. NECK: No JVD, no neck masses. CARDIOVASCULAR: S1 and S2 heard. Regular rate and rhythm. No murmurs. RESPIRATORY SYSTEM: Normal AP diameter. No accessory muscle use. Bilateral wheezing heard. No crackles. ABDOMEN: Soft, bowel sounds present, nontender, no distention. CENTRAL NERVOUS SYSTEM: Cranial nerves II-XII grossly intact, nonfocal. EXTREMITIES: No edema, no erythema. Discharge Data Consultations 03/01/21 06:00 ED Decision to Admit Stat 03/02/21 08:05 Consult Pulmonology Routine Hospital Course (1) Acute exacerbation of chronic obstructive pulmonary disease: ASSESSMENT AND PLAN: This is a 70-year-old female with ongoing tobacco abuse and chronic obstructive pulmonary disease, presents with shortness of breath and cough and some confusion. 1. Metabolic encephalopathy, most likely secondary to chronic obstructive pulmonary disease exacerbation. - history of dementia - She uses oxygen 2 liters with activity and 2 liters while sleeping. Covid screen: Negative CXR: 1. Small right pleural effusion. Interval improvement in bibasilar opacities since prior exam. 2. Cardiomegaly CT head: No acute process Patient was given Solumedrol taper, Doxycyline, Nebs Patient now alert, oriented x2, answers most questions appropriately Breathing and wheezing has significantly improved with treatment during admission Pulmonary service consulted recommend initiation of ICS/LABA/LAMA regimen on discharge Recommend to start: Breo Ellipta, Spiriva, continue nebs DC Arnuity Ellipta Continue BiPAP at home for now, but ideally should be on a trilogy machine Close follow-up with [facility] pulmonary clinic 2. Acute kidney injury on chronic kidney disease stage III. currently creatinine 1.5. Given gentle IV fluids Creatinine has remained 1.5 for the past 3 days hold Lasix for now Monitor volume status and blood pressure daily Check basic metabolic profile in the next 2 days, resume Lasix accordingly 3. History of atrial fibrillation, on diltiazem and Eliquis. 4. History of Alzheimer's type dementia. - continue Aricept 5. General anxiety disorder, on buspirone. 6. Hypertension, on diltiazem, diuretics and losartan. hold Lasix for now Monitor volume status and blood pressure daily Check basic metabolic profile in the next 2 days, resume Lasix accordingly 7. Gastroesophageal reflux disease, on Prilosec. 8. Ongoing tobacco abuse. Nicotine patch. Needs counseling. 9. Hyperlipidemia, on statin. 10. Deep venous thrombosis prophylaxis, on Eliquis. Disposition Discharge to [facility] today Follow-up with PCP in 1 week Follow-up with [facility] pulmonary clinic in 2 weeks
[2021-03-03] MEDS: FERROUS SULFATE 325 MG TAB PO SCH (11:50)
[2021-03-04] MEDS ORDERED: predniSONE 20 MG TAB PO SCH (09:00)
== END 2021-03-03 16:08 | disposition home or self-care (01) | DRG 190 ==
LOC: ED 03:15 → 2W 06:50

== ENCOUNTER 2021-08-10 05:22 | Inpatient (IN) ==
--- NOTE | 2021-08-10 05:44 | Emergency Department Note ---
Impression & Plan Right lower lobe pneumonia, Anemia, GI bleed Admit to the [facility] service ED Provider Note NAME: RJ COLLINS AGE: 70 SEX: F ARRIVES VIA: Ambulance INFORMANT: Patient ED PROVIDER(S): Laura Alba DO CHIEF COMPLAINT: Chest pain PLAN: Disposition: Admit to the [facility] Condition: Guarded MEDICAL DECISION MAKING: This is a 70-year-old female patient from [facility] who presents to the emergency department complaining of substernal chest pain and a productive cough. Triage Nursing notes reviewed and agree with them. Additional history obtained from EMS Prior medical records reviewed Vital Signs: reviewed and remarkable for tachycardia Differential diagnosis: Pneumonia, bronchitis, COVID-19, CHF ER treatment provided: IV Rocephin Diagnostics interpreted by me: ECG: Atrial fibrillation with rapid ventricular response at a rate of 112. There is no ectopy. There is no ST segment elevation. Cardiac Monitoring: A. fib with RVR at a rate of 106 Laboratory studies: See below Imaging studies: As per my interpretation Portable chest x-ray: Right lower lobe infiltrate concerning for pneumonia HPI: 70/F arrives for evaluation of chest pain and productive cough. The patient was transported here from [facility] after complaining of chest pain. The patient has had a productive cough over the past couple of days. ROS: See above HPI for pertinent positives & negatives. A total of 10 systems reviewed and were otherwise negative. PAST MEDICAL HISTORY:See Below PAST SURGICAL HISTORY:See Below FAMILY HISTORY:See Below SOCIAL HISTORY:See Below HOME MEDICATIONS:See list ALLERGIES:See extensive list VITALS:See Below PHYSICAL EXAMINATION: HEENT: Head - normocephalic and atraumatic. Pupils are equal, round, and reactive to light. Extraocular eye muscles are intact, and sclera are anicteric. Nose - moist nasal mucosa without discharge. Mouth - moist buccal mucosa. Oropharynx is nonerythematous and there is no tonsillar exudate or edema noted. Neck: Supple; no cervical lymphadenopathy or nuchal rigidity Heart: Irregularly irregular rhythm with a tachycardic rate there is a normal S1 and S2 with no murmurs, clicks, or gallops appreciated. Lungs: Diminished breath sounds in all lung suarez Abdomen: Soft, completely nontender, nondistended, with good bowel sounds. There are no palpable pulsatile masses or hepatosplenomegaly. There is no guarding, rigidity, or rebound noted. Extremities: No evidence of cyanosis, clubbing, or edema. There are easily palpable peripheral pulses. Skin: warm and dry with good turgor and no rashes. ED COURSE: Times/Reassessments: 0530: Patient was evaluated in room C5. Septic protocol was performed. IV lock was initiated and labs are drawn as above. An order was placed for continuous cardiac monitoring. The patient was in atrial fib rillation with a rapid ventricular response at a rate of 106. Portable chest x-ray was performed. Her nose was swabbed for Covid. Her rectum was swabbed and the stools were black and tarry and they were heme positive. She was given a dose of IV Rocephin for the right-sided pneumonia. Discussed the case with the [facility] hospitalist. Laura Alba DO Past Med/Surg History Medical History Acute exacerbation of chronic obstructive pulmonary disease Acute respiratory acidosis Alzheimer's dementia Atrial fibrillation Chest pain CKD (chronic kidney disease) Cognitive deficits COPD (chronic obstructive pulmonary disease) Encounter for pre-operative examination Fall Hypertension Osteoporosis Respiratory failure Subcapital fracture of right hip Syncope Tobacco use Surgical History H/O: hysterectomy History of appendectomy History of shoulder surgery Hx of cervical spine surgery Hx of cholecystectomy Status post-operative repair of closed fracture of right hip Family History Father Myocardial infarction Mother Cancer COPD (chronic obstructive pulmonary disease) Heart disease Brother Lung cancer Sister Cancer kidney Social History (Updated 08/10/21 @ 09:10 by Huma Goode PA-C) Smoking Status: Current every day smoker Tobacco Type: Cigarettes Cigarettes Per Day: 20; Second Hand Exposure: No; Hx Alcohol Use: No Hx Substance Use: No Preferred Language: Peruvian Communication Ability: Effective Communication Ability Comment: dementia 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 Allergies Allergies Allergy/AdvReac Type Severity Reaction Status Date / Time Penicillins Allergy Unknown Unknown Unverified 08/10/21 08:22 Sulfa (Sulfonamide Allergy Unknown Unknown Unverified 08/10/21 08:22 Antibiotics) candesartan [From Atacand] Allergy Unknown Unverified 08/10/21 08:22 codeine Allergy Unknown Unverified 08/10/21 08:22 cyclobenzaprine Allergy Unknown Unverified 08/10/21 08:22 ibuprofen [From Motrin IB] Allergy Unknown Unverified 08/10/21 08:22 moxifloxacin Allergy Unknown Unverified 08/10/21 08:22 nitrofurantoin Allergy Unknown Unverified 08/10/21 08:22 [From Macrodantin] oxybutynin Allergy Unknown Unverified 08/10/21 08:22 propoxyphene Allergy Unknown Unverified 08/10/21 08:22 tramadol Allergy Unknown Unverified 08/10/21 08:22 Home Meds Home Medications Medication Instructions Recorded Confirmed apixaban 2.5 mg tablet (Eliquis) 2.5 mg PO BID 12/20/20 08/10/21 buspirone 5 mg tablet 5 mg PO BID 12/20/20 08/10/21 cholecalciferol (vitamin D3) 25 25 mcg PO QAM 12/20/20 08/10/21 mcg (1,000 unit) tablet (Vitamin D3) diltiazem HCl 180 mg 180 mg PO QAM 12/20/20 08/10/21 capsule,extended release 24 hr (Cardizem CD) docusate sodium 100 mg capsule 100 mg PO BID 12/20/20 08/10/21 (Colace) donepezil 5 mg tablet (Aricept) 5 mg PO QAM 12/20/20 08/10/21 ferrous sulfate 325 mg (65 mg 325 mg PO BID 12/20/20 08/10/21 iron) tablet,delayed release gabapentin 100 mg capsule 200 mg PO QAM 12/20/20 08/10/21 (Neurontin) ipratropium 0.5 mg-albuterol 3 mg 3 ml INHALATION QID 12/20/20 08/10/21 (2.5 mg base)/3 mL nebulization soln ipratropium 20 mcg-albuterol 100 1 puff INHALATION QID 12/20/20 08/10/21 mcg/actuation mist for inhalation (Combivent Respimat) omeprazole 20 mg capsule,delayed 20 mg PO BID 03/01/21 08/10/21 release simvastatin 10 mg tablet (Zocor) 10 mg PO HS 03/01/21 08/10/21 fluticasone furoate 200 1 inh INHALATION QAM 08/10/21 08/10/21 mcg-vilanterol 25 mcg/dose inhalation powder (Breo Ellipta) furosemide 20 mg tablet 10 mg PO MOFR 08/10/21 08/10/21 Previous Rx's Medication Instructions Recorded tiotropium bromide 18 mcg capsule 1 cap INHALATION DAILY #30 inh 03/03/21 with inhalation device (Spiriva with HandiHaler) Results & Data (ED) Vital Signs Vital Signs - 24 hr 08/10/21 05:25 08/10/21 05:44 Pulse Rate 106 H Respiratory Rate 20 Blood Pressure 154/93 H Blood Pressure Mean 113 Pulse Oximetry 92 92 Oxygen Delivery Method Room Air Nasal Cannula Oxygen Flow Rate 2 Sepsis Recent Fever Within 48 Hours No Sepsis New/Unexplained Change in Mental Status No Sepsis Action Taken by Nursing No Action Required Laboratory Data Result diagrams: 08/11/21 06:58 08/11/21 06:58 Lab Results 08/10/21 08/10/21 08/10/21 Range/Units 05:37 05:37 05:37 WBC 5.18 (4.8-10.8) K/uL RBC 3.15 L (4.2-5.4) M/uL Hgb 9.3 L (12.0-16.0) g/dL Hct 30.5 L (37-47) % MCV 96.8 (80-100) fL MCH 29.5 (25-34) pg MCHC 30.5 L (32-36) g/dL RDW Std Deviation 53.2 H (36.4-46.3) fL RDW Coeff of Cheri 15.0 H (11.5-14.5) % Plt Count 160 (130-400) K/uL MPV 9.2 (7.4-10.4) fL Immature Gran % (Auto) 0.2 % Neut % (Auto) 63.9 % Lymph % (Auto) 24.5 % [place] % (Auto) 7.7 % Eos % (Auto) 3.1 % Baso % (Auto) 0.6 % Neut # (Auto) 3.31 (1.4-6.5) K/uL Lymph # (Auto) 1.27 (1.2-3.4) K/uL [place] # (Auto) 0.40 (0.11-0.59) K/uL Eos # (Auto) 0.16 (0-0.5) K/uL Baso # (Auto) 0.03 (0-0.2) K/uL Immature Gran # (Auto) 0.01 (0.00-0.02) K/uL PT 10.2 (9.0-12.0) Seconds INR 1.0 (0.9-1.1) APTT 22.6 (21.0-31.0) Seconds PTT Ratio 0.9 Sodium 140 (136-145) mmol/L Potassium 4.5 (3.5-5.1) mmol/L Chloride 104 (98-107) mmol/L Carbon Dioxide 29 (21-32) mmol/L Anion Gap 7 (3-11) BUN 20 (6-23) mg/dl Creatinine 1.31 H (0.6-1.2) mg/dl Est Cr Clr Drug Dosing Not Reportable Est GFR ( Amer) 47.0 ml/min Est GFR (Non-Af Amer) 40.6 ml/min BUN/Creatinine Ratio 15.3 (10-20) Glucose 87 (70-99(Fasting)) mg/dl Lactate (0.4-2.0) mmol/L Calcium 9.1 (8.5-10.1) mg/dl Magnesium (1.7-2.4) mg/dl Total Bilirubin 0.5 (0.2-1.0) mg/dl AST 34 (13-39) U/L ALT 22 (7-52) U/L Alkaline Phosphatase 92 (34-104) U/L Troponin I < 0.03 (0-0.04) ng/ml Total Protein 6.4 (6.0-8.3) gm/dl Albumin 3.7 (3.4-5.0) gm/dl Globulin 2.7 (2.5-4.0) gm/dl Albumin/Globulin Ratio 1.4 (0.9-2) Lipase 32 (11-82) U/L Urine Color Urine Appearance (Clear) Urine pH (4.5-7.5) Ur Specific [place] (1.000-1.030) Urine Protein (Negative) Urine Glucose (UA) (Negative) Urine Ketones (Negative) Urine Blood (Negative) Urine Nitrite (Negative) Urine Bilirubin (Negative) Urine Urobilinogen (Negative) Ur Leukocyte Esterase (Negative) Urine WBC (Auto) (0-5) /hpf Urine RBC (Auto) (0-4) /hpf U Hyaline Cast (Auto) (0-5) /lpf U Epithel Cells (Auto) (0-5) /lpf Urine Bacteria (Auto) (Negative) Ur Renal Epithelial Cell SARS-CoV-2, RNA, NAAT (NEGATIVE) 08/10/21 08/10/21 08/10/21 Range/Units 05:37 06:11 06:28 WBC (4.8-10.8) K/uL RBC (4.2-5.4) M/uL Hgb (12.0-16.0) g/dL Hct (37-47) % MCV (80-100) fL MCH (25-34) pg MCHC (32-36) g/dL RDW Std Deviation (36.4-46.3) fL RDW Coeff of Cheri (11.5-14.5) % Plt Count (130-400) K/uL MPV (7.4-10.4) fL Immature Gran % (Auto) % Neut % (Auto) % Lymph % (Auto) % [place] % (Auto) % Eos % (Auto) % Baso % (Auto) % Neut # (Auto) (1.4-6.5) K/uL Lymph # (Auto) (1.2-3.4) K/uL [place] # (Auto) (0.11-0.59) K/uL Eos # (Auto) (0-0.5) K/uL Baso # (Auto) (0-0.2) K/uL Immature Gran # (Auto) (0.00-0.02) K/uL PT (9.0-12.0) Seconds INR (0.9-1.1) APTT (21.0-31.0) Seconds PTT Ratio Sodium (136-145) mmol/L Potassium (3.5-5.1) mmol/L Chloride (98-107) mmol/L Carbon Dioxide (21-32) mmol/L Anion Gap (3-11) BUN (6-23) mg/dl Creatinine (0.6-1.2) mg/dl Est Cr Clr Drug Dosing Est GFR ( Amer) ml/min Est GFR (Non-Af Amer) ml/min BUN/Creatinine Ratio (10-20) Glucose (70-99(Fasting)) mg/dl Lactate (0.4-2.0) mmol/L Calcium (8.5-10.1) mg/dl Magnesium 1.9 (1.7-2.4) mg/dl Total Bilirubin (0.2-1.0) mg/dl AST (13-39) U/L ALT (7-52) U/L Alkaline Phosphatase (34-104) U/L Troponin I (0-0.04) ng/ml Total Protein (6.0-8.3) gm/dl Albumin (3.4-5.0) gm/dl Globulin (2.5-4.0) gm/dl Albumin/Globulin Ratio (0.9-2) Lipase (11-82) U/L Urine Color Yellow Urine Appearance Clear (Clear) Urine pH 7.0 (4.5-7.5) Ur Specific [place] 1.012 (1.000-1.030) Urine Protein 3+ H (Negative) Urine Glucose (UA) Negative (Negative) Urine Ketones Negative (Negative) Urine Blood 1+ H (Negative) Urine Nitrite Negative (Negative) Urine Bilirubin Negative (Negative) Urine Urobilinogen Negative (Negative) Ur Leukocyte Esterase Negative (Negative) Urine WBC (Auto) 1-5 (0-5) /hpf Urine RBC (Auto) 0-4 (0-4) /hpf U Hyaline Cast (Auto) 1-5 (0-5) /lpf U Epithel Cells (Auto) 10-20 H (0-5) /lpf Urine Bacteria (Auto) Negative (Negative) Ur Renal Epithelial Cell Not Reportable SARS-CoV-2, RNA, NAAT NEGATIVE (NEGATIVE) 08/10/21 Range/Units 07:24 WBC (4.8-10.8) K/uL RBC (4.2-5.4) M/uL Hgb (12.0-16.0) g/dL Hct (37-47) % MCV (80-100) fL MCH (25-34) pg MCHC (32-36) g/dL RDW Std Deviation (36.4-46.3) fL RDW Coeff of Cheri (11.5-14.5) % Plt Count (130-400) K/uL MPV (7.4-10.4) fL Immature Gran % (Auto) % Neut % (Auto) % Lymph % (Auto) % [place] % (Auto) % Eos % (Auto) % Baso % (Auto) % Neut # (Auto) (1.4-6.5) K/uL Lymph # (Auto) (1.2-3.4) K/uL [place] # (Auto) (0.11-0.59) K/uL Eos # (Auto) (0-0.5) K/uL Baso # (Auto) (0-0.2) K/uL Immature Gran # (Auto) (0.00-0.02) K/uL PT (9.0-12.0) Seconds INR (0.9-1.1) APTT (21.0-31.0) Seconds PTT Ratio Sodium (136-145) mmol/L Potassium (3.5-5.1) mmol/L Chloride (98-107) mmol/L Carbon Dioxide (21-32) mmol/L Anion Gap (3-11) BUN (6-23) mg/dl Creatinine (0.6-1.2) mg/dl Est Cr Clr Drug Dosing Est GFR ( Amer) ml/min Est GFR (Non-Af Amer) ml/min BUN/Creatinine Ratio (10-20) Glucose (70-99(Fasting)) mg/dl Lactate 0.8 (0.4-2.0) mmol/L Calcium (8.5-10.1) mg/dl Magnesium (1.7-2.4) mg/dl Total Bilirubin (0.2-1.0) mg/dl AST (13-39) U/L ALT (7-52) U/L Alkaline Phosphatase (34-104) U/L Troponin I (0-0.04) ng/ml Total Protein (6.0-8.3) gm/dl Albumin (3.4-5.0) gm/dl Globulin (2.5-4.0) gm/dl Albumin/Globulin Ratio (0.9-2) Lipase (11-82) U/L Urine Color Urine Appearance (Clear) Urine pH (4.5-7.5) Ur Specific [place] (1.000-1.030) Urine Protein (Negative) Urine Glucose (UA) (Negative) Urine Ketones (Negative) Urine Blood (Negative) Urine Nitrite (Negative) Urine Bilirubin (Negative) Urine Urobilinogen (Negative) Ur Leukocyte Esterase (Negative) Urine WBC (Auto) (0-5) /hpf Urine RBC (Auto) (0-4) /hpf U Hyaline Cast (Auto) (0-5) /lpf U Epithel Cells (Auto) (0-5) /lpf Urine Bacteria (Auto) (Negative) Ur Renal Epithelial Cell SARS-CoV-2, RNA, NAAT (NEGATIVE) Administered Medications Apixaban (Apixaban 2.5 Mg Tab) 2.5 mg PO BID [facility] Stop: 09/10/21 10:59 Last Admin: 08/11/21 11:38 Dose: 2.5 mg Documented by: [id number] Buspirone HCl (Buspirone 5 Mg Tab) 5 mg PO BID [facility] Stop: 09/09/21 09:59 Last Admin: 08/11/21 08:31 Dose: 5 mg Documented by: [id number] Admin: 08/10/21 21:10 Dose: 5 mg Documented by: [id number] Admin: 08/10/21 10:59 Dose: 5 mg Documented by: [id number] Docusate Sodium (Docusate Sodium 100 Mg Cap) 100 mg PO BID [facility] Stop: 09/09/21 09:59 Last Admin: 08/11/21 08:34 Dose: 100 mg Documented by: [id number] Admin: 08/10/21 21:10 Dose: 100 mg Documented by: [id number] Admin: 08/10/21 10:59 Dose: 100 mg Documented by: [id number] Donepezil HCl (Donepezil Hcl 5 Mg Tab) 5 mg PO QAM [facility] Stop: 09/09/21 09:59 Last Admin: 08/11/21 08:33 Dose: 5 mg Documented by: [id number] Admin: 08/10/21 10:59 Dose: 5 mg Documented by: [id number] Doxycycline Hyclate (Doxycycline Hyclate 100 Mg Cap) 100 mg PO BID [facility] Stop: 08/17/21 09:59 Last Admin: 08/11/21 08:32 Dose: 100 mg Documented by: [id number] Admin: 08/10/21 21:10 Dose: 100 mg Documented by: [id number] Admin: 08/10/21 11:04 Dose: 100 mg Documented by: [id number] Ferrous Sulfate (Ferrous Sulfate 325 Mg Tab) 325 mg PO BID@0630,1830 [facility] Stop: 09/09/21 18:29 Last Admin: 08/11/21 06:02 Dose: 325 mg Documented by: [id number] Admin: 08/10/21 17:48 Dose: 325 mg Documented by: [id number] Gabapentin (Gabapentin 100 Mg Cap) 200 mg PO QAM [facility] Stop: 09/09/21 09:59 Last Admin: 08/11/21 08:31 Dose: 200 mg Documented by: [id number] Admin: 08/10/21 10:59 Dose: 200 mg Documented by: [id number] Haloperidol (Haloperidol 1 Mg Tab) 3 mg PO Q4 PRN PRN Reason: Agitation Stop: 09/10/21 11:27 Last Admin: 08/11/21 11:54 Dose: 3 mg Documented by: [id number] Ceftriaxone Sodium 2,000 mg/ (Dextrose) 70 mls @ 140 mls/hr IV DAILY@1999 [facility]; Protocol Stop: 08/17/21 19:59 Last Infusion: 08/10/21 20:30 Dose: 0 mls/hr Documented by: [id number] Admin: 08/10/21 20:00 Dose: 140 mls/hr Documented by: [id number] Diltiazem HCl 125 mg/ Dextrose 125 mls @ 10 mls/hr IV .[id number] [facility]; Protocol Stop: 09/10/21 10:59 Last Titration: 08/11/21 15:42 Dose: 10 mg/hr, 10 mls/hr Documented by: [id number] Cosigned by: [id number] Admin: 08/11/21 11:09 Dose: 5 mg/hr, 5 mls/hr Documented by: [id number] Cosigned by: [id number] Levalbuterol HCl (Levalbuterol Hcl 0.63 Mg/3 Ml Neb) 0.63 mg NEB Q6R [facility]; Protocol Stop: 09/10/21 12:59 Last Admin: 08/11/21 12:04 Dose: 0.63 mg Documented by: [id number] Metronidazole (Metronidazole 500 Mg Tab) 500 mg PO TID [facility] Stop: 08/17/21 13:59 Last Admin: 08/11/21 15:17 Dose: 500 mg Documented by: [id number] Admin: 08/11/21 08:33 Dose: 500 mg Documented by: [id number] Admin: 08/10/21 21:10 Dose: 500 mg Documented by: [id number] Admin: 08/10/21 13:24 Dose: 500 mg Documented by: [id number] Miscellaneous (Remove Nicoderm Patch) 1 ea N/A DAILY@0859 [facility] Stop: 09/10/21 08:58 Last Admin: 08/11/21 08:34 Dose: 1 ea Documented by: [id number] Nicotine (Nicotine 21 Mg/24 Hr Tdsy) 21 mg TD QAM [facility] Stop: 09/10/21 08:59 Last Admin: 08/11/21 10:12 Dose: 21 mg Documented by: [id number] Simvastatin (Simvastatin 10 Mg Tab) 10 mg PO HS [facility] Stop: 09/09/21 20:59 Last Admin: 08/10/21 21:11 Dose: 10 mg Documented by: [id number] Vitamin D (Cholecalciferol 1,000 Units 25 Mcg Tab) 1,000 units PO QAM [facility] Stop: 09/09/21 09:59 Last Admin: 08/11/21 08:32 Dose: 1,000 units Documented by: [id number] Admin: 08/10/21 11:44 Dose: 1,000 units Documented by: [id number] Discontinued Medications Albuterol (Albut/Ipratrop 3mg/0.5mg Neb 3 Ml Vial) 3 ml NEB QIDR [facility]; Protocol Stop: 09/09/21 10:59 Last Admin: 08/11/21 10:36 Dose: Not Given Documented by: [id number] Admin: 08/11/21 07:10 Dose: 3 ml Documented by: [id number] Admin: 08/10/21 19:33 Dose: 3 ml Documented by: [id number] Admin: 08/10/21 14:43 Dose: 3 ml Documented by: [id number] Admin: 08/10/21 10:50 Dose: 3 ml Documented by: [id number] Diltiazem HCl (Diltiazem Hcl 180 Mg Capcr) 180 mg PO ONE ONE Stop: 08/10/21 09:01 Last Admin: 08/10/21 09:07 Dose: 180 mg Documented by: [id number] Diltiazem HCl (Diltiazem Hcl 180 Mg Capcr) 180 mg PO QAM [facility] Stop: 09/10/21 08:59 Last Admin: 08/11/21 08:33 Dose: 180 mg Documented by: [id number] Diltiazem HCl (Diltiazem Hcl 5 Mg/Ml 5 Ml Vial) 15 mg IV NOW STA Stop: 08/11/21 10:34 Last Admin: 08/11/21 11:09 Dose: 15 mg Documented by: [id number] Cosigned by: [id number] Ceftriaxone Sodium (Rocephin) 1,000 mg in 50 mls @ 100 mls/hr IV NOW STA Stop: 08/10/21 07:03 Last Infusion: 08/10/21 08:18 Dose: 0 mls/hr Documented by: [id number] Admin: 08/10/21 07:48 Dose: 100 mls/hr Documented by: [id number] Pantoprazole Sodium 40 mg/ (Syringe) 10 mls @ 5 mls/min IV ONE ONE Stop: 08/10/21 09:16 Last Admin: 08/10/21 09:31 Dose: 5 mls/min Documented by: [id number] Pantoprazole Sodium 40 mg/ (Syringe) 10 mls @ 5 mls/min IV BID [facility] Stop: 09/09/21 21:59 Last Admin: 08/11/21 10:14 Dose: 5 mls/min Documented by: [id number] Admin: 08/10/21 21:13 Dose: 5 mls/min Documented by: [id number] Sodium Chloride (Nss 1000ml) 1,000 mls @ 80 mls/hr IV .[id number] [facility] Stop: 08/11/21 10:35 Last Infusion: 08/11/21 10:14 Dose: 0 mls/hr Documented by: [id number] Admin: 08/10/21 22:08 Dose: 80 mls/hr Documented by: [id number] Infusion: 08/10/21 22:08 Dose: 0 mls/hr Documented by: [id number] Admin: 08/10/21 11:00 Dose: 80 mls/hr Documented by: [id number] Methylprednisolone 30 mg/ (Syringe) 0.48 mls @ 1.5 mls/min IV TID [facility] Stop: 09/09/21 13:59 Last Admin: 08/11/21 10:14 Dose: 1.5 mls/min Documented by: [id number] Admin: 08/10/21 21:14 Dose: 1.5 mls/min Documented by: [id number] Admin: 08/10/21 13:24 Dose: 1.5 mls/min Documented by: [id number] Metoprolol Tartrate (Metoprolol Tartrate 1 Mg/Ml Vial) 5 mg IV Q4H PRN PRN Reason: tachycardia Stop: 09/09/21 09:35 Last Admin: 08/11/21 10:13 Dose: 5 mg Documented by: [id number] Metronidazole (Metronidazole 500 Mg Tab) 500 mg PO NOW STA Stop: 08/10/21 08:57 Last Admin: 08/10/21 09:07 Dose: 500 mg Documented by: [id number] Miscellaneous (Patient's Height Needed) 1 ea N/A Q2H [facility] Stop: 09/09/21 09:44 Last Admin: 08/10/21 20:52 Dose: Not Given Documented by: [id number] Admin: 08/10/21 17:47 Dose: Not Given Documented by: [id number] Admin: 08/10/21 17:47 Dose: Not Given Documented by: [id number] Admin: 08/10/21 17:47 Dose: Not Given Documented by: [id number] Admin: 08/10/21 11:45 Dose: 1 ea Documented by: [id number] Admin: 08/10/21 11:00 Dose: 1 ea Documented by: [id number] Discharge Plan Visit Data Chief Complaint: Chest Pain Stated Complaint: Chest Pain ED Provider: Laura Alba Discharge Problem: Right lower lobe pneumonia, Anemia, GI bleed Discharge Instructions Interventions: ED Discharge Assessment Last Done: 08/10/21 09:37 Discharge Problem: Right lower lobe pneumonia Qualifiers: Pneumonia type: due to unspecified organism Qualified Code(s): J18.9 - Pneumonia, unspecified organism Anemia Qualifiers: Anemia type: unspecified type Qualified Code(s): D64.9 - Anemia, unspecified GI bleed Qualifiers: GI bleed type/associated pathology: unspecified gastrointestinal hemorrhage type Qualified Code(s): K92.2 - Gastrointestinal hemorrhage, unspecified
[2021-08-10 05:59] LABS: Basophils # (auto) 0.03 K/uL (0-0.2); Basophils % (auto) 0.6 %; Eosinophils # (auto) 0.16 K/uL (0-0.5); Eosinophils % (auto) 3.1 %; Hematocrit (blood only) 30.5 % (37-47); Hemoglobin 9.3 g/dL (12.0-16.0); Immature Granulocytes # (auto) 0.01 K/uL (0.00-0.02); Immature Granulocytes % (auto) 0.2 %; Lymphocytes # (auto) 1.27 K/uL (1.2-3.4); Lymphocytes % (auto) 24.5 %; Mean Corpuscular Hemoglobin 29.5 pg (25-34); Mean Corpuscular Hgb Conc 30.5 g/dL (32-36); Mean Corpuscular Volume 96.8 fL (80-100); Mean Platelet Volume 9.2 fL (7.4-10.4); Monocytes % (auto) 7.7 %; Neutrophils # (auto) 3.31 K/uL (1.4-6.5); Neutrophils % (auto) 63.9 %; Platelet Count 160 K/uL (130-400); RDW Standard Deviation 53.2 fL (36.4-46.3); Red Blood Count 3.15 M/uL (4.2-5.4); White Blood Count 5.18 K/uL (4.8-10.8)
[2021-08-10 06:26] LABS: Troponin I < 0.03 ng/ml (0-0.04)
[2021-08-10 06:29] LABS: Alanine Aminotransferase 22 U/L (7-52); Albumin Globulin Ratio 1.4 (0.9-2); Albumin Level 3.7 gm/dl (3.4-5.0); Alkaline Phosphatase 92 U/L (34-104); Anion Gap 7 (3-11); Aspartate Aminotransferase 34 U/L (13-39); BUN Creatinine Ratio 15.3 (10-20); Bilirubin,Total 0.5 mg/dl (0.2-1.0); Blood Urea Nitrogen 20 mg/dl (6-23); Calcium 9.1 mg/dl (8.5-10.1); Carbon Dioxide 29 mmol/L (21-32); Chloride 104 mmol/L (98-107); Est GFR (Non-African American) 40.6 ml/min; Globulin 2.7 gm/dl (2.5-4.0); Glucose 87 mg/dl (70-99(Fasting)); Lipase 32 U/L (11-82); Potassium 4.5 mmol/L (3.5-5.1); Sodium 140 mmol/L (136-145); Total Protein 6.4 gm/dl (6.0-8.3)
[2021-08-10] MEDS ORDERED: cefTRIAXone SODIUM 1,000 MG/50 ML BAG IV STA (06:34)
[2021-08-10 06:50] LABS: Appearance Urine Clear (Clear); Bacteria Urine Automated Negative (Negative); Bilirubin Urine Negative (Negative); Blood Urine 1+ (Negative); Color Urine Yellow; Glucose Urine UA Negative (Negative); Ketones Urine Negative (Negative); Leukocyte Esterase Urine Negative (Negative); Nitrite Urine Negative (Negative); Protein Urine 3+ (Negative); RBC Urine Automated 0-4 /hpf (0-4); Specific Gravity Urine 1.012 (1.000-1.030); Urobilinogen Urine Negative (Negative)
[2021-08-10 07:01] LABS: Partial Thromboplastin Ratio 0.9; Partial Thromboplastin Time 22.6 Seconds (21.0-31.0); Prothrombin Time 10.2 Seconds (9.0-12.0)
--- NOTE | 2021-08-10 07:34 | XRay Report ---
SINGLE VIEW CHEST CLINICAL HISTORY: Atypical chest pain FINDINGS: 2 AP, portable, upright chest radiographs are compared to study dated 03/01/2021 and correlat ed with chest CT dated 12/28/2020. The examination is degraded by portable technique, apical lordotic p ositioning, and patient rotation. The heart is enlarged noting atherosclerotic calcification of the thoracic aorta. The pulmonary vasculature is noncongested. Enlargement of the central pulmonary levar be is typical for pulmonary artery hypertension. Emphysema and chronic interstitial thickening is s imilar to previous. There is patchy airspace consolidation at the right lung base. A right pleural ef fusion is suspected No pneumothorax is seen. The skeletal structures are osteopenic. There are healed left-sided rib fractures. IMPRESSION: 1. Cardiomegaly and emphysema. 2. Airspace consolidation is seen at the right lung base with a small right pleural effusion. Correla te clinically for evidence of pneumonia/aspiration pneumonitis. Radiographic follow-up to resolution is recommended ACT 112: Negative or not required by law. Electronically signed by: Vazquez Guillory M.D. 08/10/2021 7:33 AM
[2021-08-10] MEDS ORDERED: metroNIDAZOLE 500 MG TAB PO STA (08:56)
[2021-08-10] MEDS ORDERED: dilTIAZem HCL 180 MG CAPCR PO ONE (09:00)
--- NOTE | 2021-08-10 09:08 | Gastrointestinal Consultation ---
Date of Consultation August 10, 2021 Assessment & Plan (1) Anemia: 70 year old female w/ chronic comorbidities brought through the ED w/ CP and cough suspected COPD exacerbation, GI asked to evaluate for dark stools, anemia. She is presently hemoconically stable w/o BUN elevation admitted for acute pulmonary function changes. Would treat conservative. Can resume anticoagulation if remains hemodynamically stable with stable HGB. Trend HGB. Monitor and document bowels. Transfuse PRN. Continue PO iron. Would recommend IV PPI BID x 48 hours then PO PPI BID x 1 month then PO PPI once daily. Will plan for outpatient EGD/Colonoscopy. In the event of any acute changes, please recall GI and we can arrange inpatient EGD pending her pulmonary status. Will sign off. Thank you for allowing us to participate in the care of this patient. Please call with any acute changes, questions or concerns. Please see addendum below with additional recommendation from my supervising physician. Supervising Physician Co-Signing Physician Notes I saw and evaluated the patient this morning. We were consulted with regard to heme positive stool taken during recent rectal examination. The patient is on anticoagulation as an outpatient. Patient is presently being admitted due to an exacerbation of COPD. The patient recalls that she has not undergone prior upper endoscopy nor colonoscopy in the past. She denies having nausea abdominal pain or passage of bright red blood from the rectum. Physical examination Frail appearing female in no obvious distress Pulmonary: Upper airway sounds consistent with history of COPD Abdomen: Soft nontender Impression: Patient being admitted with a COPD exacerbation, GI consulted for question of heme positive stools and anemia. As the patient does not appear to have any overt bleeding I wonder about occult bleeding and would suggest outpatient upper endoscopy and colonoscopy when she is recovered from her COPD exacerbation. Would recommend initiation of a PPI and perhaps holding her anticoagulation if possible. Please call with any additional questions or concerns History of Present Illness Reason for Consultation: concern for UGI bleed Requesting Physician: Leslie Attending Physician: Mazin Nelson DO History of Present Illness 70 year old female with history of dementia, COPD, CKD, HTN, afib others below admitted through the ED from [facility] for evaluation of chest pain, cough suspected COPD exacerbation . GI asked to evaluate for dark stools found on rectal. Pt was seen and evaluated, chart reviewed. Notes from GI standpoint is feeling well. Denies abd pain. No nausea, vomiting. Denies GERD. No dyshagia. Moving bowels well. No diarrhea/constipation. She does not check her stools and is unsure about black or bloody stools. Denies fever, chills. Anticoagulated on eliquis Is on PO iron HGB in June 10, HGB today 9.3 No BUN elevations VSS No records of EGD/Colon found in either [facility] or [facility] EMR Allergies Allergy/AdvReac Type Severity Reaction Status Date / Time Penicillins Allergy Unknown Unknown Unverified 08/10/21 08:22 Sulfa (Sulfonamide Allergy Unknown Unknown Unverified 08/10/21 08:22 Antibiotics) candesartan [From Atacand] Allergy Unknown Unverified 08/10/21 08:22 codeine Allergy Unknown Unverified 08/10/21 08:22 cyclobenzaprine Allergy Unknown Unverified 08/10/21 08:22 ibuprofen [From Motrin IB] Allergy Unknown Unverified 08/10/21 08:22 moxifloxacin Allergy Unknown Unverified 08/10/21 08:22 nitrofurantoin Allergy Unknown Unverified 08/10/21 08:22 [From Macrodantin] oxybutynin Allergy Unknown Unverified 08/10/21 08:22 propoxyphene Allergy Unknown Unverified 08/10/21 08:22 tramadol Allergy Unknown Unverified 08/10/21 08:22 Home Medications Medication Instructions Recorded Confirmed Type apixaban 2.5 mg tablet (Eliquis) 2.5 mg PO BID 12/20/20 08/10/21 History buspirone 5 mg tablet 5 mg PO BID 12/20/20 08/10/21 History cholecalciferol (vitamin D3) 25 25 mcg PO QAM 12/20/20 08/10/21 History mcg (1,000 unit) tablet (Vitamin D3) diltiazem HCl 180 mg 180 mg PO QAM 12/20/20 08/10/21 History capsule,extended release 24 hr (Cardizem CD) docusate sodium 100 mg capsule 100 mg PO BID 12/20/20 08/10/21 History (Colace) donepezil 5 mg tablet (Aricept) 5 mg PO QAM 12/20/20 08/10/21 History ferrous sulfate 325 mg (65 mg 325 mg PO BID 12/20/20 08/10/21 History iron) tablet,delayed release gabapentin 100 mg capsule 200 mg PO QAM 12/20/20 08/10/21 History (Neurontin) ipratropium 0.5 mg-albuterol 3 mg 3 ml INHALATION QID 12/20/20 08/10/21 History (2.5 mg base)/3 mL nebulization soln ipratropium 20 mcg-albuterol 100 1 puff INHALATION QID 12/20/20 08/10/21 History mcg/actuation mist for inhalation (Combivent Respimat) omeprazole 20 mg capsule,delayed 20 mg PO BID 03/01/21 08/10/21 History release simvastatin 10 mg tablet (Zocor) 10 mg PO HS 03/01/21 08/10/21 History tiotropium bromide 18 mcg capsule 1 cap INHALATION DAILY #30 inh 03/03/21 08/10/21 Rx with inhalation device (Spiriva with HandiHaler) fluticasone furoate 200 1 inh INHALATION QAM 08/10/21 08/10/21 History mcg-vilanterol 25 mcg/dose inhalation powder (Breo Ellipta) furosemide 20 mg tablet 10 mg PO MOFR 08/10/21 08/10/21 History Patient History Medical History Acute exacerbation of chronic obstructive pulmonary disease Acute respiratory acidosis Alzheimer's dementia Atrial fibrillation Chest pain CKD (chronic kidney disease) Cognitive deficits COPD (chronic obstructive pulmonary disease) Encounter for pre-operative examination Fall Hypertension Osteoporosis Respiratory failure Subcapital fracture of right hip Syncope Tobacco use Surgical History H/O: hysterectomy History of appendectomy History of shoulder surgery Hx of cervical spine surgery Hx of cholecystectomy Status post-operative repair of closed fracture of right hip Family History Father Myocardial infarction Mother Cancer COPD (chronic obstructive pulmonary disease) Heart disease Brother Lung cancer Sister Cancer kidney Social History (Updated 08/10/21 @ 09:10 by Huma Goode PA-C) Smoking Status: Current every day smoker Tobacco Type: Cigarettes Cigarettes Per Day: 20; Second Hand Exposure: No; Hx Alcohol Use: No Hx Substance Use: No Preferred Language: Divehi Communication Ability: Impaired Communication Ability Comment: dementia Stope Miner Required: No Beliefs That Will Affect Care: None marital status: Current Living Situation: Personal Care Facility How many Children do You have: 1 Feels Safe at Home: Yes Review of Systems Review of Systems: All systems reviewed & are unremarkable except as noted in HPI & below Physical Exam Constitutional: WD/WN, vitals as above chronically ill appearing Neck: trachea midline, no thyromegaly Respiratory: +SOB + wheezing Cardiovascular: Rate/Rhythm: regular rate and regular rhythm Gastrointestinal (Abdomen): normal bowel sounds, soft, nontender, no hepatosplenomegaly Skin: no rashes, warm and dry Results & Data ([facility]) Vital Signs (Past 12 Hours) Vital Signs Pulse Pulse Resp BP BP Pulse Ox 08/10/21 07:50 102 H 22 146/114 H 97 08/10/21 07:01 22 96 08/10/21 06:30 98 08/10/21 05:44 92 08/10/21 05:25 106 H 20 154/93 H 92 Laboratory Results 08/10/21 08/10/21 08/10/21 Range/Units 07:24 06:28 06:11 WBC (4.8-10.8) K/uL RBC (4.2-5.4) M/uL Hgb (12.0-16.0) g/dL Hct (37-47) % MCV (80-100) fL MCH (25-34) pg MCHC (32-36) g/dL RDW Std Deviation (36.4-46.3) fL RDW Coeff of Cheri (11.5-14.5) % Plt Count (130-400) K/uL MPV (7.4-10.4) fL Immature Gran % (Auto) % Neut % (Auto) % Lymph % (Auto) % [place] % (Auto) % Eos % (Auto) % Baso % (Auto) % Neut # (Auto) (1.4-6.5) K/uL Lymph # (Auto) (1.2-3.4) K/uL [place] # (Auto) (0.11-0.59) K/uL Eos # (Auto) (0-0.5) K/uL Baso # (Auto) (0-0.2) K/uL Immature Gran # (Auto) (0.00-0.02) K/uL PT (9.0-12.0) Seconds INR (0.9-1.1) APTT (21.0-31.0) Seconds PTT Ratio Sodium (136-145) mmol/L Potassium (3.5-5.1) mmol/L Chloride (98-107) mmol/L Carbon Dioxide (21-32) mmol/L Anion Gap (3-11) BUN (6-23) mg/dl Creatinine (0.6-1.2) mg/dl Est Cr Clr Drug Dosing Est GFR ( Amer) ml/min Est GFR (Non-Af Amer) ml/min BUN/Creatinine Ratio (10-20) Glucose (70-99(Fasting)) mg/dl Lactate 0.8 (0.4-2.0) mmol/L Calcium (8.5-10.1) mg/dl Magnesium (1.7-2.4) mg/dl Total Bilirubin (0.2-1.0) mg/dl AST (13-39) U/L ALT (7-52) U/L Alkaline Phosphatase (34-104) U/L Troponin I (0-0.04) ng/ml Total Protein (6.0-8.3) gm/dl Albumin (3.4-5.0) gm/dl Globulin (2.5-4.0) gm/dl Albumin/Globulin Ratio (0.9-2) Lipase (11-82) U/L Urine Color Yellow Urine Appearance Clear (Clear) Urine pH 7.0 (4.5-7.5) Ur Specific [place] 1.012 (1.000-1.030) Urine Protein 3+ H (Negative) Urine Glucose (UA) Negative (Negative) Urine Ketones Negative (Negative) Urine Blood 1+ H (Negative) Urine Nitrite Negative (Negative) Urine Bilirubin Negative (Negative) Urine Urobilinogen Negative (Negative) Ur Leukocyte Esterase Negative (Negative) Urine WBC (Auto) 1-5 (0-5) /hpf Urine RBC (Auto) 0-4 (0-4) /hpf U Hyaline Cast (Auto) 1-5 (0-5) /lpf U Epithel Cells (Auto) 10-20 H (0-5) /lpf Urine Bacteria (Auto) Negative (Negative) Ur Renal Epithelial Cell Not Reportable SARS-CoV-2, RNA, NAAT NEGATIVE (NEGATIVE) 08/10/21 08/10/21 08/10/21 Range/Units 05:37 05:37 05:37 WBC (4.8-10.8) K/uL RBC (4.2-5.4) M/uL Hgb (12.0-16.0) g/dL Hct (37-47) % MCV (80-100) fL MCH (25-34) pg MCHC (32-36) g/dL RDW Std Deviation (36.4-46.3) fL RDW Coeff of Cheri (11.5-14.5) % Plt Count (130-400) K/uL MPV (7.4-10.4) fL Immature Gran % (Auto) % Neut % (Auto) % Lymph % (Auto) % [place] % (Auto) % Eos % (Auto) % Baso % (Auto) % Neut # (Auto) (1.4-6.5) K/uL Lymph # (Auto) (1.2-3.4) K/uL [place] # (Auto) (0.11-0.59) K/uL Eos # (Auto) (0-0.5) K/uL Baso # (Auto) (0-0.2) K/uL Immature Gran # (Auto) (0.00-0.02) K/uL PT 10.2 (9.0-12.0) Seconds INR 1.0 (0.9-1.1) APTT 22.6 (21.0-31.0) Seconds PTT Ratio 0.9 Sodium 140 (136-145) mmol/L Potassium 4.5 (3.5-5.1) mmol/L Chloride 104 (98-107) mmol/L Carbon Dioxide 29 (21-32) mmol/L Anion Gap 7 (3-11) BUN 20 (6-23) mg/dl Creatinine 1.31 H (0.6-1.2) mg/dl Est Cr Clr Drug Dosing Not Reportable Est GFR ( Amer) 47.0 ml/min Est GFR (Non-Af Amer) 40.6 ml/min BUN/Creatinine Ratio 15.3 (10-20) Glucose 87 (70-99(Fasting)) mg/dl Lactate (0.4-2.0) mmol/L Calcium 9.1 (8.5-10.1) mg/dl Magnesium 1.9 (1.7-2.4) mg/dl Total Bilirubin 0.5 (0.2-1.0) mg/dl AST 34 (13-39) U/L ALT 22 (7-52) U/L Alkaline Phosphatase 92 (34-104) U/L Troponin I < 0.03 (0-0.04) ng/ml Total Protein 6.4 (6.0-8.3) gm/dl Albumin 3.7 (3.4-5.0) gm/dl Globulin 2.7 (2.5-4.0) gm/dl Albumin/Globulin Ratio 1.4 (0.9-2) Lipase 32 (11-82) U/L Urine Color Urine Appearance (Clear) Urine pH (4.5-7.5) Ur Specific [place] (1.000-1.030) Urine Protein (Negative) Urine Glucose (UA) (Negative) Urine Ketones (Negative) Urine Blood (Negative) Urine Nitrite (Negative) Urine Bilirubin (Negative) Urine Urobilinogen (Negative) Ur Leukocyte Esterase (Negative) Urine WBC (Auto) (0-5) /hpf Urine RBC (Auto) (0-4) /hpf U Hyaline Cast (Auto) (0-5) /lpf U Epithel Cells (Auto) (0-5) /lpf Urine Bacteria (Auto) (Negative) Ur Renal Epithelial Cell SARS-CoV-2, RNA, NAAT (NEGATIVE) 08/10/21 Range/Units 05:37 WBC 5.18 (4.8-10.8) K/uL RBC 3.15 L (4.2-5.4) M/uL Hgb 9.3 L (12.0-16.0) g/dL Hct 30.5 L (37-47) % MCV 96.8 (80-100) fL MCH 29.5 (25-34) pg MCHC 30.5 L (32-36) g/dL RDW Std Deviation 53.2 H (36.4-46.3) fL RDW Coeff of Cheri 15.0 H (11.5-14.5) % Plt Count 160 (130-400) K/uL MPV 9.2 (7.4-10.4) fL Immature Gran % (Auto) 0.2 % Neut % (Auto) 63.9 % Lymph % (Auto) 24.5 % [place] % (Auto) 7.7 % Eos % (Auto) 3.1 % Baso % (Auto) 0.6 % Neut # (Auto) 3.31 (1.4-6.5) K/uL Lymph # (Auto) 1.27 (1.2-3.4) K/uL [place] # (Auto) 0.40 (0.11-0.59) K/uL Eos # (Auto) 0.16 (0-0.5) K/uL Baso # (Auto) 0.03 (0-0.2) K/uL Immature Gran # (Auto) 0.01 (0.00-0.02) K/uL PT (9.0-12.0) Seconds INR (0.9-1.1) APTT (21.0-31.0) Seconds PTT Ratio Sodium (136-145) mmol/L Potassium (3.5-5.1) mmol/L Chloride (98-107) mmol/L Carbon Dioxide (21-32) mmol/L Anion Gap (3-11) BUN (6-23) mg/dl Creatinine (0.6-1.2) mg/dl Est Cr Clr Drug Dosing Est GFR ( Amer) ml/min Est GFR (Non-Af Amer) ml/min BUN/Creatinine Ratio (10-20) Glucose (70-99(Fasting)) mg/dl Lactate (0.4-2.0) mmol/L Calcium (8.5-10.1) mg/dl Magnesium (1.7-2.4) mg/dl Total Bilirubin (0.2-1.0) mg/dl AST (13-39) U/L ALT (7-52) U/L Alkaline Phosphatase (34-104) U/L Troponin I (0-0.04) ng/ml Total Protein (6.0-8.3) gm/dl Albumin (3.4-5.0) gm/dl Globulin (2.5-4.0) gm/dl Albumin/Globulin Ratio (0.9-2) Lipase (11-82) U/L Urine Color Urine Appearance (Clear) Urine pH (4.5-7.5) Ur Specific [place] (1.000-1.030) Urine Protein (Negative) Urine Glucose (UA) (Negative) Urine Ketones (Negative) Urine Blood (Negative) Urine Nitrite (Negative) Urine Bilirubin (Negative) Urine Urobilinogen (Negative) Ur Leukocyte Esterase (Negative) Urine WBC (Auto) (0-5) /hpf Urine RBC (Auto) (0-4) /hpf U Hyaline Cast (Auto) (0-5) /lpf U Epithel Cells (Auto) (0-5) /lpf Urine Bacteria (Auto) (Negative) Ur Renal Epithelial Cell SARS-CoV-2, RNA, NAAT (NEGATIVE)
--- NOTE | 2021-08-10 09:09 | History & Physical Report ---
Date of Service August 10, 2021 Assessment & Plan (1) Acute and chronic respiratory failure with hypoxia: (2) Right lower lobe pneumonia: (3) Acute exacerbation of chronic obstructive pulmonary disease: (4) Anemia: (5) UGIB (upper gastrointestinal bleed): (6) Atrial fibrillation: (7) Hypertension: (8) Alzheimer's dementia: (9) Current smoker: Plan: This is a 70-year-old female who has significant past medical history of chronic hypoxic respiratory failure secondary to COPD, PAF anticoagulated on Eliquis, HTN, HLD, severe protein calorie malnutrition, chronic HFpEF, CKD stage III, Alzheimer's type dementia, tobacco abuse, osteoporosis, LAURE who currently resides at [facility] and was referred to ED secondary to chest pain and cough prior to arrival. Acute on chronic hypoxic respiratory failure Right lower lobe pneumonia with pleural effusion, possible aspiration COPD exacerbation Admit to med telemetry IV cefepime, oral Flagyl and doxycycline Pulmonary toilet with nebulizer treatment, flutter valve and incentive spirometer Solumedrol 30mg IV TID continue Breo, oxygen supplementation, maintain O2 88-90% Atrial fibrillation with RVR, known hx of PAF Likely in setting of acute COPD exacerbation and pneumonia Give home dose of diltiazem x1 now Hold Eliquis due to concern for possible GI bleed Lopressor 5 mg IV every 4 hours as needed for heart rate greater than 110 Possible upper GI bleed Anemia -possible in setting of GI loss, will rule out nutritional deficiency Significant decrease in hemoglobin from 14.9-9.3 Hold Eliquis - per GI if hgb stays stable ok to restart IV PPI twice daily, OP egd/colon per GI Consult gastroenterology - appreciate assistance Obtain anemia panel She is on iron supplementation Hemoglobin every 8, next at 1400 HTN Stable, continue diltiazem Hold Lasix twice weekly HLD Continue statin Dementia, Alzheimer type LAURE Continue donezepil Mood stable Continue BuSpar DVT prophylaxis: SCD/teds, hold Eliquis in setting of concern for GI bleed Dispo: med tele FULL CODE PCP: Dr. Franz Pt was seen and examined in collaboration with Dr. Nelson, please see addendum The chart was completed utilizing [employer] voice recognition software. Grammatical errors, random word insertions, pronoun errors, and incomplete se ntences are an occasional consequence of this system due to software limitations, ambient noise, and hardware issues. Any formal questions or concerns about the content, text, or information contained within the body of this dictation should be directly addressed to the provider for clarification. Admission and Anticipated Discharge Date Admission Date: August 10, 2021 History of Present Illness Chief Complaint: Chest pain and cough prior to arrival. Primary Care Provider: [facility] This is a 70-year-old female who has significant past medical history of chronic hypoxic respiratory failure secondary to COPD, PAF anticoagulated on Eliquis, HTN, HLD, severe protein calorie malnutrition, chronic HFpEF, CKD stage III, Alzheimer's type dementia, tobacco abuse, osteoporosis, LAURE who currently resides at [facility] and was referred to ED secondary to chest pain and cough prior to arrival. ROS limited from patient in setting of Alzheimer's disease. She states she has been having a cough off and on the past couple days, occasionally productive, unsure of sputum color and chest pain that started this morning. Chest pain was located on front of chest bilaterally, nonradiating, made worse with coughing, currently resolved, has never experienced in the past, and nothing made it better or worse. Currently chest pain has resolved. She does wear oxygen chronically but is unsure of how many liters. According to [facility] she is noncompliant with wearing her oxygen. They states she is on 2 L. Patient denies any fever, chills, sweats, lightheadedness, dizziness, worsening shortness of breath, nausea, vomiting, abdominal pain, hemoptysis, diarrhea or melena. Nursing staff at [facility] are unaware of any black tarry stool. In ED patient was hypoxic requiring 3 L of oxygen. Her chest x-ray was consistent with a right small pleural effusion and likely pneumonia. She was in A. fib with RVR. Lab work significant for decline in hemoglobin to 9.3, FOBT positive. Her creatinine was mildly elevated at 1.31. She received IV Rocephin. Allergies Allergy/AdvReac Type Severity Reaction Status Date / Time Penicillins Allergy Unknown Unknown Unverified 08/10/21 08:22 Sulfa (Sulfonamide Allergy Unknown Unknown Unverified 08/10/21 08:22 Antibiotics) candesartan [From Atacand] Allergy Unknown Unverified 08/10/21 08:22 codeine Allergy Unknown Unverified 08/10/21 08:22 cyclobenzaprine Allergy Unknown Unverified 08/10/21 08:22 ibuprofen [From Motrin IB] Allergy Unknown Unverified 08/10/21 08:22 moxifloxacin Allergy Unknown Unverified 08/10/21 08:22 nitrofurantoin Allergy Unknown Unverified 08/10/21 08:22 [From Macrodantin] oxybutynin Allergy Unknown Unverified 08/10/21 08:22 propoxyphene Allergy Unknown Unverified 08/10/21 08:22 tramadol Allergy Unknown Unverified 08/10/21 08:22 Home Medications Medication Instructions Recorded Confirmed Type apixaban 2.5 mg tablet (Eliquis) 2.5 mg PO BID 12/20/20 08/10/21 History buspirone 5 mg tablet 5 mg PO BID 12/20/20 08/10/21 History cholecalciferol (vitamin D3) 25 25 mcg PO QAM 12/20/20 08/10/21 History mcg (1,000 unit) tablet (Vitamin D3) diltiazem HCl 180 mg 180 mg PO QAM 12/20/20 08/10/21 History capsule,extended release 24 hr (Cardizem CD) docusate sodium 100 mg capsule 100 mg PO BID 12/20/20 08/10/21 History (Colace) donepezil 5 mg tablet (Aricept) 5 mg PO QAM 12/20/20 08/10/21 History ferrous sulfate 325 mg (65 mg 325 mg PO BID 12/20/20 08/10/21 History iron) tablet,delayed release gabapentin 100 mg capsule 200 mg PO QAM 12/20/20 08/10/21 History (Neurontin) ipratropium 0.5 mg-albuterol 3 mg 3 ml INHALATION QID 12/20/20 08/10/21 History (2.5 mg base)/3 mL nebulization soln ipratropium 20 mcg-albuterol 100 1 puff INHALATION QID 12/20/20 08/10/21 History mcg/actuation mist for inhalation (Combivent Respimat) omeprazole 20 mg capsule,delayed 20 mg PO BID 03/01/21 08/10/21 History release simvastatin 10 mg tablet (Zocor) 10 mg PO HS 03/01/21 08/10/21 History tiotropium bromide 18 mcg capsule 1 cap INHALATION DAILY #30 inh 03/03/21 08/10/21 Rx with inhalation device (Spiriva with HandiHaler) fluticasone furoate 200 1 inh INHALATION QAM 08/10/21 08/10/21 History mcg-vilanterol 25 mcg/dose inhalation powder (Breo Ellipta) furosemide 20 mg tablet 10 mg PO MOFR 08/10/21 08/10/21 History Past Med/Surg History Medical History Acute exacerbation of chronic obstructive pulmonary disease Acute respiratory acidosis Alzheimer's dementia Atrial fibrillation Chest pain CKD (chronic kidney disease) Cognitive deficits COPD (chronic obstructive pulmonary disease) Encounter for pre-operative examination Fall Hypertension Osteoporosis Respiratory failure Subcapital fracture of right hip Syncope Tobacco use Surgical History H/O: hysterectomy History of appendectomy History of shoulder surgery Hx of cervical spine surgery Hx of cholecystectomy Status post-operative repair of closed fracture of right hip Family History Father Myocardial infarction Mother Cancer COPD (chronic obstructive pulmonary disease) Heart disease Brother Lung cancer Sister Cancer kidney Social History (Updated 08/10/21 @ 09:10 by Huma Goode PA-C) Smoking Status: Current every day smoker Tobacco Type: Cigarettes Cigarettes Per Day: 20; Second Hand Exposure: No; Hx Alcohol Use: No Hx Substance Use: No Preferred Language: Kazakh Communication Ability: Impaired Communication Ability Comment: dementia Ui Architect Required: No Beliefs That Will Affect Care: None marital status: Current Living Situation: Personal Care Facility How many Children do You have: 1 Feels Safe at Home: Yes Review of Systems Review of Systems: All systems reviewed & are unremarkable except as noted in HPI & below Unreliable due to hx of dementia Physical Exam Physical Exam: Constitutional: Thin, petite, female , vitals as above, NAD, sitting up in bed, pleasant, conversing easily Head: Normocephalic, Atraumatic Eyes: PERRL, conjunctivae normal, anicteric sclerae ENMT: external ear and nose normal, oropharynx normal Neck: trachea midline, no thyromegaly normal visual inspection Respiratory: normal respiratory effort, on 3 L of O2, diffuse inspiratory expiratory wheezing, no rales or rhonchi. Normal insp/exp effort, no accessory muscle use Cardiovascular:irregular rate, irregular rhythm, no murmur, no edema Vessels: no JVD or carotid bruit Chest: normal inspection of chest Abdomen: normal bowel sounds, soft, nontender, no hepatosplenomegaly Musculoskeletal: no cyanosis or clubbing, extremities motor strength 5/5 Skin: no rashes, warm and dry normal turgor Neurologic: PERRL, EOMI, accommodation nl, no face palsy, no dysarthria CN's II-XI intact bilaterally and moves all extremities Psychiatric: A+O to self only, euthymic affect Lymphatic: no cervical or axillary lymphadenopathy : deferred Results & Data Results & Data ([facility]) Vital Signs (Past 12 Hours) Vital Signs Pulse Pulse Resp BP BP Pulse Ox 08/10/21 07:50 102 H 22 146/114 H 97 08/10/21 07:01 22 96 08/10/21 06:30 98 08/10/21 05:44 92 08/10/21 05:25 106 H 20 154/93 H 92 Diagnostic Findings Chest X-Ray 08/10/21 05:39 SINGLE VIEW CHEST CLINICAL HISTORY: Atypical chest pain FINDINGS: 2 AP, portable, upright chest radiographs are compared to study dated 03/01/2021 and correlated with chest CT dated 12/28/2020. The examination is degraded by portable technique, apical lordotic positioning, and patient rotation. The heart is enlarged noting atherosclerotic calcification of the thoracic aorta. The pulmonary vasculature is noncongested. Enlargement of the central pulmonary arteries is typical for pulmonary artery hypertension. Emphysema and chronic interstitial thickening is similar to previous. There is patchy airspace consolidation at the right lung base. A right pleural effusion is suspected No pneumothorax is seen. The skeletal structures are osteopenic. There are healed left-sided rib fractures. IMPRESSION: 1. Cardiomegaly and emphysema. 2. Airspace consolidation is seen at the right lung base with a small right pleural effusion. Correlate clinically for evidence of pneumonia/aspiration pneumonitis. Radiographic follow-up to resolution is recommended ACT 112: Negative or not required by law. Electronically signed by: Vazquez Guillory M.D. 08/10/2021 7:33 AM Medications Administered Medication List Discontinued Medications Diltiazem HCl (Diltiazem Hcl 180 Mg Capcr) 180 mg PO ONE ONE Stop: 08/10/21 09:01 Last Admin: 08/10/21 09:07 Dose: 180 mg Documented by: [id number] Ceftriaxone Sodium (Rocephin) 1,000 mg in 50 mls @ 100 mls/hr IV NOW STA Stop: 08/10/21 07:03 Last Admin: 08/10/21 07:48 Dose: 100 mls/hr Documented by: [id number] Metronidazole (Metronidazole 500 Mg Tab) 500 mg PO NOW STA Stop: 08/10/21 08:57 Last Admin: 08/10/21 09:07 Dose: 500 mg Documented by: [id number] ECG Rate (beats per minute): 112 Rhythm: atrial fibrillation COVID-19 Results Results COVID-19 Adm Lab Results: RBC 3.15 M/uL (4.2-5.4) L 08/10/21 WBC 5.18 K/uL (4.8-10.8) 08/10/21 Hgb 9.3 g/dL (12.0-16.0) L 08/10/21 Hct 30.5 % (37-47) L 08/10/21 Plt Count 160 K/uL (130-400) 08/10/21 Neutrophils (%) (Auto) 63.9 % 08/10/21 Lymphocytes (%) (Auto) 24.5 % 08/10/21 Monocytes # (Auto) 0.40 K/uL (0.11-0.59) 08/10/21 Eosinophils # (Auto) 0.16 K/uL (0-0.5) 08/10/21 Immature Granulocyte % (Auto) 0.2 % 08/10/21 Neutrophils # (Auto) 3.31 K/uL (1.4-6.5) 08/10/21 Lymphocytes # (Auto) 1.27 K/uL (1.2-3.4) 08/10/21 Monocytes # (Auto) 0.40 K/uL (0.11-0.59) 08/10/21 Eosinophils # (Auto) 0.16 K/uL (0-0.5) 08/10/21 Basophils # (Auto) 0.03 K/uL (0-0.2) 08/10/21 Immature Granulocyte # (Auto) 0.01 K/uL (0.00-0.02) 08/10/21 Na 140 mmol/L (136-145) 08/10/21 K 4.5 mmol/L (3.5-5.1) 08/10/21 Cl 104 mmol/L (98-107) 08/10/21 CO2 29 mmol/L (21-32) 08/10/21 Anion Gap 7 (3-11) 08/10/21 BUN 20 mg/dl (6-23) 08/10/21 Creatinine 1.31 mg/dl (0.6-1.2) H 08/10/21 BUN/Creatinine Ratio 15.3 (10-20) 08/10/21 Glucose Level 87 mg/dl (70-99(Fasting)) 08/10/21 Ca 9.1 mg/dl (8.5-10.1) 08/10/21 Total Bilirubin 0.5 mg/dl (0.2-1.0) 08/10/21 AST/SGOT 34 U/L (13-39) 08/10/21 ALT/SGPT 22 U/L (7-52) 08/10/21 Alkaline Phosphatase 92 U/L (34-104) 08/10/21 Total Protein 6.4 gm/dl (6.0-8.3) 08/10/21 Albumin 3.7 gm/dl (3.4-5.0) 08/10/21 Globulin 2.7 gm/dl (2.5-4.0) 08/10/21 Albumin/Globulin Ratio 1.4 (0.9-2) 08/10/21 Troponin I < 0.03 ng/ml (0-0.04) 08/10/21 Ferritin Pending 08/10/21 PTT 22.6 Seconds (21.0-31.0) 08/10/21 INR 1.0 (0.9-1.1) 08/10/21 SARS-CoV-2, RNA, NAAT NEGATIVE (NEGATIVE) 08/10/21 Chest X-Ray 08/10/21 Code Status & VTE Plan Code Status Full code VTE Prophylaxis Plan VTE Prophylaxis will be ordered: Yes Supervising Physician Co-Signing Physician Notes I saw this patient with the physician baking assistant, I participated in the history, physical, review of systems, and physical exam. I reviewed the medications with the patient and the physician baking assistant and helped reconcile the medications. I helped take a detailed family and social history as well. I formulated the assessment and plan personally with the physician baking assistant and went over it with the patient. Physical Exam Gen-AAO x 1, NAD, Afebrile Head-NCAT, EOMI, PERRLA, Anicteric Sclera, No Posterior Pharyngeal Erythema Neck-Supple, No JVD, No Thyromegaly, No Masses, No LAD, No Bruits Lungs-Diminished Bilaterally, No Rales, No Rhonchi, No Wheezing, No Crepitus Chest-No S4, +S1, +S2, No S3, No Murmurs, No Rubs, No Gallops, No Ectopy Abdomen-Soft, Bowel Sounds Present, Non Tender, Non Distended, No Hepatomegaly, No Splenomegaly, No Palpable Masses, No Rebound, No Rigidity, No Guarding Musculoskeletal-Full Range of Motion Bilaterally, No CVAT Extremities-No Cyanosis, No Clubbing, No Edema Nuero-Cranial Nerves II-XII grossly intact, Motor WNL, DTRs WNL, Strength WNL, Non Focal Psych-Normal Mood
[2021-08-10] MEDS ORDERED: PANTOprazole 40 MG in SYRINGE 0 ML IV ONE (09:15)
[2021-08-10] MEDS ORDERED: IPRATROPIUM BROMIDE/ALBUTEROL respimat INH INH SCH (09:36)
[2021-08-10] MEDS ORDERED: METOPROLOL TARTRATE 1 MG/ML VIAL IV PRN (09:36)
[2021-08-10] MEDS ORDERED: ALUMINUM/MAGNESIUM SUSP 30 ML UDC PO PRN (09:36)
[2021-08-10] MEDS ORDERED: CONSULT PHARMACY STA (09:36)
[2021-08-10] MEDS ORDERED: ACETAMINOPHEN 325 MG TAB PO PRN (09:36)
[2021-08-10] MEDS ORDERED: MAGNESIUM HYDROXIDE SUSP 30 ML UDC PO PRN (09:36)
[2021-08-10] MEDS ORDERED: POLYETHYLENE (MIRALAX) 17 GM PACK PO PRN (09:36)
[2021-08-10] MEDS ORDERED: ONDANSETRON INJ 2 MG/ML 2 ML VIAL IV PRN (09:36)
[2021-08-10] MEDS: ALBUT/IPRATROP 3MG/0.5MG NEB 3 ML VIAL NEB SCH ×3 (10:50→19:33)
[2021-08-10] MEDS: GABAPENTIN 100 MG CAP PO SCH (10:59)
[2021-08-10] MEDS: busPIRone 5 MG TAB PO SCH ×2 (10:59→21:10)
[2021-08-10] MEDS: DOCUSATE SODIUM 100 MG CAP PO SCH ×2 (10:59→21:10)
[2021-08-10] MEDS: DONEPEZIL HCL 5 MG TAB PO SCH (10:59)
[2021-08-10] MEDS: PATIENT'S HEIGHT NEEDED SCH ×4 (11:00→20:52)
[2021-08-10] MEDS: SODIUM CHLORIDE 0.9% 1000ML 1,000 ML IV SCH ×2 (11:00→22:08)
[2021-08-10 11:02] LABS: Ferritin 97.3 ng/ml (8-388)
[2021-08-10] MEDS: DOXYCYCLINE HYCLATE 100 MG CAP PO SCH ×2 (11:04→21:10)
[2021-08-10] MEDS: CHOLECALCIFEROL 1,000 UNITS 25 MCG TAB PO SCH (11:44)
[2021-08-10] MEDS: metroNIDAZOLE 500 MG TAB PO SCH ×2 (13:24→21:10)
[2021-08-10] MEDS: methylPREDNISolone 30 MG in SYRINGE 0 ML IV SCH ×2 (13:24→21:14)
[2021-08-10 14:48] LABS: Hematocrit (blood only) 47.8 % (37-47); Hemoglobin 15.1 g/dL (12.0-16.0)
[2021-08-10] MEDS ORDERED: CEFEPIME 2,000 MG in SYRINGE 0 ML IV SCH (16:00)
[2021-08-10] MEDS: FERROUS SULFATE 325 MG TAB PO SCH (17:48)
[2021-08-10 17:52] LABS: Base Excess ABG -0.5 mEq/L (-9-1.8); HCO3 ABG 25 mmol/L (19-24); Oxygen Saturation ABG 94.2 % (90-95); PCO2 ABG 45 mmHg (35-46); PO2 ABG 71 mmHg (80-95); pH ABG 7.36 (7.35-7.45)
[2021-08-10 17:54] LABS: Allen Test Pos (Pos)
[2021-08-10] MEDS: cefTRIAXone SODIUM 2,000 MG in DEXTROSE 5% 50 ML IV SCH (20:00)
[2021-08-10] MEDS: SIMVASTATIN 10 MG TAB PO SCH (21:11)
[2021-08-10] MEDS: PANTOprazole 40 MG in SYRINGE 0 ML IV SCH (21:13)
--- NOTE | 2021-08-10 22:39 | Electrocardiogram Report ---
Test Reason : Blood Pressure : / mmHG Vent. Rate : 112 BPM Atrial Rate : 136 BPM P-R Int : 000 ms QRS Dur : 094 ms QT Int : 342 ms P-R-T Axes : 000 093 070 degrees QTc Int : 466 ms Atrial fibrillation with rapid ventricular response Rightward axis Nonspecific ST abnormality Abnormal ECG When compared with ECG of 01-MAR-2021 03:46, No significant change was found Confirmed by Steve Ribeiro ([id number]) on 08/10/2021 10:39:23 PM Referred By: [facility] Confirmed By:Steve Ribeiro
[2021-08-10 22:58] LABS: Hematocrit (blood only) 45.6 % (37-47); Hemoglobin 14.6 g/dL (12.0-16.0)
[2021-08-11] MEDS: FERROUS SULFATE 325 MG TAB PO SCH ×2 (06:02→18:33)
[2021-08-11] MEDS: ALBUT/IPRATROP 3MG/0.5MG NEB 3 ML VIAL NEB SCH ×2 (07:10→10:36)
[2021-08-11 07:44] LABS: Basophils # (auto) 0.01 K/uL (0-0.2); Basophils % (auto) 0.2 %; Hemoglobin 14.8 g/dL (12.0-16.0); Immature Granulocytes # (auto) 0.01 K/uL (0.00-0.02); Immature Granulocytes % (auto) 0.2 %; Lymphocytes # (auto) 0.49 K/uL (1.2-3.4); Lymphocytes % (auto) 8.4 %; Mean Corpuscular Hemoglobin 29.8 pg (25-34); Mean Corpuscular Hgb Conc 31.5 g/dL (32-36); Mean Corpuscular Volume 94.6 fL (80-100); Mean Platelet Volume 9.5 fL (7.4-10.4); Monocytes # (auto) 0.15 K/uL (0.11-0.59); Monocytes % (auto) 2.6 %; Neutrophils # (auto) 5.17 K/uL (1.4-6.5); Neutrophils % (auto) 88.6 %; Platelet Count 286 K/uL (130-400); RDW Coefficient of Variation 14.8 % (11.5-14.5); RDW Standard Deviation 51.7 fL (36.4-46.3); Red Blood Count 4.97 M/uL (4.2-5.4); White Blood Count 5.83 K/uL (4.8-10.8)
[2021-08-11 07:47] LABS: BUN Creatinine Ratio 22.2 (10-20); Calcium 8.5 mg/dl (8.5-10.1); Creatinine Clr Calc Pharmacy 28.2 ml/min; Est GFR (African American) 41.9 ml/min; Est GFR (Non-African American) 36.2 ml/min; Magnesium 1.8 mg/dl (1.7-2.4)
[2021-08-11] MEDS: busPIRone 5 MG TAB PO SCH ×2 (08:31→20:48)
[2021-08-11] MEDS: GABAPENTIN 100 MG CAP PO SCH (08:31)
[2021-08-11] MEDS: DOXYCYCLINE HYCLATE 100 MG CAP PO SCH ×2 (08:32→20:48)
[2021-08-11] MEDS: CHOLECALCIFEROL 1,000 UNITS 25 MCG TAB PO SCH (08:32)
[2021-08-11] MEDS: metroNIDAZOLE 500 MG TAB PO SCH ×3 (08:33→20:48)
[2021-08-11] MEDS: DONEPEZIL HCL 5 MG TAB PO SCH (08:33)
[2021-08-11] MEDS: DOCUSATE SODIUM 100 MG CAP PO SCH ×2 (08:34→20:48)
[2021-08-11] MEDS ORDERED: dilTIAZem HCL 180 MG CAPCR PO SCH (09:00)
[2021-08-11] MEDS: NICOTINE 21 MG/24 HR TDSY TD SCH (10:12)
[2021-08-11] MEDS: methylPREDNISolone 30 MG in SYRINGE 0 ML IV SCH (10:14)
[2021-08-11] MEDS: PANTOprazole 40 MG in SYRINGE 0 ML IV SCH (10:14)
--- NOTE | 2021-08-11 10:22 | Hospitalist Progress Note ---
Date of Service August 11, 2021 Assessment & Plan (1) Acute and chronic respiratory failure with hypoxia: (2) Right lower lobe pneumonia: (3) Acute exacerbation of chronic obstructive pulmonary disease: (4) Anemia: (5) UGIB (upper gastrointestinal bleed): (6) Atrial fibrillation: (7) Hypertension: (8) Alzheimer's dementia: (9) Current smoker: Plan: This is a 70-year-old female who has significant past medical history of chronic hypoxic respiratory failure secondary to COPD, PAF anticoagulated on Eliquis, HTN, HLD, severe protein calorie malnutrition, chronic HFpEF, CKD stage III, Alzheimer's type dementia, tobacco abuse, osteoporosis, LAURE who currently resides at [facility] and was referred to ED secondary to chest pain and cough prior to arrival. Acute on chronic hypoxic respiratory failure Right lower lobe pneumonia with pleural effusion, possible aspiration COPD exacerbation med telemetry IV cefepime, oral Flagyl and doxycycline Pulmonary toilet with nebulizer treatment, flutter valve and incentive spirome ter PO Prednisone, 95% on 4L, not on home O2 continue Breo, oxygen supplementation, maintain O2 88-90% Atrial fibrillation with RVR, known hx of PAF Likely in setting of acute COPD exacerbation and pneumonia Give home dose of diltiazem x1 now Hold Eliquis due to concern for possible GI bleed Lopressor 5 mg IV every 4 hours as needed for heart rate greater than 110 Cards eval Possible upper GI bleed Anemia -Due to lab error Significant decrease in hemoglobin from 14.9-9.3, Now up to 14.8 Resume Eliquis IV PPI twice daily, OP egd/colon per GI Gastroenterology - Seen and Signed Off Obtain anemia panel She is on iron supplementation Hemoglobin every 8, next at 1400 HTN Stable, continue diltiazem Hold Lasix twice weekly HLD Continue statin Dementia, Alzheimer type LAURE Continue donezepil Mood stable Continue BuSpar DVT prophylaxis: SCD/teds, Resume Eliquis Dispo: med tele FULL CODE PCP: Dr. Osei FLOREZ-No Headache, No Visual Changes, No Nausea, No Vomiting, No Fever, No Chills, No Neck Pain or Stiffness, No Chest Pain, No Palpitations, No SOB, No LOMELI, No Cough, No Sputum, No Wheezing, No Abdominal Pain, No Diarrhea, No Hematemesis, No Hemoptysis, No Unexpected Weight Loss, No Flank pain, No Melena, No Hematochezia, No Frequency, No Urgency, No Burning, No Hematuria, No Rashes, No Diaphoresis. Appetite is Normal Physical Exam Gen-AAO x 3, NAD, Afebrile Head-NCAT, EOMI, PERRLA, Anicteric Sclera, No Posterior Pharyngeal Erythema Neck-Supple, No JVD, No Thyromegaly, No Masses, No LAD, No Bruits Lungs-Coarse BS B/L, +Wheezing Chest-Tachy No S4, +S1, +S2, No S3, No Murmurs, No Rubs, No Gallops, No Ectopy Abdomen-Soft, Bowel Sounds Present, Non Tender, Non Distended, No Hepatomegaly, No Splenomegaly, No Palpable Masses, No Rebound, No Rigidity, No Guarding Musculoskeletal-Full Range of Motion Bilaterally, No CVAT Extremities-No Cyanosis, No Clubbing, No Edema Nuero-Cranial Nerves II-XII grossly intact, Motor WNL, DTRs WNL, Strength WNL, Non Focal Psych-Normal Mood Admission and Anticipated Discharge Date Admission Date: August 10, 2021 Subjective Patient seen, Feeling a little better, less SOB Results & Data Results & Data ([facility]) Vital Signs (Past 12 Hours) Vital Signs Temp Pulse Pulse Resp BP BP Pulse Ox 08/11/21 10:13 140 H 126/78 08/11/21 08:00 36.3 C L 112 H 21 104/76 95 08/11/21 07:11 107 H 21 95 08/11/21 03:38 95 H 17 124/69 96 08/10/21 23:58 100 H 24 126/82 94
[2021-08-11] MEDS ORDERED: STAT IV Infusion **Titration per Protocol STA (10:33)
[2021-08-11] MEDS ORDERED: dilTIAZem HCl 5 MG/ML 5 ML VIAL IV STA (10:33)
[2021-08-11] MEDS ORDERED: APIXABAN 5 MG TABLET PO SCH (11:00)
[2021-08-11] MEDS: dilTIAZem HCL 125 MG in DEXTROSE 5% 100 ML IV SCH (11:09)
[2021-08-11] MEDS: APIXABAN 2.5 MG TAB PO SCH ×2 (11:38→20:48)
[2021-08-11] MEDS: haloperidoL 1 MG TAB PO PRN (11:54)
[2021-08-11] MEDS: LEVALBUTEROL HCL 0.63 MG/3 ML NEB NEB SCH ×2 (12:04→19:12)
--- NOTE | 2021-08-11 17:59 | Cardiology Consultation ---
Date of Consultation August 11, 2021 Assessment & Plan (1) Right lower lobe pneumonia: (2) Atrial fibrillation: -As noted, patient has not an adequate historian. She been seen by gastroenterology due to an isolated hemoglobin level of 9.3, repeat was 15, and is remained on the higher side, I question the validity of the 9.3. For now however Eliquis is on hold which I think is reasonable. I anticipate her ventricular rates will improve after her pulmonary status improves. Agree with IV diltiazem for the time being. History of Present Illness Attending Physician: Mazin Nelson, History of Present Illness Flaca Em is a 70-year-old female seen in cardiology consultation per the request of Dr Nelson for evaluation of atrial fibrillation with rapid ventricular response. Patient seen as an emergency department hold pending telemetry bed, room D1A. Patient has a history of cognitive impairment related to dementia. She is conversant, but does not provide adequate history. She is in somewhat of a poor mood right now, and is unable to tell me what brought her to the hospital, however she is noted to have a coarse productive cough which she demonstrates for me at the time of exam, and atrial fibrillation with rapid ventricular response is noted on the panel monitor. Per review of records, patient has a history of chronic (permanent) atrial fibrillation. Her outpatient regimen includes Eliquis 2.5 mg twice daily and diltiazem 180 mg daily. She is also on Aricept. Allergies Allergy/AdvReac Type Severity Reaction Status Date / Time Penicillins Allergy Unknown Unknown Unverified 08/10/21 08:22 Sulfa (Sulfonamide Allergy Unknown Unknown Unverified 08/10/21 08:22 Antibiotics) candesartan [From Atacand] Allergy Unknown Unverified 08/10/21 08:22 codeine Allergy Unknown Unverified 08/10/21 08:22 cyclobenzaprine Allergy Unknown Unverified 08/10/21 08:22 ibuprofen [From Motrin IB] Allergy Unknown Unverified 08/10/21 08:22 moxifloxacin Allergy Unknown Unverified 08/10/21 08:22 nitrofurantoin Allergy Unknown Unverified 08/10/21 08:22 [From Macrodantin] oxybutynin Allergy Unknown Unverified 08/10/21 08:22 propoxyphene Allergy Unknown Unverified 08/10/21 08:22 tramadol Allergy Unknown Unverified 08/10/21 08:22 Home Medications Medication Instructions Recorded Confirmed Type apixaban 2.5 mg tablet (Eliquis) 2.5 mg PO BID 12/20/20 08/10/21 History buspirone 5 mg tablet 5 mg PO BID 12/20/20 08/10/21 History cholecalciferol (vitamin D3) 25 25 mcg PO QAM 12/20/20 08/10/21 History mcg (1,000 unit) tablet (Vitamin D3) diltiazem HCl 180 mg 180 mg PO QAM 12/20/20 08/10/21 History capsule,extended release 24 hr (Cardizem CD) docusate sodium 100 mg capsule 100 mg PO BID 12/20/20 08/10/21 History (Colace) donepezil 5 mg tablet (Aricept) 5 mg PO QAM 12/20/20 08/10/21 History ferrous sulfate 325 mg (65 mg 325 mg PO BID 12/20/20 08/10/21 History iron) tablet,delayed release gabapentin 100 mg capsule 200 mg PO QAM 12/20/20 08/10/21 History (Neurontin) ipratropium 0.5 mg-albuterol 3 mg 3 ml INHALATION QID 12/20/20 08/10/21 History (2.5 mg base)/3 mL nebulization soln ipratropium 20 mcg-albuterol 100 1 puff INHALATION QID 12/20/20 08/10/21 History mcg/actuation mist for inhalation (Combivent Respimat) omeprazole 20 mg capsule,delayed 20 mg PO BID 03/01/21 08/10/21 History release simvastatin 10 mg tablet (Zocor) 10 mg PO HS 03/01/21 08/10/21 History tiotropium bromide 18 mcg capsule 1 cap INHALATION DAILY #30 inh 03/03/21 08/10/21 Rx with inhalation device (Spiriva with HandiHaler) fluticasone furoate 200 1 inh INHALATION QAM 08/10/21 08/10/21 History mcg-vilanterol 25 mcg/dose inhalation powder (Breo Ellipta) furosemide 20 mg tablet 10 mg PO MOFR 08/10/21 08/10/21 History Patient History Medical History Acute exacerbation of chronic obstructive pulmonary disease Acute respiratory acidosis Alzheimer's dementia Atrial fibrillation Chest pain CKD (chronic kidney disease) Cognitive deficits COPD (chronic obstructive pulmonary disease) Encounter for pre-operative examination Fall Hypertension Osteoporosis Respiratory failure Subcapital fracture of right hip Syncope Tobacco use Surgical History H/O: hysterectomy History of appendectomy History of shoulder surgery Hx of cervical spine surgery Hx of cholecystectomy Status post-operative repair of closed fracture of right hip Family History Father Myocardial infarction Mother Cancer COPD (chronic obstructive pulmonary disease) Heart disease Brother Lung cancer Sister Cancer kidney Social History Smoking Status: Current every day smoker Tobacco Type: Cigarettes Cigarettes Per Day: 20; Second Hand Exposure: No; Hx Alcohol Use: No Hx Substance Use: No Preferred Language: Syriac Communication Ability: Effective Communication Ability Comment: dementia Airline Station Agent Required: No Beliefs That Will Affect Care: None marital status: Current Living [facility] How many Children do You have: 1 Feels Safe at Home: Yes Safety Concerns: Feels Safe At This Time Assistive Devices: Nebulizer and Oxygen - Continuous Assistive Devices Comment: REFUSES SUPPLEMENTAL OXYGEN AT FACILITY. Review of Systems Review of Systems: Unobtainable due to cognitive status Physical Exam Constitutional: no acute distress Respiratory: No rales or rhonchi, coarse breath sounds noted on inspiration, cough noted Cardiovascular: Rate/Rhythm: + tachycardic and + irregularly irregular Heart Sounds: no murmur Extremities: no edema Neurologic: Moves all 4 extremities, cognitive impairment consistent with dementia noted Results & Data ([facility]) Vital Signs (Past 12 Hours) Vital Signs Temp Pulse Pulse Resp BP BP Pulse Ox 08/11/21 12:30 122 H 22 109/58 L 98 08/11/21 12:04 90 20 96 08/11/21 10:13 140 H 126/78 08/11/21 09:36 08/11/21 08:00 36.3 C L 112 H 21 104/76 95 08/11/21 07:11 107 H 21 95 Pulse Ox 08/11/21 12:30 08/11/21 12:04 08/11/21 10:13 08/11/21 09:36 91 08/11/21 08:00 08/11/21 07:11 Laboratory Results CBC 08/10/21 08/11/21 Range/Units 22:44 06:58 WBC 5.83 (4.8-10.8) K/uL RBC 4.97 (4.2-5.4) M/uL Hgb 14.6 14.8 (12.0-16.0) g/dL Hct 45.6 47.0 (37-47) % Plt Count 286 D (130-400) K/uL Neut # (Auto) 5.17 (1.4-6.5) K/uL Lymph # (Auto) 0.49 L (1.2-3.4) K/uL [place] # (Auto) 0.15 (0.11-0.59) K/uL Eos # (Auto) 0.00 (0-0.5) K/uL Baso # (Auto) 0.01 (0-0.2) K/uL Comprehensive Metabolic Panel 08/11/21 Range/Units 06:58 Sodium 139 (136-145) mmol/L Potassium 5.0 (3.5-5.1) mmol/L Chloride 106 (98-107) mmol/L Carbon Dioxide 24 (21-32) mmol/L BUN 32 H (6-23) mg/dl Creatinine 1.44 H (0.6-1.2) mg/dl Glucose 126 H (70-99(Fasting)) mg/dl Calcium 8.5 (8.5-10.1) mg/dl Diagnostic Findings EKG performed 08/10/2021 and reviewed independently: Atrial fibrillation at 112 bpm noted, nonspecific repolarization abnormalities. Compared to the prior tracing performed 03/01/2021, the ventricular rate was 90 bpm at that time. (1) Right lower lobe pneumonia Pneumonia type: due to unspecified organism Qualified Code(s): J18.9 - Pneumonia, unspecified organism
[2021-08-11] MEDS: PANTOprazole 40 MG TAB PO SCH (20:48)
[2021-08-11] MEDS: SIMVASTATIN 10 MG TAB PO SCH (20:48)
[2021-08-11] MEDS: cefTRIAXone SODIUM 2,000 MG in DEXTROSE 5% 50 ML IV SCH (20:48)
[2021-08-12] MEDS: LEVALBUTEROL HCL 0.63 MG/3 ML NEB NEB SCH ×4 (01:31→19:23)
[2021-08-12] MEDS ORDERED: MAGNESIUM SULFATE / D5W 1 GM/100 ML BAG IV ONE (02:31)
[2021-08-12 03:11] LABS: Basophils # (auto) 0.01 K/uL (0-0.2); Basophils % (auto) 0.1 %; Eosinophils # (auto) 0.01 K/uL (0-0.5); Eosinophils % (auto) 0.1 %; Hematocrit (blood only) 40.2 % (37-47); Hemoglobin 12.6 g/dL (12.0-16.0); Immature Granulocytes # (auto) 0.02 K/uL (0.00-0.02); Immature Granulocytes % (auto) 0.2 %; Lymphocytes # (auto) 1.27 K/uL (1.2-3.4); Lymphocytes % (auto) 12.9 %; Mean Corpuscular Hemoglobin 29.8 pg (25-34); Mean Corpuscular Hgb Conc 31.3 g/dL (32-36); Mean Platelet Volume 9.5 fL (7.4-10.4); Monocytes # (auto) 0.76 K/uL (0.11-0.59); Monocytes % (auto) 7.7 %; Neutrophils # (auto) 7.81 K/uL (1.4-6.5); Platelet Count 254 K/uL (130-400); RDW Coefficient of Variation 15.1 % (11.5-14.5); RDW Standard Deviation 52.3 fL (36.4-46.3); Red Blood Count 4.23 M/uL (4.2-5.4); White Blood Count 9.88 K/uL (4.8-10.8)
[2021-08-12 03:23] LABS: Partial Thromboplastin Time 26.3 Seconds (21.0-31.0)
[2021-08-12 03:45] LABS: BUN Creatinine Ratio 28.6 (10-20); Calcium 8.3 mg/dl (8.5-10.1); Creatinine Clr Calc Pharmacy 23.7 ml/min; Est GFR (African American) 34.8 ml/min; Magnesium 1.8 mg/dl (1.7-2.4); Potassium 4.6 mmol/L (3.5-5.1)
[2021-08-12 03:57] LABS: Troponin I 0.16 ng/ml (0-0.04)
[2021-08-12] MEDS ORDERED: SODIUM CHLORIDE 0.9% 500 ML IV ONE (04:10)
[2021-08-12] MEDS: FERROUS SULFATE 325 MG TAB PO SCH ×2 (05:48→18:04)
--- NOTE | 2021-08-12 06:49 | XRay Report ---
XR chest 1V portable HISTORY: 70 years-old Female sob acute shortness of breath COMPARISON: Chest radiograph 08/10/2021 TECHNIQUE: Portable AP view of the chest FINDINGS: Cardiac silhouette is enlarged. The left costophrenic angle is excluded from the [id number]. Calci fied plaque of the thoracic aorta. No pneumothorax. Emphysema with chronic interstitial coarsening. I ncreased size of the layering right pleural effusion with progressive right basilar consolidation. Po ssible trace left pleural effusion. Surgical anchors of the right proximal humerus. Degenerative mckeon ges of the shoulders and spine. IMPRESSION: 1. Increased size of the right pleural effusion with progressively worsened right basilar consolidati on. 2. Cardiomegaly without overt pulmonary edema. 3. Emphysema. ACT 112: Negative or not required by law. The above report was generated using voice recognition software. It may contain grammatical, syntax o r spelling errors. Electronically signed by: Darrick Munoz M.D. 08/12/2021 6:48 AM
[2021-08-12] MEDS: APIXABAN 2.5 MG TAB PO SCH ×2 (09:37→20:44)
[2021-08-12] MEDS: CHOLECALCIFEROL 1,000 UNITS 25 MCG TAB PO SCH (09:39)
[2021-08-12] MEDS: busPIRone 5 MG TAB PO SCH ×2 (09:39→20:45)
[2021-08-12] MEDS: DOCUSATE SODIUM 100 MG CAP PO SCH ×2 (09:39→20:42)
[2021-08-12] MEDS: DONEPEZIL HCL 5 MG TAB PO SCH (09:40)
[2021-08-12] MEDS: DOXYCYCLINE HYCLATE 100 MG CAP PO SCH ×2 (09:40→20:46)
[2021-08-12] MEDS: FLUTICASONE/VILANTEROL 200/25MCG 14 PUFFS/INHALER INH SCH (09:41)
[2021-08-12] MEDS: NICOTINE 21 MG/24 HR TDSY TD SCH (09:41)
[2021-08-12] MEDS: GABAPENTIN 100 MG CAP PO SCH (09:41)
[2021-08-12] MEDS: metroNIDAZOLE 500 MG TAB PO SCH ×3 (09:41→20:46)
[2021-08-12] MEDS: PANTOprazole 40 MG TAB PO SCH ×2 (09:42→20:42)
[2021-08-12] MEDS: predniSONE 20 MG TAB PO SCH (09:42)
--- NOTE | 2021-08-12 12:37 | Hospitalist Progress Note ---
Date of Service August 12, 2021 Assessment & Plan (1) Acute and chronic respiratory failure with hypoxia: (2) Right lower lobe pneumonia: (3) Acute exacerbation of chronic obstructive pulmonary disease: (4) Anemia: (5) UGIB (upper gastrointestinal bleed): (6) Atrial fibrillation: (7) Hypertension: (8) Alzheimer's dementia: (9) Current smoker: Plan: per admitting service notes with addendum: This is a 70-year-old female who has significant past medical history of chronic hypoxic respiratory failure secondary to COPD, PAF anticoagulated on Eliquis, HTN, HLD, severe protein calorie malnutrition, chronic HFpEF, CKD stage III, Alzheimer's type dementia, tobacco abuse, osteoporosis, LAURE who currently resides at [facility] and was referred to ED secondary to chest pain and cough prior to arrival. Acute on chronic hypoxic respiratory failure Right lower lobe pneumonia with pleural effusion, possible aspiration COPD exacerbation med telemetry IV cefepime, oral Flagyl and doxycycline Pulmonary toilet with nebulizer treatment, flutter valve and incentive spirometer PO Prednisone, 95% on 4L, not on home O2 continue Breo, oxygen supplementation, maintain O2 88-90% 08/12 still on 4 L oxymask but subjectively feels improving CT chest: Pending continue Ceftri, Doxy, Flagyl Day 2 continue Nebs, add hypertonic saline, Mucinex continue Prednisone 40mg po daily day 2 Incentive Spirometry, Flutter valve encouraged monitor closely wean off oxygen accordingly Atrial fibrillation with RVR, known hx of PAF Likely in setting of acute COPD exacerbation and pneumonia Give home dose of diltiazem x1 now Hold Eliquis due to concern for possible GI bleed Lopressor 5 mg IV every 4 hours as needed for heart rate greater than 110 Cards eval 08/12 on Diltiazem drip HR controlled on Eliquis Possible upper GI bleed Anemia -Due to lab error Significant decrease in hemoglobin from 14.9-9.3, Now up to 14.8 IV PPI twice daily, OP egd/colon per GI Gastroenterology - Seen and Signed Off - Hg stable ~14 HTN Stable, continue diltiazem Hold Lasix twice weekly HLD Continue statin Dementia, Alzheimer type LAURE Continue donezepil Mood stable Continue BuSpar DVT prophylaxis: SCD/teds, Eliquis Dispo: anticipate return to [facility] when medically stable FULL CODE PCP: Dr. Franz Admission and Anticipated Discharge Date Admission Date: August 10, 2021 Subjective ff up for pneumonia, COPD exacerbation, A fib in RVR, etc seen resting in bed, comfortable alert, oriented x 1-2, not in distress in good spirits on 4 L oxymask states she feels improved compared to admission breathing and cough improving no chest pain, dyspnea, palpitations, dizziness appetite is good no other symptoms Review of Systems Review of Systems: all noted and negative except for above Physical Exam Physical Exam: General- oriented x 1-2, not in distress, speaks in sentences with no effort or accessory muscle use Head- atraumatic Eyes- PERRL, EOMI, anicteric ENT- oropharynx clear Neck- supple, no JVD, no adenopathy, no thyromegaly; carotids +2/2, no bruits appreciated Lungs- (+) rhonchi BL lower lobes Heart- normal rate, (+) irregularly irregular rhythm; no murmur, no gallop, no rub appreciated Abdomen- normal bowel sounds, nondistended, soft, nontender, no masses or hepatosplenomegaly Extremities- no pretibial edema, no calf tenderness; peripheral pulses intact Neuro- alert, oriented x 1-2; CN 2-12 grossly intact; motor 5/5 bilaterally;sensation 100% on all extremities; no other gross focal neurologic deficits Skin- warm & dry Results & Data Results & Data ([facility]) Vital Signs (Past 12 Hours) Vital Signs Temp Pulse Resp BP Pulse Ox 08/12/21 08:00 36.9 C 78 18 136/67 98 08/12/21 07:01 78 20 94 08/12/21 03:00 82 20 116/76 95 08/12/21 01:31 84 20 95 08/12/21 01:00 79 118/79 96 all noted and reviewed including below
[2021-08-12] MEDS: SODIUM CHLOR 7% 4 ML NEB NEB SCH ×2 (13:12→19:27)
--- NOTE | 2021-08-12 13:58 | Cardiology Progress Note ---
Date of Service August 12, 2021 Assessment & Plan (1) Right lower lobe pneumonia: (2) Atrial fibrillation: Plan: -Patient with history of longstanding persistent (chronic) atrial fibrillation. Ventricular rates elevated in the setting of pneumonia and associated therapies. Anticipate heart rates will get back to normal as her pulmonary status improves. Continue IV diltiazem for now. With no plans for endoscopy, will resume her dose of oral diltiazem and wean IV diltiazem as tolerated for goal ventricular rate < 100 bpm. Her stroke prophylaxis with Eliquis was reinitiated on 08/11/2021, and her hemoglobin remains stable. Admission and Anticipated Discharge Date Admission Date: August 10, 2021 Subjective Patient seen in cardiology follow-up. She remains in the emergency department , awaiting a telemetry bed, and is in room D1A. Noted dementia as discussed yesterday, no subjective complaints. A bit more pleasant today. Telemetry reveals atrial fibrillation at 90 bpm, she remains on diltiazem infusion 5 mg/h. Review of Systems Review of Systems: Unobtainable due to cognitive status Physical Exam Constitutional: no acute distress Cardiovascular: Rate/Rhythm: + tachycardic and + irregularly irregular Heart Sounds: no murmur Extremities: no edema Results & Data ([facility]) Vital Signs (Past 12 Hours) Vital Signs Temp Pulse Resp BP Pulse Ox 08/12/21 13:12 86 18 93 08/12/21 08:00 36.9 C 78 18 136/67 98 08/12/21 07:01 78 20 94 08/12/21 03:00 82 20 116/76 95 Laboratory Results Cardiac Enzymes 08/12/21 08/12/21 Range/Units 02:58 05:08 Troponin I 0.16 H* 0.15 H* (0-0.04) ng/ml Coagulation 08/12/21 Range/Units 02:58 APTT 26.3 (21.0-31.0) Seconds CBC 08/12/21 Range/Units 02:58 WBC 9.88 (4.8-10.8) K/uL RBC 4.23 (4.2-5.4) M/uL Hgb 12.6 (12.0-16.0) g/dL Hct 40.2 (37-47) % Plt Count 254 (130-400) K/uL Neut # (Auto) 7.81 H (1.4-6.5) K/uL Lymph # (Auto) 1.27 (1.2-3.4) K/uL [place] # (Auto) 0.76 H (0.11-0.59) K/uL Eos # (Auto) 0.01 (0-0.5) K/uL Baso # (Auto) 0.01 (0-0.2) K/uL Comprehensive Metabolic Panel 08/12/21 Range/Units 02:58 Sodium 136 (136-145) mmol/L Potassium 4.6 (3.5-5.1) mmol/L Chloride 105 (98-107) mmol/L Carbon Dioxide 25 (21-32) mmol/L BUN 48 H (6-23) mg/dl Creatinine 1.68 H (0.6-1.2) mg/dl Glucose 102 H (70-99(Fasting)) mg/dl Calcium 8.3 L (8.5-10.1) mg/dl (1) Right lower lobe pneumonia Pneumonia type: due to unspecified organism Qualified Code(s): J18.9 - Pneumonia, unspecified organism
--- NOTE | 2021-08-12 15:13 | Electrocardiogram Report ---
Test Reason : Blood Pressure : / mmHG Vent. Rate : 084 BPM Atrial Rate : 122 BPM P-R Int : 000 ms QRS Dur : 092 ms QT Int : 430 ms P-R-T Axes : 000 094 180 degrees QTc Int : 508 ms Atrial fibrillation with premature ventricular or aberrantly conducted complexes Rightward axis Marked T wave abnormality consider anterolateral ischemia Prolonged QT Abnormal ECG When compared with ECG of 10-AUG-2021 05:26, T wave inversion now evident in Inferior leads T wave inversion now evident in Anterolateral leads Confirmed by Steve Ribeiro ([id number]) on 08/12/2021 3:12:47 PM Referred By: [facility] Confirmed By:Steve Ribeiro
--- NOTE | 2021-08-12 15:15 | CT Scan Report ---
CT chest diagnostic wo con CLINICAL HISTORY: pneumonia, pleural effusion TECHNIQUE: Multidetector row helical CT of the chest was performed. Coronal and sagittal reformations were obtained. Automated dose lowering techniques and/or adjustment according to patient size were u tilized for this exam. Comparison: Comparison is made to CT chest 12/28/2020 FINDINGS: Exam is limited by patient motion. Lungs and pleura: There is diffuse emphysema. Interval enlargement of small right greater than left p leural effusions. A 7 mm nodule is in the right lower lobe (series 4 image 147). Nodularity and groun d glass/consolidative opacities are seen in the right lower lobe. Heart and pericardium: Cardiomegaly is seen with biatrial enlargement. Vessels: The pulmonary trunk is enlarged measuring 36 mm in diameter. Moderate atherosclerotic diseas e is seen. Mediastinum and estela: Subcentimeter lymph nodes are seen. Chest wall and lower neck: Unremarkable. Abdomen: Unremarkable. Bones: Degenerative changes in the thoracic spine. IMPRESSION: 1. Interval worsening of small bilateral pleural effusions and infectious/inflammatory nodularity an d consolidation of the right lung base. 2. 7 mm nodule in the right lower lobe is seen which may represent infectious/inflammatory nodule. F ollow-up to resolution is recommended. ACT 112: Negative or not required by law. Electronically signed by: Russel Daneglo M.D. 08/12/2021 3:14 PM
[2021-08-12] MEDS: dilTIAZem HCL 180 MG CAPCR PO SCH (18:04)
[2021-08-12] MEDS: dilTIAZem HCL 125 MG in DEXTROSE 5% 100 ML IV SCH ×2 (18:09→18:11)
[2021-08-12] MEDS: guaiFENesin 600 MG TABCR PO SCH (20:43)
[2021-08-12] MEDS: SIMVASTATIN 10 MG TAB PO SCH (20:45)
[2021-08-12] MEDS: cefTRIAXone SODIUM 2,000 MG in DEXTROSE 5% 50 ML IV SCH (21:15)
[2021-08-12] MEDS: haloperidoL 1 MG TAB PO PRN (21:33)
[2021-08-12] MEDS ORDERED: HALOPERIDOL LACTATE 5 MG/ML 1 ML VIAL IM STA (23:37)
[2021-08-13] MEDS: LEVALBUTEROL HCL 0.63 MG/3 ML NEB NEB SCH ×4 (00:19→19:28)
[2021-08-13] MEDS ORDERED: LORazepam 0.25 MG/0.5 ML VIAL IV STA (00:58)
[2021-08-13] MEDS ORDERED: LORazepam 0.5 MG/1 ML VIAL IV STA (01:09)
[2021-08-13] MEDS ORDERED: LORazepam 2 MG/4 ML VIAL ONE (01:16)
[2021-08-13] MEDS: dilTIAZem HCL 125 MG in DEXTROSE 5% 100 ML IV SCH (05:30)
[2021-08-13 06:43] LABS: BUN Creatinine Ratio 26.6 (10-20); Calcium 8.3 mg/dl (8.5-10.1); Creatinine Clr Calc Pharmacy 24.7 ml/min; Est GFR (African American) 34.6 ml/min; Est GFR (Non-African American) 29.8 ml/min; Potassium 4.5 mmol/L (3.5-5.1)
[2021-08-13] MEDS: FERROUS SULFATE 325 MG TAB PO SCH ×2 (06:44→17:30)
[2021-08-13] MEDS: SODIUM CHLOR 7% 4 ML NEB NEB SCH ×2 (07:33→19:28)
[2021-08-13] MEDS: FLUTICASONE/VILANTEROL 200/25MCG 14 PUFFS/INHALER INH SCH (07:55)
[2021-08-13] MEDS: predniSONE 20 MG TAB PO SCH (07:56)
[2021-08-13] MEDS: GABAPENTIN 100 MG CAP PO SCH (07:56)
[2021-08-13] MEDS: dilTIAZem HCL 180 MG CAPCR PO SCH (07:57)
[2021-08-13] MEDS: NICOTINE 21 MG/24 HR TDSY TD SCH (07:57)
[2021-08-13] MEDS: DOXYCYCLINE HYCLATE 100 MG CAP PO SCH ×2 (07:58→20:44)
[2021-08-13] MEDS: CHOLECALCIFEROL 1,000 UNITS 25 MCG TAB PO SCH (07:58)
[2021-08-13] MEDS: DONEPEZIL HCL 5 MG TAB PO SCH (07:58)
[2021-08-13] MEDS: APIXABAN 2.5 MG TAB PO SCH ×2 (07:59→20:44)
[2021-08-13] MEDS: metroNIDAZOLE 500 MG TAB PO SCH ×3 (07:59→20:44)
[2021-08-13] MEDS: busPIRone 5 MG TAB PO SCH ×2 (07:59→20:44)
[2021-08-13] MEDS: PANTOprazole 40 MG TAB PO SCH ×2 (08:00→20:44)
[2021-08-13] MEDS: DOCUSATE SODIUM 100 MG CAP PO SCH ×2 (08:00→20:44)
[2021-08-13] MEDS: guaiFENesin 600 MG TABCR PO SCH ×2 (08:00→20:44)
--- NOTE | 2021-08-13 12:49 | Cardiology Progress Note ---
Date of Service August 13, 2021 Assessment & Plan (1) Right lower lobe pneumonia: (2) Atrial fibrillation: Plan: -Patient with history of longstanding persistent (chronic) atrial fibrillation. Ventricular rates elevated in the setting of pneumonia and associated therapies. Anticipate heart rates will get back to normal as her pulmonary status improves. Prior to hospital treatment oral diltiazem reinitiated 08/12/2021, and received second oral dose this morning. At present while resting comfortably in bed, atrial fibrillation in the 60s , while on diltiazem infusion at 10mg/h. At this point, I think it is most prudent to just discontinue the IV diltiazem and see where her heart rate is on her chronic oral medication dose. In terms of stroke prophylaxis she is back on Eliquis. Admission and Anticipated Discharge Date Admission Date: August 10, 2021 Carlyn Em is seen in cardiology follow-up of permanent atrial fibrillation, with acute rapid ventricular response. Resting comfortably. Physical Exam Constitutional: no acute distress Cardiovascular: Rate/Rhythm: + tachycardic and + irregularly irregular Heart Sounds: no murmur Extremities: no edema Results & Data ([facility]) Vital Signs (Past 12 Hours) Vital Signs Temp Pulse Pulse Resp BP BP Pulse Ox 08/13/21 11:00 36.8 C 08/13/21 10:56 65 18 98/59 L 98 08/13/21 10:47 70 18 116/69 96 08/13/21 10:00 70 19 100 08/13/21 09:44 67 21 116/69 94 08/13/21 08:00 36.9 C 79 14 96 08/13/21 07:33 68 18 99 08/13/21 07:19 73 19 117/73 100 08/13/21 07:00 71 24 91 08/13/21 06:30 70 23 105/79 95 (1) Right lower lobe pneumonia Pneumonia type: due to unspecified organism Qualified Code(s): J18.9 - Pneumonia, unspecified organism
--- NOTE | 2021-08-13 17:50 | Hospitalist Progress Note ---
Date of Service August 13, 2021 Assessment & Plan (1) Acute and chronic respiratory failure with hypoxia: (2) Right lower lobe pneumonia: (3) Acute exacerbation of chronic obstructive pulmonary disease: (4) Anemia: (5) UGIB (upper gastrointestinal bleed): (6) Atrial fibrillation: (7) Hypertension: (8) Alzheimer's dementia: (9) Current smoker: Plan: per admitting service notes with addendum: This is a 70-year-old female who has significant past medical history of chronic hypoxic respiratory failure secondary to COPD, PAF anticoagulated on Eliquis, HTN, HLD, severe protein calorie malnutrition, chronic HFpEF, CKD stage III, Alzheimer's type dementia, tobacco abuse, osteoporosis, LAURE who currently resides at [facility] and was referred to ED secondary to chest pain and cough prior to arrival. Acute on chronic hypoxic respiratory failure Right lower lobe pneumonia with pleural effusion, possible aspiration COPD exacerbation med telemetry IV cefepime, oral Flagyl and doxycycline Pulmonary toilet with nebulizer treatment, flutter valve and incentive spirometer PO Prednisone, 95% on 4L, not on home O2 continue Breo, oxygen supplementation, maintain O2 88-90% 08/13 now on 2-[address] chest: 1. Interval worsening of small bilateral pleural effusions and infectious/inflammatory nodularity and consolidation of the right lung base. 2. 7 mm nodule in the right lower lobe is seen which may represent infectious/inflammatory nodule. Follow-up to resolution is recommended. continue Ceftri, Doxy, Flagyl Day 3 continue Nebs, add hypertonic saline, Mucinex continue Prednisone 40mg po daily day 3, reduce to 30mg daily Incentive Spirometry, Flutter valve encouraged monitor closely wean off oxygen accordingly Atrial fibrillation with RVR, known hx of PAF Likely in setting of acute COPD exacerbation and pneumonia Give home dose of diltiazem x1 now Hold Eliquis due to concern for possible GI bleed Lopressor 5 mg IV every 4 hours as needed for heart rate greater than 110 Cards eval 08/13 Diltiazem drip discontinued now on PO Diltiazem HR controlled on Eliquis Possible upper GI bleed Anemia -Due to lab error Significant decrease in hemoglobin from 14.9-9.3, Now up to 14.8 IV PPI twice daily, OP egd/colon per GI Gastroenterology - Seen and Signed Off - Hg stable ~14 HTN Stable, continue diltiazem Hold Lasix twice weekly HLD Continue statin Dementia, Alzheimer type LAURE Continue donezepil Continue BuSpar monitor for delirium DVT prophylaxis: SCD/teds, Eliquis Dispo: anticipate return to [facility] when medically stable FULL CODE PCP: Dr. Franz Admission and Anticipated Discharge Date Admission Date: August 10, 2021 Subjective ff up for pneumonia, COPD exacerbation, etc was agitated overnight received Haldol, Ativan resting in bed, comfortable sleeping easily awakened states she feels ok overall breathing is improving no cough, chest pain no other symptoms Review of Systems Review of Systems: all noted and negative except for above Physical Exam Physical Exam: General- oriented x 1, not in distress, speaks in sentences with no effort or accessory muscle use Eyes- anicteric Neck- no JVD Lungs-diminished but clear BS bilaterally Heart- normal rate, regular rhythm; no murmurs Abdomen- normal bowel sounds, nondistended, soft, nontender Extremities- no pretibial edema, no calf tenderness Neuro- alert, oriented x 1; no new gross focal neurologic deficits Skin- warm & dry Results & Data Results & Data ([facility]) Vital Signs (Past 12 Hours) Vital Signs Temp Pulse Pulse Resp BP BP Pulse Ox 08/13/21 16:20 36.2 C L 70 16 107/58 L 90 08/13/21 11:00 36.8 C 08/13/21 10:56 65 18 98/59 L 98 08/13/21 10:47 70 18 116/69 96 08/13/21 10:00 70 19 100 08/13/21 09:44 67 21 116/69 94 08/13/21 08:00 36.9 C 79 14 96 08/13/21 07:33 68 18 99 08/13/21 07:19 73 19 117/73 100 08/13/21 07:00 71 24 91 08/13/21 06:30 70 23 105/79 95 all noted and reviewed including below
[2021-08-13] MEDS: cefTRIAXone SODIUM 2,000 MG in DEXTROSE 5% 50 ML IV SCH (20:17)
[2021-08-13] MEDS: SIMVASTATIN 10 MG TAB PO SCH (20:45)
[2021-08-14] MEDS: LEVALBUTEROL HCL 0.63 MG/3 ML NEB NEB SCH ×4 (00:09→19:25)
[2021-08-14] MEDS: FERROUS SULFATE 325 MG TAB PO SCH ×2 (05:19→18:28)
[2021-08-14] MEDS: SODIUM CHLOR 7% 4 ML NEB NEB SCH ×2 (07:16→19:18)
[2021-08-14 08:03] LABS: BUN Creatinine Ratio 26.7 (10-20); Calcium 8.3 mg/dl (8.5-10.1); Creatinine Clr Calc Pharmacy 27.9 ml/min; Est GFR (African American) 39.9 ml/min; Est GFR (Non-African American) 34.4 ml/min; Potassium 4.7 mmol/L (3.5-5.1)
[2021-08-14] MEDS: metroNIDAZOLE 500 MG TAB PO SCH ×3 (09:43→20:52)
[2021-08-14] MEDS: dilTIAZem HCL 180 MG CAPCR PO SCH (09:43)
[2021-08-14] MEDS: PANTOprazole 40 MG TAB PO SCH ×2 (09:43→20:53)
[2021-08-14] MEDS: busPIRone 5 MG TAB PO SCH ×2 (09:43→20:53)
[2021-08-14] MEDS: CHOLECALCIFEROL 1,000 UNITS 25 MCG TAB PO SCH (09:44)
[2021-08-14] MEDS: predniSONE 20 MG TAB PO SCH (09:44)
[2021-08-14] MEDS: DOXYCYCLINE HYCLATE 100 MG CAP PO SCH ×2 (09:45→20:53)
[2021-08-14] MEDS: NICOTINE 21 MG/24 HR TDSY TD SCH (09:45)
[2021-08-14] MEDS: GABAPENTIN 100 MG CAP PO SCH (09:45)
[2021-08-14] MEDS: guaiFENesin 600 MG TABCR PO SCH ×2 (09:46→20:52)
[2021-08-14] MEDS: APIXABAN 2.5 MG TAB PO SCH ×2 (09:47→20:52)
[2021-08-14] MEDS: FLUTICASONE/VILANTEROL 200/25MCG 14 PUFFS/INHALER INH SCH (09:47)
[2021-08-14] MEDS: DOCUSATE SODIUM 100 MG CAP PO SCH ×2 (09:56→20:53)
[2021-08-14] MEDS: DONEPEZIL HCL 5 MG TAB PO SCH (10:19)
--- NOTE | 2021-08-14 15:17 | Fluoroscopy Report ---
FL video swallow CLINICAL HISTORY: r/o aspiration TECHNIQUE: Video fluoroscopy of the pharyngeal region was performed as barium mixtures of varying con sistencies were administered to the patient by the speech pathologist. A formal esophagram was not pe rformed. COMPARISON: None. FINDINGS: The patient swallowed the different barium consistencies without difficulty. There was no l aryngeal vestibular penetration or patti tracheal aspiration. Multiple swallows required to clear the pharynx. Total fluoroscopy time: 2.9 minutes. IMPRESSION: No evidence of aspiration. Please see the speech pathology report for further details. ACT 112: Negative or not required by law. Electronically signed by: Russel Dangelo M.D. 08/14/2021 3:15 PM
--- NOTE | 2021-08-14 17:22 | Communication Note ---
Date of Service: August 14, 2021 Patient denies shortness of breath, although subjective input likely unreliable due to her dementia. Patient tells me she needs to get home soon as possible because "she has 22 kids to take care of". Rate controlled atrial fibrillation noted on telemetry, 90 to 100 bpm. Continue oral diltiazem CD 180 mg daily Continue Eliquis 2.[address] Eid rounding 08/15/2021 Please call with any questions or concerns.
--- NOTE | 2021-08-14 19:27 | Hospitalist Progress Note ---
Date of Service August 14, 2021 delayed entry date of service noted above Assessment & Plan (1) Acute and chronic respiratory failure with hypoxia: (2) Right lower lobe pneumonia: (3) Acute exacerbation of chronic obstructive pulmonary disease: (4) Anemia: (5) UGIB (upper gastrointestinal bleed): (6) Atrial fibrillation: (7) Hypertension: (8) Alzheimer's dementia: (9) Current smoker: Plan: per admitting service notes with addendum: This is a 70-year-old female who has significant past medical history of chronic hypoxic respiratory failure secondary to COPD, PAF anticoagulated on Eliquis, HTN, HLD, severe protein calorie malnutrition, chronic HFpEF, CKD stage III, Alzheimer's type dementia, tobacco abuse, osteoporosis, LAURE who currently resides at [facility] and was referred to ED secondary to chest pain and cough prior to arrival. Acute on chronic hypoxic respiratory failure Right lower lobe pneumonia with pleural effusion, possible aspiration COPD exacerbation med telemetry IV cefepime, oral Flagyl and doxycycline Pulmonary toilet with nebulizer treatment, flutter valve and incentive spirometer PO Prednisone, 95% on 4L, not on home O2 continue Breo, oxygen supplementation, maintain O2 88-90% 08/14 now on 2-3 L oxymask Wheezing improving, clinically improving CT chest: 1. Interval worsening of small bilateral pleural effusions and infectious/inflammatory nodularity and consolidation of the right lung base. 2. 7 mm nodule in the right lower lobe is seen which may represent infectious/inflammatory nodule. Follow-up to resolution is recommended. continue Ceftri, Doxy, Flagyl Day 4 continue Nebs, hypertonic saline, Mucinex continue Prednisone 40mg po daily day 4, Incentive Spirometry, Flutter valve encouraged monitor closely wean off oxygen accordingly Atrial fibrillation with RVR, known hx of PAF Likely in setting of acute COPD exacerbation and pneumonia Give home dose of diltiazem x1 now Hold Eliquis due to concern for possible GI bleed Lopressor 5 mg IV every 4 hours as needed for heart rate greater than 110 Cards eval 08/14 Diltiazem drip discontinued now on PO Diltiazem HR controlled on Eliquis Mild Troponin Elevation from Demand Ischemia Possible upper GI bleed Anemia -Due to lab error Significant decrease in hemoglobin from 14.9-9.3, Now up to 14.8 IV PPI twice daily, OP egd/colon per GI Gastroenterology - Seen and Signed Off - Hg stable ~14 HTN Stable, continue diltiazem HLD Continue statin Dementia, Alzheimer type LAURE Continue donezepil Continue BuSpar monitor for delirium DVT prophylaxis: SCD/teds, Eliquis Dispo: anticipate return to [facility] when medically stable FULL CODE PCP: Dr. Franz Admission and Anticipated Discharge Date Admission Date: August 10, 2021 Subjective Follow-up for COPD exacerbation, pneumonia, etc. Resting in bed, sleeping but easily awakened States she feels improved overall Breathing is improving, no coughing No chest pain, palpitations, dizziness No other symptoms Review of Systems Review of Systems: all noted and negative except for above Physical Exam Physical Exam: General- oriented x 1-2, not in distress, speaks in sentences with no effort or accessory muscle use Eyes- anicteric Neck- no JVD Lungs- clear breath sounds bilaterally, no rales/wheezes Heart- normal rate, regular rhythm; no murmurs Abdomen- normal bowel sounds, nondistended, soft, nontender Extremities- no pretibial edema, no calf tenderness Neuro- alert, oriented x 1-2; no gross focal neurologic deficits Skin- warm & dry Results & Data Results & Data ([facility]) Vital Signs (Past 12 Hours) Vital Signs Temp Pulse Resp BP Pulse Ox Pulse Ox 08/14/21 19:19 78 20 97 08/14/21 17:00 36.7 C 101 H 18 126/88 97 08/14/21 12:00 36.7 C 82 20 112/70 93 08/14/21 09:06 36.8 C 92 H 20 120/56 L 92 08/14/21 09:00 94 all noted and reviewed including below
[2021-08-14] MEDS: SIMVASTATIN 10 MG TAB PO SCH (20:53)
[2021-08-14] MEDS: cefTRIAXone SODIUM 2,000 MG in DEXTROSE 5% 50 ML IV SCH (22:20)
[2021-08-15] MEDS: LEVALBUTEROL HCL 0.63 MG/3 ML NEB NEB SCH ×4 (00:04→19:38)
[2021-08-15] MEDS: FERROUS SULFATE 325 MG TAB PO SCH ×2 (05:30→17:45)
[2021-08-15] MEDS: SODIUM CHLOR 7% 4 ML NEB NEB SCH ×2 (07:18→19:12)
[2021-08-15 07:32] LABS: BUN Creatinine Ratio 27.9 (10-20); Calcium 8.5 mg/dl (8.5-10.1); Creatinine Clr Calc Pharmacy 30.7 ml/min; Est GFR (African American) 44.9 ml/min; Est GFR (Non-African American) 38.8 ml/min; Potassium 4.6 mmol/L (3.5-5.1)
[2021-08-15] MEDS: dilTIAZem HCL 180 MG CAPCR PO SCH (09:10)
[2021-08-15] MEDS: CHOLECALCIFEROL 1,000 UNITS 25 MCG TAB PO SCH (09:10)
[2021-08-15] MEDS: DONEPEZIL HCL 5 MG TAB PO SCH (09:11)
[2021-08-15] MEDS: GABAPENTIN 100 MG CAP PO SCH (09:11)
[2021-08-15] MEDS: APIXABAN 2.5 MG TAB PO SCH ×2 (09:11→21:05)
[2021-08-15] MEDS: busPIRone 5 MG TAB PO SCH ×2 (09:11→21:05)
[2021-08-15] MEDS: PANTOprazole 40 MG TAB PO SCH ×2 (09:11→21:05)
[2021-08-15] MEDS: metroNIDAZOLE 500 MG TAB PO SCH ×2 (09:11→15:09)
[2021-08-15] MEDS: predniSONE 20 MG TAB PO SCH (09:11)
[2021-08-15] MEDS: DOXYCYCLINE HYCLATE 100 MG CAP PO SCH ×2 (09:11→21:05)
[2021-08-15] MEDS: NICOTINE 21 MG/24 HR TDSY TD SCH (09:11)
[2021-08-15] MEDS: guaiFENesin 600 MG TABCR PO SCH ×2 (09:12→21:05)
[2021-08-15] MEDS: DOCUSATE SODIUM 100 MG CAP PO SCH ×2 (09:12→21:10)
[2021-08-15] MEDS: FLUTICASONE/VILANTEROL 200/25MCG 14 PUFFS/INHALER INH SCH (09:55)
[2021-08-15] MEDS ORDERED: FUROSEMIDE INJ 20 MG/2 ML VIAL IV ONE (17:43)
--- NOTE | 2021-08-15 17:46 | Hospitalist Progress Note ---
Date of Service August 15, 2021 Assessment & Plan (1) Acute and chronic respiratory failure with hypoxia: (2) Right lower lobe pneumonia: (3) Acute exacerbation of chronic obstructive pulmonary disease: (4) Anemia: (5) UGIB (upper gastrointestinal bleed): (6) Atrial fibrillation: (7) Hypertension: (8) Alzheimer's dementia: (9) Current smoker: Plan: per admitting service notes with addendum: This is a 70-year-old female who has significant past medical history of chronic hypoxic respiratory failure secondary to COPD, PAF anticoagulated on Eliquis, HTN, HLD, severe protein calorie malnutrition, chronic HFpEF, CKD stage III, Alzheimer's type dementia, tobacco abuse, osteoporosis, LUARE who currently resides at [facility] and was referred to ED secondary to chest pain and cough prior to arrival. Acute on chronic hypoxic respiratory failure Right lower lobe pneumonia with pleural effusion, possible aspiration COPD exacerbation med telemetry IV cefepime, oral Flagyl and doxycycline Pulmonary toilet with nebulizer treatment, flutter valve and incentive spirometer PO Prednisone, 95% on 4L, not on home O2 continue Breo, oxygen supplementation, maintain O2 88-90% 08/15 now on 2-3 L oxymask (+) wheeze today CT chest: 1. Interval worsening of small bilateral pleural effusions and infectious/inflammatory nodularity and consolidation of the right lung base. 2. 7 mm nodule in the right lower lobe is seen which may represent infectious/inflammatory nodule. Follow-up to resolution is recommended. continue Ceftri, Doxy, Flagyl continue Nebs, hypertonic saline, Mucinex continue Prednisone 30mg po daily Lasix 20mg IV today Incentive Spirometry, Flutter valve encouraged monitor closely wean off oxygen accordingly Atrial fibrillation with RVR, known hx of PAF Likely in setting of acute COPD exacerbation and pneumonia Give home dose of diltiazem x1 now Hold Eliquis due to concern for possible GI bleed Lopressor 5 mg IV every 4 hours as needed for heart rate greater than 110 Cards eval 08/15 Diltiazem drip discontinued now on PO Diltiazem HR controlled on Eliquis Mild Troponin Elevation from Demand Ischemia Possible upper GI bleed Anemia -Due to lab error Significant decrease in hemoglobin from 14.9-9.3, Now up to 14.8 IV PPI twice daily, OP egd/colon per GI Gastroenterology - Seen and Signed Off - Hg stable ~14 HTN Stable, continue diltiazem HLD Continue statin Dementia, Alzheimer type LAURE Continue donezepil Continue BuSpar monitor for delirium DVT prophylaxis: SCD/teds, Eliquis Dispo: anticipate return to [facility] when medically stable FULL CODE PCP: Dr. Franz Admission and Anticipated Discharge Date Admission Date: August 10, 2021 Subjective Follow-up for COPD exacerbation, pneumonia, etc. Seen sitting up in bed, comfortable, on 2 L of oxygen States she feels fine overall Breathing is improved, no cough No chest pain, dizziness palpitations, nausea vomiting No other symptoms no other issues prior to next Review of Systems Review of Systems: all noted and negative except for above Physical Exam Physical Exam: General- oriented x 1, not in distress, speaks in sentences with no effort or accessory muscle use Eyes- anicteric Neck- no JVD Lungs-mild wheeze, bilaterally Good air entry bilaterally Heart- normal rate, regular rhythm; no murmurs Abdomen- normal bowel sounds, nondistended, soft, nontender Extremities- no pretibial edema, no calf tenderness Neuro- alert, oriented x 1; no gross focal neurologic deficits Skin- warm & dry Results & Data Results & Data ([facility]) Vital Signs (Past 12 Hours) Vital Signs Temp Pulse Resp BP Pulse Ox Pulse Ox 08/15/21 15:39 36.6 C 102 H 18 132/83 98 08/15/21 13:17 90 18 91 08/15/21 12:04 36.4 C L 106 H 20 131/67 93 08/15/21 09:00 97 08/15/21 07:58 36.6 C 112 H 22 149/85 H 93 08/15/21 07:19 91 H 18 90 all noted and reviewed including below
[2021-08-15] MEDS: cefTRIAXone SODIUM 2,000 MG in DEXTROSE 5% 50 ML IV SCH (21:05)
[2021-08-15] MEDS: SIMVASTATIN 10 MG TAB PO SCH (21:05)
[2021-08-15] MEDS: haloperidoL 1 MG TAB PO PRN (21:09)
[2021-08-16] MEDS: LEVALBUTEROL HCL 0.63 MG/3 ML NEB NEB SCH ×2 (00:02→07:11)
[2021-08-16] MEDS: FERROUS SULFATE 325 MG TAB PO SCH (05:58)
[2021-08-16] MEDS: SODIUM CHLOR 7% 4 ML NEB NEB SCH (07:11)
[2021-08-16] MEDS: dilTIAZem HCL 180 MG CAPCR PO SCH (07:55)
[2021-08-16] MEDS: CHOLECALCIFEROL 1,000 UNITS 25 MCG TAB PO SCH (07:55)
[2021-08-16] MEDS: GABAPENTIN 100 MG CAP PO SCH (07:55)
[2021-08-16] MEDS: busPIRone 5 MG TAB PO SCH (07:56)
[2021-08-16] MEDS: PANTOprazole 40 MG TAB PO SCH (07:56)
[2021-08-16] MEDS: guaiFENesin 600 MG TABCR PO SCH (07:56)
[2021-08-16] MEDS: DONEPEZIL HCL 5 MG TAB PO SCH (07:56)
[2021-08-16] MEDS: DOXYCYCLINE HYCLATE 100 MG CAP PO SCH (07:56)
[2021-08-16] MEDS: DOCUSATE SODIUM 100 MG CAP PO SCH (07:57)
[2021-08-16] MEDS: NICOTINE 21 MG/24 HR TDSY TD SCH (07:57)
[2021-08-16] MEDS: APIXABAN 2.5 MG TAB PO SCH (07:57)
[2021-08-16] MEDS: FLUTICASONE/VILANTEROL 200/25MCG 14 PUFFS/INHALER INH SCH (07:57)
[2021-08-16 08:09] LABS: BUN Creatinine Ratio 24.1 (10-20); Calcium 8.3 mg/dl (8.5-10.1); Creatinine Clr Calc Pharmacy 25.4 ml/min; Est GFR (African American) 37.5 ml/min; Est GFR (Non-African American) 32.3 ml/min; Potassium 4.3 mmol/L (3.5-5.1)
[2021-08-16] MEDS ORDERED: predniSONE 10 MG TABLET PO SCH (09:00)
--- NOTE | 2021-08-16 09:29 | Hospitalist Progress Note ---
Date of Service August 16, 2021 Assessment & Plan (1) Acute and chronic respiratory failure with hypoxia: (2) Right lower lobe pneumonia: (3) Acute exacerbation of chronic obstructive pulmonary disease: (4) Anemia: (5) UGIB (upper gastrointestinal bleed): (6) Atrial fibrillation: (7) Hypertension: (8) Alzheimer's dementia: (9) Current smoker: Plan: per admitting service notes with addendum: This is a 70-year-old female who has significant past medical history of chronic hypoxic respiratory failure secondary to COPD, PAF anticoagulated on Eliquis, HTN, HLD, severe protein calorie malnutrition, chronic HFpEF, CKD stage III, Alzheimer's type dementia, tobacco abuse, osteoporosis, LAURE who currently resides at [facility] and was referred to ED secondary to chest pain and cough prior to arrival. Acute on chronic hypoxic respiratory failure Right lower lobe pneumonia with pleural effusion, possible aspiration COPD exacerbation med telemetry IV cefepime, oral Flagyl and doxycycline Pulmonary toilet with nebulizer treatment, flutter valve and incentive spirometer PO Prednisone, 95% on 4L, not on home O2 continue Breo, oxygen supplementation, maintain O2 88-90% 08/16 now on 2 L oxymask wheezing now only faint clinically improved overall CT chest: 1. Interval worsening of small bilateral pleural effusions and infectious/inflammatory nodularity and consolidation of the right lung base. 2. 7 mm nodule in the right lower lobe is seen which may represent infectious/inflammatory nodule. Follow-up to resolution is recommended. given Ceftri, Doxy, Flagyl Nebs, hypertonic saline, Mucinex Prednisone 40mg then 30mg po daily Incentive Spirometry, Flutter valve encouraged discharge plan: Cefdinir and Doxycycline x 1 more day to complete 7 day course Prednisone taper Mucinex Nebs Atrial fibrillation with RVR, known hx of PAF Likely in setting of acute COPD exacerbation and pneumonia Diltiazem drip discontinued resumed PO Diltiazem HR controlled on Eliquis Mild Troponin Elevation from Demand Ischemia Possible upper GI bleed Anemia -Due to lab error Significant decrease in hemoglobin from 14.9-9.3, Now up to 14.8 IV PPI twice daily, OP egd/colon per GI Gastroenterology - Seen and Signed Off - Hg stable ~14 HTN Stable, continue diltiazem HLD Continue statin Dementia, Alzheimer type LAURE Continue donezepil Continue BuSpar DVT prophylaxis: SCD/teds, Eliquis Dispo: d/c to SNF ff up with PCP in 1 week Admission and Anticipated Discharge Date Admission Date: August 10, 2021 Subjective ff up for COPD exacerbation, pneumonia, etc seen resting in bed, comfortable confused but calm, cooperative, pleasant on 2 L NC states she feels much better overall no dyspnea, cough, chest pain, palpitations, dizziness no other symptoms states she is ready and would like to be discharged today Review of Systems Review of Systems: all noted and negative except for above Physical Exam Physical Exam: General- oriented x 1, not in distress, speaks in sentences with no effort or accessory muscle use Eyes- anicteric Neck- no JVD Lungs- faint wheeze at the bases good air entry bilaterally Heart- normal rate, regular rhythm; no murmurs Abdomen- normal bowel sounds, nondistended, soft, nontender Extremities- no pretibial edema, no calf tenderness Neuro- alert, oriented x 1; no new gross focal neurologic deficits Skin- warm & dry Results & Data Results & Data ([facility]) Vital Signs (Past 12 Hours) Vital Signs Temp Pulse Pulse Resp BP Pulse Ox 08/16/21 07:44 36.9 C 92 H 22 128/80 93 08/16/21 07:11 93 H 18 95 08/16/21 03:10 36.5 C 96 H 24 116/75 98 08/16/21 00:03 90 20 97 08/15/21 23:29 36.4 C L 87 20 129/88 98 08/15/21 23:26 94 H all noted and reviewed including below
--- NOTE | 2021-08-16 09:53 | Discharge Summary ---
Date of Service August 16, 2021 Admission HPI Per Admitting Provider This is a 70-year-old female who has significant past medical history of chronic hypoxic respiratory failure secondary to COPD, PAF anticoagulated on Eliquis, HTN, HLD, severe protein calorie malnutrition, chronic HFpEF, CKD stage III, Alzheimer's type dementia, tobacco abuse, osteoporosis, LAURE who currently resides at [facility] and was referred to ED secondary to chest pain and cough prior to arrival. ROS limited from patient in setting of Alzheimer's disease. She states she has been having a cough off and on the past couple days, occasionally productive, unsure of sputum color and chest pain that st arted this morning. Chest pain was located on front of chest bilaterally, nonradiating, made worse with coughing, currently resolved, has never experienced in the past, and nothing made it better or worse. Currently chest pain has resolved. She does wear oxygen chronically but is unsure of how many liters. According to [facility] she is noncompliant with wearing her oxygen. They states she is on 2 L. Patient denies any fever, chills, sweats, lightheadedness, dizziness, worsening shortness of breath, nausea, vomiting, abdominal pain, hemoptysis, diarrhea or melena. Nursing staff at [facility] are unaware of any black tarry stool. In ED patient was hypoxic requiring 3 L of oxygen. Her chest x-ray was consistent with a right small pleural effusion and likely pneumonia. She was in A. fib with RVR. Lab work significant for decline in hemoglobin to 9.3, FOBT positive. Her creatinine was mildly elevated at 1.31. She received IV Rocephin. Admission Exam (Per Admitting) Constitutional Constitutional: Thin, petite, female , vitals as above, NAD, sitting up in bed, pleasant, conversing easily Head: Normocephalic, Atraumatic Eyes: PERRL, conjunctivae normal, anicteric sclerae ENMT: external ear and nose normal, oropharynx normal Neck: trachea midline, no thyromegaly normal visual inspection Respiratory: normal respiratory effort, on 3 L of O2, diffuse inspiratory expiratory wheezing, no rales or rhonchi. Normal insp/exp effort, no accessory muscle use Cardiovascular:irregular rate, irregular rhythm, no murmur, no edema Vessels: no JVD or carotid bruit Chest: normal inspection of chest Abdomen: normal bowel sounds, soft, nontender, no hepatosplenomegaly Musculoskeletal: no cyanosis or clubbing, extremities motor strength 5/5 Skin: no rashes, warm and dry normal turgor Neurologic: PERRL, EOMI, accommodation nl, no face palsy, no dysarthria CN's II-XI intact bilaterally and moves all extremities Psychiatric: A+O to self only, euthymic affect Lymphatic: no cervical or axillary lymphadenopathy : deferred Discharge Data Consultations 08/10/21 07:44 ED Decision to Admit Stat 08/10/21 08:42 Consult Gastroenterology Routine 08/11/21 10:31 Consult Cardiology Routine Procedures Performed CT chest diagnostic wo con CLINICAL HISTORY: pneumonia, pleural effusion TECHNIQUE: Multidetector row helical CT of the chest was performed. Coronal and sagittal reformations were obtained. Automated dose lowering techniques and/or adjustment according to patient size were utilized for this exam. Comparison: Comparison is made to CT chest 12/28/2020 FINDINGS: Exam is limited by patient motion. Lungs and pleura: There is diffuse emphysema. Interval enlargement of small right greater than left pleural effusions. A 7 mm nodule is in the right lower lobe (series 4 image [id number]). Nodularity and ground glass/consolidative opacities are seen in the right lower lobe. Heart and pericardium: Cardiomegaly is seen with biatrial enlargement. Vessels: The pulmonary trunk is enlarged measuring 36 mm in diameter. Moderate atherosclerotic disease is seen. Mediastinum and estela: Subcentimeter lymph nodes are seen. Chest wall and lower neck: Unremarkable. Abdomen: Unremarkable. Bones: Degenerative changes in the thoracic spine. IMPRESSION: 1. Interval worsening of small bilateral pleural effusions and infectious/inflammatory nodularity and consolidation of the right lung base. 2. 7 mm nodule in the right lower lobe is seen which may represent infectious/inflammatory nodule. Follow-up to resolution is recommended. ACT 112: Negative or not required by law. Electronically signed by: Russel Dangelo M.D. 08/12/2021 3:14 PM Hospital Course (1) Acute and chronic respiratory failure with hypoxia: (2) Right lower lobe pneumonia: (3) Acute exacerbation of chronic obstructive pulmonary disease: (4) Anemia: (5) UGIB (upper gastrointestinal bleed): (6) Atrial fibrillation: (7) Hypertension: (8) Alzheimer's dementia: (9) Current smoker: per admitting service notes with addendum: This is a 70-year-old female who has significant past medical history of chronic hypoxic respiratory failure secondary to COPD, PAF anticoagulated on Eliquis, HTN, HLD, severe protein calorie malnutrition, chronic HFpEF, CKD stage III, Alzheimer's type dementia, tobacco abuse, osteoporosis, LAURE who currently resides at [facility] and was referred to ED secondary to chest pain and cough prior to arrival. Acute on chronic hypoxic respiratory failure Right lower lobe pneumonia with pleural effusion, possible aspiration COPD exacerbation med telemetry IV cefepime, oral Flagyl and doxycycline Pulmonary toilet with nebulizer treatment, flutter valve and incentive spirometer PO Prednisone, 95% on 4L, not on home O2 continue Breo, oxygen supplementation, maintain O2 88-90% 08/16 now on 2 L oxymask wheezing now only faint clinically improved overall CT chest: 1. Interval worsening of small bilateral pleural effusions and infectious/inflammatory nodularity and consolidation of the right lung base. 2. 7 mm nodule in the right lower lobe is seen which may represent infectious/inflammatory nodule. Follow-up to resolution is recommended. given Ceftri, Doxy, Flagyl Nebs, hypertonic saline, Mucinex Prednisone 40mg then 30mg po daily Incentive Spirometry, Flutter valve encouraged Videoswallow Eval: no aspiration discharge plan: Cefdinir and Doxycycline x 1 more day to complete 7 day course Prednisone taper Mucinex Nebs repeat chest xray in [address] chest as outpatient to follow up pulmonary nodule (Please refer to full report in the Ordered Studies section above) Atrial fibrillation with RVR, known hx of PAF Likely in setting of acute COPD exacerbation and pneumonia Diltiazem drip discontinued resumed PO Diltiazem HR controlled on Eliquis Mild Troponin Elevation from Demand Ischemia Possible upper GI bleed Anemia -Due to lab error Significant decrease in hemoglobin from 14.9-9.3, Now up to 14.8 IV PPI twice daily, OP egd/colon per GI Gastroenterology - Seen and Signed Off - Hg stable ~14 HTN Stable, continue diltiazem HLD Continue statin Dementia, Alzheimer type LAURE Continue donezepil Continue BuSpar DVT prophylaxis: SCD/teds, Eliquis Dispo: d/c to SNF ff up with PCP in 1 week
== END 2021-08-16 12:46 | DRG 177 ==
LOC: ED 05:22 → EDINP 08:42 → SUATTDRO 08:42 → EDINP 09:37 → 2S 08-13 12:49